=== PATIENT | female | born 1955 | race Caucasian/White ===

== ENCOUNTER → 2016-11-01 | Outpatient (CLI) | payer MEDICARE ==
--- NOTE | 2016-11-02 09:24 | MM ---
Reason for exam: screening (asymptomatic). Last mammogram was performed 1 year and 1 month ago. History: Patient is nulliparous. Core biopsy of the left breast. Physical Findings: A clinical breast exam by your physician is recommended on an annual basis and results should be correlated with mammographic findings. MG 3D Screening Mammo W/Cad Bilateral CC and MLO view(s) were taken. Prior study comparison: September 30, 2015, bilateral MG screening mammo w CAD. September 21, 2014, mammogram, performed at [facility]. There are scattered fibroglandular densities. There is no discrete abnormality. No significant changes when compared with prior studies. ASSESSMENT: Negative, BI-RAD 1 RECOMMENDATION: Routine screening mammogram of both breasts in 1 year.
== END | disposition home or self-care (01) ==
LOC: RADMAMWWP 13:53
PROVIDERS: ATTEND Family Medicine
DX: Z12.31 Encounter for screening mammogram for malignant neoplasm of breast (principal); Z80.3 Family history of malignant neoplasm of breast
CPT/HCPCS: 77063; G0202

== ENCOUNTER → 2016-11-19 | Outpatient (CLI) | payer MEDICARE ==
--- NOTE | 2016-11-19 15:27 | US ---
EXAMINATION TYPE: US transvaginal DATE OF EXAM: 11/19/2016 3:12 PM COMPARISON: NONE CLINICAL HISTORY: R10.31 RIGHT LOWER QUAD PAIN. TECHNIQUE: Transvaginal (TV) Date of LMP: postmenopausal x 10 yrs EXAM MEASUREMENTS: Uterus: 5.9 x 3.3 x 5.1cm Endometrial Stripe: 0.6 cm Right Ovary: 2.9 x 4.2 x 2.5 cm Left Ovary: 2.1 x 1.5 x 1.1 cm Findings: 1. Uterus: Retroverted seen with a 2.3 x 2.1 x 2.1cm shadowing fibroid at the uterine body 2. Endometrium: indented by fibroid, limitations 3. Right Ovary: seen with a few cystic components, largest about 2.0cm 4. Left Ovary: wnl 5. Bilateral Adnexa: wnl 6. Posterior cul-de-sac: no free fluid seen IMPRESSION: 1. Calcified leiomyoma. 2. Nonspecific Cystic changes right ovary.
== END | disposition home or self-care (01) ==
LOC: RADUSWWP 14:52
PROVIDERS: ATTEND Family Medicine
DX: D25.9 Leiomyoma of uterus, unspecified (principal); N83.209 Unspecified ovarian cyst, unspecified side
CPT/HCPCS: 76830

== ENCOUNTER 2017-05-16 07:35 | Day surgery (SDC) | payer MEDICARE ==
[2017-05-13 17:14] VITALS: BMI 47.1
[~2017-05-16 07:35] MED LIST: LIDOCAINE 1% 20 ML VIAL (10MG/ML) FOR IV START INTRADERMA PRN
[2017-05-16 07:53] VITALS: TEMP 97.4
[2017-05-16] MEDS: LACTATED RINGERS 1,000 ML IV SCH ×2 (08:13→08:23)
[2017-05-16 08:14] LABS: Glucose,Whole Blood 170 mg/dL (75-99)
[2017-05-16] MEDS ORDERED: PROPOFOL 10 MG/ML 20 ML VIAL IV ONE (08:34)
[2017-05-16] MEDS ORDERED: fentaNYL (PF) 50 MCG/ML 2 ML AMP ONE (08:34)
[2017-05-16] MEDS ORDERED: LIDOCAINE 1% INJ 10MG/ML (20 ML MDV) ONE (08:34)
[2017-05-16] MEDS ORDERED: MIDAZOLAM 2 MG/2 ML VIAL ONE (08:34)
--- NOTE | 2017-05-16 08:52 | P.GSHP ---
History of Present Illness H&P Date: 05/16/17 Chief Complaint: GI bleed This a 61-year-old female presents today for EGD and colonoscopy. She's had issues with GI bleed. She has a strong family history of colon cancer. - Constitutional Constitutional: Reports as per HPI Past Medical History Past Medical History: Heart Failure, Diabetes Mellitus, Hyperlipidemia, Hypertension, Skin Disorder, Thyroid Disorder Additional Past Medical History / Comment(s): BLOATING, DIARRHEA X5 WKS. VAGINAL HERPES SIMPLEX CURRENT. History of Any Multi-Drug Resistant Organisms: None Reported Past Surgical History: Appendectomy, Bariatric Surgery, Cholecystectomy Additional Past Surgical History / Comment(s): GASTRIC SLEEVE 09/2015. COLONOSCOPY Past Anesthesia/Blood Transfusion Reactions: Postoperative Nausea & Vomiting ( PONV) Smoking Status: Never smoker - Past Family History Sister(s) Family Medical History: Cancer, Pulmonary Embolus Additional Family Medical History / Comment(s): 2 SISTERS - COLON Medications and Allergies Home Medications Medication Instructions Recorded Confirmed Type Biotin 4,000 mcg PO DAILY 08/25/15 05/16/17 History Calcium Citrate 400 mg PO BID 08/25/15 05/16/17 History Carvedilol [Coreg] 3.125 mg PO BID 08/25/15 05/16/17 History Cholecalciferol [Vitamin D3] 5,000 unit PO DAILY 08/25/15 05/16/17 History Escitalopram [Lexapro] 20 mg PO QAM 08/25/15 05/16/17 History Furosemide [Lasix] 20 mg PO BID 08/25/15 05/16/17 History Insulin Aspart [NovoLOG] 0 unit SQ DAILY 08/25/15 05/16/17 History Levothyroxine Sodium [Synthroid] 112 mcg PO QAM 08/25/15 05/16/17 History Lisinopril [Zestril] 10 mg PO QAM 08/25/15 05/16/17 History Lurasidone [Latuda] 60 mg PO HS 08/25/15 05/16/17 History Multivitamins, Thera [Theragran] 1 each PO DAILY 08/25/15 05/16/17 History Thiamine [Vitamin B-1] 100 mg PO DAILY 08/25/15 05/16/17 History Vitamin B Complex 1,000 mcg PO DAILY 08/25/15 05/16/17 History Alirocumab [Praluent Pen] 150 mg SQ Q15D 05/13/17 05/16/17 History Aspirin [Adult Low Dose Aspirin EC] 81 mg PO DAILY 05/13/17 05/16/17 History Astaxanthine (Otc) 4,000 mcg PO DAILY 05/13/17 05/16/17 History Cholesticare (Otc) 1 tab PO DAILY 05/13/17 05/16/17 History Diosmin-Hesperidin 720 mg PO DAILY PRN 05/13/17 05/16/17 History L.acidoph,Paracasei, B.lactis 1 each PO DAILY 05/13/17 05/16/17 History [Probiotic] Liver Antioxidant (Otc) 1 tab PO DAILY 05/13/17 05/16/17 History Lutein 10 mg PO DAILY 05/13/17 05/16/17 History QUEtiapine [SEROquel] 50 mg PO HS 05/13/17 05/16/17 History Timolol Maleate/Pf [Timoptic 0.25% 1 dropper BOTH EYES DAILY 05/13/17 05/16/17 History Ocudose] Allergies Allergy/AdvReac Type Severity Reaction Status Date / Time influenza virus vaccine, Allergy MOUTH Verified 05/16/17 07:54 specific SORES,ITCHING [influenza virus vacc,specific] rosiglitazone [From Avandia] Allergy Rash/Hives Verified 05/16/17 07:54 Surgical - Exam Vital Signs Temp Pulse Resp BP Pulse Ox 97.4 F L 75 20 123/72 98 05/16/17 07:52 05/16/17 07:52 05/16/17 07:52 05/16/17 07:52 05/16/17 07:52 - General well developed, no distress - Eyes PERRL - ENT normal pinna - Neck no masses - Respiratory normal expansion - Cardiovascular Rhythm: regular - Abdomen Abdomen: soft, non tender Results - Labs Abnormal Lab Results - Last 24 Hours (Table) 05/16/17 Range/Units 08:10 POC Glucose (mg/dL) 170 H (75-99) mg/dL Assessment and Plan Plan: GI bleed, family history of colon cancer. We'll perform EGD and colonoscopy.
--- NOTE | 2017-05-16 09:15 | P.OP ---
Date of Procedure: 05/16/17 Preoperative Diagnosis: GI bleed Postoperative Diagnosis: Mild antral gastritis Mild esophagitis Diverticulosis Procedure(s) Performed: Implants: Anesthesia: MAC Surgeon: Casimiro Bach Pathology: other (Antrum, esophagus) Condition: stable Disposition: PACU Indications for Procedure: Operative Findings: Description of Procedure: The patient's placed on the endoscopy table in the lateral position. Received IV sedation. The gastroscope some placed oropharynx and passed into the esophagus and stomach. Scope was then placed through the pylorus. The first and second portion of the duodenum appeared normal. The scope was then brought back the antrum and this appeared mildly inflamed. A biopsies performed. The patient a previous gastric sleeve and this was without evidence of any inflammation or scarring. The GE junction was at 38 cm. The distal esophagus was mildly inflamed a biopsies performed. The proximal esophagus appeared normal. Next digital rectal exam was performed which revealed no abnormalities. The flexible colonoscope was then placed patient anus passed throughout the entire colon. The ileocecal valve was visualized. The cecum and ascending colon and transverse colon appeared normal. In the descending and sigmoid colon there was mild diverticulosis. There is no active diverticular bleeding. The scope was then brought back the rectum and this appeared normal. The scope was withdrawn for patient.
[2017-05-16 09:20] VITALS: RESP 18
[2017-05-16 09:25] LABS: Glucose,Whole Blood 158 mg/dL (75-99)
[2017-05-16 09:37] VITALS: PULSE 54
[2017-05-16 09:59] VITALS: BP 128/60
== END 2017-05-16 10:10 | disposition home or self-care (01) ==
LOC: ORWHC2ENDO 07:35
PROVIDERS: ATTEND Surgery
DX: K29.50 Unspecified chronic gastritis without bleeding (principal); K21.0 Gastro-esophageal reflux disease with esophagitis; K57.30 Diverticulosis of large intestine without perforation or abscess without bleeding; K92.2 Gastrointestinal hemorrhage, unspecified; G47.33 Obstructive sleep apnea (adult) (pediatric); R19.7 Diarrhea, unspecified; I10 Essential (primary) hypertension; E78.5 Hyperlipidemia, unspecified; E11.9 Type 2 diabetes mellitus without complications; Z79.4 Long term (current) use of insulin; Z88.7 Allergy status to serum and vaccine; Z96.41 Presence of insulin pump (external) (internal); Z98.84 Bariatric surgery status; Z79.899 Other long term (current) drug therapy
CPT/HCPCS: 88305; 88342; 45378; 43239; J2250; J2001; J3010; J2704

== ENCOUNTER 2017-06-08 18:33 | Emergency (ER) | payer MEDICARE ==
[2017-06-08] MEDS ORDERED: HYDROcodone/APAP 5-325MG 1 EACH TAB PO STA (18:49)
--- NOTE | 2017-06-08 19:39 | ED ---
General Adult HPI - General Chief complaint: Urogenital Stated complaint: Abd Pain Time Seen by Provider: 06/08/17 18:43 Source: patient, RN notes reviewed Mode of arrival: ambulatory Limitations: no limitations - History of Present Illness Initial comments: This a 61-year-old female presents emergency Department chief complaint of lower abdominal pain. She states his been ongoing for last 6 months or worsen over the last few days. Patient states that she does have some tea and dysuria. Patient states that she had a pelvic ultrasound which showed some ovarian cysts. Patient states she has an appointment with with an [employer] the next week. Patient states didn't see one locally but she did not like them so left her practice. Patient states that she was told that the pain may be related from her cervix. Patient states she has pain and right lower and suprapubic region. Patient states she has had a prior appendectomy. Patient has not had a hysterectomy and oophorectomy. Patient denies any diarrhea or constipation at this time. Patient has fever, chills. Patient states she did have a recent colonoscopy in May which showed some mild diverticulosis but no other concerns. - Related Data Home Medications Medication Instructions Recorded Confirmed Biotin 5 mg PO HS 08/25/15 06/08/17 Cholecalciferol [Vitamin D3] 5,000 unit PO HS 08/25/15 06/08/17 Escitalopram [Lexapro] 20 mg PO QAM 08/25/15 06/08/17 Levothyroxine Sodium [Synthroid] 112 mcg PO QAM 08/25/15 06/08/17 Lisinopril [Zestril] 10 mg PO QAM 08/25/15 06/08/17 Thiamine [Vitamin B-1] 100 mg PO HS 08/25/15 06/08/17 Vitamin B Complex 1 cap PO DAILY 08/25/15 06/08/17 Alirocumab [Praluent Pen] 150 mg SQ Q15D 05/13/17 06/08/17 Aspirin [Adult Low Dose Aspirin EC] 81 mg PO DAILY 05/13/17 06/08/17 Astaxanthine (Otc) 4,000 mcg PO HS 05/13/17 06/08/17 Cholesticare (Otc) 1 tab PO DAILY 05/13/17 06/08/17 Diosmin-Hesperidin 720 mg PO DAILY PRN 05/13/17 06/08/17 L.acidoph,Paracasei, B.lactis 1 cap PO HS 05/13/17 06/08/17 [Probiotic] Liver Antioxidant (Otc) 1 tab PO DAILY 05/13/17 06/08/17 Lutein 10 mg PO DAILY 05/13/17 06/08/17 QUEtiapine [SEROquel] 50 mg PO HS 05/13/17 06/08/17 Calcium Carbonate [Calcium] 600 mg PO BID 06/08/17 06/08/17 Carvedilol [Coreg] 3.125 mg PO BID 06/08/17 06/08/17 Furosemide [Lasix] 20 mg PO BID 06/08/17 06/08/17 Insulin Aspart (For Pump) [NovoLOG 0.01 unit SQ-PUMP CONTINUOUS 06/08/17 (For Pump)] Lurasidone HCl [Latuda] 60 mg PO HS 06/08/17 06/08/17 Multivitamins, Thera [Multivitamin 1 tab PO DAILY 06/08/17 06/08/17 (formulary)] Timolol 0.5% Ophth Soln [Timoptic 1 drop BOTH EYES QAM 06/08/17 06/08/17 0.5% Ophth Soln] Previous Rx's Medication Instructions Recorded Acetaminophen-Codeine 300-30mg 1 tab PO Q4H PRN #20 tablet 06/08/17 [Tylenol #3] Ciprofloxacin HCl [Cipro] 500 mg PO Q12HR #14 tablet 06/08/17 Allergies Allergy/AdvReac Type Severity Reaction Status Date / Time influenza virus vaccine, Allergy MOUTH Verified 06/08/17 18:38 specific SORES,ITCHING [influenza virus vacc,specific] rosiglitazone [From Avandia] Allergy Rash/Hives Verified 06/08/17 18:38 Review of Systems ROS Statement: Those systems with pertinent positive or pertinent negative responses have been documented in the HPI. ROS Other: All systems not noted in ROS Statement are negative. Past Medical History Past Medical History: Heart Failure, Diabetes Mellitus, Hyperlipidemia, Hypertension, Skin Disorder, Thyroid Disorder Additional Past Medical History / Comment(s): BLOATING, DIARRHEA X5 WKS. VAGINAL HERPES SIMPLEX CURRENT. History of Any Multi-Drug Resistant Organisms: None Reported Past Surgical History: Appendectomy, Bariatric Surgery, Cholecystectomy Additional Past Surgical History / Comment(s): GASTRIC SLEEVE 09/2015. COLONOSCOPY Past Anesthesia/Blood Transfusion Reactions: Postoperative Nausea & Vomiting ( PONV) Past Psychological History: Bipolar Smoking Status: Never smoker Past Alcohol Use History: None Reported Past Drug Use History: None Reported - Past Family History Sister(s) Family Medical History: Cancer, Pulmonary Embolus Additional Family Medical History / Comment(s): 2 SISTERS - COLON General Exam Limitations: no limitations General appearance: alert, in no apparent distress Respiratory exam: Present: normal lung sounds bilaterally. Absent: respiratory distress, wheezes, rales, rhonchi, stridor Cardiovascular Exam: Present: regular rate, normal rhythm, normal heart sounds. Absent: systolic murmur, diastolic murmur, rubs, gallop, clicks GI/Abdominal exam: Present: soft, tenderness (Mild suprapubic tenderness, right lower quadrant tenderness), normal bowel sounds. Absent: distended, guarding, rebound, rigid Back exam: Absent: CVA tenderness (R), CVA tenderness (L) Course Vital Signs 06/08/17 18:36 Temperature 98.2 F Pulse Rate 100 Respiratory 20 Rate Blood Pressure 144/67 O2 Sat by Pulse 98 Oximetry Medical Decision Making - Medical Decision Making 61-year-old female presented for lower abdominal pain. Patient's bilateral ( greatest on the right in the uterine fibroid. Patient also has UTI. She'll be started on antibiotics at this time given the first dose now. 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 - Lab Data Result diagrams: 06/08/17 19:30 06/08/17 19:30 Lab Results 06/08/17 06/08/17 06/08/17 Range/Units 19:15 19:30 19:30 WBC 9.3 (3.8-10.6) k/uL RBC 4.34 (3.80-5.40) m/uL Hgb 13.2 (11.4-16.0) gm/dL Hct 40.0 (34.0-46.0) % MCV 91.9 (80.0-100.0) fL MCH 30.4 (25.0-35.0) pg MCHC 33.0 (31.0-37.0) g/dL RDW 13.2 (11.5-15.5) % Plt Count 378 (150-450) k/uL Neutrophils % 79 % Lymphocytes % 13 % Monocytes % 4 % Eosinophils % 2 % Basophils % 1 % Neutrophils # 7.3 (1.3-7.7) k/uL Lymphocytes # 1.2 (1.0-4.8) k/uL Monocytes # 0.4 (0-1.0) k/uL Eosinophils # 0.2 (0-0.7) k/uL Basophils # 0.1 (0-0.2) k/uL Sodium 142 (137-145) mmol/L Potassium 5.1 (3.5-5.1) mmol/L Chloride 106 (98-107) mmol/L Carbon Dioxide 27 (22-30) mmol/L Anion Gap 9 mmol/L BUN 11 (7-17) mg/dL Creatinine 0.90 (0.52-1.04) mg/dL Est GFR (MDRD) Af Amer >60 (>60 ml/min/1.73 sqM) Est GFR (MDRD) Non-Af >60 (>60 ml/min/1.73 sqM) Glucose 105 H (74-99) mg/dL Calcium 8.9 (8.4-10.2) mg/dL Total Bilirubin 1.0 (0.2-1.3) mg/dL AST 15 (14-36) U/L ALT 22 (9-52) U/L Alkaline Phosphatase 74 (38-126) U/L Total Protein 6.0 L (6.3-8.2) g/dL Albumin 3.3 L (3.5-5.0) g/dL Amylase 40 (30-110) U/L Lipase 86 (23-300) U/L Urine Color Yellow Urine Appearance Cloudy H (Clear) Urine pH 5.5 (5.0-8.0) Ur Specific [place] 1.014 (1.001-1.035) Urine Protein Negative (Negative) Urine Glucose (UA) Negative (Negative) Urine Ketones Negative (Negative) Urine Blood Negative (Negative) Urine Nitrite Positive H (Negative) Urine Bilirubin Negative (Negative) Urine Urobilinogen <2.0 (<2.0) mg/dL Ur Leukocyte Esterase Large H (Negative) Urine RBC 3 (0-5) /hpf Urine WBC 76 H (0-5) /hpf Urine WBC Clumps Rare H (None) /hpf Ur Squamous Epith Cells 1 (0-4) /hpf Ur Transition Epith Cell <1 (0-1) /hpf Urine Bacteria Few H (None) /hpf Hyaline Casts 11 H (0-2) /lpf Urine Mucus Occasional H (None) /hpf Disposition Clinical Impression: Urinary tract infection, Ovarian cyst Disposition: HOME SELF-CARE Condition: Stable Instructions: Urinary Tract Infection in Women (ED), Ovarian Cyst (ED) Additional Instructions: Please return to the Emergency Department if symptoms worsen or any other concerns. Prescriptions: Acetaminophen-Codeine 300-30mg [Tylenol #3] 1 tab PO Q4H PRN #20 tablet PRN Reason: pain Ciprofloxacin HCl [Cipro] 500 mg PO Q12HR #14 tablet Referrals: Jd Bravo MD [Primary Care Provider] - 1-2 days Time of Disposition: 21:07
[2017-06-08 19:44] LABS: Basophils # (A) 0.1 k/uL (0-0.2); Basophils % (A) 1 %; CH 30.6; CHCM 33.5; Eosinophils # (A) 0.2 k/uL (0-0.7); Eosinophils % (A) 2 %; HDW 2.59; HGB 13.2 gm/dL (11.4-16.0); Luc # (Auto) 0.05; Luc % (Auto) 1; Lymphocytes # (A) 1.2 k/uL (1.0-4.8); Lymphocytes % (A) 13 %; MCH 30.4 pg (25.0-35.0); MCV 91.9 fL (80.0-100.0); Mean Platelet Volume 7.9; Monocytes # (A) 0.4 k/uL (0-1.0); Monocytes % (A) 4 %; Neutrophils # (A) 7.3 k/uL (1.3-7.7); Neutrophils % (A) 79 %; RBC 4.34 m/uL (3.80-5.40); RDW 13.2 % (11.5-15.5); WBC 9.3 k/uL (3.8-10.6); WBC (Perox) 9.19
[2017-06-08 19:59] LABS: ALT 22 U/L (9-52); AST 15 U/L (14-36); Alkaline Phosphatase 74 U/L (38-126); Amylase 40 U/L (30-110); Anion Gap 9 mmol/L; Blood Urea Nitrogen 11 mg/dL (7-17); Calcium 8.9 mg/dL (8.4-10.2); Carbon Dioxide 27 mmol/L (22-30); Chloride 106 mmol/L (98-107); Glucose 105 mg/dL (74-99); Non-African American GFR(MDRD) >60 (>60 ml/min/1.73 sqM); Potassium 5.1 mmol/L (3.5-5.1); Sodium 142 mmol/L (137-145)
[2017-06-08 20:08] LABS: Appearance,Urine Cloudy (Clear); Bacteria,Urine Few /hpf; Bilirubin,Urine Negative (Negative); Glucose,Urine (UA) Negative (Negative); Ketones,Urine Negative (Negative); Leukocyte Esterase,Urine Large (Negative); Mucus,Urine Occasional /hpf; Nitrite,Urine Positive (Negative); PH, Urine 5.5 (5.0-8.0); Particle Count 26588; Protein,Urine Negative (Negative); RBC,Urine 3 /hpf (0-5); Specific Gravity,Urine 1.014 (1.001-1.035); Squamous Epithelial Cell,Urine 1 /hpf (0-4); Transitional Epi Cells,Urine <1 /hpf (0-1); UA Billing (MACRO vs. MICRO) MICRO; Urobilinogen,Urine <2.0 mg/dL (<2.0); WBC,Urine 76 /hpf (0-5)
[2017-06-08] MEDS ORDERED: LEVOFLOXACIN 500 MG TAB PO STA (20:13)
--- NOTE | 2017-06-08 21:01 | US ---
EXAMINATION TYPE: US pelvis comp w/tv w/doppler DATE OF EXAM: 06/08/2017 COMPARISON: NONE CLINICAL HISTORY: Pain. RLQ pain greater than LLQ TECHNIQUE: Transvaginal (TV) and Transabdominal (TA) Date of LMP: about 10 years ago EXAM MEASUREMENTS: Uterus: 7.5 x 5.5 x 5.2 cm Endometrial Stripe: 0.5 cm Right Ovary: 8.9 x 6.5 x 9.0 cm Left Ovary: 3.1 x 2.3 x 2.6 cm Limited examination due to bowel, bladder fill, and patient tolerance of exam 1. Uterus: Retroverted; appears heterogeneous in echotexture; echogenic shadowing area right mid/fun kourtney uterus measuring approximately 2.0 x 0.7 x 1.2 cm 2. Endometrium: Limited due to heterogeneous uterus appears wnl 3. Right Ovary: Appears large in size with a large cystic space measuring approximately 3.3 x 2.7 x 2.6 cm 4. Left Ovary: Appears to have complex area measuring approximately 2.0 x 2.0 x 2.6 cm Spectral, color and waveform doppler imaging shows good arterial and venous flow within the ovaries ; there is no evidence for ovarian torsion. 5. Bilateral Adnexa: fluid noted in the right adnexa and posterior cul de sac 6. Posterior cul-de-sac: fluid noted in the right adnexa and posterior cul de sac IMPRESSION: 1. Free fluid within the cul-de-sac and adnexal regions. 2. Left ovarian cyst. 3. Right ovarian cyst. 4. Suspected calcified fibroid within the uterus.
[2017-06-08 21:32] VITALS: BP 138/61; PULSE 67; RESP 18; TEMP 99.2
== END 2017-06-08 21:25 | disposition home or self-care (01) ==
LOC: EC 18:33
DX: N83.201 Unspecified ovarian cyst, right side (principal); N83.202 Unspecified ovarian cyst, left side; N39.0 Urinary tract infection, site not specified; D25.9 Leiomyoma of uterus, unspecified; E78.5 Hyperlipidemia, unspecified; E11.9 Type 2 diabetes mellitus without complications; I11.0 Hypertensive heart disease with heart failure; I50.9 Heart failure, unspecified; E07.9 Disorder of thyroid, unspecified; F31.9 Bipolar disorder, unspecified; Z79.4 Long term (current) use of insulin; Z79.82 Long term (current) use of aspirin; Z79.899 Other long term (current) drug therapy; Z87.19 Personal history of other diseases of the digestive system; Z90.49 Acquired absence of other specified parts of digestive tract; Z98.84 Bariatric surgery status
CPT/HCPCS: 36415; 76830; 76856; 80053; 81001; 82150; 83690; 85025; 93976; 99284

== ENCOUNTER 2017-06-28 02:01 | Observation (INO) | payer MEDICARE ==
--- NOTE | 2017-06-28 02:12 | ED ---
SOB HPI - General Chief Complaint: Shortness of Breath Stated Complaint: Chest pain Time Seen by Provider: 06/28/17 02:07 Source: patient Mode of arrival: wheelchair Limitations: no limitations - History of Present Illness Initial Comments: This patient is a 61-year-old woman who presents to be evaluated for feeling like she cannot take a deep breath then. She states that for between a week and 2 she has had a feeling that she is having increasing abdominal girth and that is becoming harder to take a full breath then. Patient denies fever or chills, chest pain, cough, leg pain or swelling, change in urination or bowel movements. MD Complaint: shortness of breath -: days(s) Improves With: nothing Worsens With: nothing Known History Of: congestive heart failure Associated Symptoms: denies other symptoms Treatments Prior to Arrival: none - Related Data Home Medications Medication Instructions Recorded Confirmed Biotin 5 mg PO HS 08/25/15 06/08/17 Cholecalciferol [Vitamin D3] 5,000 unit PO 08/25/15 06/08/17 Escitalopram [Lexapro] 20 mg PO QAM 08/25/15 06/08/17 Levothyroxine Sodium [Synthroid] 112 mcg PO QAM 08/25/15 06/08/17 Lisinopril [Zestril] 10 mg PO QAM 08/25/15 06/08/17 Thiamine [Vitamin B-1] 100 mg PO HS 08/25/15 06/08/17 Vitamin B Complex 1 cap PO DAILY 08/25/15 06/08/17 Alirocumab [Praluent Pen] 150 mg SQ Q15D 05/13/17 06/08/17 Aspirin [Adult Low Dose Aspirin EC] 81 mg PO DAILY 05/13/17 06/08/17 Astaxanthine (Otc) 4,000 mcg PO HS 05/13/17 06/08/17 Cholesticare (Otc) 1 tab PO DAILY 05/13/17 06/08/17 Diosmin-Hesperidin 720 mg PO DAILY PRN 05/13/17 06/08/17 L.acidoph,Paracasei, B.lactis 1 cap PO HS 05/13/17 06/08/17 [Probiotic] Liver Antioxidant (Otc) 1 tab PO DAILY 05/13/17 06/08/17 Lutein 10 mg PO DAILY 05/13/17 06/08/17 QUEtiapine [SEROquel] 50 mg PO HS 05/13/17 06/08/17 Calcium Carbonate [Calcium] 600 mg PO BID 06/08/17 06/08/17 Carvedilol [Coreg] 3.125 mg PO BID 06/08/17 06/08/17 Furosemide [Lasix] 20 mg PO BID 06/08/17 06/08/17 Insulin Aspart (For Pump) [NovoLOG 0.01 unit SQ-PUMP CONTINUOUS 06/08/17 (For Pump)] Lurasidone HCl [Latuda] 60 mg PO HS 06/08/17 06/08/17 Multivitamins, Thera [Multivitamin 1 tab PO DAILY 06/08/17 06/08/17 (formulary)] Timolol 0.5% Ophth Soln [Timoptic 1 drop BOTH EYES QAM 06/08/17 06/08/17 0.5% Ophth Soln] Previous Rx's Medication Instructions Recorded Acetaminophen-Codeine 300-30mg 1 tab PO Q4H PRN #20 tablet 06/08/17 [Tylenol #3] Ciprofloxacin HCl [Cipro] 500 mg PO Q12HR #14 tablet 06/08/17 Allergies Allergy/AdvReac Type Severity Reaction Status Date / Time influenza virus vaccine, Allergy MOUTH Verified 06/28/17 02:12 specific SORES,ITCHING [influenza virus vacc,specific] rosiglitazone [From Avandia] Allergy Rash/Hives Verified 06/28/17 02:12 Review of Systems ROS Statement: Those systems with pertinent positive or pertinent negative responses have been documented in the HPI. ROS Other: All systems not noted in ROS Statement are negative. Constitutional: Denies: fever, chills Respiratory: Reports: dyspnea. Denies: cough, wheezes, hemoptysis Cardiovascular: Denies: chest pain, palpitations, dyspnea on exertion, orthopnea , edema, syncope Gastrointestinal: Reports: abdominal pain (See HPI). Denies: nausea, vomiting, diarrhea, constipation Genitourinary: Denies: dysuria, hematuria Musculoskeletal: Denies: back pain Skin: Denies: rash Neurological: Denies: headache Past Medical History Past Medical History: Heart Failure, Diabetes Mellitus, Hyperlipidemia, Hypertension, Skin Disorder, Thyroid Disorder Additional Past Medical History / Comment(s): BLOATING, DIARRHEA X5 WKS. VAGINAL HERPES SIMPLEx, History of Any Multi-Drug Resistant Organisms: None Reported Past Surgical History: Appendectomy, Bariatric Surgery, Cholecystectomy Additional Past Surgical History / Comment(s): GASTRIC SLEEVE 09/2015. COLONOSCOPY Past Anesthesia/Blood Transfusion Reactions: Postoperative Nausea & Vomiting ( PONV) Past Psychological History: Bipolar Smoking Status: Never smoker Past Alcohol Use History: None Reported Past Drug Use History: None Reported - Past Family History Sister(s) Family Medical History: Cancer, Pulmonary Embolus Additional Family Medical History / Comment(s): 2 SISTERS - COLON General Exam Limitations: no limitations General appearance: alert, in no apparent distress, obese Head exam: Present: atraumatic, normocephalic Eye exam: Present: normal appearance. Absent: scleral icterus, conjunctival injection Neck exam: Present: normal inspection, full ROM Respiratory exam: Present: normal lung sounds bilaterally. Absent: respiratory distress, wheezes, rales, rhonchi, stridor Cardiovascular Exam: Present: regular rate, normal rhythm, normal heart sounds. Absent: systolic murmur, diastolic murmur, rubs, gallop GI/Abdominal exam: Present: soft, distended, normal bowel sounds. Absent: tenderness, guarding, rebound, pulsatile mass, hernia Extremities exam: Present: normal inspection, normal capillary refill. Absent: pedal edema, calf tenderness Back exam: Present: normal inspection. Absent: CVA tenderness (R), CVA tenderness (L) Neurological exam: Present: alert Skin exam: Present: warm, dry, intact, normal color. Absent: rash Course Vital Signs 06/28/17 06/28/17 06/28/17 02:06 03:30 04:30 Temperature 97.7 F Pulse Rate 85 80 84 Respiratory 20 18 18 Rate Blood Pressure 131/64 129/63 131/64 O2 Sat by Pulse 99 96 96 Oximetry 06/28/17 05:12 Temperature Pulse Rate 85 Respiratory 18 Rate Blood Pressure 120/59 O2 Sat by Pulse 98 Oximetry Medical Decision Making - Lab Data Result diagrams: 06/28/17 02:17 06/28/17 02:17 Lab Results 06/28/17 06/28/17 06/28/17 Range/Units 02:17 02:17 02:17 WBC 7.7 (3.8-10.6) k/uL RBC 4.04 (3.80-5.40) m/uL Hgb 11.9 (11.4-16.0) gm/dL Hct 35.8 (34.0-46.0) % MCV 88.8 (80.0-100.0) fL MCH 29.5 (25.0-35.0) pg MCHC 33.2 (31.0-37.0) g/dL RDW 12.4 (11.5-15.5) % Plt Count 570 H (150-450) k/uL Neutrophils % 68 % Lymphocytes % 22 % Monocytes % 6 % Eosinophils % 2 % Basophils % 1 % Neutrophils # 5.2 (1.3-7.7) k/uL Lymphocytes # 1.7 (1.0-4.8) k/uL Monocytes # 0.5 (0-1.0) k/uL Eosinophils # 0.2 (0-0.7) k/uL Basophils # 0.1 (0-0.2) k/uL PT (9.0-12.0) sec INR (<1.2) APTT (22.0-30.0) sec D-Dimer (<0.60) mg/L FEU Sodium 137 (137-145) mmol/L Potassium 5.0 (3.5-5.1) mmol/L Chloride 105 (98-107) mmol/L Carbon Dioxide 22 (22-30) mmol/L Anion Gap 10 mmol/L BUN 32 H (7-17) mg/dL Creatinine 1.80 H (0.52-1.04) mg/dL Est GFR (MDRD) Af Amer 35 (>60 ml/min/1.73 sqM) Est GFR (MDRD) Non-Af 29 (>60 ml/min/1.73 sqM) Glucose 155 H (74-99) mg/dL Calcium 8.7 (8.4-10.2) mg/dL Total Bilirubin 0.5 (0.2-1.3) mg/dL AST 21 (14-36) U/L ALT 28 (9-52) U/L Alkaline Phosphatase 78 (38-126) U/L Total Creatine Kinase 27 L (30-135) U/L CK-MB (CK-2) 1.4 (0.0-2.4) ng/mL CK-MB (CK-2) Rel Index 5.2 Troponin I <0.012 (0.000-0.034) ng/mL NT-Pro-B Natriuret Pep pg/mL Total Protein 6.0 L (6.3-8.2) g/dL Albumin 3.1 L (3.5-5.0) g/dL Urine Color Urine Appearance (Clear) Urine pH (5.0-8.0) Ur Specific [place] (1.001-1.035) Urine Protein (Negative) Urine Glucose (UA) (Negative) Urine Ketones (Negative) Urine Blood (Negative) Urine Nitrite (Negative) Urine Bilirubin (Negative) Urine Urobilinogen (<2.0) mg/dL Ur Leukocyte Esterase (Negative) Urine RBC (0-5) /hpf Urine WBC (0-5) /hpf Urine WBC Clumps (None) /hpf Ur Squamous Epith Cells (0-4) /hpf Hyaline Casts (0-2) /lpf Urine Mucus (None) /hpf 06/28/17 06/28/17 06/28/17 Range/Units 02:17 02:17 03:02 WBC (3.8-10.6) k/uL RBC (3.80-5.40) m/uL Hgb (11.4-16.0) gm/dL Hct (34.0-46.0) % MCV (80.0-100.0) fL MCH (25.0-35.0) pg MCHC (31.0-37.0) g/dL RDW (11.5-15.5) % Plt Count (150-450) k/uL Neutrophils % % Lymphocytes % % Monocytes % % Eosinophils % % Basophils % % Neutrophils # (1.3-7.7) k/uL Lymphocytes # (1.0-4.8) k/uL Monocytes # (0-1.0) k/uL Eosinophils # (0-0.7) k/uL Basophils # (0-0.2) k/uL PT 11.0 (9.0-12.0) sec INR 1.1 (<1.2) APTT 26.9 (22.0-30.0) sec D-Dimer 14.40 H (<0.60) mg/L FEU Sodium (137-145) mmol/L Potassium (3.5-5.1) mmol/L Chloride (98-107) mmol/L Carbon Dioxide (22-30) mmol/L Anion Gap mmol/L BUN (7-17) mg/dL Creatinine (0.52-1.04) mg/dL Est GFR (MDRD) Af Amer (>60 ml/min/1.73 sqM) Est GFR (MDRD) Non-Af (>60 ml/min/1.73 sqM) Glucose (74-99) mg/dL Calcium (8.4-10.2) mg/dL Total Bilirubin (0.2-1.3) mg/dL AST (14-36) U/L ALT (9-52) U/L Alkaline Phosphatase (38-126) U/L Total Creatine Kinase (30-135) U/L CK-MB (CK-2) (0.0-2.4) ng/mL CK-MB (CK-2) Rel Index Troponin I (0.000-0.034) ng/mL NT-Pro-B Natriuret Pep 1080 pg/mL Total Protein (6.3-8.2) g/dL Albumin (3.5-5.0) g/dL Urine Color Yellow Urine Appearance Cloudy H (Clear) Urine pH 5.0 (5.0-8.0) Ur Specific [place] 1.015 (1.001-1.035) Urine Protein Trace H (Negative) Urine Glucose (UA) Negative (Negative) Urine Ketones Negative (Negative) Urine Blood Negative (Negative) Urine Nitrite Negative (Negative) Urine Bilirubin Negative (Negative) Urine Urobilinogen 2.0 (<2.0) mg/dL Ur Leukocyte Esterase Large H (Negative) Urine RBC 2 (0-5) /hpf Urine WBC 124 H (0-5) /hpf Urine WBC Clumps Occasional H (None) /hpf Ur Squamous Epith Cells 3 (0-4) /hpf Hyaline Casts 67 H (0-2) /lpf Urine Mucus Rare H (None) /hpf - EKG Data -: EKG Interpreted by Me EKG shows normal: sinus rhythm, axis (Normal), intervals (Normal), QRS complexes (Normal) Rate: normal (86 bpm) Interpretation: nonspecific ST-T wave changes Disposition Clinical Impression: Dyspnea, Elevated d-dimer Disposition: ADMITTED IP TO THIS HOSP Condition: Fair Referrals: Jd Bravo MD [Primary Care Provider] - 1-2 days
[2017-06-28 02:37] LABS: Basophils # (A) 0.1 k/uL (0-0.2); Basophils % (A) 1 %; CH 28.8; CHCM 32.5; Eosinophils # (A) 0.2 k/uL (0-0.7); Eosinophils % (A) 2 %; HCT 35.8 % (34.0-46.0); HGB 11.9 gm/dL (11.4-16.0); Luc # (Auto) 0.07; Luc % (Auto) 1; Lymphocytes # (A) 1.7 k/uL (1.0-4.8); Lymphocytes % (A) 22 %; MCH 29.5 pg (25.0-35.0); MCHC 33.2 g/dL (31.0-37.0); MCV 88.8 fL (80.0-100.0); Monocytes # (A) 0.5 k/uL (0-1.0); Monocytes % (A) 6 %; Neutrophils # (A) 5.2 k/uL (1.3-7.7); Neutrophils % (A) 68 %; RBC 4.04 m/uL (3.80-5.40); RDW 12.4 % (11.5-15.5); WBC 7.7 k/uL (3.8-10.6); WBC (Perox) 7.94
[2017-06-28 02:47] LABS: Calcium 8.7 mg/dL (8.4-10.2); Total Bilirubin 0.5 mg/dL (0.2-1.3)
[2017-06-28 02:56] LABS: Creatine Kinase 27 U/L (30-135); INR 1.1 (<1.2); Partial Thromboplastin Time 26.9 sec (22.0-30.0)
--- NOTE | 2017-06-28 02:58 | XR ---
EXAM: XR Chest, 1 View CLINICAL HISTORY: Dyspnea TECHNIQUE: Frontal view of the chest. COMPARISON: No relevant prior studies available. FINDINGS: Lungs: Atelectasis at left lung base. Otherwise, lungs are clear. Pleural space: Unremarkable. No pneumothorax. Heart: Unremarkable. No cardiomegaly. Mediastinum: Unremarkable. Bones/joints: Unremarkable. IMPRESSION: No acute findings.
[2017-06-28 03:09] LABS: Creatine Kinase MB 1.4 ng/mL (0.0-2.4); Troponin I <0.012 ng/mL (0.000-0.034)
[2017-06-28] MEDS ORDERED: HEPARIN SODIUM,PORCINE 5,000 UNIT/ML 1 ML VIAL IV ONE (03:10)
[2017-06-28] MEDS ORDERED: HEPARIN SODIUM,PORCINE/D5W PMX 25,000 UNIT in DEXTROSE/WATER 1 500ML.BAG IV SCH (03:10)
[2017-06-28] MEDS ORDERED: HEPARIN SODIUM,PORCINE 5,000 UNIT/ML 1 ML VIAL IV PRN (03:10)
[2017-06-28 03:14] LABS: Appearance,Urine Cloudy (Clear); Bilirubin,Urine Negative (Negative); Glucose,Urine (UA) Negative (Negative); Ketones,Urine Negative (Negative); Leukocyte Esterase,Urine Large (Negative); Mucus,Urine Rare /hpf; Nitrite,Urine Negative (Negative); Particle Count 7959; Protein,Urine Trace (Negative); RBC,Urine 2 /hpf (0-5); Specific Gravity,Urine 1.015 (1.001-1.035); Squamous Epithelial Cell,Urine 3 /hpf (0-4); UA Billing (MACRO vs. MICRO) MICRO; WBC,Urine 124 /hpf (0-5)
[2017-06-28] MEDS ORDERED: MORPHINE SULFATE 4 MG/ML SYRINGE IV STA (03:20)
[2017-06-28] MEDS ORDERED: ONDANSETRON 4 MG/2 ML VIAL IVP PRN (05:46)
[2017-06-28] MEDS ORDERED: NALOXONE 0.4 MG/ML 1 ML VIAL IV PRN (05:46)
[2017-06-28] MEDS ORDERED: ACETAMINOPHEN TAB 325 MG TAB PO PRN (05:46)
[2017-06-28] MEDS ORDERED: Acetaminophen-Codeine 300-30mg TAB PO PRN (05:48)
[2017-06-28] MEDS: Insulin Aspart (For Pump) 100 UNIT/ML VIAL SQ-PUMP SCH (08:42)
[2017-06-28] MEDS ORDERED: NON-FORMULARY DRUG (Lutein [Lutein] 10 MG) PO SCH (09:00)
[2017-06-28] MEDS ORDERED: FAMOTIDINE 20 MG TAB PO SCH (09:00)
[2017-06-28] MEDS ORDERED: LISINOPRIL 10 MG TAB PO SCH (09:00)
[2017-06-28] MEDS: CALCIUM CARBONATE 500 MG CHEWABLE PO SCH ×2 (09:03→21:08)
[2017-06-28] MEDS: CARVEDILOL 3.125 MG TAB PO SCH ×2 (09:06→21:08)
[2017-06-28] MEDS: SODIUM CHLORIDE 0.9% 1,000 ML IV SCH (09:06)
[2017-06-28] MEDS: ESCITALOPRAM 20 MG TAB PO SCH (09:06)
[2017-06-28] MEDS: MULTIVITAMINS, THERA 1 EACH TAB PO SCH (09:07)
[2017-06-28] MEDS: TIMOLOL 0.5% OPHTH DROPS 5 ML BTL BOTH EYES SCH (09:07)
[2017-06-28] MEDS: LEVOTHYROXINE 112 MCG TAB PO SCH (09:07)
[2017-06-28] MEDS: ASPIRIN 81 MG PO SCH (09:07)
--- NOTE | 2017-06-28 10:41 | P.HPIM ---
History of Present Illness H&P Date: 06/28/17 Chief Complaint: Shortness of breath This is a 61 year old female who presented to the ER on 06-28-17 with a chief complaint of shortness of breath for 1-2 weeks. The patient also states she feels as though her abdomen is getting more distended which is also contributing to her shortness of breath. She states she has not had a good appetite for the past week because she is unable to eat because of her abdominal fullness. The patient has a history of a recent urinary tract infection about a month ago. The patient states she completed the full course of antibiotics. She is a history of diabetes mellitus type 2. She has an insulin pump but has turned it off yesterday because of hypoglycemia due to not eating a lot. She states that she is been seeing her T[employer] CAR LO[employer]ER, Dr Hein in [place], on an outpatient basis and she is being worked up for the possibility of ovarian cancer. She is supposed to have a CT scan completed next week on an outpatient basis. In the emergency room a d-dimer was completed and the results were 14.4. She was found to have an acute kidney injury on admission as well. Her creatinine was 1.8. Her baseline creatinine is 0.9. The patient is scheduled for a VQ scan this morning. She was started on a heparin drip and IV fluids at 20 mL an hour. A chest x-ray was completed which was unremarkable. Review of Systems Those systems with pertinent positive or pertinent negative responses have been documented in the HPI Past Medical History Past Medical History: Heart Failure, Diabetes Mellitus, Eye Disorder, GERD/ Reflux, Hyperlipidemia, Hypertension, Skin Disorder, Thyroid Disorder Additional Past Medical History / Comment(s): Recent UTI-pt has completed ABX, pt states she is being worked up for possible ovarian cancer-Dr. Bravo ( ict business development manager/[facility]) was sending her for CT scan, increased abdominal girth/bloating and diarrhea on and off, IDDM type II-has insulin pump but turned off yesterday because lately d/t decreased appetite pt has been having hypoglycemic episodes, bilateral glaucoma, lower GI bleed, GASTRITIS, DIVERTICULAR DX, hypothyroid, ventral hernia, VAGINAL HERPES SIMPLEx, History of Any Multi-Drug Resistant Organisms: None Reported Past Surgical History: Appendectomy, Bariatric Surgery, Cholecystectomy Additional Past Surgical History / Comment(s): GASTRIC SLEEVE 09/2015, COLONOSCOPIES/EGDS WITH LAST ONES DONE 05/21/17, BILATERAL CATARACT REMOVAL WITH LENS IMPLANTS. Past Anesthesia/Blood Transfusion Reactions: Postoperative Nausea & Vomiting ( PONV) Smoking Status: Never smoker - Past Family History Mother Family Medical History: Diabetes Mellitus, Hypertension Father Family Medical History: No Reported History Additional Family Medical History / Comment(s): FATHER AT THE AGE OF 74YRS AND WAS HEALTHY UNTIL HIS . CAUSE OF UNKNOWN. Sister(s) Family Medical History: Cancer, Pulmonary Embolus Additional Family Medical History / Comment(s): 2 SISTERS - COLON CA AND ONE FEBRUARY 2017 FROM METS TO LIVER. ONE SISTER HAS HAD A PULMONARY EMBOLI. Medications and Allergies Home Medications Medication Instructions Recorded Confirmed Type Biotin 5 mg PO HS 08/25/15 06/28/17 History Cholecalciferol [Vitamin D3] 5,000 unit PO HS 08/25/15 06/28/17 History Escitalopram [Lexapro] 20 mg PO QAM 08/25/15 06/28/17 History Levothyroxine Sodium [Synthroid] 112 mcg PO QAM 08/25/15 06/28/17 History Lisinopril [Zestril] 10 mg PO QAM 08/25/15 06/28/17 History Thiamine [Vitamin B-1] 100 mg PO HS 08/25/15 06/28/17 History Vitamin B Complex 1 cap PO DAILY 08/25/15 06/28/17 History Alirocumab [Praluent Pen] 150 mg SQ Q15D 05/13/17 06/28/17 History Aspirin [Adult Low Dose Aspirin EC] 81 mg PO DAILY 05/13/17 06/28/17 History Astaxanthine (Otc) 4,000 mcg PO HS 05/13/17 06/28/17 History Cholesticare (Otc) 1 tab PO DAILY 05/13/17 06/28/17 History Diosmin-Hesperidin 720 mg PO DAILY PRN 05/13/17 06/28/17 History L.acidoph,Paracasei, B.lactis 1 cap PO HS 05/13/17 06/28/17 History [Probiotic] Liver Antioxidant (Otc) 1 tab PO DAILY 05/13/17 06/28/17 History Lutein 10 mg PO DAILY 05/13/17 06/28/17 History QUEtiapine [SEROquel] 50 mg PO HS 05/13/17 06/28/17 History Acetaminophen-Codeine 300-30mg 1 tab PO Q4H PRN #20 tablet 06/08/17 06/28/17 Rx [Tylenol #3] Calcium Carbonate [Calcium] 600 mg PO BID 06/08/17 06/28/17 History Carvedilol [Coreg] 3.125 mg PO BID 06/08/17 06/28/17 History Furosemide [Lasix] 20 mg PO BID 06/08/17 06/28/17 History Insulin Aspart (For Pump) [NovoLOG 0.01 unit SQ-PUMP CONTINUOUS 06/08/17 History (For Pump)] Lurasidone HCl [Latuda] 60 mg PO HS 06/08/17 06/28/17 History Multivitamins, Thera [Multivitamin 1 tab PO DAILY 06/08/17 06/28/17 History (formulary)] Timolol 0.5% Ophth Soln [Timoptic 1 drop BOTH EYES QAM 06/08/17 06/28/17 History 0.5% Ophth Soln] Allergies Allergy/AdvReac Type Severity Reaction Status Date / Time influenza virus vaccine, Allergy MOUTH Verified 06/28/17 07:53 specific SORES,ITCHING [influenza virus vacc,specific] rosiglitazone [From Avandia] Allergy Rash/Hives Verified 06/28/17 07:53 Physical Exam Vitals: Vital Signs Temp Pulse Pulse Resp BP BP Pulse Ox 06/28/17 07:30 98.0 F 74 18 118/52 99 06/28/17 06:37 85 18 129/65 98 06/28/17 05:12 85 18 120/59 98 06/28/17 04:30 84 18 131/64 96 06/28/17 03:30 80 18 129/63 96 06/28/17 02:06 97.7 F 85 20 131/64 99 Intake and Output 06/27/17 06/28/17 06/28/17 22:59 06:59 14:59 Other: Weight 120.202 kg 107 kg Patient Weight 06/29/17 06:59 Weight 107 kg GENERAL: Alert and oriented. Short of breath with communication. Pleasant and cooperative. RESPIRATORY: Lungs clear bilaterally. No use of accessory muscles. Patient maintaining oxygen saturation greater than 92% on 2L. CARDIOVASCULAR: S1 and S2 noted. No murmurs auscultated. No JVD noted. EXTREMITIES: Trace lower extremity noted. Palpable pedal pulses +2. ABDOMEN: Obese. Distended noted. Abdomen soft. Bowel sounds auscultated 4 quadrants. Pain or tenderness noted upon palpation in all four quadrants. Results CBC & Chem 7: 06/28/17 02:17 06/28/17 02:17 Labs: Abnormal Lab Results - Last 24 Hours (Table) 06/28/17 06/28/17 06/28/17 Range/Units 02: 02:17 02:17 Plt Count 570 H (150-450) k/uL APTT (22.0-30.0) sec D-Dimer (<0.60) mg/L FEU BUN 32 H (7-17) mg/dL Creatinine 1.80 H (0.52-1.04) mg/dL Glucose 155 H (74-99) mg/dL Total Creatine Kinase 27 L (30-135) U/L Total Protein 6.0 L (6.3-8.2) g/dL Albumin 3.1 L (3.5-5.0) g/dL Urine Appearance (Clear) Urine Protein (Negative) Ur Leukocyte Esterase (Negative) Urine WBC (0-5) /hpf Urine WBC Clumps (None) /hpf Hyaline Casts (0-2) /lpf Urine Mucus (None) /hpf 06/28/17 06/28/17 06/28/17 Range/Units 02:17 03:02 08:59 Plt Count (150-450) k/uL APTT 160.2 H* (22.0-30.0) sec D-Dimer 14.40 H (<0.60) mg/L FEU BUN (7-17) mg/dL Creatinine (0.52-1.04) mg/dL Glucose (74-99) mg/dL Total Creatine Kinase (30-135) U/L Total Protein (6.3-8.2) g/dL Albumin (3.5-5.0) g/dL Urine Appearance Cloudy H (Clear) Urine Protein Trace H (Negative) Ur Leukocyte Esterase Large H (Negative) Urine WBC 124 H (0-5) /hpf Urine WBC Clumps Occasional H (None) /hpf Hyaline Casts 67 H (0-2) /lpf Urine Mucus Rare H (None) /hpf Thrombosis Risk Factor Assmnt - Choose All That Apply Any of the Below Risk Factors Present?: Yes Other Risk Factors: Yes Each Risk Factor Represents 2 Points: Age 61-74 years Each Risk Factor Represents 3 Points: Family history of DVT/PE Other congenital or acquired thrombophilia - If yes, enter type in comment: No Thrombosis Risk Factor Assessment Total Risk Factor Score: 5 Thrombosis Risk Factor Assessment Level: High Risk Assessment and Plan Plan: ASSESSMENT: -Shortness of breath, present on admission, etiology unknown, VQ scan pending -Acute kidney injury, present on admission, creatinine 1.80. Baseline 0.9, may be due to decreased oral intake -History of congestive heart failure, type unknown, echo pending -Elevated d-dimer, present on admission, questionable pulmonary embolism, VQ scan pending -History of diabetes mellitus type 2, patient has insulin pump -History of recent urinary tract infection -Obesity: BMI 41.8 PLAN: -Gentle rehydration-IV fluids at 50 mL an hour -Obtain echo -Await results of VQ scan -Continue heparin drip at this time -Obtain CT scan of pelvis and abdomen without contrast (unable to have contrast due to elevated creatinine) -Consult nephrology due to acute kidney injury -Obtain Doppler of lower extremities -Resume home meds as appropriate -Consult [employer] as patient states she was being worked up outpatient for ovarian cancer -Patient refusing oncology consult at this time. Would like to follow up with her oncologist after DC. -GI prophylaxis: Pepcid 20 mg by mouth twice a day -DVT prophylaxis: Patient currently has heparin drip infusing -Continue to monitor capillary blood glucose. Patient currently has insulin pump turned off. The above impression and plan of care have been discussed and directed by signing physician. Jessenia Anaya, nurse practitioner, acting as scribe for signing physician.
--- NOTE | 2017-06-28 11:45 | ECHOF ---
Referral Reason:LV function MEASUREMENTS -------- HEIGHT: 160.0 cm WEIGHT: 106.6 kg BP: IVSd: 1.1 cm (0.6 - 1.1) LVIDd: 3.0 cm (3.9 - 5.3) LVPWd: 1.0 cm (0.6 - 1.1) IVSs: 1.4 cm LVIDs: 1.5 cm LVPWs: 1.6 cm Ao Diam: 3.3 cm (2.0 - 3.7) AV Cusp: 2.4 cm (1.5 - 2.6) LA Diam: 2.6 cm (2.7 - 3.8) MV EXCURSION: 17.701 mm (> 18.000) MV EF SLOPE: 113 mm/s (70 - 150) EPSS: 0.7 cm MV E Davy: 0.56 m/s MV DecT: 238 ms MV A Davy: 0.84 m/s MV E/A Ratio: 0.66 RAP: 5.00 mmHg RVSP: 15.50 mmHg FINDINGS -------- Sinus rhythm. This was a technically adequate study. The left ventricular size is normal. Left ventricular wall thickness is normal. Overall left ventricular systolic function is normal with, an EF between 55 - 60 %. The right ventricle is normal in size and function. The left atrium is normal in size. The right atrium is normal in size. The aortic valve is trileaflet, and appears structurally normal. No aortic stenosis or regurgitation. There is trace mitral regurgitation. Trace tricuspid regurgitation present. The right ventricular systolic pressure, as measured by Doppler, is 15.50mmHg. Pulmonic valve appears structurally normal. The aortic root size is normal. There is a trivial pericardial effusion present. CONCLUSIONS -------- 1. Sinus rhythm. 2. There is trace mitral regurgitation. 3. Trace tricuspid regurgitation present. 4. The right ventricular systolic pressure, as measured by Doppler, is 15.50mmHg. 5. Pulmonic valve appears structurally normal. 6. The aortic root size is normal. 7. There is a trivial pericardial effusion present. 8. This was a technically adequate study. 9. The left ventricular size is normal. 10. Left ventricular wall thickness is normal. 11. Overall left ventricular systolic function is normal with, an EF between 55 - 60 %. 12. The right ventricle is normal in size and function. 13. The left atrium is normal in size. 14. The right atrium is normal in size. 15. The aortic valve is trileaflet, and appears structurally normal. No aortic stenosis or regurgitation. [employer]: Belkys Carrera RDCS
--- NOTE | 2017-06-28 11:56 | NM ---
EXAMINATION TYPE: NM pul vent and perfuse DATE OF EXAM: 06/28/2017 COMPARISON: Chest x-ray 06/28/2017 HISTORY: Shortness of breath TECHNIQUE: Utilizing inhalation of 71.5 mCi Tc 99m DTPA aerosol and intravenous injection of 5.5 mCi of Tc 99m MAA, ventilation and perfusion images are acquired post injection in multiple projections. FINDINGS: Normal radiotracer distribution is noted in the lungs. There is no evidence of mismatched defects. IMPRESSION: Low probability for pulmonary embolism.
[2017-06-28 12:07] LABS: Glucose,Whole Blood 153 mg/dL (75-99)
--- NOTE | 2017-06-28 12:47 | P.NPCON ---
History of Present Illness - Reason for Consult acute renal failure - History of Present Illness Reason for consultation: Acute kidney injury History of present illness: Patient is a 61-year-old female seen in renal consultation for acute kidney injury. Her baseline creatinine is 1 and was elevated at 1.8 on admission. Patient presented to the hospital with abdominal fullness and increased girth. Patient states over the last few days her abdomen has been getting progressively more and more distended. She was also being worked up for possible ovarian cancer as an outpatient with her certified cytotechnologist. She was posterior CAT scan of the abdomen and pelvis done this week. She was also maintained on an JULIA inhibitor and Lasix at home. States she's having urinary urgency but voids only little amounts at a time. She did undergo a VQ scan as well as a CAT scan of the abdomen and pelvis this admission and the results are pending. Urinalysis is suggestive of a UTI. Her oral intake for the last few days has been poor. Denies use of NSAIDs. Her mother does have chronic kidney disease stage IV but patient is unsure of the cost. Denies diarrhea. No nausea or vomiting. Does feel a little sick to her stomach. Vital signs are stable. General: The patient appeared well nourished and normally developed. HEENT: Head exam is unremarkable. Neck is without jugular venous distension. LUNGS: Lungs are clear to auscultation and percussion. Breath sounds decreased. HEART: Rate and Rhythm are regular. First and second heart sounds normal. No murmurs, rubs or gallops. ABDOMEN: Abdominal exam reveals normal bowel sounds. Moderately distended. EXTREMITITES: No clubbing, cyanosis, or edema. Past Medical History Past Medical History: Heart Failure, Diabetes Mellitus, Eye Disorder, GERD/ Reflux, Hyperlipidemia, Hypertension, Skin Disorder, Thyroid Disorder Additional Past Medical History / Comment(s): Recent UTI-pt has completed ABX, pt states she is being worked up for possible ovarian cancer-Dr. Bravo ( certified cytotechnologist/[facility]) was sending her for CT scan, increased abdominal girth/bloating and diarrhea on and off, IDDM type II-has insulin pump but turned off yesterday because lately d/t decreased appetite pt has been having hypoglycemic episodes, bilateral glaucoma, lower GI bleed, GASTRITIS, DIVERTICULAR DX, hypothyroid, ventral hernia, VAGINAL HERPES SIMPLEx, History of Any Multi-Drug Resistant Organisms: None Reported Past Surgical History: Appendectomy, Bariatric Surgery, Cholecystectomy Additional Past Surgical History / Comment(s): GASTRIC SLEEVE 09/2015, COLONOSCOPIES/EGDS WITH LAST ONES DONE 05/21/17, BILATERAL CATARACT REMOVAL WITH LENS IMPLANTS. Past Anesthesia/Blood Transfusion Reactions: Postoperative Nausea & Vomiting ( PONV) Smoking Status: Never smoker - Past Family History Mother Family Medical History: Diabetes Mellitus, Hypertension Father Family Medical History: No Reported History Additional Family Medical History / Comment(s): FATHER AT THE AGE OF 74YRS AND WAS HEALTHY UNTIL HIS . CAUSE OF UNKNOWN. Sister(s) Family Medical History: Cancer, Pulmonary Embolus Additional Family Medical History / Comment(s): 2 SISTERS - COLON CA AND ONE FEBRUARY 2017 FROM METS TO LIVER. ONE SISTER HAS HAD A PULMONARY EMBOLI. Medications and Allergies Home Medications Medication Instructions Recorded Confirmed Type Biotin 5 mg PO HS 08/25/15 06/28/17 History Cholecalciferol [Vitamin D3] 5,000 unit PO HS 08/25/15 06/28/17 History Escitalopram [Lexapro] 20 mg PO QAM 08/25/15 06/28/17 History Levothyroxine Sodium [Synthroid] 112 mcg PO QAM 08/25/15 06/28/17 History Lisinopril [Zestril] 10 mg PO QAM 08/25/15 06/28/17 History Thiamine [Vitamin B-1] 100 mg PO HS 08/25/15 06/28/17 History Vitamin B Complex 1 cap PO DAILY 08/25/15 06/28/17 History Alirocumab [Praluent Pen] 150 mg SQ Q15D 05/13/17 06/28/17 History Aspirin [Adult Low Dose Aspirin EC] 81 mg PO DAILY 05/13/17 06/28/17 History Astaxanthine (Otc) 4,000 mcg PO HS 05/13/17 06/28/17 History Cholesticare (Otc) 1 tab PO DAILY 05/13/17 06/28/17 History Diosmin-Hesperidin 720 mg PO DAILY PRN 05/13/17 06/28/17 History L.acidoph,Paracasei, B.lactis 1 cap PO HS 05/13/17 06/28/17 History [Probiotic] Liver Antioxidant (Otc) 1 tab PO DAILY 05/13/17 06/28/17 History Lutein 10 mg PO DAILY 05/13/17 06/28/17 History QUEtiapine [SEROquel] 50 mg PO HS 05/13/17 06/28/17 History Acetaminophen-Codeine 300-30mg 1 tab PO Q4H PRN #20 tablet 06/08/17 06/28/17 Rx [Tylenol #3] Calcium Carbonate [Calcium] 600 mg PO BID 06/08/17 06/28/17 History Carvedilol [Coreg] 3.125 mg PO BID 06/08/17 06/28/17 History Furosemide [Lasix] 20 mg PO BID 06/08/17 06/28/17 History Insulin Aspart (For Pump) [NovoLOG 0.01 unit SQ-PUMP CONTINUOUS 06/08/17 History (For Pump)] Lurasidone HCl [Latuda] 60 mg PO HS 06/08/17 06/28/17 History Multivitamins, Thera [Multivitamin 1 tab PO DAILY 06/08/17 06/28/17 History (formulary)] Timolol 0.5% Ophth Soln [Timoptic 1 drop BOTH EYES QAM 06/08/17 06/28/17 History 0.5% Ophth Soln] Allergies Allergy/AdvReac Type Severity Reaction Status Date / Time influenza virus vaccine, Allergy MOUTH Verified 06/28/17 07:53 specific SORES,ITCHING [influenza virus vacc,specific] rosiglitazone [From Avandia] Allergy Rash/Hives Verified 06/28/17 07:53 Physical Exam Vitals: Vital Signs Temp Pulse Pulse Resp BP BP Pulse Ox 06/28/17 07:30 98.0 F 74 18 118/52 99 06/28/17 06:37 85 18 129/65 98 06/28/17 05:12 85 18 120/59 98 06/28/17 04:30 84 18 131/64 96 06/28/17 03:30 80 18 129/63 96 06/28/17 02:06 97.7 F 85 20 131/64 99 Intake and Output 06/27/17 06/28/17 06/28/17 22:59 06:59 14:59 Other: Weight 120.202 kg 107 kg Patient Weight 06/29/17 06:59 Weight 107 kg Results - Lab Results Most recent lab results Calcium 8.7 mg/dL (8.4-10.2) 06/28/17 02:17 06/28/17 02:17 06/28/17 02:17 Assessment and Plan Plan: Assessment: #1. Nonoliguric acute kidney injury mostly prerenal from poor oral intake and further worsened with the use of diuretics and JULIA inhibitor. Baseline creatinine is 1 and elevated at 1.8 this admission. Urinalysis is quite benign. Also concern for obstructive uropathy and urinary retention. #2. Abdominal distention possibly related to malignancy. No history of liver disease. #3. Pyuria. #4. History of hypertension. Controlled. Plan: Continue normal saline to be run at 50 mL an hour. Byrd catheter for strict I's and O's. Bladder scan will not be very accurate in the setting of abdominal distention. Follow-up CAT scan of the abdomen and pelvis results as well as echocardiogram results. Check urine culture. Avoid nephrotoxic agents and hypotensive episodes. Diuretics as well as JULIA inhibitor held for now. Repeat electrolytes in the morning. Thank you for the consultation. I will continue to follow the patient with you during her hospital stay.
--- NOTE | 2017-06-28 13:20 | P.OBCN ---
History of Present Illness Consult date: 06/28/17 Requesting physician: Og Disla Jr Reason for consult: other (Ovarian cancer) Chief complaint: Shortness of breath and abdominal distention History of present illness: This is a 61-year-old 2 para 0020 woman who presents to the emergency department with shortness of breath and worsening abdominal distention. She reports a history of possible ovarian cancer. She had lower abdominal and pelvic pain starting in October of this year. She was found on ultrasound on 2 occasions to have an enlarged right ovarian cyst. More recently she had an elevated CEA 125 level which led to consultation with a SEPARATOR TENDER oncologist with the [facility] system. They were planning further workup and possible surgery. She states she has had increasing significant abdominal girth and tightness over the last 2 weeks. This has lead to worsening shortness of breath and fatigue. She denies vaginal bleeding, nausea, vomiting, fevers, chills. She is having some intermittent diarrhea but denies blood in the stool. She has no previous history of abnormal Pap smears or gynecologic problems. She is a history of 2 pregnancies one of which was a termination and one was the miscarriage. No family history of breast, ovarian or uterine cancer. Review of previous records show a transvaginal ultrasound in November 2016 at this institution. Her uterus was small with some calcified fibroids. Endometrial stripe was 0.6 cm. She had "nonspecific cystic changes" of the right ovary. No free fluid in the pelvis was noted at that time. Review of Systems All systems: negative Constitutional: Reports as per HPI Past Medical History Past Medical History: Heart Failure, Diabetes Mellitus, Eye Disorder, GERD/ Reflux, Hyperlipidemia, Hypertension, Skin Disorder, Thyroid Disorder Additional Past Medical History / Comment(s): Recent UTI-pt has completed ABX, pt states she is being worked up for possible ovarian cancer-Dr. Bravo ( lithograph press feeder/[facility]) was sending her for CT scan, increased abdominal girth/bloating and diarrhea on and off, IDDM type II-has insulin pump but turned off yesterday because lately d/t decreased appetite pt has been having hypoglycemic episodes, bilateral glaucoma, lower GI bleed, GASTRITIS, DIVERTICULAR DX, hypothyroid, ventral hernia, VAGINAL HERPES SIMPLEx, History of Any Multi-Drug Resistant Organisms: None Reported Past Surgical History: Appendectomy, Bariatric Surgery, Cholecystectomy Additional Past Surgical History / Comment(s): GASTRIC SLEEVE 09/2015, COLONOSCOPIES/EGDS WITH LAST ONES DONE 05/21/17, BILATERAL CATARACT REMOVAL WITH LENS IMPLANTS. Past Anesthesia/Blood Transfusion Reactions: Postoperative Nausea & Vomiting ( PONV) Smoking Status: Never smoker - Past Family History Mother Family Medical History: Diabetes Mellitus, Hypertension Father Family Medical History: No Reported History Additional Family Medical History / Comment(s): FATHER AT THE AGE OF 74YRS AND WAS HEALTHY UNTIL HIS . CAUSE OF UNKNOWN. Sister(s) Family Medical History: Cancer, Pulmonary Embolus Additional Family Medical History / Comment(s): 2 SISTERS - COLON CA AND ONE FEBRUARY 2017 FROM METS TO LIVER. ONE SISTER HAS HAD A PULMONARY EMBOLI. Medications and Allergies Home Medications Medication Instructions Recorded Confirmed Type Biotin 5 mg PO HS 08/25/15 06/28/17 History Cholecalciferol [Vitamin D3] 5,000 unit PO HS 08/25/15 06/28/17 History Escitalopram [Lexapro] 20 mg PO QAM 08/25/15 06/28/17 History Levothyroxine Sodium [Synthroid] 112 mcg PO QAM 08/25/15 06/28/17 History Lisinopril [Zestril] 10 mg PO QAM 08/25/15 06/28/17 History Thiamine [Vitamin B-1] 100 mg PO HS 08/25/15 06/28/17 History Vitamin B Complex 1 cap PO DAILY 08/25/15 06/28/17 History Alirocumab [Praluent Pen] 150 mg SQ Q15D 05/13/17 06/28/17 History Aspirin [Adult Low Dose Aspirin EC] 81 mg PO DAILY 05/13/17 06/28/17 History Astaxanthine (Otc) 4,000 mcg PO HS 05/13/17 06/28/17 History Cholesticare (Otc) 1 tab PO DAILY 05/13/17 06/28/17 History Diosmin-Hesperidin 720 mg PO DAILY PRN 05/13/17 06/28/17 History L.acidoph,Paracasei, B.lactis 1 cap PO HS 05/13/17 06/28/17 History [Probiotic] Liver Antioxidant (Otc) 1 tab PO DAILY 05/13/17 06/28/17 History Lutein 10 mg PO DAILY 05/13/17 06/28/17 History QUEtiapine [SEROquel] 50 mg PO HS 05/13/17 06/28/17 History Acetaminophen-Codeine 300-30mg 1 tab PO Q4H PRN #20 tablet 06/08/17 06/28/17 Rx [Tylenol #3] Calcium Carbonate [Calcium] 600 mg PO BID 06/08/17 06/28/17 History Carvedilol [Coreg] 3.125 mg PO BID 06/08/17 06/28/17 History Furosemide [Lasix] 20 mg PO BID 06/08/17 06/28/17 History Insulin Aspart (For Pump) [NovoLOG 0.01 unit SQ-PUMP CONTINUOUS 06/08/17 History (For Pump)] Lurasidone HCl [Latuda] 60 mg PO HS 06/08/17 06/28/17 History Multivitamins, Thera [Multivitamin 1 tab PO DAILY 06/08/17 06/28/17 History (formulary)] Timolol 0.5% Ophth Soln [Timoptic 1 drop BOTH EYES QAM 06/08/17 06/28/17 History 0.5% Ophth Soln] Allergies Allergy/AdvReac Type Severity Reaction Status Date / Time influenza virus vaccine, Allergy MOUTH Verified 06/28/17 07:53 specific SORES,ITCHING [influenza virus vacc,specific] rosiglitazone [From Avandia] Allergy Rash/Hives Verified 06/28/17 07:53 Exam - Vital Signs Vital signs: Vital Signs Temp Pulse Pulse Resp BP BP Pulse Ox 06/28/17 07:30 98.0 F 74 18 118/52 99 06/28/17 06:37 85 18 129/65 98 06/28/17 05:12 85 18 120/59 98 06/28/17 04:30 84 18 131/64 96 06/28/17 03:30 80 18 129/63 96 06/28/17 02:06 97.7 F 85 20 131/64 99 Intake and Output 06/27/17 06/28/17 06/28/17 22:59 06:59 14:59 Output Total 100 Balance -100 Output: Urine 100 Uretheral (Byrd) 100 Other: Weight 120.202 kg 107 kg Patient Weight 06/29/17 06:59 Weight 107 kg This is a pleasant obese female who is currently eating lunch. Targeted physical exam was performed. Her abdomen is obese but also significantly distended and tense. This is consistent with significant ascites. She has positive bowel sounds that are normal in all 4 quadrants. The lower extremities are mildly edematous, symmetric without erythema. She has no active vaginal bleeding. Her mood and affect are normal and appropriate. No gross neurologic deficits. Pelvic examination is deferred at time. Results Result Diagrams: 06/28/17 02:06/28/17 02:17 Abnormal Lab Results - Last 24 Hours (Table) 06/28/17 06/28/17 06/28/17 Range/Units 02: 02: 02:17 Plt Count 570 H (150-450) k/uL APTT (22.0-30.0) sec D-Dimer (<0.60) mg/L FEU BUN 32 H (7-17) mg/dL Creatinine 1.80 H (0.52-1.04) mg/dL Glucose 155 H (74-99) mg/dL POC Glucose (mg/dL) (75-99) mg/dL Total Creatine Kinase 27 L (30-135) U/L Total Protein 6.0 L (6.3-8.2) g/dL Albumin 3.1 L (3.5-5.0) g/dL Urine Appearance (Clear) Urine Protein (Negative) Ur Leukocyte Esterase (Negative) Urine WBC (0-5) /hpf Urine WBC Clumps (None) /hpf Hyaline Casts (0-2) /lpf Urine Mucus (None) /hpf 06/28/17 06/28/17 06/28/17 Range/Units 02:17 03:02 08:59 Plt Count (150-450) k/uL APTT 160.2 H* (22.0-30.0) sec D-Dimer 14.40 H (<0.60) mg/L FEU BUN (7-17) mg/dL Creatinine (0.52-1.04) mg/dL Glucose (74-99) mg/dL POC Glucose (mg/dL) (75-99) mg/dL Total Creatine Kinase (30-135) U/L Total Protein (6.3-8.2) g/dL Albumin (3.5-5.0) g/dL Urine Appearance Cloudy H (Clear) Urine Protein Trace H (Negative) Ur Leukocyte Esterase Large H (Negative) Urine WBC 124 H (0-5) /hpf Urine WBC Clumps Occasional H (None) /hpf Hyaline Casts 67 H (0-2) /lpf Urine Mucus Rare H (None) /hpf 06/28/17 Range/Units 12:04 Plt Count (150-450) k/uL APTT (22.0-30.0) sec D-Dimer (<0.60) mg/L FEU BUN (7-17) mg/dL Creatinine (0.52-1.04) mg/dL Glucose (74-99) mg/dL POC Glucose (mg/dL) 153 H (75-99) mg/dL Total Creatine Kinase (30-135) U/L Total Protein (6.3-8.2) g/dL Albumin (3.5-5.0) g/dL Urine Appearance (Clear) Urine Protein (Negative) Ur Leukocyte Esterase (Negative) Urine WBC (0-5) /hpf Urine WBC Clumps (None) /hpf Hyaline Casts (0-2) /lpf Urine Mucus (None) /hpf CT scan - abdomen: image reviewed CT scan - pelvis: image reviewed Assessment and Plan (1) Abdominal distension Status: Acute (2) Dyspnea Status: Acute (3) Elevated d-dimer Status: Acute (4) Ovarian cyst Status: Acute Plan: 61-year-old 2 para 0 woman with shortness of breath and the abdominal distention consistent with massive ascites. She has a history of ovarian cysts , elevated CA-125 and is in the midst of evaluation for possible ovarian malignancy. Her current CT of the abdomen and pelvis are pending. She would likely benefit from image guided drainage of the ascites which also may be diagnostic. I recommend obtaining medical records from her previous lithograph press feeder and consideration of transfer of care to her SEPARATOR TENDER oncologist at [facility] for surgical management. Time with Patient: Greater than 30
--- NOTE | 2017-06-28 13:38 | CT ---
EXAMINATION TYPE: CT abdomen pelvis wo con DATE OF EXAM: 06/28/2017 COMPARISON: Pelvic ultrasound dated 06/08/2017 HISTORY: Abdominal pain and bloating CT DLP: 2169.9 mGycm Automated exposure control for dose reduction was used. TECHNIQUE: Helical acquisition of images was performed from the lung bases through the pelvis. FINDINGS: LUNG BASES: Small left pleural effusion and trace right pleural effusion are seen with associated bib asilar subsegmental atelectasis. LIVER/GB: No significant abnormality is appreciated. Cholecystectomy clips are noted within the right upper quadrant. Although there is hepatic atrophy the contour appears smooth. Too small to accuratel y characterize hypoattenuating lesion is seen within the left hepatic lobe and segment 3 on series 3 image 22. This measures 5 mm. Similar 8 mm lesion is seen on image 25. PANCREAS: Although the pancreas is incompletely characterized due to lack of intravenous contrast no ductal dilatation is present to suggest necrotic adenocarcinoma. SPLEEN: No significant abnormality is seen. Fluid attenuated rounded area medial to the spleen may re late to focal fluid accumulation. This does not appear to be contiguous with the pancreatic tail. ADRENALS: No significant abnormality is seen. KIDNEYS: No significant abnormality is seen. FREE AIR: No free air is visualized RETROPERITONEAL ADENOPATHY: None visualized REPRODUCTIVE ORGANS: Dystrophic calcifications are seen within the uterus, likely relating to degener ative fibroids. The previously noted cysts are now well appreciated due to the abdominal ascites. URINARY BLADDER: No significant abnormality is seen. OSSEOUS STRUCTURES: No significant abnormality is seen. No suspicious osseous lesions. BOWEL: Surgical sutures are present around the gastric fundus and body. Small hiatal hernia remains. OTHER: Moderate volume nearly simple free fluid is seen within the abdomen and pelvis layering predom inantly dependently. Haziness throughout the central mesentery also relates to mesenteric congestion. . Small ventral hernia is present containing mesenteric fluid with a neck measuring 1.8 cm. IMPRESSION: 1. MODERATE VOLUME SIMPLE APPEARING ABDOMINAL PELVIC ASCITES. IN THIS PRESUMABLY POSTMENOPAUSAL FEMAL E WITH HISTORY OF BILATERAL CYSTIC OVARIAN LESIONS AND ASCITES WITHOUT DEFINITIVE HEPATOCELLULAR DISE ASE OR RENAL DISEASE IN CONJUNCTION WITH AN ELEVATED CEA OF 125 CONCERN IS RAISED FOR OVARIAN CARCINO MA. EVALUATION FOR MESENTERIC IMPLANTS AND ADENOPATHY IS SIGNIFICANTLY LIMITED SECONDARY TO MESENTERI C CONGESTION AND ASCITES. DIAGNOSTIC PARACENTESIS WITH SAMPLES SENT FOR CYTOLOGY COULD BE PERFORMED. IF FURTHER EVALUATION OF THE CYSTIC ADNEXAL LESIONS IS WARRANTED MR COULD BE PERFORMED AFTER PARACENT ESIS. 2. SMALL LEFT AND TRACE RIGHT PLEURAL EFFUSIONS WITH BIBASILAR ATELECTASIS. 3. NO DEFINITIVE PANCREATIC LESION OR DUCTAL DILATATION GIVEN THE LIMITATION OF LACK OF INTRAVENOUS C ONTRAST. 4. OTHER INCIDENTAL FINDINGS DESCRIBED ABOVE.
--- NOTE | 2017-06-28 14:52 | US ---
EXAMINATION TYPE: US venous doppler duplex LE BI DATE OF EXAM: 06/28/2017 2:44 PM COMPARISON: NONE CLINICAL HISTORY: Pain and swelling SIDE PERFORMED: Bilateral TECHNIQUE: The lower extremity deep venous system is examined utilizing real time linear array sonog brian with graded compression, doppler sonography and color-flow sonography. VESSELS IMAGED: External Iliac Vein (EIV) Common Femoral Vein Deep Femoral Vein Greater Saphenous Vein * Femoral Vein Popliteal Vein Small Saphenous Vein * Proximal Calf Veins (* superficial vessels) Right Leg: Negative for DVT Left Leg: Negative for DVT IMPRESSION: 1. No diagnostic evidence of DVT as visualized.
[2017-06-28] MEDS: HEPARIN SODIUM,PORCINE 5,000 UNIT/ML 1 ML VIAL SQ SCH (15:17)
--- NOTE | 2017-06-28 15:27 | US ---
Therapeutic and diagnostic paracentesis. DATE OF EXAM: 06/28/2017 CLINICAL HISTORY: Ascites The procedure was discussed with the patient. The risks, complications, benefits, and alternatives we re discussed and any questions were answered. Informed consent was obtained. The patient was placed s upine on the ultrasound table and prepped and draped in the usual sterile fashion. All elements of maximal barrier technique were utilized. Under ultrasound guidance, access into the left lower quadrant was obtained, via the paracentesis catheter system and direct ultrasound guidance . Approximately 6.2 liters of straw-colored fluid was removed. The patient was stable throughout the pr ocedure and remained stable upon discharge from Department of Radiology. Sample sent to pathology for analysis. All elements of maximal barrier and sterile technique utilized. IMPRESSION: Successful therapeutic and diagnostic paracentesis under ultrasound guidance.
[2017-06-28 17:23] LABS: Glucose,Whole Blood 144 mg/dL (75-99)
[2017-06-28 20:06] LABS: Glucose,Whole Blood 163 mg/dL (75-99)
[2017-06-28] MEDS ORDERED: THIAMINE 100 MG TAB PO SCH (21:00)
[2017-06-28] MEDS ORDERED: LACTOBACILLUS ACIDOPH & BULGAR 1 EACH PACKET PO SCH (21:00)
[2017-06-28] MEDS ORDERED: NON-FORMULARY DRUG (Biotin [Biotin] 5 MG) PO SCH (21:00)
[2017-06-28] MEDS ORDERED: LURASIDONE 40 MG TAB PO SCH (21:00)
[2017-06-28] MEDS ORDERED: CHOLECALCIFEROL 1,000 UNIT TAB PO SCH (21:00)
[2017-06-28] MEDS ORDERED: QUEtiapine 50 MG TAB PO SCH (21:00)
[2017-06-29] MEDS: HEPARIN SODIUM,PORCINE 5,000 UNIT/ML 1 ML VIAL SQ SCH ×2 (00:15→08:10)
[2017-06-29 06:38] LABS: Basophils % (A) 1 %; CH 29.1; CHCM 32.7; Eosinophils # (A) 0.2 k/uL (0-0.7); Eosinophils % (A) 3 %; HCT 32.8 % (34.0-46.0); HDW 2.55; HGB 10.5 gm/dL (11.4-16.0); Luc # (Auto) 0.05; Luc % (Auto) 1; Lymphocytes % (A) 18 %; MCH 28.6 pg (25.0-35.0); MCHC 32.1 g/dL (31.0-37.0); MCV 89.1 fL (80.0-100.0); Mean Platelet Volume 8.2; Monocytes # (A) 0.3 k/uL (0-1.0); Monocytes % (A) 6 %; Neutrophils # (A) 3.9 k/uL (1.3-7.7); Neutrophils % (A) 71 %; RBC 3.68 m/uL (3.80-5.40); WBC 5.5 k/uL (3.8-10.6); WBC (Perox) 6.16
[2017-06-29 07:09] LABS: Calcium 8.2 mg/dL (8.4-10.2); Potassium 5.6 mmol/L (3.5-5.1)
[2017-06-29 07:16] LABS: Glucose,Whole Blood 144 mg/dL (75-99)
[2017-06-29] MEDS: SODIUM CHLORIDE 0.9% 1,000 ML IV SCH (07:19)
[2017-06-29] MEDS: Insulin Aspart (For Pump) 100 UNIT/ML VIAL SQ-PUMP SCH (07:43)
[2017-06-29 08:00] VITALS: BP 92/46; PULSE 71; RESP 18; TEMP 98
[2017-06-29] MEDS: TIMOLOL 0.5% OPHTH DROPS 5 ML BTL BOTH EYES SCH (08:11)
[2017-06-29] MEDS: CARVEDILOL 3.125 MG TAB PO SCH (08:11)
[2017-06-29] MEDS: MULTIVITAMINS, THERA 1 EACH TAB PO SCH (08:11)
[2017-06-29] MEDS: ASPIRIN 81 MG PO SCH (08:11)
[2017-06-29] MEDS: LEVOTHYROXINE 112 MCG TAB PO SCH (08:11)
[2017-06-29] MEDS: CALCIUM CARBONATE 500 MG CHEWABLE PO SCH (08:11)
[2017-06-29] MEDS: ESCITALOPRAM 20 MG TAB PO SCH (08:11)
[2017-06-29] MEDS ORDERED: FAMOTIDINE 20 MG TAB PO SCH (09:00)
[2017-06-29] MEDS ORDERED: B COMPLEX-VIT C-VIT E-ZINC 1 EACH TAB PO SCH (09:00)
--- NOTE | 2017-06-29 11:54 | P.DS ---
Providers Date of admission: 06/28/17 05:48 Expected date of discharge: 06/29/17 Attending physician: Jd Bravo Consults: 06/28/17 10:27 Consult Physician Routine Consulting Provider: Kayce Reian Consult Reason/Comments: Acute kidney injury Do you want consulting provider notified?: Yes 06/28/17 14:30 Consult Physician Routine Consulting Provider: Rosemary Bo Consult Reason/Comments: abdominal pain/ r/o ovarian CA Do you want consulting provider notified?: Already Contacted Primary care physician: Jd Bravo Hospital Course: Patient was admitted via the emergency room secondary to significantly increased abdominal girth, patient is currently being worked up for ovarian cancer, she does have an elevated CA-125 and a large amount of fluid CT in the abdomen which is creating a absence of known main type picture where she has no room for respiratory excursion and she's having difficulty breathing Durations at this time involved HAND METHOD LASTING MACHINE OPERATOR consult, and CT-guided paracentesis General: [Patient awake, alert and oriented times 3. Patient in no acute distress.] HEENT: [PERRL. EOMI. No pharyngeal erythema or exudate.] Neck: [No adenopathy.] Cardiac: [Heart regular in rate and rhythm. No S3. No S4. No clicks, rubs. No murmur.] Lungs: [Clear to auscultation bilaterally. Significantly improved Abdomen: [No mass. No organomegaly. Bowel sounds presnt and normoactive in all 4 quadrants.] Paracentesis reduced abdominal girth and respiratory efforts have improved significantly Extremes: [No edema no cyanosis no claudication normal pulses] : [] Musculoskeletal: [No joint erythema, edema or tenderness.] Skin: [No rash.] Neurologic: [No lateralizing deficits. CN II - XII grossly intact.] Lymphatic: [No adenopathy. Patient has appointment scheduled with HAND METHOD LASTING MACHINE OPERATOR oncology at [facility] next recommend that patient keep that appointment and may call us at any time if we need to set up a paracentesis again Patient Condition at Discharge: Fair Plan - Discharge Summary New Discharge Prescriptions: No Action Thiamine [Vitamin B-1] 100 mg PO HS Cholecalciferol [Vitamin D3] 5,000 unit PO HS Escitalopram [Lexapro] 20 mg PO QAM Lisinopril [Zestril] 10 mg PO QAM Levothyroxine Sodium [Synthroid] 112 mcg PO QAM Vitamin B Complex 1 cap PO DAILY Biotin 5 mg PO HS QUEtiapine [SEROquel] 50 mg PO HS Lutein 10 mg PO DAILY L.acidoph,Paracasei, B.lactis [Probiotic] 1 cap PO HS Aspirin [Adult Low Dose Aspirin EC] 81 mg PO DAILY Alirocumab [Praluent Pen] 150 mg SQ Q15D Liver Antioxidant (Otc) 1 tab PO DAILY Diosmin-Hesperidin 720 mg PO DAILY PRN PRN Reason: RLS Cholesticare (Otc) 1 tab PO DAILY Astaxanthine (Otc) 4,000 mcg PO HS Calcium Carbonate [Calcium] 600 mg PO BID Carvedilol [Coreg] 3.125 mg PO BID Furosemide [Lasix] 20 mg PO BID Insulin Aspart (For Pump) [NovoLOG (For Pump)] 0.01 unit SQ-PUMP CONTINUOUS Lurasidone HCl [Latuda] 60 mg PO HS Multivitamins, Thera [Multivitamin (formulary)] 1 tab PO DAILY Timolol 0.5% Ophth Soln [Timoptic 0.5% Ophth Soln] 1 drop BOTH EYES QAM Acetaminophen-Codeine 300-30mg [Tylenol #3] 1 tab PO Q4H PRN #20 tablet PRN Reason: pain Discharge Medication List Biotin 5 mg PO HS 08/25/15 [History] Cholecalciferol [Vitamin D3] 5,000 unit PO HS 08/25/15 [History] Escitalopram [Lexapro] 20 mg PO QAM 08/25/15 [History] Levothyroxine Sodium [Synthroid] 112 mcg PO QAM 08/25/15 [History] Lisinopril [Zestril] 10 mg PO QAM 08/25/15 [History] Thiamine [Vitamin B-1] 100 mg PO HS 08/25/15 [History] Vitamin B Complex 1 cap PO DAILY 08/25/15 [History] Alirocumab [Praluent Pen] 150 mg SQ Q15D 05/13/17 [History] Aspirin [Adult Low Dose Aspirin EC] 81 mg PO DAILY 05/13/17 [History] Astaxanthine (Otc) 4,000 mcg PO HS 05/13/17 [History] Cholesticare (Otc) 1 tab PO DAILY 05/13/17 [History] Diosmin-Hesperidin 720 mg PO DAILY PRN 05/13/17 [History] L.acidoph,Paracasei, B.lactis [Probiotic] 1 cap PO HS 05/13/17 [History] Liver Antioxidant (Otc) 1 tab PO DAILY 05/13/17 [History] Lutein 10 mg PO DAILY 05/13/17 [History] QUEtiapine [SEROquel] 50 mg PO HS 05/13/17 [History] Acetaminophen-Codeine 300-30mg [Tylenol #3] 1 tab PO Q4H PRN #20 tablet [Rx] Calcium Carbonate [Calcium] 600 mg PO BID 06/08/17 [History] Carvedilol [Coreg] 3.125 mg PO BID 06/08/17 [History] Furosemide [Lasix] 20 mg PO BID 06/08/17 [History] Insulin Aspart (For Pump) [NovoLOG (For Pump)] 0.01 unit SQ-PUMP CONTINUOUS [History] Lurasidone HCl [Latuda] 60 mg PO HS 06/08/17 [History] Multivitamins, Thera [Multivitamin (formulary)] 1 tab PO DAILY 06/08/17 [History ] Timolol 0.5% Ophth Soln [Timoptic 0.5% Ophth Soln] 1 drop BOTH EYES QAM [History] Follow up Appointment(s)/Referral(s): Jd Bravo MD [Primary Care Provider] - 1-2 days
[2017-06-29 12:29] LABS: Glucose,Whole Blood 146 mg/dL (75-99)
== END 2017-06-29 13:40 | disposition home or self-care (01) ==
LOC: EC 02:01 → 5ONC 05:48
PROVIDERS: ADMIT Family Medicine; ATTEND Family Medicine
DX: R14.0 Abdominal distension (gaseous) (principal); R06.02 Shortness of breath; R07.9 Chest pain, unspecified; I11.0 Hypertensive heart disease with heart failure; I50.9 Heart failure, unspecified; N39.0 Urinary tract infection, site not specified; E66.9 Obesity, unspecified; E03.9 Hypothyroidism, unspecified; H40.9 Unspecified glaucoma; N17.9 Acute kidney failure, unspecified; E11.9 Type 2 diabetes mellitus without complications; B00.9 Herpesviral infection, unspecified; L98.9 Disorder of the skin and subcutaneous tissue, unspecified; E78.5 Hyperlipidemia, unspecified; Z79.899 Other long term (current) drug therapy; Z79.82 Long term (current) use of aspirin; Z79.4 Long term (current) use of insulin; Z88.7 Allergy status to serum and vaccine; Z88.8 Allergy status to other drugs, medicaments and biological substances; Z87.440 Personal history of urinary (tract) infections; Z98.84 Bariatric surgery status; Z83.3 Family history of diabetes mellitus; Z82.49 Family history of ischemic heart disease and other diseases of the circulatory system; Z96.41 Presence of insulin pump (external) (internal); Z68.41 Body mass index [BMI] 40.0-44.9, adult
CPT/HCPCS: 96372; 96374; 96375; 99285; 36415; 93005; 93306; 85379; 88108; 88305; 83880; 80053; 80048; 82550; 82553; 84484; 85025 ×2; 85610; 85730; 81001; 88342; 88341; 87070; 87086; 87205; 71010; 49083; 93970; 74176; 78582; G0378 ×2; A9540; A9567; J2270; J1644 ×3

== ENCOUNTER 2017-07-10 16:01 | Inpatient (IN) | payer MEDICARE ==
[2017-07-10] MEDS ORDERED: SODIUM CHLORIDE 0.9% 1,000 ML IV STA (16:26)
[2017-07-10] MEDS ORDERED: PANTOPRAZOLE 40 MG/10 ML VIAL IVP STA (16:26)
[2017-07-10] MEDS ORDERED: ONDANSETRON 4 MG/2 ML VIAL IVP STA (16:26)
[2017-07-10] MEDS ORDERED: MORPHINE SULFATE 4 MG/ML SYRINGE IV STA (16:26)
[2017-07-10 16:48] LABS: Basophils % (A) 1 %; CH 28.2; CHCM 31.6; Eosinophils # (A) 0.1 k/uL (0-0.7); Eosinophils % (A) 2 %; HCT 36.7 % (34.0-46.0); HDW 2.74; HGB 11.9 gm/dL (11.4-16.0); Hypochromasia Slight; Luc # (Auto) 0.09; Luc % (Auto) 1; Lymphocytes # (A) 1.8 k/uL (1.0-4.8); Lymphocytes % (A) 28 %; MCHC 32.3 g/dL (31.0-37.0); MCV 89.6 fL (80.0-100.0); Mean Platelet Volume 7.2; Monocytes # (A) 0.3 k/uL (0-1.0); Monocytes % (A) 5 %; Neutrophils # (A) 4.2 k/uL (1.3-7.7); Neutrophils % (A) 64 %; RDW 13.1 % (11.5-15.5); WBC 6.6 k/uL (3.8-10.6); WBC (Perox) 6.66
[2017-07-10 16:58] LABS: INR 1.1 (<1.2); Partial Thromboplastin Time 24.8 sec (22.0-30.0); Prothrombin Time 10.6 sec (9.0-12.0)
[2017-07-10 16:59] LABS: Ammonia <9 umol/L (<30)
[2017-07-10 17:05] LABS: Calcium 8.6 mg/dL (8.4-10.2); Potassium 4.3 mmol/L (3.5-5.1); Total Bilirubin 0.4 mg/dL (0.2-1.3); Total Protein 5.5 g/dL (6.3-8.2)
[2017-07-10 17:18] LABS: Creatine Kinase MB 2.7 ng/mL (0.0-2.4)
[2017-07-10 17:33] LABS: Appearance,Urine Cloudy (Clear); Bilirubin,Urine Negative (Negative); Glucose,Urine (UA) Negative (Negative); Ketones,Urine Negative (Negative); Leukocyte Esterase,Urine Large (Negative); Mucus,Urine Rare /hpf; Nitrite,Urine Negative (Negative); Particle Count 2807; Protein,Urine Negative (Negative); RBC,Urine 1 /hpf (0-5); Specific Gravity,Urine 1.011 (1.001-1.035); Squamous Epithelial Cell,Urine <1 /hpf (0-4); UA Billing (MACRO vs. MICRO) MICRO; Urobilinogen,Urine <2.0 mg/dL (<2.0); WBC,Urine 157 /hpf (0-5)
--- NOTE | 2017-07-10 18:48 | ED ---
General Adult HPI - General Chief complaint: Abdominal Pain Stated complaint: SOB-sent by Time Seen by Provider: 07/10/17 16:17 Source: patient, RN notes reviewed, old records reviewed Mode of arrival: ambulatory Limitations: no limitations - History of Present Illness Initial comments: This is a 61-year-old female ER for evaluation. Patient was aphasic for evaluation of severe abdominal pain abdominal distention and shortness of breath. Patient states she has known uterine cancer. Has had history of paracentesis which showed positive CVA. Patient is complaining of mild shortness of breath. Denies any other complaints no fevers no nausea vomiting or diarrhea. - Related Data Home Medications Medication Instructions Recorded Confirmed Biotin 5 mg PO HS 08/25/15 07/10/17 Cholecalciferol [Vitamin D3] 5,000 unit PO HS 08/25/15 07/10/17 Escitalopram [Lexapro] 20 mg PO QAM 08/25/15 07/10/17 Levothyroxine Sodium [Synthroid] 112 mcg PO QAM 08/25/15 07/10/17 Thiamine [Vitamin B-1] 100 mg PO HS 08/25/15 07/10/17 Vitamin B Complex 1 cap PO DAILY 08/25/15 07/10/17 Alirocumab [Praluent Pen] 150 mg SQ Q15D 05/13/17 07/10/17 Aspirin [Adult Low Dose Aspirin EC] 81 mg PO DAILY 05/13/17 07/10/17 Astaxanthine (Otc) 4,000 mcg PO HS 05/13/17 07/10/17 Cholesticare (Otc) 1 tab PO DAILY 05/13/17 07/10/17 Diosmin-Hesperidin 720 mg PO DAILY PRN 05/13/17 07/10/17 L.acidoph,Paracasei, B.lactis 1 cap PO HS 05/13/17 07/10/17 [Probiotic] Liver Antioxidant (Otc) 1 tab PO DAILY 05/13/17 07/10/17 Lutein 10 mg PO DAILY 05/13/17 07/10/17 QUEtiapine [SEROquel] 50 mg PO DAILY 05/13/17 07/10/17 Calcium Carbonate [Calcium] 600 mg PO BID 06/08/17 07/10/17 Carvedilol [Coreg] 3.125 mg PO BID 06/08/17 07/10/17 Furosemide [Lasix] 20 mg PO DAILY 06/08/17 07/10/17 Insulin Aspart (For Pump) [NovoLOG 0.01 unit SQ-PUMP CONTINUOUS 06/08/17 (For Pump)] Lurasidone HCl [Latuda] 60 mg PO HS 06/08/17 07/10/17 Multivitamins, Thera [Multivitamin 1 tab PO DAILY 06/08/17 07/10/17 (formulary)] Timolol 0.5% Ophth Soln [Timoptic 1 drop BOTH EYES QAM 06/08/17 07/10/17 0.5% Ophth Soln] Previous Rx's Medication Instructions Recorded Acetaminophen-Codeine 300-30mg 1 tab PO Q4H PRN #20 tablet 06/08/17 [Tylenol #3] Allergies Allergy/AdvReac Type Severity Reaction Status Date / Time Influenza Virus Vaccines Allergy MOUTH Verified 07/10/17 17:52 SORES,ITCHING rosiglitazone [From Avandia] Allergy MUSCLE PAIN Verified 07/10/17 17:52 Review of Systems ROS Statement: Those systems with pertinent positive or pertinent negative responses have been documented in the HPI. ROS Other: All systems not noted in ROS Statement are negative. Past Medical History Past Medical History: Cancer, Heart Failure, Diabetes Mellitus, Eye Disorder, GERD/Reflux, Hyperlipidemia, Hypertension, Skin Disorder, Thyroid Disorder Additional Past Medical History / Comment(s): Recent UTI-pt has completed ABX, pt states she is being worked up for possible ovarian cancer-Dr. Bravo ( intelligence analyst/[facility]) was sending her for CT scan, increased abdominal girth/bloating and diarrhea on and off, IDDM type II-has insulin pump but turned off yesterday because lately d/t decreased appetite pt has been having hypoglycemic episodes, bilateral glaucoma, lower GI bleed, GASTRITIS, DIVERTICULAR DX, hypothyroid, ventral hernia, VAGINAL HERPES SIMPLEx, History of Any Multi-Drug Resistant Organisms: None Reported Past Surgical History: Appendectomy, Bariatric Surgery, Cholecystectomy Additional Past Surgical History / Comment(s): GASTRIC SLEEVE 09/2015, COLONOSCOPIES/EGDS WITH LAST ONES DONE 05/21/17, BILATERAL CATARACT REMOVAL WITH LENS IMPLANTS. Past Anesthesia/Blood Transfusion Reactions: Postoperative Nausea & Vomiting ( PONV) Past Psychological History: Bipolar Smoking Status: Never smoker Past Alcohol Use History: None Reported Past Drug Use History: None Reported - Past Family History Mother Family Medical History: Diabetes Mellitus, Hypertension Father Family Medical History: No Reported History Additional Family Medical History / Comment(s): FATHER AT THE AGE OF 74YRS AND WAS HEALTHY UNTIL HIS . CAUSE OF UNKNOWN. Sister(s) Family Medical History: Cancer, Pulmonary Embolus Additional Family Medical History / Comment(s): 2 SISTERS - COLON CA AND ONE FEBRUARY 2017 FROM METS TO LIVER. ONE SISTER HAS HAD A PULMONARY EMBOLI. General Exam Limitations: no limitations General appearance: alert, in no apparent distress, obese Head exam: Present: atraumatic, normocephalic, normal inspection Eye exam: Present: normal appearance, PERRL, EOMI. Absent: scleral icterus, conjunctival injection, periorbital swelling ENT exam: Present: normal exam, mucous membranes moist Neck exam: Present: normal inspection. Absent: tenderness, meningismus, lymphadenopathy Respiratory exam: Present: normal lung sounds bilaterally. Absent: respiratory distress, wheezes, rales, rhonchi, stridor Cardiovascular Exam: Present: regular rate, normal rhythm, normal heart sounds. Absent: systolic murmur, diastolic murmur, rubs, gallop, clicks GI/Abdominal exam: Present: soft, distended, normal bowel sounds. Absent: tenderness, guarding, rebound, rigid Extremities exam: Present: normal inspection, full ROM, normal capillary refill. Absent: tenderness, pedal edema, joint swelling, calf tenderness Back exam: Present: normal inspection Neurological exam: Present: alert, oriented X3, CN II-XII intact Psychiatric exam: Present: normal affect, normal mood Skin exam: Present: warm, dry, intact, normal color. Absent: rash Course Vital Signs 07/10/17 16:04 Temperature 98.5 F Pulse Rate 79 Respiratory 18 Rate Blood Pressure 124/61 O2 Sat by Pulse 97 Oximetry - Reevaluation(s) Reevaluation #1: 07/10/17 18:50 Patient is in no acute respiratory distress, will have paracentesis in the morning Medical Decision Making - Medical Decision Making 61 female the ER for evaluation of. Pain shortness of breath bowel distention. Patient does have liver CA, severe bowel ascites, will admit for therapeutic paracentesis. Patient also has UTI which we will treat, pain control. - Lab Data Result diagrams: 07/10/17 16:30 07/10/17 16:30 Lab Results 07/10/17 07/10/17 07/10/17 Range/Units 16:30 16:30 16:30 WBC 6.6 (3.8-10.6) k/uL RBC 4.10 (3.80-5.40) m/uL Hgb 11.9 (11.4-16.0) gm/dL Hct 36.7 (34.0-46.0) % MCV 89.6 (80.0-100.0) fL MCH 29.0 (25.0-35.0) pg MCHC 32.3 (31.0-37.0) g/dL RDW 13.1 (11.5-15.5) % Plt Count 418 (150-450) k/uL Neutrophils % 64 % Lymphocytes % 28 % Monocytes % 5 % Eosinophils % 2 % Basophils % 1 % Neutrophils # 4.2 (1.3-7.7) k/uL Lymphocytes # 1.8 (1.0-4.8) k/uL Monocytes # 0.3 (0-1.0) k/uL Eosinophils # 0.1 (0-0.7) k/uL Basophils # 0.0 (0-0.2) k/uL Hypochromasia Slight PT (9.0-12.0) sec INR (<1.2) APTT (22.0-30.0) sec Sodium 140 (137-145) mmol/L Potassium 4.3 (3.5-5.1) mmol/L Chloride 108 H (98-107) mmol/L Carbon Dioxide 24 (22-30) mmol/L Anion Gap 8 mmol/L BUN 22 H (7-17) mg/dL Creatinine 1.43 H (0.52-1.04) mg/dL Est GFR (MDRD) Af Amer 45 (>60 ml/min/1.73 sqM) Est GFR (MDRD) Non-Af 37 (>60 ml/min/1.73 sqM) Glucose 68 L (74-99) mg/dL Plasma Lactic Acid Sai 1.0 (0.7-2.0) mmol/L Calcium 8.6 (8.4-10.2) mg/dL Total Bilirubin 0.4 (0.2-1.3) mg/dL AST 16 (14-36) U/L ALT 21 (9-52) U/L Alkaline Phosphatase 67 (38-126) U/L Ammonia <9 (<30) umol/L Total Creatine Kinase (30-135) U/L CK-MB (CK-2) (0.0-2.4) ng/mL CK-MB (CK-2) Rel Index Total Protein 5.5 L (6.3-8.2) g/dL Albumin 2.7 L (3.5-5.0) g/dL Amylase 37 (30-110) U/L Lipase 105 (23-300) U/L Urine Color Urine Appearance (Clear) Urine pH (5.0-8.0) Ur Specific [place] (1.001-1.035) Urine Protein (Negative) Urine Glucose (UA) (Negative) Urine Ketones (Negative) Urine Blood (Negative) Urine Nitrite (Negative) Urine Bilirubin (Negative) Urine Urobilinogen (<2.0) mg/dL Ur Leukocyte Esterase (Negative) Urine RBC (0-5) /hpf Urine WBC (0-5) /hpf Ur Squamous Epith Cells (0-4) /hpf Hyaline Casts (0-2) /lpf Urine Mucus (None) /hpf Blood Type Blood Type Recheck Antibody Screen Spec Expiration Date 07/10/17 07/10/17 07/10/17 Range/Units 16:30 16:30 16:30 WBC (3.8-10.6) k/uL RBC (3.80-5.40) m/uL Hgb (11.4-16.0) gm/dL Hct (34.0-46.0) % MCV (80.0-100.0) fL MCH (25.0-35.0) pg MCHC (31.0-37.0) g/dL RDW (11.5-15.5) % Plt Count (150-450) k/uL Neutrophils % % Lymphocytes % % Monocytes % % Eosinophils % % Basophils % % Neutrophils # (1.3-7.7) k/uL Lymphocytes # (1.0-4.8) k/uL Monocytes # (0-1.0) k/uL Eosinophils # (0-0.7) k/uL Basophils # (0-0.2) k/uL Hypochromasia PT 10.6 (9.0-12.0) sec INR 1.1 (<1.2) APTT 24.8 (22.0-30.0) sec Sodium (137-145) mmol/L Potassium (3.5-5.1) mmol/L Chloride (98-107) mmol/L Carbon Dioxide (22-30) mmol/L Anion Gap mmol/L BUN (7-17) mg/dL Creatinine (0.52-1.04) mg/dL Est GFR (MDRD) Af Amer (>60 ml/min/1.73 sqM) Est GFR (MDRD) Non-Af (>60 ml/min/1.73 sqM) Glucose (74-99) mg/dL Plasma Lactic Acid Asi (0.7-2.0) mmol/L Calcium (8.4-10.2) mg/dL Total Bilirubin (0.2-1.3) mg/dL AST (14-36) U/L ALT (9-52) U/L Alkaline Phosphatase (38-126) U/L Ammonia (<30) umol/L Total Creatine Kinase 33 (30-135) U/L CK-MB (CK-2) 2.7 H* (0.0-2.4) ng/mL CK-MB (CK-2) Rel Index 8.2 Total Protein (6.3-8.2) g/dL Albumin (3.5-5.0) g/dL Amylase (30-110) U/L Lipase (23-300) U/L Urine Color Urine Appearance (Clear) Urine pH (5.0-8.0) Ur Specific [place] (1.001-1.035) Urine Protein (Negative) Urine Glucose (UA) (Negative) Urine Ketones (Negative) Urine Blood (Negative) Urine Nitrite (Negative) Urine Bilirubin (Negative) Urine Urobilinogen (<2.0) mg/dL Ur Leukocyte Esterase (Negative) Urine RBC (0-5) /hpf Urine WBC (0-5) /hpf Ur Squamous Epith Cells (0-4) /hpf Hyaline Casts (0-2) /lpf Urine Mucus (None) /hpf Blood Type O Positive Blood Type Recheck No Antibody Screen NEGATIVE Spec Expiration Date 07/13/2017 - 232907/10/17 Range/Units 17:09 WBC (3.8-10.6) k/uL RBC (3.80-5.40) m/uL Hgb (11.4-16.0) gm/dL Hct (34.0-46.0) % MCV (80.0-100.0) fL MCH (25.0-35.0) pg MCHC (31.0-37.0) g/dL RDW (11.5-15.5) % Plt Count (150-450) k/uL Neutrophils % % Lymphocytes % % Monocytes % % Eosinophils % % Basophils % % Neutrophils # (1.3-7.7) k/uL Lymphocytes # (1.0-4.8) k/uL Monocytes # (0-1.0) k/uL Eosinophils # (0-0.7) k/uL Basophils # (0-0.2) k/uL Hypochromasia PT (9.0-12.0) sec INR (<1.2) APTT (22.0-30.0) sec Sodium (137-145) mmol/L Potassium (3.5-5.1) mmol/L Chloride (98-107) mmol/L Carbon Dioxide (22-30) mmol/L Anion Gap mmol/L BUN (7-17) mg/dL Creatinine (0.52-1.04) mg/dL Est GFR (MDRD) Af Amer (>60 ml/min/1.73 sqM) Est GFR (MDRD) Non-Af (>60 ml/min/1.73 sqM) Glucose (74-99) mg/dL Plasma Lactic Acid Sai (0.7-2.0) mmol/L Calcium (8.4-10.2) mg/dL Total Bilirubin (0.2-1.3) mg/dL AST (14-36) U/L ALT (9-52) U/L Alkaline Phosphatase (38-126) U/L Ammonia (<30) umol/L Total Creatine Kinase (30-135) U/L CK-MB (CK-2) (0.0-2.4) ng/mL CK-MB (CK-2) Rel Index Total Protein (6.3-8.2) g/dL Albumin (3.5-5.0) g/dL Amylase (30-110) U/L Lipase (23-300) U/L Urine Color Yellow Urine Appearance Cloudy H (Clear) Urine pH 5.0 (5.0-8.0) Ur Specific [place] 1.011 (1.001-1.035) Urine Protein Negative (Negative) Urine Glucose (UA) Negative (Negative) Urine Ketones Negative (Negative) Urine Blood Negative (Negative) Urine Nitrite Negative (Negative) Urine Bilirubin Negative (Negative) Urine Urobilinogen <2.0 (<2.0) mg/dL Ur Leukocyte Esterase Large H (Negative) Urine RBC 1 (0-5) /hpf Urine WBC 157 H (0-5) /hpf Ur Squamous Epith Cells <1 (0-4) /hpf Hyaline Casts 25 H (0-2) /lpf Urine Mucus Rare H (None) /hpf Blood Type Blood Type Recheck Antibody Screen Spec Expiration Date Disposition Clinical Impression: Uterine cancer, Ascites, UTI (urinary tract infection), Abdominal distension Disposition: [facility] Condition: Fair Referrals: Jd Bravo MD [Primary Care Provider] - 1-2 days
[2017-07-10] MEDS ORDERED: Acetaminophen-Codeine 300-30mg TAB PO PRN (22:33)
[2017-07-10] MEDS ORDERED: CHOLECALCIFEROL 1,000 UNIT TAB PO SCH (22:45)
[2017-07-10] MEDS ORDERED: LURASIDONE 40 MG TAB PO SCH (22:45)
[2017-07-10] MEDS: MORPHINE SULFATE 4 MG/ML SYRINGE IVP PRN (23:02)
[2017-07-10] MEDS: CARVEDILOL 3.125 MG TAB PO SCH (23:06)
[2017-07-11] MEDS: MORPHINE SULFATE 4 MG/ML SYRINGE IVP PRN (04:32)
[2017-07-11 07:31] LABS: Glucose,Whole Blood 164 mg/dL (75-99)
[2017-07-11] MEDS ORDERED: LEVOTHYROXINE 112 MCG TAB PO SCH (09:00)
[2017-07-11] MEDS ORDERED: CALCIUM CARBONATE 500 MG CHEWABLE PO SCH (09:00)
[2017-07-11] MEDS ORDERED: TIMOLOL 0.5% OPHTH DROPS 5 ML BTL BOTH EYES SCH (09:00)
[2017-07-11] MEDS ORDERED: MULTIVITAMINS, THERA 1 EACH TAB PO SCH (09:00)
[2017-07-11] MEDS ORDERED: FUROSEMIDE 20 MG TAB PO SCH (09:00)
[2017-07-11] MEDS ORDERED: ASPIRIN 81 MG PO SCH (09:00)
[2017-07-11] MEDS ORDERED: B COMPLEX-VIT C-VIT E-ZINC 1 EACH TAB PO SCH (09:00)
[2017-07-11] MEDS ORDERED: ESCITALOPRAM 20 MG TAB PO SCH (09:00)
[2017-07-11] MEDS ORDERED: NON-FORMULARY DRUG (Lutein [Lutein] 10 MG) PO SCH (09:00)
[2017-07-11] MEDS ORDERED: QUEtiapine 50 MG TAB PO SCH (09:00)
[2017-07-11] MEDS ORDERED: ENOXAPARIN 40 MG/0.4 ML SYRINGE SQ SCH (09:00)
--- NOTE | 2017-07-11 10:02 | P.HPIM ---
History of Present Illness H&P Date: 07/11/17 Chief Complaint: Shortness of breath 61-year-old female who presented to the emergency room 07/10/2017 with a chief complaint of shortness of breath and abdominal distention. The patient had a recent admission to the hospital from 06/28/2017 to 2016 for shortness of breath. The patient had significant ascites and underwent a paracentesis with 6.2 L of fluid removed. The fluid was sent for cytology and results showed fluid was positive for ovarian cancer versus primary peritoneal carcinoma. The patient states she follows up with oncologist out of Dr. Hein in [place]. She states she is supposed to undergo a CT next week and is scheduled for a total abdominal hysterectomy on 07/23/2017. The patient is a history of urinary tract infection, diabetes mellitus type 2 with an insulin pump, hypothyroidism, heart failure, hypertension, hyperlipidemia, and GERD. The patient was admitted to the hospital under the care of Dr. Bravo. A consult was placed for interventional radiologist for therapeutic paracentesis. The patient was started on ceftriaxone for urinary tract infection in the ER. Urine cultures are pending. Upon assessment and evaluation this morning, the patient states she is feeling okay. She states she is short of breath due to her ascites. She is maintaining an oxygen saturation greater than 92% on room air. She denies abdominal pain. Patient states she does not have much of an appetite due to her abdominal distention. She states she had an episode of chest pain last night in the epigastric region. She states she had an EKG last night. Unable to find results in the computer but patient states she was told it was normal. Troponin was also drawn at 3:00 morning and was within normal limits. Review of Systems Those systems with pertinent negative or pertinent positive responses have been documented in the HPI Past Medical History Past Medical History: Cancer, Heart Failure, Diabetes Mellitus, Eye Disorder, GERD/Reflux, Hyperlipidemia, Hypertension, Skin Disorder, Thyroid Disorder Additional Past Medical History / Comment(s): Recent UTI-pt has completed ABX.RECENTLY DX W/ ovarian cancer- "PT STATED IS SCHEDULED FOR SX 07-23-17 AT [facility]. IDDM type II-has insulin PUMP, bilateral glaucoma, lower GI bleed , GASTRITIS, DIVERTICULAR DX, hypothyroid, ventral hernia, VAGINAL HERPES SIMPLEx, History of Any Multi-Drug Resistant Organisms: None Reported Past Surgical History: Appendectomy, Bariatric Surgery, Cholecystectomy Additional Past Surgical History / Comment(s): GASTRIC SLEEVE 09/2015, COLONOSCOPIES/EGDS WITH LAST ONES DONE 05/21/17, BILATERAL CATARACT REMOVAL WITH LENS IMPLANTS.PARACENTESIS 06/28/17 Past Anesthesia/Blood Transfusion Reactions: Postoperative Nausea & Vomiting ( PONV) Smoking Status: Never smoker - Past Family History Mother Family Medical History: Diabetes Mellitus, Hypertension Father Family Medical History: Cancer, Prostate Disorder Additional Family Medical History / Comment(s): FATHER AT THE AGE OF 74YRS AND WAS HEALTHY UNTIL HIS . CAUSE OF UNKNOWN. Sister(s) Family Medical History: Cancer, Pulmonary Embolus Additional Family Medical History / Comment(s): 2 SISTERS - COLON CA AND ONE FEBRUARY 2017 FROM METS TO LIVER. ONE SISTER HAS HAD A PULMONARY EMBOLI. Medications and Allergies Home Medications Medication Instructions Recorded Confirmed Type Biotin 5 mg PO HS 08/25/15 07/10/17 History Cholecalciferol [Vitamin D3] 5,000 unit PO HS 08/25/15 07/10/17 History Escitalopram [Lexapro] 20 mg PO QAM 08/25/15 07/10/17 History Levothyroxine Sodium [Synthroid] 112 mcg PO QAM 08/25/15 07/10/17 History Thiamine [Vitamin B-1] 100 mg PO HS 08/25/15 07/10/17 History Vitamin B Complex 1 cap PO DAILY 08/25/15 07/10/17 History Alirocumab [Praluent Pen] 150 mg SQ Q15D 05/13/17 07/10/17 History Aspirin [Adult Low Dose Aspirin EC] 81 mg PO DAILY 05/13/17 07/10/17 History Astaxanthine (Otc) 4,000 mcg PO HS 05/13/17 07/10/17 History Cholesticare (Otc) 1 tab PO DAILY 05/13/17 07/10/17 History Diosmin-Hesperidin 720 mg PO DAILY PRN 05/13/17 07/10/17 History L.acidoph,Paracasei, B.lactis 1 cap PO HS 05/13/17 07/10/17 History [Probiotic] Liver Antioxidant (Otc) 1 tab PO DAILY 05/13/17 07/10/17 History Lutein 10 mg PO DAILY 05/13/17 07/10/17 History QUEtiapine [SEROquel] 50 mg PO DAILY 05/13/17 07/10/17 History Acetaminophen-Codeine 300-30mg 1 tab PO Q4H PRN #20 tablet 06/08/17 07/10/17 Rx [Tylenol #3] Calcium Carbonate [Calcium] 600 mg PO BID 06/08/17 07/10/17 History Carvedilol [Coreg] 3.125 mg PO BID 06/08/17 07/10/17 History Furosemide [Lasix] 20 mg PO DAILY 06/08/17 07/10/17 History Insulin Aspart (For Pump) [NovoLOG 0.01 unit SQ-PUMP CONTINUOUS 06/08/17 History (For Pump)] Lurasidone HCl [Latuda] 60 mg PO HS 06/08/17 07/10/17 History Multivitamins, Thera [Multivitamin 1 tab PO DAILY 06/08/17 07/10/17 History (formulary)] Timolol 0.5% Ophth Soln [Timoptic 1 drop BOTH EYES QAM 06/08/17 07/10/17 History 0.5% Ophth Soln] Allergies Allergy/AdvReac Type Severity Reaction Status Date / Time Influenza Virus Vaccines Allergy MOUTH Verified 07/10/17 17:52 SORES,ITCHING rosiglitazone [From [employer]] Allergy MUSCLE PAIN Verified 07/10/17 17:52 Physical Exam Vitals: Vital Signs Temp Pulse Pulse Resp BP BP BP 07/11/17 09:25 72 14 103/56 07/11/17 07:40 96.7 F L 75 18 115/51 07/11/17 03:00 18 07/11/17 01:13 16 07/10/17 22:31 96.5 F L 69 16 98/63 07/10/17 20:41 98.0 F 76 20 104/53 07/10/17 19:19 97.6 F 72 18 100/52 07/10/17 16:04 98.5 F 79 18 124/61 Pulse Ox 07/11/17 09:25 99 07/11/17 07:40 96 07/11/17 03:00 07/11/17 01:13 07/10/17 22:31 95 07/10/17 20:41 98 07/10/17 19:19 97 07/10/17 16:04 97 Intake and Output 07/10/17 07/11/17 07/11/17 22:59 06:59 14:59 Other: Voiding Method Toilet # Voids 1 Weight 120.656 kg GENERAL: Alert and oriented. Short of breath with communication. Pleasant and cooperative. RESPIRATORY: Lungs clear bilaterally. No use of accessory muscles. Patient maintaining oxygen saturation greater than 92%. CARDIOVASCULAR: S1 and S2 noted. No murmurs auscultated. No JVD noted. EXTREMITIES: No edema noted. Palpable pedal pulses +2. ABDOMEN: Obese. Distended noted. Ascites present. Abdomen soft. Bowel sounds auscultated 4 quadrants. No pain or tenderness noted upon palpation in all four quadrants. Results CBC & Chem 7: 07/10/17 16:30 07/10/17 16:30 Labs: Abnormal Lab Results - Last 24 Hours (Table) 07/10/17 07/10/17 07/10/17 Range/Units 16:30 16:30 17:09 Chloride 108 H (98-107) mmol/L BUN 22 H (7-17) mg/dL Creatinine 1.43 H (0.52-1.04) mg/dL Glucose 68 L (74-99) mg/dL POC Glucose (mg/dL) (75-99) mg/dL CK-MB (CK-2) 2.7 H* (0.0-2.4) ng/mL Total Protein 5.5 L (6.3-8.2) g/dL Albumin 2.7 L (3.5-5.0) g/dL Urine Appearance Cloudy H (Clear) Ur Leukocyte Esterase Large H (Negative) Urine WBC 157 H (0-5) /hpf Hyaline Casts 25 H (0-2) /lpf Urine Mucus Rare H (None) /hpf 07/11/17 Range/Units 07:17 Chloride (98-107) mmol/L BUN (7-17) mg/dL Creatinine (0.52-1.04) mg/dL Glucose (74-99) mg/dL POC Glucose (mg/dL) 164 H (75-99) mg/dL CK-MB (CK-2) (0.0-2.4) ng/mL Total Protein (6.3-8.2) g/dL Albumin (3.5-5.0) g/dL Urine Appearance (Clear) Ur Leukocyte Esterase (Negative) Urine WBC (0-5) /hpf Hyaline Casts (0-2) /lpf Urine Mucus (None) /hpf Microbiology - Last 24 Hours (Table) 07/10/17 17:09 Urine Culture - Preliminary Urine,Voided Thrombosis Risk Factor Assmnt - Choose All That Apply Any of the Below Risk Factors Present?: Yes Each Factor Represents 1 point: Obesity (BMI >25) Other Risk Factors: Yes Each Risk Factor Represents 2 Points: Age 61-74 years, Malignancy Other congenital or acquired thrombophilia - If yes, enter type in comment: No Thrombosis Risk Factor Assessment Total Risk Factor Score: 5 Thrombosis Risk Factor Assessment Level: High Risk Assessment and Plan Plan: ASSESSMENT: -Shortness of breath, present on admission, due to significant ascites -Recent diagnosis of ovarian cancer, patient scheduled for total abdominal hysterectomy on 07/23/2017 -Ascites, present on admission, likely due to recent diagnosis of ovarian cancer with possible metastasis -Urinary tract infection, present on admission, urine culture pending -Acute kidney injury, creatinine on admission 1.43, baseline 0.8-0.9. -History of diabetes mellitus type 2, patient uses insulin pump -Chronic diastolic heart failure, EF between 55 and 60% noted on echo from -Morbid obesity: BMI 47.1 PLAN: -Patient to have therapeutic paracentesis today -Resume home medications -Regular diet -Monitor kidney function -GI prophylaxis: Protonic 40 mg daily -DVT prophylaxis: Lovenox 40 mg daily to begin after paracentesis -Continue to monitor vital signs and address as appropriate -Continue ceftriaxone for urinary tract infection -Await urine culture results -Monitor capillary blood glucose The above impression and plan of care have been discussed and directed by signing physician. Jessenia Anaya, nurse practitioner, acting as scribe for signing physician.
[2017-07-11] MEDS: CARVEDILOL 3.125 MG TAB PO SCH (11:00)
[2017-07-11 11:08] VITALS: BMI 47.1
[2017-07-11 11:42] LABS: Glucose,Whole Blood 130 mg/dL (75-99)
[2017-07-11 11:45] VITALS: BP 98/57; PULSE 69; RESP 16; TEMP 98.1
[2017-07-11] MEDS: INSULIN LISPRO (humaLOG) 300 UNIT/3 ML VIAL SQ SCH ×2 (12:03→12:12)
[2017-07-11 12:56] LABS: Hemoglobin A1C 6.2 % (4.2-6.1)
--- NOTE | 2017-07-11 13:45 | US ---
Therapeutic paracentesis. DATE OF EXAM: 07/11/2017 CLINICAL HISTORY: Ascites The procedure was discussed with the patient. The risks, complications, benefits, and alternatives we re discussed and any questions were answered. Informed consent was obtained. The patient was placed s upine on the ultrasound table and prepped and draped in the usual sterile fashion. All elements of maximal barrier technique were utilized. Under ultrasound guidance, access into the left lower quadrant was obtained, via the paracentesis catheter system and direct ultrasound guidance . Approximately 4.4 liters of straw-colored fluid was removed. The patient was stable throughout the pr ocedure and remained stable upon discharge from Department of Radiology. IMPRESSION: Successful therapeutic paracentesis under ultrasound guidance.
--- NOTE | 2017-07-11 13:51 | P.DS ---
Providers Date of admission: 07/10/17 18:49 Expected date of discharge: 07/11/17 Attending physician: Jd Bravo Consults: 07/10/17 18:47 Consult Physician Routine Consulting Provider: Heather Parker Consult Reason/Comments: ca Do you want consulting provider notified?: Yes Primary care physician: Jd Lawrence [facility] Course: 61-year-old female who presented to the emergency room 07/10/2017 with a chief complaint of shortness of breath and abdominal distention. The patient had a recent admission to the hospital from 06/28/2017 to 2016 for shortness of breath. The patient had significant ascites and underwent a paracentesis with 6.2 L of fluid removed. The fluid was sent for cytology and results showed fluid was positive for ovarian cancer versus primary peritoneal carcinoma. The patient states she follows up with oncologist out of Dr. Hein in [place]. She states she is supposed to undergo a CT next week and is scheduled for a total abdominal hysterectomy on 07/23/2017. The patient is a history of urinary tract infection, diabetes mellitus type 2 with an insulin pump, hypothyroidism, heart failure, hypertension, hyperlipidemia, and GERD. The patient was admitted to the hospital under the care of Dr. Bravo. A consult was placed for interventional radiologist for therapeutic paracentesis. Patient underwent paracentesis today and 4.4 L was removed. Her breathing significantly improved after procedure. She did complain of slight headache and lightheadedness after procedure which has subsided. The patient was started on ceftriaxone for urinary tract infection in the ER. Urine cultures are pending. She is asymptomatic. Per Dr. Bravo, the patient does not need to be discharged home on antibiotics. The patient is to follow-up with Dr. Bravo outpatient and will have future therapeutic paracentesis scheduled in the [facility]. DISCHARGE DIAGNOSIS: -Shortness of breath, present on admission, due to significant ascites -Status post therapeutic paracentesis with removal of 4.4 L per interventional radiology -Recent diagnosis of ovarian cancer, patient scheduled for total abdominal hysterectomy on 07/23/2017 -Ascites, present on admission, likely due to recent diagnosis of ovarian cancer with questionable metastasis -Urinary tract infection, present on admission, urine culture pending, patient asymptomatic -Acute kidney injury, creatinine on admission 1.43, baseline 0.8-0.9. -History of diabetes mellitus type 2, patient uses insulin pump -Chronic diastolic heart failure, EF between 55 and 60% noted on echo from -Morbid obesity: BMI 47.1 The above impression and plan of care have been discussed and directed by signing physician. Jessenia Anaya, nurse practitioner, acting as scribe for signing physician. Patient Condition at Discharge: Stable Plan - Discharge Summary New Discharge Prescriptions: Continue Thiamine [Vitamin B-1] 100 mg PO HS Cholecalciferol [Vitamin D3] 5,000 unit PO HS Escitalopram [Lexapro] 20 mg PO QAM Levothyroxine Sodium [Synthroid] 112 mcg PO QAM Vitamin B Complex 1 cap PO DAILY Biotin 5 mg PO HS QUEtiapine [SEROquel] 50 mg PO DAILY Lutein 10 mg PO DAILY L.acidoph,Paracasei, B.lactis [Probiotic] 1 cap PO HS Aspirin [Adult Low Dose Aspirin EC] 81 mg PO DAILY Alirocumab [Praluent Pen] 150 mg SQ Q15D Liver Antioxidant (Otc) 1 tab PO DAILY Diosmin-Hesperidin 720 mg PO DAILY PRN PRN Reason: RLS Cholesticare (Otc) 1 tab PO DAILY Astaxanthine (Otc) 4,000 mcg PO HS Calcium Carbonate [Calcium] 600 mg PO BID Carvedilol [Coreg] 3.125 mg PO BID Furosemide [Lasix] 20 mg PO DAILY Insulin Aspart (For Pump) [NovoLOG (For Pump)] 0.01 unit SQ-PUMP CONTINUOUS Lurasidone HCl [Latuda] 60 mg PO HS Multivitamins, Thera [Multivitamin (formulary)] 1 tab PO DAILY Timolol 0.5% Ophth Soln [Timoptic 0.5% Ophth Soln] 1 drop BOTH EYES QAM Acetaminophen-Codeine 300-30mg [Tylenol w/codeine #3] 1 tab PO Q4H PRN #20 tablet PRN Reason: pain Discharge Medication List Biotin 5 mg PO HS 08/25/15 [History] Cholecalciferol [Vitamin D3] 5,000 unit PO HS 08/25/15 [History] Escitalopram [Lexapro] 20 mg PO QAM 08/25/15 [History] Levothyroxine Sodium [Synthroid] 112 mcg PO QAM 08/25/15 [History] Thiamine [Vitamin B-1] 100 mg PO HS 08/25/15 [History] Vitamin B Complex 1 cap PO DAILY 08/25/15 [History] Alirocumab [Praluent Pen] 150 mg SQ Q15D 05/13/17 [History] Aspirin [Adult Low Dose Aspirin EC] 81 mg PO DAILY 05/13/17 [History] Astaxanthine (Otc) 4,000 mcg PO HS 05/13/17 [History] Cholesticare (Otc) 1 tab PO DAILY 05/13/17 [History] Diosmin-Hesperidin 720 mg PO DAILY PRN 05/13/17 [History] L.acidoph,Paracasei, B.lactis [Probiotic] 1 cap PO HS 05/13/17 [History] Liver Antioxidant (Otc) 1 tab PO DAILY 05/13/17 [History] Lutein 10 mg PO DAILY 05/13/17 [History] QUEtiapine [SEROquel] 50 mg PO DAILY 05/13/17 [History] Acetaminophen-Codeine 300-30mg [Tylenol w/codeine #3] 1 tab PO Q4H PRN #20 tablet 06/08/17 [Rx] Calcium Carbonate [Calcium] 600 mg PO BID 06/08/17 [History] Carvedilol [Coreg] 3.125 mg PO BID 06/08/17 [History] Furosemide [Lasix] 20 mg PO DAILY 06/08/17 [History] Insulin Aspart (For Pump) [NovoLOG (For Pump)] 0.01 unit SQ-PUMP CONTINUOUS [History] Lurasidone HCl [Latuda] 60 mg PO HS 06/08/17 [History] Multivitamins, Thera [Multivitamin (formulary)] 1 tab PO DAILY 06/08/17 [History ] Timolol 0.5% Ophth Soln [Timoptic 0.5% Ophth Soln] 1 drop BOTH EYES QAM [History] Follow up Appointment(s)/Referral(s): Jd Bravo MD [Primary Care Provider] - 1-2 days Activity/Diet/Wound Care/Special Instructions: Patient to follow up with Dr. Bravo. His office will arrange for patient to have future therapeutic paracentesis's completed at the [facility] Wear knee high compression stockings, as tolerated, to decrease swelling in lower extremities Discharge Disposition: HOME SELF-CARE
--- NOTE | 2017-07-11 17:08 | P.HPIM ---
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 Patient is being seen and treated by [facility] surgical oncologist Dr. Morrow. Patient states that she has a CT scan planned for Saturday, based on the results of that patient will either be treated with neoadjuvant chemotherapy or she will proceed to surgery with likely adjuvant chemotherapy to follow. Patient has progressive ascites, previous ascitic fluid was positive for malignancy, states that when the ascites builds up it becomes more difficult to breathe, she experiences early satiety and sometimes constipation. patient denies fevers, appetite is fair, no cough, dysuria or hematuria, abdominal cramping, black or bloody stools. Patient denies any other physical complaints. Review of Systems review of systems is as stated in HPI, otherwise negative Past Medical History Past Medical History: Cancer, Heart Failure, Diabetes Mellitus, Eye Disorder, GERD/Reflux, Hyperlipidemia, Hypertension, Skin Disorder, Thyroid Disorder Additional Past Medical History / Comment(s): Recent UTI-pt has completed ABX.RECENTLY DX W/ ovarian cancer- "PT STATED IS SCHEDULED FOR SX 07-23-17 AT [facility]. IDDM type II-has insulin PUMP, bilateral glaucoma, lower GI bleed , GASTRITIS, DIVERTICULAR DX, hypothyroid, ventral hernia, VAGINAL HERPES SIMPLEx, History of Any Multi-Drug Resistant Organisms: None Reported Past Surgical History: Appendectomy, Bariatric Surgery, Cholecystectomy Additional Past Surgical History / Comment(s): GASTRIC SLEEVE 09/2015, COLONOSCOPIES/EGDS WITH LAST ONES DONE 05/21/17, BILATERAL CATARACT REMOVAL WITH LENS IMPLANTS.PARACENTESIS 06/28/17 Past Anesthesia/Blood Transfusion Reactions: Postoperative Nausea & Vomiting ( PONV) Smoking Status: Never smoker - Past Family History Mother Family Medical History: Diabetes Mellitus, Hypertension Father Family Medical History: Cancer, Prostate Disorder Additional Family Medical History / Comment(s): FATHER AT THE AGE OF 74YRS AND WAS HEALTHY UNTIL HIS . CAUSE OF UNKNOWN. Sister(s) Family Medical History: Cancer, Pulmonary Embolus Additional Family Medical History / Comment(s): 2 SISTERS - COLON CA AND ONE FEBRUARY 2017 FROM METS TO LIVER. ONE SISTER HAS HAD A PULMONARY EMBOLI. Medications and Allergies Home Medications Medication Instructions Recorded Confirmed Type Biotin 5 mg PO HS 08/25/15 07/10/17 History Cholecalciferol [Vitamin D3] 5,000 unit PO HS 08/25/15 07/10/17 History Escitalopram [Lexapro] 20 mg PO QAM 08/25/15 07/10/17 History Levothyroxine Sodium [Synthroid] 112 mcg PO QAM 08/25/15 07/10/17 History Thiamine [Vitamin B-1] 100 mg PO HS 08/25/15 07/10/17 History Vitamin B Complex 1 cap PO DAILY 08/25/15 07/10/17 History Alirocumab [Praluent Pen] 150 mg SQ Q15D 05/13/17 07/10/17 History Aspirin [Adult Low Dose Aspirin EC] 81 mg PO DAILY 05/13/17 07/10/17 History Astaxanthine (Otc) 4,000 mcg PO HS 05/13/17 07/10/17 History Cholesticare (Otc) 1 tab PO DAILY 05/13/17 07/10/17 History Diosmin-Hesperidin 720 mg PO DAILY PRN 05/13/17 07/10/17 History L.acidoph,Paracasei, B.lactis 1 cap PO HS 05/13/17 07/10/17 History [Probiotic] Liver Antioxidant (Otc) 1 tab PO DAILY 05/13/17 07/10/17 History Lutein 10 mg PO DAILY 05/13/17 07/10/17 History QUEtiapine [SEROquel] 50 mg PO DAILY 05/13/17 07/10/17 History Acetaminophen-Codeine 300-30mg 1 tab PO Q4H PRN #20 tablet 06/08/17 07/10/17 Rx [Tylenol w/codeine #3] Calcium Carbonate [Calcium] 600 mg PO BID 06/08/17 07/10/17 History Carvedilol [Coreg] 3.125 mg PO BID 06/08/17 07/10/17 History Furosemide [Lasix] 20 mg PO DAILY 06/08/17 07/10/17 History Insulin Aspart (For Pump) [NovoLOG 0.01 unit SQ-PUMP CONTINUOUS 06/08/17 History (For Pump)] Lurasidone HCl [Latuda] 60 mg PO HS 06/08/17 07/10/17 History Multivitamins, Thera [Multivitamin 1 tab PO DAILY 06/08/17 07/10/17 History (formulary)] Timolol 0.5% Ophth Soln [Timoptic 1 drop BOTH EYES QAM 06/08/17 07/10/17 History 0.5% Ophth Soln] Allergies Allergy/AdvReac Type Severity Reaction Status Date / Time Influenza Virus Vaccines Allergy MOUTH Verified 07/10/17 17:52 SORES,ITCHING rosiglitazone [From Avandia] Allergy MUSCLE PAIN Verified 07/10/17 17:52 Physical Exam Vitals: Vital Signs Temp Pulse Pulse Resp BP BP BP 07/11/17 11:44 98.1 F 69 16 07/11/17 10:58 98.7 F 62 18 98/51 07/11/17 10:30 71 14 109/53 07/11/17 10:17 66 14 95/48 07/11/17 10:05 70 14 97/54 07/11/17 09:50 73 14 99/52 07/11/17 09:25 72 14 103/56 07/11/17 08:00 62 18 07/11/17 07:45 75 17 07/11/17 07:40 96.7 F L 75 18 115/51 07/11/17 03:00 18 07/11/17 01:13 16 07/10/17 22:31 96.5 F L 69 16 98/63 07/10/17 20:41 98.0 F 76 20 104/53 07/10/17 19:19 97.6 F 72 18 100/52 BP Pulse Ox 07/11/17 11:44 98/57 97 07/11/17 10:58 97 07/11/17 10:30 96 07/11/17 10:17 99 07/11/17 10:05 97 07/11/17 09:50 99 07/11/17 09:25 99 07/11/17 08:00 07/11/17 07:45 07/11/17 07:40 96 07/11/17 03:00 07/11/17 01:13 07/10/17 22:31 95 07/10/17 20:41 98 07/10/17 19:19 97 Intake and Output 07/11/17 07/11/17 07/11/17 06:59 14:59 22:59 Other: Voiding Method Toilet Toilet # Voids 1 1 Weight 120.656 kg Patient Weight 07/12/17 06:59 Weight 120.656 kg - Constitutional General appearance: cooperative, no acute distress, obese - EENT Eyes: anicteric sclerae, EOMI, normal appearance ENT: hearing grossly normal, normal oropharynx - Neck Neck: no lymphadenopathy - Respiratory Respiratory: bilateral: CTA - Cardiovascular Rhythm: regular Heart sounds: normal: S1, S2 Abnormal Heart Sounds: no systolic murmur, no diastolic murmur, no rub, no S3 Gallop, no S4 Gallop, no click, no other leg Peripheral Edema: bilateral: Trace - Gastrointestinal General gastrointestinal: no absent bowel sounds, no decreased bowel sounds, distended, no hepatomegaly, no hyperactive bowel sounds, normal bowel sounds, no organomegaly, no rigid, no scaphoid, soft, no splenomegaly, no tenderness, no umbilical hernia, no ventral hernia - Integumentary Integumentary: normal - Neurologic Neurologic: CNII-XII intact - Musculoskeletal Musculoskeletal: strength equal bilaterally - Psychiatric Psychiatric: A&O x's 3, appropriate affect, intact judgment & insight Results CBC & Chem 7: 07/10/17 16:30 07/10/17 16:30 Labs: Abnormal Lab Results - Last 24 Hours (Table) 07/10/17 07/10/17 07/10/17 Range/Units 16:30 16:30 17:09 Chloride 108 H (98-107) mmol/L BUN 22 H (7-17) mg/dL Creatinine 1.43 H (0.52-1.04) mg/dL Glucose 68 L (74-99) mg/dL POC Glucose (mg/dL) (75-99) mg/dL Hemoglobin A1c (4.2-6.1) % CK-MB (CK-2) 2.7 H* (0.0-2.4) ng/mL Total Protein 5.5 L (6.3-8.2) g/dL Albumin 2.7 L (3.5-5.0) g/dL Urine Appearance Cloudy H (Clear) Ur Leukocyte Esterase Large H (Negative) Urine WBC 157 H (0-5) /hpf Hyaline Casts 25 H (0-2) /lpf Urine Mucus Rare H (None) /hpf 07/11/17 07/11/17 07/11/17 Range/Units 03:43 07:17 11:36 Chloride (98-107) mmol/L BUN (7-17) mg/dL Creatinine (0.52-1.04) mg/dL Glucose (74-99) mg/dL POC Glucose (mg/dL) 164 H 130 H (75-99) mg/dL Hemoglobin A1c 6.2 H (4.2-6.1) % CK-MB (CK-2) (0.0-2.4) ng/mL Total Protein (6.3-8.2) g/dL Albumin (3.5-5.0) g/dL Urine Appearance (Clear) Ur Leukocyte Esterase (Negative) Urine WBC (0-5) /hpf Hyaline Casts (0-2) /lpf Urine Mucus (None) /hpf Microbiology - Last 24 Hours (Table) 07/10/17 17:09 Urine Culture - Preliminary Urine,Voided Thrombosis Risk Factor Assmnt - DVT/VTE Prophylaxis DVT/VTE Prophylaxis: Contraindicated - See note (patient having paracentesis) - Choose All That Apply Any of the Below Risk Factors Present?: Yes Each Factor Represents 1 point: Obesity (BMI >25) Other Risk Factors: Yes Each Risk Factor Represents 2 Points: Age 61-74 years, Malignancy Other congenital or acquired thrombophilia - If yes, enter type in comment: No Thrombosis Risk Factor Assessment Total Risk Factor Score: 5 Thrombosis Risk Factor Assessment Level: High Risk Assessment and Plan (1) Ovarian carcinoma Narrative/Plan: patient has imaging and surgery planned through her [facility] oncologist, she will proceed with treatment as directed. Status: Acute (2) Malignant ascites Narrative/Plan: patient has history of malignant ascites. Recommended to patient to request a standing order for paracentesis from her Doctor until such time that her malignancy has been treated and the ascites recurrence decreases or ceases. She verbalized understanding. Status: Acute Plan: Pt is ok for discharge from Hem/Onc standpoint after paracentesis and once cleared by IM and other consulting Doctors.
[2017-07-11] MEDS ORDERED: THIAMINE 100 MG TAB PO SCH (21:00)
[2017-07-12] MEDS ORDERED: PANTOPRAZOLE 40 MG TABLET PO SCH (07:30)
== END 2017-07-11 15:35 | disposition home or self-care (01) | DRG 755 ==
LOC: EC 16:01 → 5ONC 18:49
PROVIDERS: ADMIT Family Medicine; ATTEND Family Medicine
PROC: 0W9G3ZZ Drainage of Peritoneal Cavity, Percutaneous Approach (ICD-10-PCS; principal; 2017-07-10)
DX: C56.9 Malignant neoplasm of unspecified ovary (principal); R18.0 Malignant ascites; N17.9 Acute kidney failure, unspecified; I11.0 Hypertensive heart disease with heart failure; I50.32 Chronic diastolic (congestive) heart failure; N39.0 Urinary tract infection, site not specified; Z68.42 Body mass index [BMI] 45.0-49.9, adult; E11.39 Type 2 diabetes mellitus with other diabetic ophthalmic complication; K59.00 Constipation, unspecified; K21.9 Gastro-esophageal reflux disease without esophagitis; Z96.41 Presence of insulin pump (external) (internal); Z96.1 Presence of intraocular lens; E03.9 Hypothyroidism, unspecified; E78.5 Hyperlipidemia, unspecified; H40.9 Unspecified glaucoma; E66.01 Morbid (severe) obesity due to excess calories; F31.9 Bipolar disorder, unspecified; Z79.4 Long term (current) use of insulin; Z98.41 Cataract extraction status, right eye; Z90.49 Acquired absence of other specified parts of digestive tract; Z98.42 Cataract extraction status, left eye; Z83.3 Family history of diabetes mellitus; Z82.49 Family history of ischemic heart disease and other diseases of the circulatory system; Z80.0 Family history of malignant neoplasm of digestive organs; Z79.82 Long term (current) use of aspirin; Z79.899 Other long term (current) drug therapy; Z88.7 Allergy status to serum and vaccine; Z88.8 Allergy status to other drugs, medicaments and biological substances; Z98.84 Bariatric surgery status
CPT/HCPCS: 36415; 49083; 80053; 81001; 82140; 82150; 82550; 82553; 83036; 83605; 83690; 84484; 85025; 85610; 85730; 86850; 86900; 86901; 87086; 93005; 96365; 96375; 99285

== ENCOUNTER → 2017-07-12 | Outpatient (CLI) | payer MEDICARE ==
--- NOTE | 2017-07-12 16:42 | US ---
EXAMINATION TYPE: US kidneys/renal and bladder DATE OF EXAM: 07/12/2017 COMPARISON: NONE CLINICAL HISTORY: N17.9 Acute kidney failure, unspecified. elevated BUN/CREAT, known ovarian CA EXAM MEASUREMENTS: Right Kidney: 9.6 x 4.5 x 4.6 cm Left Kidney: 10.9 x 4.6 x 6.0 cm Right Kidney: wnl Left Kidney: wnl Bladder: wnl Bilateral Jets seen: yes scant amount of ascites noted today, paracentesis done yesterday tech impression to Deanna @[id number] There is no evidence for hydronephrosis at this point in time. No nephrolithiasis is seen. No darlene s are identified. The urinary bladder is anechoic. Bilateral ureteral jets are seen. IMPRESSION: No evidence of renal mass or obstruction.
== END | disposition home or self-care (01) ==
LOC: RADUSWWP 16:10
PROVIDERS: ATTEND Internal Medicine Nephrology
DX: N17.9 Acute kidney failure, unspecified (principal)
CPT/HCPCS: 76770

== ENCOUNTER → 2017-07-13 | Outpatient (CLI) | payer MEDICARE ==
[2017-07-13 09:32] LABS: Calcium 8.5 mg/dL (8.4-10.2); Potassium 4.6 mmol/L (3.5-5.1)
== END | disposition home or self-care (01) ==
LOC: LABWHC1 08:31
PROVIDERS: ATTEND Internal Medicine Nephrology
DX: N17.9 Acute kidney failure, unspecified (principal)
CPT/HCPCS: 36415; 80048

== ENCOUNTER → 2017-07-17 | Outpatient (CLI) | payer MEDICARE ==
[2017-07-17 08:14] LABS: Anion Gap 9 mmol/L; Blood Urea Nitrogen 9 mg/dL (7-17); Calcium 8.7 mg/dL (8.4-10.2); Carbon Dioxide 23 mmol/L (22-30); Chloride 107 mmol/L (98-107); Glucose 131 mg/dL (74-99); Non-African American GFR(MDRD) 51 (>60 ml/min/1.73 sqM); Potassium 5.1 mmol/L (3.5-5.1); Sodium 139 mmol/L (137-145)
== END | disposition home or self-care (01) ==
LOC: LABWHC1 07:11
PROVIDERS: ATTEND Nurse Practitioner Family
DX: N17.9 Acute kidney failure, unspecified (principal)
CPT/HCPCS: 36415; 80048

== ENCOUNTER 2017-07-19 12:11 | Day surgery (SDC) | payer MEDICARE ==
[2017-07-19 12:58] LABS: Mean Platelet Volume 6.9
[2017-07-19 13:10] LABS: INR 1.1 (<1.2); Prothrombin Time 10.7 sec (9.0-12.0)
[2017-07-19 13:42] LABS: Glucose,Whole Blood 99 mg/dL (75-99)
[2017-07-19 14:09] VITALS: RESP 16
[2017-07-19 14:50] LABS: Glucose,Whole Blood 73 mg/dL (75-99)
[2017-07-19 15:30] VITALS: BP 134/72; PULSE 76
--- NOTE | 2017-07-19 17:28 | US ---
Therapeutic paracentesis. DATE OF EXAM: 07/19/2017 CLINICAL HISTORY: Ascites The procedure was discussed with the patient. The risks, complications, benefits, and alternatives we re discussed and any questions were answered. Informed consent was obtained. The patient was placed s upine on the ultrasound table and prepped and draped in the usual sterile fashion. All elements of maximal barrier technique were utilized. Under ultrasound guidance, access into the left lower quadrant was obtained, via the paracentesis catheter system and direct ultrasound guidance . Approximately 3.5 liters of straw-colored fluid was removed. The patient was stable throughout the pr ocedure and remained stable upon discharge from Department of Radiology. IMPRESSION: Successful therapeutic paracentesis under ultrasound guidance.
== END 2017-07-19 15:00 | disposition home or self-care (01) ==
LOC: RADPROMAIN 12:11
PROVIDERS: ATTEND Family Medicine
DX: R18.0 Malignant ascites (principal)
CPT/HCPCS: 36415; 49083; 82947; 85049; 85610

== ENCOUNTER 2017-08-01 11:05 | Inpatient (IN) | payer MEDICARE ==
[2017-08-01 09:34] LABS: Mean Platelet Volume 6.9
[2017-08-01 09:44] LABS: INR 1.1 (<1.2); Prothrombin Time 10.9 sec (9.0-12.0)
[2017-08-01 09:47] LABS: Glucose,Whole Blood 89 mg/dL (75-99)
--- NOTE | 2017-08-01 11:05 | US ---
Therapeutic paracentesis. DATE OF EXAM: 08/01/2017 CLINICAL HISTORY: Ascites The procedure was discussed with the patient. The risks, complications, benefits, and alternatives we re discussed and any questions were answered. Informed consent was obtained. The patient was placed s upine on the ultrasound table and prepped and draped in the usual sterile fashion. All elements of maximal barrier technique were utilized. Under ultrasound guidance, access into the left lower quadrant was obtained, via the paracentesis catheter system and direct ultrasound guidance . Approximately 3.1 liters of straw-colored fluid was removed. The patient was stable throughout the pr ocedure and remained stable upon discharge from Department of Radiology. IMPRESSION: Successful therapeutic paracentesis under ultrasound guidance.
[2017-08-01] MEDS ORDERED: ALBUTEROL NEBULIZED 2.5 MG/3 ML INHALATION STA (11:39)
[2017-08-01] MEDS ORDERED: SODIUM CHLORIDE 0.9% 1,000 ML IV STA (11:52)
--- NOTE | 2017-08-01 12:33 | ED ---
General Adult HPI - General Chief complaint: Shortness of Breath Time Seen by Provider: 08/01/17 11:29 Source: patient, RN notes reviewed, old records reviewed Mode of arrival: wheelchair Limitations: physical limitation - History of Present Illness Initial comments: This is a 62-year-old female to the ER for evaluation. This patient presents today for evaluation regarding shortness of breath and wheezing. Patient is scheduled to have port placed for better drainage of ascitic fluid. Patient has history of CVA ovarium CA. Patient has recurrent both abdominal fluid, ascites as well as recurrent pleural effusions. Patient has had prior pleural effusion drained. She does admit to mild shortness of breath, worse with exertion. Denies any pain. Patient denies history of smoking, states that she has noticed wheezing recently and has been noticed that has been getting worse ever since she had her lung drained - Related Data Home Medications Medication Instructions Recorded Confirmed Escitalopram [Lexapro] 20 mg PO QAM 08/25/15 08/01/17 Levothyroxine Sodium [Synthroid] 112 mcg PO QAM 08/25/15 08/01/17 QUEtiapine [SEROquel] 50 mg PO HS 05/13/17 08/01/17 Insulin Aspart (For Pump) [NovoLOG 0.01 unit SQ-PUMP DIRECTED 06/08/17 (For Pump)] Lurasidone HCl [Latuda] 60 mg PO HS 06/08/17 08/01/17 Timolol 0.5% Ophth Soln [Timoptic 1 drop BOTH EYES QAM 06/08/17 08/01/17 0.5% Ophth Soln] Carvedilol [Coreg] 3.125 mg PO BID 07/24/17 08/01/17 Allergies Allergy/AdvReac Type Severity Reaction Status Date / Time Influenza Virus Vaccines Allergy MOUTH Verified 08/01/17 11:32 SORES,ITCHING rosiglitazone [From Avandia] Allergy MUSCLE PAIN Verified 08/01/17 11:32 Review of Systems ROS Statement: Those systems with pertinent positive or pertinent negative responses have been documented in the HPI. ROS Other: All systems not noted in ROS Statement are negative. Past Medical History Past Medical History: Cancer, Heart Failure, Diabetes Mellitus, Eye Disorder, GERD/Reflux, Hyperlipidemia, Hypertension, Skin Disorder, Thyroid Disorder Additional Past Medical History / Comment(s): Recent UTI-pt has completed ABX.RECENTLY DX W/ ovarian cancer- IDDM type II-has insulin PUMP, bilateral glaucoma, lower GI bleed, GASTRITIS, DIVERTICULAR DX, hypothyroid, ventral hernia, VAGINAL HERPES SIMPLEx, History of Any Multi-Drug Resistant Organisms: None Reported Past Surgical History: Appendectomy, Bariatric Surgery, Cholecystectomy Additional Past Surgical History / Comment(s): GASTRIC SLEEVE 09/2015, COLONOSCOPIES/EGDS WITH LAST ONES DONE 05/21/17, BILATERAL CATARACT REMOVAL WITH LENS IMPLANTS.PARACENTESIS 06/28/17 Past Anesthesia/Blood Transfusion Reactions: Postoperative Nausea & Vomiting ( PONV) Past Psychological History: Bipolar Smoking Status: Never smoker Past Alcohol Use History: None Reported Past Drug Use History: None Reported - Past Family History Mother Family Medical History: Diabetes Mellitus, Hypertension Father Family Medical History: Cancer, Prostate Disorder Additional Family Medical History / Comment(s): FATHER AT THE AGE OF 74YRS AND WAS HEALTHY UNTIL HIS . CAUSE OF UNKNOWN. Sister(s) Family Medical History: Cancer, Pulmonary Embolus Additional Family Medical History / Comment(s): 2 SISTERS - COLON CA AND ONE FEBRUARY 2017 FROM METS TO LIVER. ONE SISTER HAS HAD A PULMONARY EMBOLI. General Exam Limitations: physical limitation General appearance: alert, in no apparent distress Head exam: Present: atraumatic, normocephalic, normal inspection Eye exam: Present: normal appearance, PERRL, EOMI. Absent: scleral icterus, conjunctival injection, periorbital swelling ENT exam: Present: normal exam, mucous membranes moist Neck exam: Present: normal inspection. Absent: tenderness, meningismus, lymphadenopathy Respiratory exam: Present: normal lung sounds bilaterally, wheezes, accessory muscle use, decreased breath sounds, prolonged expiratory. Absent: respiratory distress, rales, rhonchi, stridor Cardiovascular Exam: Present: regular rate, normal rhythm, normal heart sounds. Absent: systolic murmur, diastolic murmur, rubs, gallop, clicks GI/Abdominal exam: Present: soft, normal bowel sounds. Absent: distended, tenderness, guarding, rebound, rigid Extremities exam: Present: normal inspection, full ROM, normal capillary refill. Absent: tenderness, pedal edema, joint swelling, calf tenderness Back exam: Present: normal inspection Neurological exam: Present: alert, oriented X3, CN II-XII intact Psychiatric exam: Present: normal affect, normal mood Skin exam: Present: warm, dry, intact, normal color. Absent: rash Course Vital Signs 08/01/17 08/01/17 08/01/17 09:32 10:26 11:00 Temperature 98.1 F Pulse Rate Pulse Rate [ 76 69 76 Pulse Oximetery ] Respiratory 20 18 18 Rate Blood Pressure Blood Pressure 123/80 134/76 136/71 [Left Arm] O2 Sat by Pulse 95 99 99 Oximetry 08/01/17 08/01/17 08/01/17 11:07 11:44 12:00 Temperature 98.8 F Pulse Rate 77 71 Pulse Rate [ Pulse Oximetery ] Respiratory 18 22 Rate Blood Pressure 161/67 Blood Pressure [Left Arm] O2 Sat by Pulse 98 Oximetry 08/01/17 08/01/17 08/01/17 12:01 14:00 15:10 Temperature Pulse Rate 73 78 78 Pulse Rate [ Pulse Oximetery ] Respiratory 18 18 Rate Blood Pressure 119/53 135/65 Blood Pressure [Left Arm] O2 Sat by Pulse 97 98 Oximetry - Reevaluation(s) Reevaluation #1: 08/01/17 12:38 Patient did have paracentesis today with successful drainage, therapeutic 08/01/17 15:24 Patient having significant improvement in her breathing after breathing treatment Reevaluation #2: 08/01/17 15:24 Discussed with patient at length of desire to stay in hospital, patient states he really get her if she cleared up. The hospital as opposed to be discharged home, or shortness of breath is severely affecting her life at this time EKG Findings - EKG Comments: EKG Findings:: EKG shows normal sinus rhythm of 73, WA 138, QRS 72, QTc 427 Medical Decision Making - Medical Decision Making 62 female at ER for evaluation regarding short of breath and wheezing. Patient having likely reactive bronchospasm versus pneumonia, will admit for breathing treatments. As well as pulmonology evaluation - Lab Data Result diagrams: 08/01/17 13:38 08/01/17 13:38 Lab Results 08/01/17 08/01/17 08/01/17 Range/Units 09:20 09:20 09:20 WBC (3.8-10.6) k/uL RBC (3.80-5.40) m/uL Hgb (11.4-16.0) gm/dL Hct (34.0-46.0) % MCV (80.0-100.0) fL MCH (25.0-35.0) pg MCHC (31.0-37.0) g/dL RDW (11.5-15.5) % Plt Count 491 H (150-450) k/uL Neutrophils % % Lymphocytes % % Monocytes % % Eosinophils % % Basophils % % Neutrophils # (1.3-7.7) k/uL Lymphocytes # (1.0-4.8) k/uL Monocytes # (0-1.0) k/uL Eosinophils # (0-0.7) k/uL Basophils # (0-0.2) k/uL Hypochromasia PT 10.9 (9.0-12.0) sec INR 1.1 (<1.2) APTT 27.0 (22.0-30.0) sec D-Dimer 10.94 H (<0.60) mg/L FEU Sodium (137-145) mmol/L Potassium (3.5-5.1) mmol/L Chloride (98-107) mmol/L Carbon Dioxide (22-30) mmol/L Anion Gap mmol/L BUN (7-17) mg/dL Creatinine (0.52-1.04) mg/dL Est GFR (MDRD) Af Amer (>60 ml/min/1.73 sqM) Est GFR (MDRD) Non-Af (>60 ml/min/1.73 sqM) Glucose (74-99) mg/dL POC Glucose (mg/dL) (75-99) mg/dL POC Glu Chemical Processing Equipment Repairer ID Calcium (8.4-10.2) mg/dL Phosphorus (2.5-4.5) mg/dL Magnesium (1.6-2.3) mg/dL Total Bilirubin (0.2-1.3) mg/dL AST (14-36) U/L ALT (9-52) U/L Alkaline Phosphatase (38-126) U/L Total Creatine Kinase (30-135) U/L CK-MB (CK-2) (0.0-2.4) ng/mL CK-MB (CK-2) Rel Index Troponin I (0.000-0.034) ng/mL NT-Pro-B Natriuret Pep pg/mL Total Protein (6.3-8.2) g/dL Albumin (3.5-5.0) g/dL 08/01/17 08/01/17 08/01/17 Range/Units 09:20 09:44 13:38 WBC 5.8 (3.8-10.6) k/uL RBC 3.64 L (3.80-5.40) m/uL Hgb 10.0 L D (11.4-16.0) gm/dL Hct 33.2 L (34.0-46.0) % MCV 91.2 (80.0-100.0) fL MCH 27.6 (25.0-35.0) pg MCHC 30.3 L (31.0-37.0) g/dL RDW 13.8 (11.5-15.5) % Plt Count 480 H (150-450) k/uL Neutrophils % 65 % Lymphocytes % 23 % Monocytes % 8 % Eosinophils % 3 % Basophils % 0 % Neutrophils # 3.8 (1.3-7.7) k/uL Lymphocytes # 1.3 (1.0-4.8) k/uL Monocytes # 0.5 (0-1.0) k/uL Eosinophils # 0.2 (0-0.7) k/uL Basophils # 0.0 (0-0.2) k/uL Hypochromasia Marked PT (9.0-12.0) sec INR (<1.2) APTT (22.0-30.0) sec D-Dimer (<0.60) mg/L FEU Sodium (137-145) mmol/L Potassium (3.5-5.1) mmol/L Chloride (98-107) mmol/L Carbon Dioxide (22-30) mmol/L Anion Gap mmol/L BUN (7-17) mg/dL Creatinine (0.52-1.04) mg/dL Est GFR (MDRD) Af Amer (>60 ml/min/1.73 sqM) Est GFR (MDRD) Non-Af (>60 ml/min/1.73 sqM) Glucose (74-99) mg/dL POC Glucose (mg/dL) 89 (75-99) mg/dL POC Glu Chemical Processing Equipment Repairer ID Viglasky, Abbey Calcium (8.4-10.2) mg/dL Phosphorus (2.5-4.5) mg/dL Magnesium (1.6-2.3) mg/dL Total Bilirubin (0.2-1.3) mg/dL AST (14-36) U/L ALT (9-52) U/L Alkaline Phosphatase (38-126) U/L Total Creatine Kinase (30-135) U/L CK-MB (CK-2) (0.0-2.4) ng/mL CK-MB (CK-2) Rel Index Troponin I (0.000-0.034) ng/mL NT-Pro-B Natriuret Pep 1650 pg/mL Total Protein (6.3-8.2) g/dL Albumin (3.5-5.0) g/dL 08/01/17 08/01/17 Range/Units 13:38 13:38 WBC (3.8-10.6) k/uL RBC (3.80-5.40) m/uL Hgb (11.4-16.0) gm/dL Hct (34.0-46.0) % MCV (80.0-100.0) fL MCH (25.0-35.0) pg MCHC (31.0-37.0) g/dL RDW (11.5-15.5) % Plt Count (150-450) k/uL Neutrophils % % Lymphocytes % % Monocytes % % Eosinophils % % Basophils % % Neutrophils # (1.3-7.7) k/uL Lymphocytes # (1.0-4.8) k/uL Monocytes # (0-1.0) k/uL Eosinophils # (0-0.7) k/uL Basophils # (0-0.2) k/uL Hypochromasia PT (9.0-12.0) sec INR (<1.2) APTT (22.0-30.0) sec D-Dimer (<0.60) mg/L FEU Sodium 141 (137-145) mmol/L Potassium 4.6 (3.5-5.1) mmol/L Chloride 110 H (98-107) mmol/L Carbon Dioxide 23 (22-30) mmol/L Anion Gap 8 mmol/L BUN 11 (7-17) mg/dL Creatinine 1.00 (0.52-1.04) mg/dL Est GFR (MDRD) Af Amer >60 (>60 ml/min/1.73 sqM) Est GFR (MDRD) Non-Af 56 (>60 ml/min/1.73 sqM) Glucose 97 (74-99) mg/dL POC Glucose (mg/dL) (75-99) mg/dL POC Glu Chemical Processing Equipment Repairer ID Calcium 8.4 (8.4-10.2) mg/dL Phosphorus 4.7 H (2.5-4.5) mg/dL Magnesium 1.8 (1.6-2.3) mg/dL Total Bilirubin 0.9 (0.2-1.3) mg/dL AST 12 L (14-36) U/L ALT 26 (9-52) U/L Alkaline Phosphatase 77 (38-126) U/L Total Creatine Kinase <20 L (30-135) U/L CK-MB (CK-2) 1.0 (0.0-2.4) ng/mL CK-MB (CK-2) Rel Index Troponin I <0.012 (0.000-0.034) ng/mL NT-Pro-B Natriuret Pep pg/mL Total Protein 5.1 L (6.3-8.2) g/dL Albumin 2.3 L (3.5-5.0) g/dL - Radiology Data Radiology results: report reviewed (Chest x-ray is negative for acute disease), image reviewed Disposition Clinical Impression: Ovarian carcinoma, Malignant ascites, Dyspnea, Acute exacerbation of chronic obstructive airways disease Disposition: ADMITTED IP TO THIS [facility] Condition: Fair Referrals: Og Disla Jr, [Primary Care Provider] - 1-2 days
--- NOTE | 2017-08-01 12:49 | XR ---
EXAMINATION TYPE: XR chest 2V DATE OF EXAM: 08/01/2017 COMPARISON: 06/28/2017 TECHNIQUE: PA and lateral views submitted. HISTORY: Shortness of breath FINDINGS: Lower lobe infiltrate and small pleural effusion. No overt failure or pneumothorax. Heart size stable . IMPRESSION: 1. Left lower lobe infiltrate and small effusion 2. Tiny right pleural effusion. Correlate clinically.
[2017-08-01 14:06] LABS: ALT 26 U/L (9-52); AST 12 U/L (14-36); Alkaline Phosphatase 77 U/L (38-126); Anion Gap 8 mmol/L; Blood Urea Nitrogen 11 mg/dL (7-17); Calcium 8.4 mg/dL (8.4-10.2); Carbon Dioxide 23 mmol/L (22-30); Chloride 110 mmol/L (98-107); Glucose 97 mg/dL (74-99); Magnesium 1.8 mg/dL (1.6-2.3); Non-African American GFR(MDRD) 56 (>60 ml/min/1.73 sqM); Phosphorus 4.7 mg/dL (2.5-4.5); Potassium 4.6 mmol/L (3.5-5.1); Sodium 141 mmol/L (137-145); Total Bilirubin 0.9 mg/dL (0.2-1.3); Total Protein 5.1 g/dL (6.3-8.2)
[2017-08-01 14:08] LABS: Basophils % (A) 0 %; CH 27.2; CHCM 29.9; Eosinophils # (A) 0.2 k/uL (0-0.7); Eosinophils % (A) 3 %; HCT 33.2 % (34.0-46.0); HDW 2.74; Hypochromasia Marked; Luc # (Auto) 0.05; Luc % (Auto) 1; Lymphocytes # (A) 1.3 k/uL (1.0-4.8); Lymphocytes % (A) 23 %; MCH 27.6 pg (25.0-35.0); MCHC 30.3 g/dL (31.0-37.0); MCV 91.2 fL (80.0-100.0); Mean Platelet Volume 6.9; Monocytes # (A) 0.5 k/uL (0-1.0); Monocytes % (A) 8 %; Neutrophils # (A) 3.8 k/uL (1.3-7.7); Neutrophils % (A) 65 %; RBC 3.64 m/uL (3.80-5.40); RDW 13.8 % (11.5-15.5); WBC 5.8 k/uL (3.8-10.6); WBC (Perox) 5.69
[2017-08-01 14:17] LABS: Creatine Kinase <20 U/L (30-135)
[2017-08-01 14:30] LABS: Troponin I <0.012 ng/mL (0.000-0.034)
[2017-08-01] MEDS ORDERED: RX INFO: IV CONTRAST WAS GIVEN 1 EACH MISC MISCELLANE PRN (14:38)
[2017-08-01] MEDS: ALBUTEROL NEBULIZED 2.5 MG/3 ML INHALATION SCH ×3 (15:48→19:21)
[2017-08-01] MEDS ORDERED: LEVOFLOXACIN 750MG-D5W PMX 750 MG in DEXTROSE/WATER 1 150ML.BAG IVPB STA (16:02)
[2017-08-01] MEDS: SODIUM CHLORIDE 0.9% 1,000 ML IV SCH (16:15)
[2017-08-01 17:15] LABS: Glucose,Whole Blood 98 mg/dL (75-99)
[2017-08-01] MEDS: INSULIN LISPRO (humaLOG) 300 UNIT/3 ML VIAL SQ SCH ×2 (17:18→20:44)
[2017-08-01] MEDS: CARVEDILOL 3.125 MG TAB PO SCH (18:42)
[2017-08-01] MEDS ORDERED: ALBUTEROL NEBULIZED 2.5 MG/3 ML INHALATION PRN (19:06)
[2017-08-01] MEDS: LURASIDONE 40 MG TAB PO SCH (20:22)
[2017-08-01] MEDS: QUEtiapine 50 MG TAB PO SCH (20:22)
[2017-08-01 20:45] LABS: Glucose,Whole Blood 107 mg/dL (75-99)
[2017-08-02] MEDS: LEVOTHYROXINE 112 MCG TAB PO SCH (06:22)
[2017-08-02] MEDS: ESCITALOPRAM 20 MG TAB PO SCH (07:28)
[2017-08-02] MEDS: ENOXAPARIN 40 MG/0.4 ML SYRINGE SQ SCH (07:28)
[2017-08-02] MEDS: CARVEDILOL 3.125 MG TAB PO SCH ×2 (07:28→17:20)
[2017-08-02] MEDS: TIMOLOL 0.5% OPHTH DROPS 5 ML BTL BOTH EYES SCH (07:28)
[2017-08-02 07:50] LABS: Glucose,Whole Blood 140 mg/dL (75-99)
[2017-08-02] MEDS: ALBUTEROL NEBULIZED 2.5 MG/3 ML INHALATION SCH ×4 (07:51→19:37)
[2017-08-02] MEDS: INSULIN LISPRO (humaLOG) 300 UNIT/3 ML VIAL SQ SCH ×4 (07:52→21:11)
[2017-08-02 09:34] VITALS: BMI 46.9
[2017-08-02] MEDS ORDERED: RX INFO: IV CONTRAST WAS GIVEN 1 EACH MISC MISCELLANE PRN (11:37)
--- NOTE | 2017-08-02 11:38 | P.HPIM ---
History of Present Illness H&P Date: 08/02/17 Chief Complaint: shortness of breath this is a 62-year-old female who presented to the emergency department after having a paracentesis. The patient states that she is been feeling short of breath for about a week. She states a week ago she had a thoracentesis and biopsy done. Since that time she's been unable to breathe. She's been diagnosed with ovarian cancer about 5-6 weeks ago. She was supposed to have a port placed today and started chemotherapy. She does not wear home oxygen however she is currently on 2 L nasal cannula. She does not use any inhalers or nebulizers at home. She denies a history of asthma or COPD. She states she does wheeze on and off and has an intermittent cough. She denies fevers and chills at home. Review of Systems All systems: negative Past Medical History Past Medical History: Cancer, Heart Failure, Diabetes Mellitus, Eye Disorder, GERD/Reflux, Hyperlipidemia, Hypertension, Skin Disorder, Thyroid Disorder Additional Past Medical History / Comment(s): Recent UTI-pt has completed ABX.RECENTLY DX W/ ovarian cancer- IDDM type II-has insulin PUMP, bilateral glaucoma, lower GI bleed, GASTRITIS, DIVERTICULAR DX, hypothyroid, ventral hernia, VAGINAL HERPES SIMPLEx, History of Any Multi-Drug Resistant Organisms: None Reported Past Surgical History: Appendectomy, Bariatric Surgery, Cholecystectomy Additional Past Surgical History / Comment(s): GASTRIC SLEEVE 09/2015, COLONOSCOPIES/EGDS WITH LAST ONES DONE 05/21/17, BILATERAL CATARACT REMOVAL WITH LENS IMPLANTS.PARACENTESIS 06/28/17 Past Anesthesia/Blood Transfusion Reactions: Postoperative Nausea & Vomiting ( PONV) Smoking Status: Never smoker - Past Family History Mother Family Medical History: Diabetes Mellitus, Hypertension Father Family Medical History: Cancer, Prostate Disorder Additional Family Medical History / Comment(s): FATHER AT THE AGE OF 74YRS AND WAS HEALTHY UNTIL HIS . CAUSE OF UNKNOWN. Sister(s) Family Medical History: Cancer, Pulmonary Embolus Additional Family Medical History / Comment(s): 2 SISTERS - COLON CA AND ONE FEBRUARY 2017 FROM METS TO LIVER. ONE SISTER HAS HAD A PULMONARY EMBOLI. Medications and Allergies Home Medications Medication Instructions Recorded Confirmed Type Escitalopram [Lexapro] 20 mg PO QAM 08/25/15 08/01/17 History Levothyroxine Sodium [Synthroid] 112 mcg PO QAM 08/25/15 08/01/17 History QUEtiapine [SEROquel] 50 mg PO HS 05/13/17 08/01/17 History Insulin Aspart (For Pump) [NovoLOG 0.01 unit SQ-PUMP DIRECTED 06/08/17 History (For Pump)] Lurasidone HCl [Latuda] 60 mg PO HS 06/08/17 08/01/17 History Timolol 0.5% Ophth Soln [Timoptic 1 drop BOTH EYES QAM 06/08/17 08/01/17 History 0.5% Ophth Soln] Carvedilol [Coreg] 3.125 mg PO BID 07/24/17 08/01/17 History Allergies Allergy/AdvReac Type Severity Reaction Status Date / Time Influenza Virus Vaccines Allergy MOUTH Verified 08/01/17 11:32 SORES,ITCHING rosiglitazone [From [employer]andia] Allergy MUSCLE PAIN Verified 08/01/17 11:32 Physical Exam Osteopathic Statement: *. No significant issues noted on an osteopathic structural exam other than those noted in the History and Physical/Consult. Vitals: Vital Signs Temp Pulse Pulse Resp BP BP Pulse Ox 08/02/17 08:03 80 08/02/17 07:51 80 08/02/17 07:00 96.7 F L 78 15 124/73 99 08/01/17 23:00 98.4 F 85 16 123/65 98 08/01/17 19:29 88 08/01/17 19:21 84 08/01/17 17:23 98.1 F 80 16 127/67 96 08/01/17 17:17 98.1 F 80 16 127/67 96 08/01/17 16:00 74 18 136/67 98 08/01/17 15:58 75 14 08/01/17 15:48 80 14 08/01/17 15:10 78 18 135/65 98 08/01/17 14:00 78 18 119/53 97 08/01/17 12:01 73 08/01/17 12:00 22 08/01/17 11:44 71 Intake and Output 08/01/17 08/02/17 08/02/17 22:59 06:59 14:59 Intake Total 240 Balance 240 Intake: Oral 240 Other: Voiding Method Toilet # Voids 2 1 Weight 120.202 kg Patient Weight 08/03/17 06:59 Weight 120.202 kg Gen.: Patient is alert and oriented 3, no acute distress, obese Cardiovascular: Regular rate and rhythm, S1/S2 Lungs: Coarse breath sounds bilaterally with expiratory wheezing Abdomen: Soft nontender nondistended positive bowel sounds Extremities: Trace edema Results CBC & Chem 7: 08/01/17 13:38 08/01/17 13:38 Labs: Abnormal Lab Results - Last 24 Hours (Table) 08/01/17 08/01/17 08/01/17 Range/Units 09:20 13:38 13:38 RBC 3.64 L (3.80-5.40) m/uL Hgb 10.0 L D (11.4-16.0) gm/dL Hct 33.2 L (34.0-46.0) % MCHC 30.3 L (31.0-37.0) g/dL Plt Count 480 H (150-450) k/uL D-Dimer 10.94 H (<0.60) mg/L FEU Chloride 110 H (98-107) mmol/L POC Glucose (mg/dL) (75-99) mg/dL Phosphorus 4.7 H (2.5-4.5) mg/dL AST 12 L (14-36) U/L Total Creatine Kinase (30-135) U/L Total Protein 5.1 L (6.3-8.2) g/dL Albumin 2.3 L (3.5-5.0) g/dL 08/01/17 08/01/17 08/02/17 Range/Units 13:38 20:43 07:17 RBC (3.80-5.40) m/uL Hgb (11.4-16.0) gm/dL Hct (34.0-46.0) % MCHC (31.0-37.0) g/dL Plt Count (150-450) k/uL D-Dimer (<0.60) mg/L FEU Chloride (98-107) mmol/L POC Glucose (mg/dL) 107 H 140 H (75-99) mg/dL Phosphorus (2.5-4.5) mg/dL AST (14-36) U/L Total Creatine Kinase <20 L (30-135) U/L Total Protein (6.3-8.2) g/dL Albumin (3.5-5.0) g/dL Chest x-ray: report reviewed, image reviewed Thrombosis Risk Factor Assmnt - DVT/VTE Prophylaxis DVT/VTE Prophylaxis: Pharmacologic Prophylaxis ordered, Mechanical Prophylaxis ordered - Choose All That Apply Any of the Below Risk Factors Present?: Yes Each Factor Represents 1 point: Obesity (BMI >25), Serious lung disease incl. pneumonia (< 1month) Other Risk Factors: Yes Each Risk Factor Represents 2 Points: Age 61-74 years, Malignancy Other congenital or acquired thrombophilia - If yes, enter type in comment: No Thrombosis Risk Factor Assessment Total Risk Factor Score: 6 Thrombosis Risk Factor Assessment Level: High Risk Assessment and Plan Assessment: Acute hypoxic respiratory failure Small bilateral pleural effusions Left basilar atelectasis Ovarian cancer s/p thora and paracentesis Ascites Obesity Anemia, microcytic Mild thrombophilia Elevated D-Dimer Question underlying ERIC O2 to maintain saturation greater than or equal to 90% CTA of the chest today Antibiotics: Levaquin Steroids Bronchodilators Pulmicort Check iron, B12, folate Incentive spirometry and pulmonary hygiene Consult oncology Monitor for recurrent effusions GI and DVT prophylaxis
[2017-08-02 12:35] LABS: Hemoglobin A1C 5.6 % (4.2-6.1)
[2017-08-02 12:42] LABS: Glucose,Whole Blood 128 mg/dL (75-99)
[2017-08-02] MEDS: FAMOTIDINE 20 MG TAB PO SCH (14:03)
[2017-08-02] MEDS: methylPREDNISolone SOD SUCCI 40 MG/ML 1 ML VIAL IV SCH ×2 (14:03→21:10)
--- NOTE | 2017-08-02 14:18 | CT ---
CT CHEST FOR PULMONARY EMBOLISM. EXAMINATION TYPE: CT chest angio for PE DATE OF EXAM: 08/02/2017 INDICATION: Recent ovarian cancer diagnosis; R/O PE CT DLP: 578 mGycm, Automated exposure control for dose reduction was used. CONTRAST: Patient injected with 100 ml mL of Visipaque 320. COMPARISON: NONE TECHNIQUE: CT of the chest is performed on a spiral scan at 2 mm thick sections. Study is performed with intravenous contrast timed for evaluation for pulmonary embolism. This will limit additional po rtions of the evaluation. 3-D MIP images reconstructed by the technologist are reviewed on the compu ter in the coronal and sagittal planes. FINDINGS: No persistent filling defects are evident to suggest an acute pulmonary embolism. No mediastinal or hilar adenopathy enlarged by CT criteria is evident. The ascending aorta diameter at the level of the main pulmonary artery is 2.9 cm. The main pulmonary artery diameter at the bifur cation is 3.2 cm. Some pulmonary hypertension may be present. There are moderate bilateral pleural effusions. There is likely compressive atelectasis at the lung b ases bilaterally. Some streak opacities in the cardiophrenic angle may be some atelectasis. Series [address] sections are obtained through the upper abdomen. Small amount of ascites is present. Posts urgical changes are within the stomach. Small pericardial effusion is present. IMPRESSIONS: 1. No acute pulmonary embolism. 2. Moderate bilateral pleural effusions. 3. Mild compressive atelectasis bilateral lung bases. 4. Clinical consideration for mild pulmonary hypertension is recommended. 5. Small amount of abdominal ascites
--- NOTE | 2017-08-02 14:48 | P.HPIM ---
History of Present Illness H&P Date: 08/02/17 62 year old female who presented to the ER with a chief complaint of shortness of breath. The patient was scheduled for a port placement at [place] but presented to [facility] for evaluation of dyspnea. The patient has a recent diagnosis of ovarian cancer and states she is supposed to start chemotherapy next week. The patient has had a couple hospitalizations recently. She was hospitalized from 06-28-17 until 06-29-17 for shortness of breath. At that time, she underwent a paracentesis and had 6.2 liters drained. Her d-dimer was elevated during that admission at 14.4. A VQ scan was completed which showed low probability for pulmonary embolus. At that time, the patient did not want oncology consulted and wanted to follow up with her oncologist, Dr. Hein. She was also hospitalized from 07/10/2017 until 07/11/2017 for difficulty breathing. At that time the patient underwent another paracentesis and 4.4 L were removed. In the emergency room a chest x-ray was completed which showed left lower lobe infiltrate and small effusion. It also showed a tiny right pleural effusion. A d-dimer was completed which was 10.94. The patient was admitted to the hospital under the care of Dr. Bravo with consults placed to pulmonary. She underwent a paracentesis on 08-01-2017 and 3.1 liters were removed. The patient was seen and examined at the bedside with Dr. Bravo. The patient states her breathing has improved after the breathing treatments and paracentesis. She usually prefers for her oncologist not to be consulted during her hospital admissions because she follow up with oncologist out of [place] but a consult was placed already. She is receiving levaquin. She is on IV steroids 40mg Q12 hours. A CTA of the chest was ordered which shows no pulmonary embolism, moderate pleural effusions, mild compressive atelectasis bilateral lung bases, abdominal ascites, and possible pulmonary hypertension. Review of Systems Those systems with pertinent positive or pertinent negative responses have been documented in the HPI Past Medical History Past Medical History: Cancer, Heart Failure, Diabetes Mellitus, Eye Disorder, GERD/Reflux, Hyperlipidemia, Hypertension, Skin Disorder, Thyroid Disorder Additional Past Medical History / Comment(s): Recent UTI-pt has completed ABX.RECENTLY DX W/ ovarian cancer- IDDM type II-has insulin PUMP, bilateral glaucoma, lower GI bleed, GASTRITIS, DIVERTICULAR DX, hypothyroid, ventral hernia, VAGINAL HERPES SIMPLEx, History of Any Multi-Drug Resistant Organisms: None Reported Past Surgical History: Appendectomy, Bariatric Surgery, Cholecystectomy Additional Past Surgical History / Comment(s): GASTRIC SLEEVE 09/2015, COLONOSCOPIES/EGDS WITH LAST ONES DONE 05/21/17, BILATERAL CATARACT REMOVAL WITH LENS IMPLANTS.PARACENTESIS 06/28/17 Past Anesthesia/Blood Transfusion Reactions: Postoperative Nausea & Vomiting ( PONV) Smoking Status: Never smoker - Past Family History Mother Family Medical History: Diabetes Mellitus, Hypertension Father Family Medical History: Cancer, Prostate Disorder Additional Family Medical History / Comment(s): FATHER AT THE AGE OF 74YRS AND WAS HEALTHY UNTIL HIS . CAUSE OF UNKNOWN. Sister(s) Family Medical History: Cancer, Pulmonary Embolus Additional Family Medical History / Comment(s): 2 SISTERS - COLON CA AND ONE FEBRUARY 2017 FROM METS TO LIVER. ONE SISTER HAS HAD A PULMONARY EMBOLI. Medications and Allergies Home Medications Medication Instructions Recorded Confirmed Type Escitalopram [Lexapro] 20 mg PO QAM 08/25/15 08/01/17 History Levothyroxine Sodium [Synthroid] 112 mcg PO QAM 08/25/15 08/01/17 History QUEtiapine [SEROquel] 50 mg PO HS 05/13/17 08/01/17 History Insulin Aspart (For Pump) [NovoLOG 0.01 unit SQ-PUMP DIRECTED 06/08/17 History (For Pump)] Lurasidone HCl [Latuda] 60 mg PO HS 06/08/17 08/01/17 History Timolol 0.5% Ophth Soln [Timoptic 1 drop BOTH EYES QAM 06/08/17 08/01/17 History 0.5% Ophth Soln] Carvedilol [Coreg] 3.125 mg PO BID 07/24/17 08/01/17 History Allergies Allergy/AdvReac Type Severity Reaction Status Date / Time Influenza Virus Vaccines Allergy MOUTH Verified 08/01/17 11:32 SORES,ITCHING rosiglitazone [From [employer]] Allergy MUSCLE PAIN Verified 08/01/17 11:32 Physical Exam Vitals: Vital Signs Temp Pulse Pulse Resp BP BP Pulse Ox 08/02/17 12:01 84 08/02/17 11:44 88 08/02/17 08:03 80 08/02/17 07:51 80 08/02/17 07:00 96.7 F L 78 15 124/73 99 08/01/17 23:00 98.4 F 85 16 123/65 98 08/01/17 19:29 88 08/01/17 19:21 84 08/01/17 17:23 98.1 F 80 16 127/67 96 08/01/17 17:17 98.1 F 80 16 127/67 96 08/01/17 16:00 74 18 136/67 98 08/01/17 15:58 75 14 08/01/17 15:48 80 14 08/01/17 15:10 78 18 135/65 98 Intake and Output 08/01/17 08/02/17 08/02/17 22:59 06:59 14:59 Intake Total 240 Balance 240 Intake: Oral 240 Other: Voiding Method Toilet # Voids 2 1 1 Weight 120.202 kg Patient Weight 08/03/17 06:59 Weight 120.202 kg GENERAL: Alert and oriented. Appears in no acute distress. Pleasant. obese RESPIRATORY: Lungs clear bilaterally. No use of accessory muscles. Patient maintaining oxygen saturation greater than 92%. CARDIOVASCULAR: S1 and S2 noted. No murmurs auscultated. No JVD noted. EXTREMITIES: No edema noted. Palpable pedal pulses +2. ABDOMEN: Ascites present. Abdomen soft and round. Normal active bowel sounds auscultated 4 quadrants. No pain or tenderness noted upon palpation. Results CBC & Chem 7: 08/01/17 13:38 08/01/17 13:38 Labs: Abnormal Lab Results - Last 24 Hours (Table) 08/01/17 08/01/17 08/02/17 Range/Units 13:38 20:43 07:17 POC Glucose (mg/dL) 107 H 140 H (75-99) mg/dL Total Creatine Kinase <20 L (30-135) U/L 08/02/17 Range/Units 12:19 POC Glucose (mg/dL) 128 H (75-99) mg/dL Total Creatine Kinase (30-135) U/L Thrombosis Risk Factor Assmnt - Choose All That Apply Any of the Below Risk Factors Present?: Yes Each Factor Represents 1 point: Obesity (BMI >25), Serious lung disease incl. pneumonia (< 1month) Other Risk Factors: Yes Each Risk Factor Represents 2 Points: Age 61-74 years, Malignancy Other congenital or acquired thrombophilia - If yes, enter type in comment: No Thrombosis Risk Factor Assessment Total Risk Factor Score: 6 Thrombosis Risk Factor Assessment Level: High Risk Assessment and Plan Plan: ASSESSMENT: -Acute hypoxic respiratory failure, requiring supplemental oxygen -Elevated D-Dimer, 10.94, imaging negative for pulmonary emboli -Small bilateral pleural effusions, present on admission -Left lower lobe infiltrates, suggestive of pneumonia -Status post therapeutic paracentesis with removal of 4.1 L per interventional radiology 07/29/2017 -Recent therapeutic paracentesis x2 with removal of 6.2 and 4.4 L -Ascites, present on admission, secondary to CA -Recently elevated D-Dimer of 14.4, imaging negative for PE -Recent diagnosis of ovarian cancer -Diabetes mellitus type 2 -Chronic diastolic heart failure, EF between 55 and 60% noted on echo from -Morbid obesity: BMI 46.9 PLAN: -Pulmonary on consult. Appreciate recommendations and input -Oncology on consult. Appreciate recommendations and input -Continue breathing treatments -Continue IV steroids -Continue empiric abx with levaquin -Resume home meds as appropriate -Monitor labs -GI prophylaxis: Pepcid 40mg daily PO -DVT prophylaxis: lovenox 40mg daily -Monitor vital signs and address as appropriate -Monitor capillary blood gluocose -Humalog sliding scale AC/HS The above impression and plan of care have been discussed and directed by signing physician. Jessenia Anaya, nurse practitioner, acting as scribe for signing physician.
[2017-08-02 15:52] LABS: Iron Saturation 6.74 (12.00-45.00)
[2017-08-02] MEDS ORDERED: LEVOFLOXACIN 750MG-D5W PMX 750 MG in DEXTROSE/WATER 1 150ML.BAG IVPB SCH (16:00)
[2017-08-02] MEDS: SODIUM CHLORIDE 0.9% 1,000 ML IV SCH (17:20)
[2017-08-02 17:23] LABS: Glucose,Whole Blood 151 mg/dL (75-99)
[2017-08-02] MEDS: BUDESONIDE 0.5 MG/2 ML NEBU INHALATION SCH (19:37)
[2017-08-02] MEDS: LURASIDONE 40 MG TAB PO SCH (21:10)
[2017-08-02] MEDS: QUEtiapine 50 MG TAB PO SCH (21:10)
[2017-08-02 21:39] LABS: Glucose,Whole Blood 202 mg/dL (75-99)
[2017-08-03 01:57] LABS: Glucose,Whole Blood 220 mg/dL (75-99)
[2017-08-03] MEDS: LEVOTHYROXINE 112 MCG TAB PO SCH (06:56)
[2017-08-03 07:20] LABS: Glucose,Whole Blood 200 mg/dL (75-99)
[2017-08-03] MEDS: INSULIN LISPRO (humaLOG) 300 UNIT/3 ML VIAL SQ SCH ×4 (07:45→21:26)
[2017-08-03] MEDS: ESCITALOPRAM 20 MG TAB PO SCH (07:46)
[2017-08-03] MEDS: CARVEDILOL 3.125 MG TAB PO SCH ×2 (07:46→17:11)
[2017-08-03] MEDS: methylPREDNISolone SOD SUCCI 40 MG/ML 1 ML VIAL IV SCH ×2 (07:46→21:22)
[2017-08-03] MEDS: FAMOTIDINE 20 MG TAB PO SCH (07:46)
[2017-08-03] MEDS: ENOXAPARIN 40 MG/0.4 ML SYRINGE SQ SCH (07:46)
[2017-08-03] MEDS: TIMOLOL 0.5% OPHTH DROPS 5 ML BTL BOTH EYES SCH (07:46)
[2017-08-03] MEDS: ALBUTEROL NEBULIZED 2.5 MG/3 ML INHALATION SCH ×4 (08:41→19:08)
[2017-08-03] MEDS: BUDESONIDE 0.5 MG/2 ML NEBU INHALATION SCH ×2 (08:41→19:08)
--- NOTE | 2017-08-03 12:18 | P.PN ---
Subjective 62 year old female who presented to the ER with a chief complaint of shortness of breath. The patient was scheduled for a port placement at [place] but presented to [facility] for evaluation of dyspnea. The patient has a recent diagnosis of ovarian cancer and states she is supposed to start chemotherapy next week. The patient has had a couple hospitalizations recently. She was hospitalized from 06-28-17 until 06-29-17 for shortness of breath. At that time, she underwent a paracentesis and had 6.2 liters drained. Her d-dimer was elevated during that admission at 14.4. A VQ scan was completed which showed low probability for pulmonary embolus. At that time, the patient did not want oncology consulted and wanted to follow up with her oncologist, Dr. Hein. She was also hospitalized from 07/10/2017 until 07/11/2017 for difficulty breathing. At that time the patient underwent another paracentesis and 4.4 L were removed. In the emergency room a chest x-ray was completed which showed left lower lobe infiltrate and small effusion. It also showed a tiny right pleural effusion. A d-dimer was completed which was 10.94. The patient was admitted to the hospital under the care of Dr. Bravo with consults placed to pulmonary. She underwent a paracentesis on 08-01-2017 and 3.1 liters were removed. The patient was seen and examined at the bedside with Dr. Bravo. The patient states her breathing has improved after the breathing treatments and paracentesis. She usually prefers for her oncologist not to be consulted during her hospital admissions because she follow up with oncologist out of [place] but a consult was placed already. She is receiving levaquin. She is on IV steroids 40mg Q12 hours. A CTA of the chest was ordered which shows no pulmonary embolism, moderate pleural effusions, mild compressive atelectasis bilateral lung bases, abdominal ascites, and possible pulmonary hypertension. 08/03/2017: CT did reveal atelectasis in the pleural effusions, but not appear to be a pneumonia at this time. Patient is not on any diuretics either. He is feeling better with breathing treatments and has less wheezing. Objective - Vital Signs Vital signs: Vital Signs Temp 97.6 F 08/03/17 07:00 Pulse 76 08/03/17 12:12 Resp 20 08/03/17 07:00 BP 136/82 08/03/17 07:00 Pulse Ox 97 08/03/17 07:00 Intake & Output 08/02/17 08/03/17 08/03/17 18:59 06:59 18:59 Intake Total 240 300 Balance 240 300 Weight 120.202 kg Intake: Oral 240 300 Other: Voiding Method Toilet # Voids 1 1 1 - Exam GENERAL: Alert and oriented. Appears in no acute distress. Pleasant. obese RESPIRATORY: Lungs clear bilaterally. No use of accessory muscles. Patient maintaining oxygen saturation greater than 92%. CARDIOVASCULAR: S1 and S2 noted. No murmurs auscultated. No JVD noted. EXTREMITIES: No edema noted. Palpable pedal pulses +2. ABDOMEN: Ascites present. Abdomen soft and round. Normal active bowel sounds auscultated 4 quadrants. No pain or tenderness noted upon palpation. - Labs CBC & Chem 7: 08/01/17 13:38 08/01/17 13:38 Labs: Abnormal Lab Results - Last 24 Hours (Table) 08/01/17 08/02/17 08/02/17 Range/Units 13:38 12:19 17:07 POC Glucose (mg/dL) 128 H 151 H (75-99) mg/dL Iron 12 L (50-170) ug/dL TIBC 178 L (228-460) ug/dL Iron Saturation 6.74 L (12.00-45.00) Ferritin 365.7 H (10.0-291.0) ng/mL 08/02/17 08/03/17 08/03/17 Range/Units 20:58 01:52 07:02 POC Glucose (mg/dL) 202 H 220 H 200 H (75-99) mg/dL Iron (50-170) ug/dL TIBC (228-460) ug/dL Iron Saturation (12.00-45.00) Ferritin (10.0-291.0) ng/mL Assessment and Plan Plan: -Acute hypoxic respiratory failure, requiring supplemental oxygen: Patient remains on IV Levaquin, albuterol updrafts, Solu-Medrol, Pulmicort -Elevated D-Dimer, 10.94, imaging negative for pulmonary emboli, most likely from ovarian carcinoma -Moderate bilateral pleural effusions, present on admission: Add Lasix 40 twice a day -Left lower lobe atelectasis: We'll monitor for pneumonia, pulmonology is on the case -Status post therapeutic paracentesis with removal of 4.1 L per interventional radiology 07/29/2017 -Recent therapeutic paracentesis x2 with removal of 6.2 and 4.4 L -Ascites, present on admission, secondary to CA, see above -ovarian cancer: Patient have a paracentesis port put in at [place] yesterday, we'll plan on rescheduling -Diabetes mellitus type 2 -Chronic diastolic heart failure, EF between 55 and 60% noted on echo from -Morbid obesity: BMI 46.9 GI prophylaxis: Continue Pepcid DVT prophylaxis: Continue on Lovenox glaucoma: Continue Timoptic Reevaluated chest x-ray tomorrow for pleural effusions, continue Manjula Yeung recommendations from pulmonology, she'll be reevaluated next 24 hours
[2017-08-03] MEDS: DOCUSATE 100 MG CAP PO SCH (12:34)
[2017-08-03] MEDS: FUROSEMIDE 10 MG/ML 4 ML VIAL IV SCH (12:34)
[2017-08-03] MEDS: SODIUM CHLORIDE 0.9% 1,000 ML IV SCH (12:34)
[2017-08-03 12:35] LABS: Glucose,Whole Blood 197 mg/dL (75-99)
--- NOTE | 2017-08-03 14:31 | PN ---
PROGRESS NOTE She was seen again on 08/03/2017. She has been hemodynamically somewhat tachycardic. She continues to have shortness of breath, but is feeling slightly better overall. PHYSICAL EXAMINATION: She is sitting up in bed. Respiratory rate is 22, pulse rate of 110, blood pressure is 136/82. HEENT reveals pupils are equal. Chest reveals decreased breath sounds bilaterally in the bases with dullness to percussion. Heart sounds are distant, S1 and S2. No S3. No S4. No murmurs. ABDOMEN: Soft. There is distention of the abdomen. There is 1+ to 2+ pedal edema. CT scan of the chest was personally reviewed which shows moderately large pleural effusions bilaterally, some pericardial thickening. No evidence of PE. IMPRESSION: At this time: 1. Shortness of breath secondary to ovarian cancer with bilateral pleural effusions, possible pericardial involvement. 2. Doubt significant pneumonia at this time. 3. Mild bronchospasm with possible inflammation of the airways. At this point in time, would have the patient evaluated by Cardiology and Cardiothoracic Surgery. Would have the echocardiogram checked on this patient to make sure there is no pericardial involvement. Would consider possible chest tube and pleurodesis in this patient. Will discontinue Levaquin. Depending on how she does, we should make further changes to her care. Her prognosis at this time is extremely guarded, primarily from her ovarian cancer. This is limited utility for diuretics because the effusion may be malignant, but will keep the patient on diuretics and watch her fluid status closely to decrease possibly the amount of ascites. Would follow closely during her hospital stay. I appreciate the opportunity to participate in her care. JIM / CARMELINA: [id number] /
--- NOTE | 2017-08-03 15:13 | ECHOF ---
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 This was a technically good study. Left ventricular wall thickness is normal. Overall left ventricular systolic function is normal with, an EF between 55 - 60 %. The right ventricle is normal in size and function. The left atrium is normal in size. The right atrium is normal in size. The aortic valve is trileaflet and appears structurally normal. There is trace mitral regurgitation. Trace tricuspid regurgitation present. The right ventricular systolic pressure, as measured by Doppler, is 26.03mmHg. Pulmonic valve appears structurally normal. The aortic root size is normal. There is a small, generalized pericardial effusion present. There is no evidence of cardiac tamponade. Large Pleural Effusion. CONCLUSIONS -------- 1. Sinus rhythm. 2. Trace tricuspid regurgitation present. 3. The right ventricular systolic pressure, as measured by Doppler, is 26.03mmHg. 4. Pulmonic valve appears structurally normal. 5. The aortic root size is normal. 6. There is a small, generalized pericardial effusion present. 7. There is no evidence of cardiac tamponade. 8. Large Pleural Effusion. 9. This was a technically good study. 10. Left ventricular wall thickness is normal. 11. Overall left ventricular systolic function is normal with, an EF between 55 - 60 %. 12. The right ventricle is normal in size and function. 13. The left atrium is normal in size. 14. The right atrium is normal in size. 15. The aortic valve is trileaflet and appears structurally normal. 16. There is trace mitral regurgitation. SUBSTANCE ABUSE SPECIALIST: Belkys Carrera RDCS
[2017-08-03 17:10] LABS: Glucose,Whole Blood 214 mg/dL (75-99)
[2017-08-03 21:05] LABS: Glucose,Whole Blood 191 mg/dL (75-99)
[2017-08-03] MEDS: LURASIDONE 40 MG TAB PO SCH (21:21)
[2017-08-03] MEDS: QUEtiapine 50 MG TAB PO SCH (21:22)
[2017-08-04] MEDS: LEVOTHYROXINE 112 MCG TAB PO SCH (06:29)
[2017-08-04 07:20] LABS: Glucose,Whole Blood 190 mg/dL (75-99)
[2017-08-04] MEDS: ALBUTEROL NEBULIZED 2.5 MG/3 ML INHALATION SCH ×2 (07:31→11:33)
[2017-08-04] MEDS: FUROSEMIDE 10 MG/ML 4 ML VIAL IV SCH ×2 (07:31→12:37)
[2017-08-04] MEDS: BUDESONIDE 0.5 MG/2 ML NEBU INHALATION SCH (07:31)
[2017-08-04] MEDS: methylPREDNISolone SOD SUCCI 40 MG/ML 1 ML VIAL IV SCH (07:31)
[2017-08-04] MEDS: ENOXAPARIN 40 MG/0.4 ML SYRINGE SQ SCH (07:32)
[2017-08-04] MEDS: FAMOTIDINE 20 MG TAB PO SCH (07:32)
[2017-08-04] MEDS: INSULIN LISPRO (humaLOG) 300 UNIT/3 ML VIAL SQ SCH ×2 (07:32→12:28)
[2017-08-04] MEDS: DOCUSATE 100 MG CAP PO SCH (07:32)
[2017-08-04] MEDS: CARVEDILOL 3.125 MG TAB PO SCH (07:32)
[2017-08-04] MEDS: ESCITALOPRAM 20 MG TAB PO SCH (07:32)
[2017-08-04] MEDS: TIMOLOL 0.5% OPHTH DROPS 5 ML BTL BOTH EYES SCH (07:32)
[2017-08-04 07:38] VITALS: BP 131/64; RESP 16; TEMP 97.3
[2017-08-04 07:49] LABS: Basophils % (A) 0 %; CH 27.2; Eosinophils # (A) 0.1 k/uL (0-0.7); Eosinophils % (A) 1 %; HCT 36.1 % (34.0-46.0); HDW 2.73; HGB 10.6 gm/dL (11.4-16.0); Hypochromasia Marked; Luc # (Auto) 0.03; Luc % (Auto) 0; Lymphocytes # (A) 0.9 k/uL (1.0-4.8); Lymphocytes % (A) 7 %; MCH 26.7 pg (25.0-35.0); MCHC 29.3 g/dL (31.0-37.0); Mean Platelet Volume 6.8; Monocytes # (A) 0.3 k/uL (0-1.0); Monocytes % (A) 2 %; Neutrophils # (A) 11.8 k/uL (1.3-7.7); Neutrophils % (A) 90 %; RBC 3.97 m/uL (3.80-5.40); RDW 13.9 % (11.5-15.5); WBC 13.1 k/uL (3.8-10.6)
[2017-08-04 07:55] LABS: Calcium 8.9 mg/dL (8.4-10.2); Potassium 4.6 mmol/L (3.5-5.1)
[2017-08-04] MEDS ORDERED: POTASSIUM CHLORIDE ER 20 MEQ TAB.ER PO SCH (09:00)
--- NOTE | 2017-08-04 11:30 | P.GSCN ---
History of Present Illness Consult date: 08/04/17 Reason for Consult: Malignant pleural effusions, possible pleurodesis, small pericardial effusion. Requesting physician: David Velasco History of present illness: This is 62-year-old female patient who is followed by Dr. Jd Bravo on an outpatient basis. The patient has a history of multiple medical problems including recently diagnosed ovarian cancer, hypertension, hyperlipidemia, hypothyroidism, bipolar, diabetes mellitus type 2-has an insulin pump and a history of chronic diastolic congestive heart failure. The patient was diagnosed with ovarian cancer in May [address] Balbuena [employer] and Dr. Collado oncology at [facility]. The patient presented to [facility] on , 08/01/2017 for elective paracentesis. She did undergo an ultrasound-guided paracentesis with 3.1 L of straw-colored fluid removed. She reports this is the fourth paracentesis she has underwent in 5 weeks. During the paracentesis the patient did have complaints of shortness of breath and the patient was subsequently brought to the emergency department for further workup and evaluation. The patient also reports she underwent a left thoracentesis on 07/26/2017 with 1.2 L of fluid removed at [facility]. In the emergency department the patient underwent a 12-lead EKG which showed normal sinus rhythm heart rate 73, a chest x-ray was completed which showed a left lower lobe infiltrate and small effusion and her labs showed a WBC count of 5.8, hemoglobin 10.0, platelets 480, d-dimer was 10.94, BUN was 11, creatinine 1.00, troponin <0.012 and a BNP of 1650. Due to the patient's complaints of shortness of breath and above-mentioned history she was admitted to the hospital for further workup and evaluation. Subsequently for further evaluation the patient underwent a CTA of her chest which demonstrated no acute pulmonary embolism, moderate bilateral pleural effusions, mild compressive atelectasis bilateral lung bases, and small amount of abdominal ascites. She also underwent a 2-D echocardiogram which demonstrated a small generalized pericardial effusion with no evidence of cardiac, an overall left ventricular systolic function to be normal with an ejection fraction between 55 and 60%, and trace mitral valve regurgitation. Due to the patient's presenting symptoms and above-mentioned CAT scan and 2-D echocardiogram results Dr. Zarate from cardiothoracic surgery was asked to evaluate the patient. Review of Systems A 14 point review systems was completed and was negative except as mentioned in HPI. Past Medical History Past Medical History: Cancer (Recent diagnosis of ovarian cancer.), Heart Failure, Diabetes Mellitus, Eye Disorder, GERD/Reflux, Hyperlipidemia, Hypertension, Skin Disorder, Thyroid Disorder Additional Past Medical History / Comment(s): Recent UTI-pt has completed ABX.RECENTLY DX W/ ovarian cancer- IDDM type II-has insulin PUMP, bilateral glaucoma, lower GI bleed, GASTRITIS, DIVERTICULAR DX, hypothyroid, ventral hernia, VAGINAL HERPES SIMPLEx, History of Any Multi-Drug Resistant Organisms: None Reported Past Surgical History: Appendectomy, Bariatric Surgery, Cholecystectomy Additional Past Surgical History / Comment(s): GASTRIC SLEEVE 09/2015, COLONOSCOPIES/EGDS WITH LAST ONES DONE 05/21/17, BILATERAL CATARACT REMOVAL WITH LENS IMPLANTS. Four PARACENTESIS since 06/28/2017. Left Thoracentesis on 07/26. Past Anesthesia/Blood Transfusion Reactions: Postoperative Nausea & Vomiting ( PONV) Past Psychological History: Bipolar Smoking Status: Never smoker Past Alcohol Use History: None Reported Past Drug Use History: None Reported - Past Family History Mother Family Medical History: Diabetes Mellitus, Hypertension Father Family Medical History: Cancer, Hyperlipidemia, Prostate Disorder Additional Family Medical History / Comment(s): FATHER AT THE AGE OF 74YRS AND WAS HEALTHY UNTIL HIS . CAUSE OF UNKNOWN. Sister(s) Family Medical History: Cancer, Pulmonary Embolus Additional Family Medical History / Comment(s): 2 SISTERS - COLON CA AND ONE FEBRUARY 2017 FROM METS TO LIVER. ONE SISTER HAS HAD A PULMONARY EMBOLI and has recovered from colon cancer. Medications and Allergies Home Medications Medication Instructions Recorded Confirmed Type Escitalopram [Lexapro] 20 mg PO QAM 08/25/15 08/01/17 History Levothyroxine Sodium [Synthroid] 112 mcg PO QAM 08/25/15 08/01/17 History QUEtiapine [SEROquel] 50 mg PO HS 05/13/17 08/01/17 History Insulin Aspart (For Pump) [NovoLOG 0.01 unit SQ-PUMP DIRECTED 06/08/17 History (For Pump)] Lurasidone HCl [Latuda] 60 mg PO HS 06/08/17 08/01/17 History Timolol 0.5% Ophth Soln [Timoptic 1 drop BOTH EYES QAM 06/08/17 08/01/17 History 0.5% Ophth Soln] Carvedilol [Coreg] 3.125 mg PO BID 07/24/17 08/01/17 History Allergies Allergy/AdvReac Type Severity Reaction Status Date / Time Influenza Virus Vaccines Allergy MOUTH Verified 08/01/17 11:32 SORES,ITCHING rosiglitazone [From Avandia] Allergy MUSCLE PAIN Verified 08/01/17 11:32 Surgical - Exam Vital Signs Temp Pulse Resp BP Pulse Ox 98.1 F 76 20 123/80 95 08/01/17 09:32 08/01/17 09:32 08/01/17 09:32 08/01/17 09:32 08/01/17 09:32 - General well developed, well nourished, no distress, no pain, obese - Eyes PERRL, normal ocular movement - ENT normal pinna, normal nares, normal mucosa, no hearing loss, no congestion - Neck No lymphadenopathy. no masses, no bruits, trachea midline, no venous distension - Respiratory Lung sounds are essentially clear bilaterally, diminished bilateral bases. Respirations are symmetrical and nonlabored. Oxygen saturation are 99% on room air. - Cardiovascular Regular rhythm and rate. S1 and S2 present, negative for S3, gallop or murmur. No edema present. - Abdomen Abdomen is soft, nontender and distended. Active bowel sounds all 4 abdominal quadrants. Bowel movement this a.m. No guarding or rigidity. - Genitourinary Deferred - Rectum Deferred. - Integumentary no rash, no growths, no abnormal pigmentation - Neurologic normal coordination - Musculoskeletal normal gait, normal posture - Psychiatric oriented to time, oriented to person, oriented to place, speech is normal, memory intact Results - Labs 08/04/17 07:11 08/04/17 07:11 Abnormal Lab Results - Last 24 Hours (Table) 08/03/17 08/03/17 08/03/17 Range/Units 12:32 17:05 20:57 WBC (3.8-10.6) k/uL Hgb (11.4-16.0) gm/dL MCHC (31.0-37.0) g/dL Plt Count (150-450) k/uL Neutrophils # (1.3-7.7) k/uL Lymphocytes # (1.0-4.8) k/uL BUN (7-17) mg/dL Creatinine (0.52-1.04) mg/dL Glucose (74-99) mg/dL POC Glucose (mg/dL) 197 H 214 H 191 H (75-99) mg/dL 08/04/17 08/04/17 08/04/17 Range/Units 07:00 07:11 07:11 WBC 13.1 H (3.8-10.6) k/uL Hgb 10.6 L (11.4-16.0) gm/dL MCHC 29.3 L (31.0-37.0) g/dL Plt Count 656 H (150-450) k/uL Neutrophils # 11.8 H (1.3-7.7) k/uL Lymphocytes # 0.9 L (1.0-4.8) k/uL BUN 19 H (7-17) mg/dL Creatinine 1.34 H (0.52-1.04) mg/dL Glucose 199 H (74-99) mg/dL POC Glucose (mg/dL) 190 H (75-99) mg/dL Diabetes panel 08/04/17 Range/Units 07:11 Sodium 139 (137-145) mmol/L Potassium 4.6 (3.5-5.1) mmol/L Chloride 106 (98-107) mmol/L Carbon Dioxide 22 (22-30) mmol/L BUN 19 H (7-17) mg/dL Creatinine 1.34 H (0.52-1.04) mg/dL Glucose 199 H (74-99) mg/dL Calcium 8.9 (8.4-10.2) mg/dL Calcium panel 08/04/17 Range/Units 07:11 Calcium 8.9 (8.4-10.2) mg/dL Pituitary panel 08/04/17 Range/Units 07:11 Sodium 139 (137-145) mmol/L Potassium 4.6 (3.5-5.1) mmol/L Chloride 106 (98-107) mmol/L Carbon Dioxide 22 (22-30) mmol/L BUN 19 H (7-17) mg/dL Creatinine 1.34 H (0.52-1.04) mg/dL Glucose 199 H (74-99) mg/dL Calcium 8.9 (8.4-10.2) mg/dL Adrenal panel 08/04/17 Range/Units 07:11 Sodium 139 (137-145) mmol/L Potassium 4.6 (3.5-5.1) mmol/L Chloride 106 (98-107) mmol/L Carbon Dioxide 22 (22-30) mmol/L BUN 19 H (7-17) mg/dL Creatinine 1.34 H (0.52-1.04) mg/dL Glucose 199 H (74-99) mg/dL Calcium 8.9 (8.4-10.2) mg/dL - Imaging Chest x-ray: report reviewed, image reviewed CT scan - chest: report reviewed, image reviewed US - abdomen: report reviewed EKG: image reviewed Assessment and Plan (1) Pleural effusion, bilateral Current Visit: Yes Status: Acute Code(s): J90 - PLEURAL EFFUSION, NOT ELSEWHERE CLASSIFIED SNOMED Code(s): 798027328 (2) Diabetes mellitus type 2 in obese Current Visit: Yes Status: Acute Code(s): E11.69 - TYPE 2 DIABETES MELLITUS WITH OTHER SPECIFIED COMPLICATION; E66.9 - OBESITY, UNSPECIFIED SNOMED Code(s) : 61504105 (3) Chronic diastolic CHF (congestive heart failure) Current Visit: Yes Status: Acute Code(s): I50.32 - CHRONIC DIASTOLIC ( CONGESTIVE) HEART FAILURE SNOMED Code(s): 173649473 (4) Dyspnea Current Visit: Yes Status: Acute Code(s): R06.00 - DYSPNEA, UNSPECIFIED SNOMED Code(s): 528666906 (5) Ovarian carcinoma Current Visit: Yes Status: Acute Priority: High Code(s): C56.9 - MALIGNANT NEOPLASM OF UNSPECIFIED OVARY SNOMED Code(s): 626484192 (6) Abdominal distension Current Visit: No Status: Acute Code(s): R14.0 - ABDOMINAL DISTENSION ( GASEOUS) SNOMED Code(s): 38306789 (7) Ascites Current Visit: No Status: Acute Code(s): R18.8 - OTHER ASCITES SNOMED Code (s): 141595400 (8) Elevated d-dimer Current Visit: No Status: Acute Code(s): R79.89 - OTHER SPECIFIED ABNORMAL FINDINGS OF BLOOD CHEMISTRY SNOMED Code(s): 658097960 (9) Pericardial effusion without cardiac tamponade Current Visit: Yes Status: Acute Code(s): I31.3 - PERICARDIAL EFFUSION ( NONINFLAMMATORY) SNOMED Code(s): 985617865 Plan: The patient was seen and examined. Her chart and diagnostics were reviewed. Her case will be discussed with Dr. Damaris Zarate from cardiothoracic surgery and further recommendations will follow. Thank you Dr. ZACHARY Velasco for this consult and we look forward to working with you in the care of your patient. Time with Patient: Greater than 30
[2017-08-04 11:44] VITALS: PULSE 78
[2017-08-04 11:56] LABS: Glucose,Whole Blood 123 mg/dL (75-99)
--- NOTE | 2017-08-04 12:15 | P.PN ---
Subjective 62 year old female who presented to the ER with a chief complaint of shortness of breath. The patient was scheduled for a port placement at [place] but presented to [facility] for evaluation of dyspnea. The patient has a recent diagnosis of ovarian cancer and states she is supposed to start chemotherapy next week. The patient has had a couple hospitalizations recently. She was hospitalized from 06-28-17 until 06-29-17 for shortness of breath. At that time, she underwent a paracentesis and had 6.2 liters drained. Her d-dimer was elevated during that admission at 14.4. A VQ scan was completed which showed low probability for pulmonary embolus. At that time, the patient did not want oncology consulted and wanted to follow up with her oncologist, Dr. Hein. She was also hospitalized from 07/10/2017 until 07/11/2017 for difficulty breathing. At that time the patient underwent another paracentesis and 4.4 L were removed. In the emergency room a chest x-ray was completed which showed left lower lobe infiltrate and small effusion. It also showed a tiny right pleural effusion. A d-dimer was completed which was 10.94. The patient was admitted to the hospital under the care of Dr. Bravo with consults placed to pulmonary. She underwent a paracentesis on 08-01-2017 and 3.1 liters were removed. The patient was seen and examined at the bedside with Dr. Bravo. The patient states her breathing has improved after the breathing treatments and paracentesis. She usually prefers for her oncologist not to be consulted during her hospital admissions because she follow up with oncologist out of [place] but a consult was placed already. She is receiving levaquin. She is on IV steroids 40mg Q12 hours. A CTA of the chest was ordered which shows no pulmonary embolism, moderate pleural effusions, mild compressive atelectasis bilateral lung bases, abdominal ascites, and possible pulmonary hypertension. 08/03/2017: CT did reveal atelectasis in the pleural effusions, but not appear to be a pneumonia at this time. Patient is not on any diuretics either. He is feeling better with breathing treatments and has less wheezing. 08/04/2017: Patient was found to have a small pericardial effusion on 2-D echo. Cardiac thoracic surgery is consult and that report is pending. Tiera feels better this morning. She has no significant complaints. She indicates the Lasix is making her feel better. Objective - Vital Signs Vital signs: Vital Signs Temp 97.3 F L 08/04/17 07:00 Pulse 78 08/04/17 11:43 Resp 16 08/04/17 07:00 BP 131/64 08/04/17 07:00 Pulse Ox 99 08/04/17 07:32 Intake & Output 08/03/17 08/04/17 08/04/17 18:59 06:59 18:59 Intake Total 240 300 Balance 240 300 Intake: Oral 240 300 Other: Voiding Method Toilet Toilet # Voids 1 1 5 - Exam GENERAL: Alert and oriented. Appears in no acute distress. Pleasant. obese RESPIRATORY: Lungs clear bilaterally. No use of accessory muscles. Patient maintaining oxygen saturation greater than 92%. CARDIOVASCULAR: S1 and S2 noted. No murmurs auscultated. No JVD noted. EXTREMITIES: No edema noted. Palpable pedal pulses +2. ABDOMEN: Ascites present. Abdomen soft and round. Normal active bowel sounds auscultated 4 quadrants. No pain or tenderness noted upon palpation. - Labs CBC & Chem 7: 08/04/17 07:11 08/04/17 07:11 Labs: Abnormal Lab Results - Last 24 Hours (Table) 08/03/17 08/03/17 08/03/17 Range/Units 12:32 17:05 20:57 WBC (3.8-10.6) k/uL Hgb (11.4-16.0) gm/dL MCHC (31.0-37.0) g/dL Plt Count (150-450) k/uL Neutrophils # (1.3-7.7) k/uL Lymphocytes # (1.0-4.8) k/uL BUN (7-17) mg/dL Creatinine (0.52-1.04) mg/dL Glucose (74-99) mg/dL POC Glucose (mg/dL) 197 H 214 H 191 H (75-99) mg/dL 08/04/17 08/04/17 08/04/17 Range/Units 07:00 07:11 07:11 WBC 13.1 H (3.8-10.6) k/uL Hgb 10.6 L (11.4-16.0) gm/dL MCHC 29.3 L (31.0-37.0) g/dL Plt Count 656 H (150-450) k/uL Neutrophils # 11.8 H (1.3-7.7) k/uL Lymphocytes # 0.9 L (1.0-4.8) k/uL BUN 19 H (7-17) mg/dL Creatinine 1.34 H (0.52-1.04) mg/dL Glucose 199 H (74-99) mg/dL POC Glucose (mg/dL) 190 H (75-99) mg/dL 08/04/17 Range/Units 11:53 WBC (3.8-10.6) k/uL Hgb (11.4-16.0) gm/dL MCHC (31.0-37.0) g/dL Plt Count (150-450) k/uL Neutrophils # (1.3-7.7) k/uL Lymphocytes # (1.0-4.8) k/uL BUN (7-17) mg/dL Creatinine (0.52-1.04) mg/dL Glucose (74-99) mg/dL POC Glucose (mg/dL) 123 H (75-99) mg/dL Assessment and Plan Plan: -Acute hypoxic respiratory failure, requiring supplemental oxygen: Patient remains on albuterol updrafts, Solu-Medrol, Pulmicort the Levaquin has been discontinued this time. -Pericardial effusion, small: We'll await cardio thoracic surgeries recommendations -Elevated D-Dimer, 10.94, imaging negative for pulmonary emboli, most likely from ovarian carcinoma -Moderate bilateral pleural effusions, present on admission: Lasix 40 twice a day -Left lower lobe atelectasis: We'll monitor for pneumonia, pulmonology is on the case -Status post therapeutic paracentesis with removal of 4.1 L per interventional radiology 07/29/2017 -Recent therapeutic paracentesis x2 with removal of 6.2 and 4.4 L -Ascites, present on admission, secondary to CA, see above -ovarian cancer: Patient have a paracentesis port put in at [facility] yesterday, we'll plan on rescheduling -Diabetes mellitus type 2 -Chronic diastolic heart failure, EF between 55 and 60% noted on echo from -Morbid obesity: BMI 46.9 GI prophylaxis: Continue Pepcid DVT prophylaxis: Continue on Lovenox glaucoma: Continue Timoptic Reevaluate chest x-ray tomorrow, continue Lasix, recommendations from pulmonology, cardiothoracic surgery are pending for today she'll be reevaluated next 24 hours
[2017-08-04] MEDS: SODIUM CHLORIDE 0.9% 1,000 ML IV SCH (12:28)
--- NOTE | 2017-08-04 12:44 | P.DS ---
Providers Date of admission: 08/02/17 15:57 Expected date of discharge: 08/04/17 Attending physician: Jd Bravo Consults: 08/01/17 15:26 Consult Physician Routine Consulting Provider: David Velasco Consult Reason/Comments: sob Do you want consulting provider notified?: Yes 08/02/17 11:35 Consult Physician Routine Consulting Provider: Harvinder Webber Consult Reason/Comments: ovarian ca Do you want consulting provider notified?: Yes 08/03/17 13:17 Consult Physician Routine Consulting Provider: Gurvinder Mart Consult Reason/Comments: pericardial malignant effusion Do you want consulting provider notified?: Yes 08/03/17 13:18 Consult Physician Routine Consulting Provider: Maxx Jordan Consult Reason/Comments: malignant pleuraeffusions possible peurodesis, possible pericardial effusion Do you want consulting provider notified?: Yes Primary care physician: [facility] Course: 62 year old female who presented to the ER with a chief complaint of shortness of breath. The patient was scheduled for a port placement at [place] but presented to [facility] for evaluation of dyspnea. The patient has a recent diagnosis of ovarian cancer and states she is supposed to start chemotherapy next week. The patient has had a couple hospitalizations recently. She was hospitalized from 06-28-17 until 06-29-17 for shortness of breath. At that time, she underwent a paracentesis and had 6.2 liters drained. Her d-dimer was elevated during that admission at 14.4. A VQ scan was completed which showed low probability for pulmonary embolus. At that time, the patient did not want oncology consulted and wanted to follow up with her oncologist, Dr. Hein. She was also hospitalized from 07/10/2017 until 07/11/2017 for difficulty breathing. At that time the patient underwent another paracentesis and 4.4 L were removed. In the emergency room a chest x-ray was completed which showed left lower lobe infiltrate and small effusion. It also showed a tiny right pleural effusion. A d-dimer was completed which was 10.94. The patient was admitted to the hospital under the care of Dr. Bravo with consults placed to pulmonary. She underwent a paracentesis on 08-01-2017 and 3.1 liters were removed. The patient was seen and examined at the bedside with Dr. Bravo. The patient states her breathing has improved after the breathing treatments and paracentesis. She usually prefers for her oncologist not to be consulted during her hospital admissions because she follow up with oncologist out of [place] but a consult was placed already. She is receiving levaquin. She is on IV steroids 40mg Q12 hours. A CTA of the chest was ordered which shows no pulmonary embolism, moderate pleural effusions, mild compressive atelectasis bilateral lung bases, abdominal ascites, and possible pulmonary hypertension. 08/03/2017: CT did reveal atelectasis in the pleural effusions, but not appear to be a pneumonia at this time. Patient is not on any diuretics either. He is feeling better with breathing treatments and has less wheezing. 08/04/2017: Patient was found to have a small pericardial effusion on 2-D echo. Cardiac thoracic surgery is consult and that report is pending. Tiera feels better this morning. She has no significant complaints. She indicates the Lasix is making her feel better. Later on in the afternoon on the , cardiothoracic surgery determined that there was no need for any procedures at this time. Dr. Sales/Jaylan Velasco cleared her for discharge so that she can Continue treatment of her ovarian carcinoma at [facility]. Final diagnosis -Acute hypoxic respiratory failure, -Pericardial effusion, small -Elevated D-Dimer, 10.94, imaging negative for pulmonary emboli, most likely from ovarian carcinoma -Moderate bilateral pleural effusions, present on admission -Left lower lobe atelectasis -Status post therapeutic paracentesis with removal of 4.1 L per interventional radiology 07/29/2017 -Recent therapeutic paracentesis x2 with removal of 6.2 and 4.4 L -Ascites, present on admission, secondary to CA -ovarian cancer -Diabetes mellitus type 2 -Chronic diastolic heart failure, EF between 55 and 60% noted on echo from -Morbid obesity glaucoma Patient Condition at Discharge: Fair Plan - Discharge Summary Discharge Rx Participant: No New Discharge Prescriptions: New Albuterol Inhaler [Ventolin Hfa Inhaler] 1 - 2 puff INHALATION Q6HR PRN #1 inhaler PRN Reason: Shortness Of Breath Furosemide [Lasix] 40 mg PO DAILY #60 tablet Potassium Chloride ER [K-Dur 20] 20 meq PO DAILY #30 tab.[email or web address] Continue Escitalopram [Lexapro] 20 mg PO QAM Levothyroxine Sodium [Synthroid] 112 mcg PO QAM QUEtiapine [SEROquel] 50 mg PO HS Insulin Aspart (For Pump) [NovoLOG (For Pump)] 0.01 unit SQ-PUMP DIRECTED Lurasidone HCl [Latuda] 60 mg PO HS Timolol 0.5% Ophth Soln [Timoptic 0.5% Ophth Soln] 1 drop BOTH EYES QAM Carvedilol [Coreg] 3.125 mg PO BID Discharge Medication List Escitalopram [Lexapro] 20 mg PO QAM 08/25/15 [History] Levothyroxine Sodium [Synthroid] 112 mcg PO QAM 08/25/15 [History] QUEtiapine [SEROquel] 50 mg PO HS 05/13/17 [History] Insulin Aspart (For Pump) [NovoLOG (For Pump)] 0.01 unit SQ-PUMP DIRECTED [History] Lurasidone HCl [Latuda] 60 mg PO HS 06/08/17 [History] Timolol 0.5% Ophth Soln [Timoptic 0.5% Ophth Soln] 1 drop BOTH EYES QAM [History] Carvedilol [Coreg] 3.125 mg PO BID 07/24/17 [History] Albuterol Inhaler [Ventolin Hfa Inhaler] 1 - 2 puff INHALATION Q6HR PRN #1 inhaler 08/04/17 [Rx] Furosemide [Lasix] 40 mg PO DAILY #60 tablet 08/04/17 [Rx] Potassium Chloride ER [K-Dur 20] 20 meq PO DAILY #30 tab.er.prt 08/04/17 [Rx] Follow up Appointment(s)/Referral(s): Jd Bravo MD [STAFF PHYSICIAN] - 1 Week Og Disla Jr, DO [Primary Care Provider] - As Needed Activity/Diet/Wound Care/Special Instructions: Followup with up with [facility] for further treatment of the ovarian carcinoma Discharge Disposition: HOME SELF-CARE
--- NOTE | 2017-08-04 17:50 | P.CONS ---
History of Present Illness - Reason for Consult Consult date: 08/03/17 - History of Present Illness Patient is a 62-year-old female, initially seen in consult in 06/30. she had just been ecently diagnosed with non-mucinous ovarian cancer, after presenting with malignant ascites. Patient is being seen and treated by [employer] surgical oncologist Dr. Morrow. Apparently neoadjuvant chemotherapy was recommended. The patient was to have a port placement and start chemotherapy next week.. Patient has Recurrent ascites, and also required a thoracentesis about 1-2 weeks prior to this admission. She did undergo a paracentesis, but after that acutely developed difficulty in breathing. Lower extremity swelling had developed. she therefore came in to the emergency room. She had a CT of the chest on which was negative for pulmonary emboli, or lung masses. It did show bilateral pleural effusions. Patient was admitted for further management. consult was placed for further evaluation and recommendations Review of Systems Constitutional: Reports fatigue, Reports weakness, Reports weight loss Eyes: denies blurred vision, denies pain Ears: deny: decreased hearing, ear discharge, earache, tinnitus Ears, nose, mouth and throat: Denies headache, Denies sore throat Cardiovascular: Reports dyspnea on exertion, Reports orthopnea Respiratory: Reports dyspnea Gastrointestinal: Reports as per HPI, Reports bloating, Reports constipation Genitourinary: Denies dysuria, Denies hematuria Menstruation: Reports postmenopausal Musculoskeletal: Reports as per HPI ( Bilateral lower extremity swelling), Denies myalgias Neurological: Reports weakness Psychiatric: Reports change in sleep habits Endocrine: Reports fatigue, Reports weight change Hematologic/Lymphatic: Reports as per HPI Past Medical History Past Medical History: Cancer, Heart Failure, Diabetes Mellitus, Eye Disorder, GERD/Reflux, Hyperlipidemia, Hypertension, Skin Disorder, Thyroid Disorder Additional Past Medical History / Comment(s): Recent UTI-pt has completed ABX.RECENTLY DX W/ ovarian cancer- IDDM type II-has insulin PUMP, bilateral glaucoma, lower GI bleed, GASTRITIS, DIVERTICULAR DX, hypothyroid, ventral hernia, VAGINAL HERPES SIMPLEx, History of Any Multi-Drug Resistant Organisms: None Reported Past Surgical History: Appendectomy, Bariatric Surgery, Cholecystectomy Additional Past Surgical History / Comment(s): GASTRIC SLEEVE 09/2015, COLONOSCOPIES/EGDS WITH LAST ONES DONE 05/21/17, BILATERAL CATARACT REMOVAL WITH LENS IMPLANTS.PARACENTESIS 06/28/17 Past Anesthesia/Blood Transfusion Reactions: Postoperative Nausea & Vomiting ( PONV) Smoking Status: Never smoker - Past Family History Mother Family Medical History: Diabetes Mellitus, Hypertension Father Family Medical History: Cancer, Prostate Disorder Additional Family Medical History / Comment(s): FATHER AT THE AGE OF 74YRS AND WAS HEALTHY UNTIL HIS . CAUSE OF UNKNOWN. Sister(s) Family Medical History: Cancer, Pulmonary Embolus Additional Family Medical History / Comment(s): 2 SISTERS - COLON CA AND ONE FEBRUARY 2017 FROM METS TO LIVER. ONE SISTER HAS HAD A PULMONARY EMBOLI. Medications and Allergies Home Medications Medication Instructions Recorded Confirmed Type Escitalopram [Lexapro] 20 mg PO QAM 08/25/15 08/01/17 History Levothyroxine Sodium [Synthroid] 112 mcg PO QAM 08/25/15 08/01/17 History QUEtiapine [SEROquel] 50 mg PO HS 05/13/17 08/01/17 History Insulin Aspart (For Pump) [NovoLOG 0.01 unit SQ-PUMP DIRECTED 06/08/17 History (For Pump)] Lurasidone HCl [Latuda] 60 mg PO HS 06/08/17 08/01/17 History Timolol 0.5% Ophth Soln [Timoptic 1 drop BOTH EYES QAM 06/08/17 08/01/17 History 0.5% Ophth Soln] Carvedilol [Coreg] 3.125 mg PO BID 07/24/17 08/01/17 History Albuterol Inhaler [Ventolin Hfa 1 - 2 puff INHALATION Q6HR PRN #1 08/04/17 Rx Inhaler] inhaler Furosemide [Lasix] 40 mg PO DAILY #60 tablet 08/04/17 Rx Potassium Chloride ER [K-Dur 20] 20 meq PO DAILY #30 tab.er.prt 08/04/17 Rx Allergies Allergy/AdvReac Type Severity Reaction Status Date / Time Influenza Virus Vaccines Allergy MOUTH Verified 08/01/17 11:32 SORES,ITCHING rosiglitazone [From Avandia] Allergy MUSCLE PAIN Verified 08/01/17 11:32 Physical Exam Vitals: Vital Signs Temp Pulse Pulse Resp BP Pulse Ox 08/03/17 19:22 86 08/03/17 19:08 80 08/03/17 15:41 90 08/03/17 15:29 88 08/03/17 15:00 97.6 F 87 16 129/68 95 08/03/17 12:12 76 08/03/17 12:01 72 08/03/17 09:00 80 08/03/17 08:44 80 08/03/17 07:00 97.6 F 86 20 136/82 97 08/03/17 02:10 84 08/03/17 01:58 70 08/02/17 23:45 96.7 F L 70 20 119/67 95 Intake and Output 08/03/17 08/03/17 08/03/17 06:59 14:59 22:59 Intake Total 100 240 Balance 100 240 Intake: Oral 100 240 Other: Voiding Method Toilet Toilet # Voids 1 1 - Constitutional General appearance: no acute distress - EENT Eyes: EOMI, PERRLA ENT: hearing grossly normal, normal oropharynx - Neck Neck: no lymphadenopathy Thyroid: bilateral: normal size - Respiratory Respiratory: bilateral: diminished - Cardiovascular Rhythm: regular Heart sounds: normal: S1, S2 - Gastrointestinal General gastrointestinal: distended, normal bowel sounds, soft - Integumentary Integumentary: normal - Neurologic Neurologic: CNII-XII intact - Musculoskeletal Musculoskeletal: generalized weakness, strength equal bilaterally - Psychiatric Psychiatric: A&O x's 3, appropriate affect Results CBC & Chem 7: 08/04/17 07:11 08/04/17 07:11 Labs: Abnormal Lab Results - Last 24 Hours (Table) 08/02/17 08/03/17 08/03/17 Range/Units 20:58 01:52 07:02 POC Glucose (mg/dL) 202 H 220 H 200 H (75-99) mg/dL 08/03/17 08/03/17 08/03/17 Range/Units 12:32 17:05 20:57 POC Glucose (mg/dL) 197 H 214 H 191 H (75-99) mg/dL Chest x-ray: report reviewed CT scan - chest: report reviewed Assessment and Plan (1) Dyspnea Narrative/Plan: the patient developed acute shortness of breath, after paracentesis. CT of the chest did not show any PE, and is not very impressive. The patient shortness of breath is improved. It was felt that she may have developed some pulmonary edema, either due to CHF or reexpansion. Echocardiogram has been ordered. There does not seem to be any evidence for pneumonia, or lung metastases. She is also being treated for possible COPD exacerbation. as noted, she is improved, with exam revealing no evidence of any wheezing. Status: Acute Code(s): R06.00 - DYSPNEA, UNSPECIFIED SNOMED Code(s): 205313172 (2) Ascites Narrative/Plan: No significant ascites noted at this time, after recent paracentesis Status: Acute Code(s): R18.8 - OTHER ASCITES SNOMED Code(s): 889115871 (3) Ovarian carcinoma Narrative/Plan: the patient is following up with gynecologic oncology at [facility]. Treatment plan is for cytoreductive chemotherapy, to be followed by surgery. She is supposed to get a port next week and start chemotherapy thereafter. No new acute intervention is required from our standpoint Status: Acute Priority: High Code(s): C56.9 - MALIGNANT NEOPLASM OF UNSPECIFIED OVARY SNOMED Code(s): 194170392
== END 2017-08-04 13:17 | disposition home or self-care (01) | DRG 189 ==
LOC: EC 11:05 → 4MS4W 15:26 → INTOOBSV 15:26 → OBSVTOIN 08-02 15:57
PROVIDERS: ADMIT Family Medicine; ATTEND Family Medicine
PROC: 0W9G3ZZ Drainage of Peritoneal Cavity, Percutaneous Approach (ICD-10-PCS; principal; 2017-08-01)
DX: J96.01 Acute respiratory failure with hypoxia (principal); R18.0 Malignant ascites; I31.3 Pericardial effusion (noninflammatory); Z68.42 Body mass index [BMI] 45.0-49.9, adult; I11.0 Hypertensive heart disease with heart failure; I50.32 Chronic diastolic (congestive) heart failure; E66.01 Morbid (severe) obesity due to excess calories; C56.9 Malignant neoplasm of unspecified ovary; J98.11 Atelectasis; E78.5 Hyperlipidemia, unspecified; H40.9 Unspecified glaucoma; E03.9 Hypothyroidism, unspecified; D50.9 Iron deficiency anemia, unspecified; R00.0 Tachycardia, unspecified; R79.1 Abnormal coagulation profile; K21.9 Gastro-esophageal reflux disease without esophagitis; E11.9 Type 2 diabetes mellitus without complications; F31.9 Bipolar disorder, unspecified; Z96.41 Presence of insulin pump (external) (internal); Z96.1 Presence of intraocular lens; Z88.7 Allergy status to serum and vaccine; Z88.8 Allergy status to other drugs, medicaments and biological substances; Z79.899 Other long term (current) drug therapy; Z79.4 Long term (current) use of insulin; Z82.49 Family history of ischemic heart disease and other diseases of the circulatory system; Z83.3 Family history of diabetes mellitus; Z80.0 Family history of malignant neoplasm of digestive organs; Z90.49 Acquired absence of other specified parts of digestive tract; Z98.41 Cataract extraction status, right eye; Z98.42 Cataract extraction status, left eye; Z98.84 Bariatric surgery status; Z87.19 Personal history of other diseases of the digestive system; Z87.440 Personal history of urinary (tract) infections
CPT/HCPCS: 36415; 49082; 49083; 71020; 71275; 80048; 80053; 82550; 82553; 82607; 82728; 82746; 83036; 83540; 83550; 83735; 83880; 84100; 84484; 85025; 85049; 85379; 85610; 85730; 93005; 93306; 94640; 94760; 96360; 96361; 99285

== ENCOUNTER → 2017-09-13 | Outpatient (CLI) | payer MEDICARE ==
--- NOTE | 2017-09-13 11:59 | XR ---
EXAMINATION TYPE: XR chest 2V DATE OF EXAM: 09/13/2017 COMPARISON: Prior chest x-ray 08/01/2017 HISTORY: Pleural effusion TECHNIQUE: Frontal and lateral views of the chest are obtained. FINDINGS: There is been interval placement of a Port-A-Cath with the port in the right pectoral doni on, distal tip of the catheter within the right atrium. No evident pneumothorax. There is improved vi sualization of the left hemidiaphragm, improvement in aeration in the left lower lobe. Minimal patchy residual density, blunting the costophrenic angle is noted. Cardiac mediastinal silhouette, pulmonar y vascularity and naga are within normal limits, patient is rotated. Postop changes noted in the uppe r abdomen. IMPRESSION: Improvement in aeration, pleural effusion in the left chest
== END | disposition home or self-care (01) ==
LOC: RADXRMAIN 11:21
PROVIDERS: ATTEND Internal Medicine Pulmonary Disease
DX: J90 Pleural effusion, not elsewhere classified (principal)
CPT/HCPCS: 71020

== ENCOUNTER → 2017-10-09 | Outpatient (CLI) | payer MEDICARE ==
--- NOTE | 2017-10-09 12:43 | CT ---
EXAMINATION TYPE: CT ChestAbdPelvis w con DATE OF EXAM: 10/09/2017 COMPARISON: CT chest August 02, 2017. CT abdomen and pelvis June 28, 2017 HISTORY: Ovarian cancer follow up after chemo (X3 tx). History of repeated paracentesis last one Nove mber [address] DLP: 2345 mGycm. Automated Exposure Control for Dose Reduction was Utilized. CONTRAST: CT scan of the thorax, abdomen and pelvis is performed with oral and with IV Contrast, patient inject ed with 80 mL of Visipaque 320. FINDINGS: LUNGS: There is trace right-sided pleural effusion and small to moderate-sized left pleural effusion. Pleural effusions are significantly improved from most recent chest CT August 02. No suspicious nod ule or mass is present. Tracheobronchial tree is patent. MEDIASTINUM: There are no greater than 1 cm hilar or mediastinal lymph nodes. No cardiomegaly or pe ricardial effusion is seen. Main pulmonary artery remains dilated at 3.5 cm on axial image 21, CT fin dings suggesting underlying pulmonary artery hypertension. OTHER: There is new right internal jugular Mediport catheter with tip terminating at cavoatrial junct ion. LIVER/GB: Two nonspecific subcentimeter lesions in liver on axial image 54 are redemonstrated without significant interval change. Cholecystectomy clips are again seen. Tiny amount of perihepatic ascite s remains present along the anterior inferior and right lateral aspect. PANCREAS: No significant abnormality is seen. SPLEEN: Tiny amount of perisplenic ascites is again seen. ADRENALS: No significant abnormality is seen. KIDNEYS: No significant abnormality is seen. BOWEL: There is stable small to moderate size hiatal hernia. Surgical sutures from gastric sleeve pro cedure are redemonstrated. GENITAL ORGANS: Calcified fibroid in uterus is redemonstrated. There is better visualization of left ovary which is felt normal in size near axial image 97 on current study. There is heterogeneous enlar ged right ovary or adnexal lesion felt to reflect primary ovarian mass or neoplasm measuring approxim ately 7.3 x 4.9 cm on axial image 101 along the anterior aspect of the uterus. Tiny amount of fluid e xtends superior to this lesion into the lower right posterior abdomen. LYMPH NODES: No greater than 1cm abdominal or pelvic lymph nodes are appreciated. OSSEOUS STRUCTURES: No significant abnormality is seen. OTHER: There is persistent ventral wall hernia in the midline above the umbilicus containing small am ount of mesenteric vessels and fluid on axial image 67. There is some irregular nonlayering fluid and/or soft tissue in the upper to midabdomen superior and anterior to the stomach for reference axial image 51 and more prominent near axial image 60 just post erior to the transverse colon worrisome for peritoneal spread of disease redemonstrated seen better o n current study due to diminished ascites. This is likely stable from prior. Additional areas of subt le suspicious nodularity for example right lower quadrant coronal image 39 are noted. IMPRESSION: Marked improvement in abdominal and pelvic ascites and bilateral pleural effusions. Persi stent right adnexal/ovarian neoplasm. Probable peritoneal carcinomatosis or implants redemonstrated m ost prominent upper to mid abdomen.
== END | disposition home or self-care (01) ==
LOC: RADPROMAIN 09:50
PROVIDERS: ATTEND Obstetrics & Gynecology Gynecologic Oncology
DX: C56.9 Malignant neoplasm of unspecified ovary (principal); J90 Pleural effusion, not elsewhere classified; R18.8 Other ascites; R80.9 Proteinuria, unspecified
CPT/HCPCS: 82565; 84520; 71260; 74177; Q9967; J1642

== ENCOUNTER → 2017-12-03 | Outpatient (CLI) | payer MEDICARE, BC ==
--- NOTE | 2017-12-04 10:50 | MM ---
Reason for exam: screening (asymptomatic). Last mammogram was performed 1 year and 1 month ago. History: Patient is postmenopausal, has history of ovarian cancer at age 62, and is nulliparous. Core biopsy of the left breast. Physical Findings: A clinical breast exam by your physician is recommended on an annual basis and results should be correlated with mammographic findings. MG 3D Screening Mammo W/Cad Bilateral CC and MLO view(s) were taken. Prior study comparison: November 01, 2016, bilateral MG 3d screening mammo w/cad. September 30, 2015, bilateral MG screening mammo w CAD. There are scattered fibroglandular densities. Finding: There are typically benign dystrophic, round, linear calcifications in both breasts. There is a chronic nodularity in the right breast. There is no discrete abnormality. ASSESSMENT: Benign, BI-RAD 2 RECOMMENDATION: Routine screening mammogram of both breasts in 1 year.
== END | disposition home or self-care (01) ==
LOC: RADMAMWWP 09:10
PROVIDERS: ATTEND Family Medicine
DX: Z12.31 Encounter for screening mammogram for malignant neoplasm of breast (principal)
CPT/HCPCS: 77063; 77067

== ENCOUNTER 2018-04-09 13:16 | Emergency (ER) | payer MEDICARE, BC ==
[2018-04-09 13:20] VITALS: RESP 18
[2018-04-09] MEDS ORDERED: SODIUM CHLORIDE 0.9% 500 ML IV STA (13:27)
[2018-04-09] MEDS ORDERED: SODIUM CHLORIDE 0.9% 1,000 ML IV STA (13:27)
[2018-04-09 14:19] LABS: Basophils % (A) 0 %; Eosinophils # (A) 0.1 k/uL (0-0.7); Eosinophils % (A) 1 %; HCT 23.9 % (34.0-46.0); Lymphocytes # (A) 0.9 k/uL (1.0-4.8); Lymphocytes % (A) 24 %; MCHC 33.6 g/dL (31.0-37.0); MCV 98.2 fL (80.0-100.0); Mean Platelet Volume 8.1; Monocytes # (A) 0.2 k/uL (0-1.0); Monocytes % (A) 5 %; Neutrophils # (A) 2.6 k/uL (1.3-7.7); Neutrophils % (A) 67 %; Platelet Count 114 k/uL (150-450); RBC 2.43 m/uL (3.80-5.40); RDW 15.6 % (11.5-15.5); WBC 3.8 k/uL (3.8-10.6)
[2018-04-09 14:28] LABS: Albumin 3.4 g/dL (3.5-5.0); Calcium 8.8 mg/dL (8.4-10.2); Magnesium 1.7 mg/dL (1.6-2.3); Potassium 4.8 mmol/L (3.5-5.1); Total Bilirubin 0.6 mg/dL (0.2-1.3); Total Protein 5.8 g/dL (6.3-8.2)
[2018-04-09 14:35] LABS: Prothrombin Time 9.8 sec (9.0-12.0)
[2018-04-09 14:37] LABS: Partial Thromboplastin Time 21.6 sec (22.0-30.0)
[2018-04-09] MEDS ORDERED: FAMOTIDINE 20 MG/2 ML VIAL IV STA (14:37)
--- NOTE | 2018-04-09 14:40 | ED ---
General Adult HPI - General Chief complaint: Recheck/Abnormal Lab/Rx Stated complaint: Abnormal Labs Time Seen by Provider: 04/09/18 13:27 Source: patient, RN notes reviewed, old records reviewed Mode of arrival: ambulatory Limitations: no limitations - History of Present Illness Initial comments: This is a 62-year-old female the ER for evaluation. Patient was told to the ER for evaluation of lab test. A she is on chemotherapy. Patient is hemoglobin, lower blood cell, IA patient denies any specific complaints denies fevers no bowel pain no nausea vomiting, no diarrhea. No chest pain or shortness of breath - Related Data Home Medications Medication Instructions Recorded Confirmed Escitalopram [Lexapro] 20 mg PO QAM 08/25/15 04/09/18 Levothyroxine Sodium [Synthroid] 112 mcg PO QAM 08/25/15 04/09/18 Insulin Aspart (For Pump) [NovoLOG 0.01 unit SQ-PUMP DIRECTED 06/08/17 (For Pump)] Lurasidone HCl [Latuda] 60 mg PO HS 06/08/17 04/09/18 Timolol 0.5% Ophth Soln [Timoptic 1 drop BOTH EYES QAM 06/08/17 04/09/18 0.5% Ophth Soln] Carvedilol [Coreg] 3.125 mg PO BID 07/24/17 04/09/18 ALPRAZolam [Xanax] 0.25 mg PO DAILY PRN 04/09/18 04/09/18 Alirocumab [Praluent Pen] 150 mg SQ [id number] 04/09/18 04/09/18 Cholecalciferol [Vitamin D3] 1,000 unit PO DAILY 04/09/18 04/09/18 Furosemide [Lasix] 20 mg PO BID 04/09/18 04/09/18 Lisinopril [Zestril] 10 mg PO DAILY 04/09/18 04/09/18 QUEtiapine XR [SEROquel XR] 100 mg PO HS 04/09/18 04/09/18 Vitamin E 1,000 unit PO DAILY 04/09/18 04/09/18 Previous Rx's Medication Instructions Recorded Potassium Chloride ER [K-Dur 20] 20 meq PO DAILY #30 tab.er.prt 08/04/17 Allergies Allergy/AdvReac Type Severity Reaction Status Date / Time Influenza Virus Vaccines Allergy MOUTH Verified 04/09/18 14:14 SORES,ITCHING rosiglitazone [From Avandia] Allergy MUSCLE PAIN Verified 04/09/18 14:14 Review of Systems ROS Statement: Those systems with pertinent positive or pertinent negative responses have been documented in the HPI. ROS Other: All systems not noted in ROS Statement are negative. Past Medical History Past Medical History: Cancer, Heart Failure, Diabetes Mellitus, Eye Disorder, GERD/Reflux, Hyperlipidemia, Hypertension, Skin Disorder, Thyroid Disorder Additional Past Medical History / Comment(s): Recent UTI-pt has completed ABX.RECENTLY DX W/ ovarian cancer- "PT STATED IS SCHEDULED FOR bx 07-26-17 AT [facility]. IDDM type II-has insulin PUMP, bilateral glaucoma, lower GI bleed , GASTRITIS, DIVERTICULAR DX, hypothyroid, ventral hernia, VAGINAL HERPES SIMPLEx, History of Any Multi-Drug Resistant Organisms: None Reported Past Surgical History: Appendectomy, Bariatric Surgery, Cholecystectomy Additional Past Surgical History / Comment(s): GASTRIC SLEEVE 09/2015, COLONOSCOPIES/EGDS WITH LAST ONES DONE 05/21/17, BILATERAL CATARACT REMOVAL WITH LENS IMPLANTS.PARACENTESIS 06/28/17, [id number]/13/2017 Past Anesthesia/Blood Transfusion Reactions: Postoperative Nausea & Vomiting ( PONV) Past Psychological History: Bipolar Smoking Status: Never smoker Past Alcohol Use History: None Reported Past Drug Use History: None Reported - Past Family History Mother Family Medical History: Diabetes Mellitus, Hypertension Father Family Medical History: Cancer, Prostate Disorder Additional Family Medical History / Comment(s): FATHER AT THE AGE OF 74YRS AND WAS HEALTHY UNTIL HIS . CAUSE OF UNKNOWN. Sister(s) Family Medical History: Cancer, Pulmonary Embolus Additional Family Medical History / Comment(s): 2 SISTERS - COLON CA AND ONE FEBRUARY 2017 FROM METS TO LIVER. ONE SISTER HAS HAD A PULMONARY EMBOLI. General Exam Limitations: no limitations General appearance: alert, in no apparent distress Head exam: Present: atraumatic, normocephalic, normal inspection Eye exam: Present: normal appearance, PERRL, EOMI. Absent: scleral icterus, conjunctival injection, periorbital swelling ENT exam: Present: normal exam, mucous membranes moist Neck exam: Present: normal inspection. Absent: tenderness, meningismus, lymphadenopathy Respiratory exam: Present: normal lung sounds bilaterally. Absent: respiratory distress, wheezes, rales, rhonchi, stridor Cardiovascular Exam: Present: regular rate, normal rhythm, normal heart sounds. Absent: systolic murmur, diastolic murmur, rubs, gallop, clicks GI/Abdominal exam: Present: soft, normal bowel sounds. Absent: distended, tenderness, guarding, rebound, rigid Extremities exam: Present: normal inspection, full ROM, normal capillary refill. Absent: tenderness, pedal edema, joint swelling, calf tenderness Back exam: Present: normal inspection Neurological exam: Present: alert, oriented X3, CN II-XII intact Psychiatric exam: Present: normal affect, normal mood Skin exam: Present: warm, dry, intact, normal color. Absent: rash Course Vital Signs 04/09/18 04/09/18 04/09/18 13:18 14:47 16:11 Temperature 98.5 F 97.9 F Pulse Rate 94 72 66 Respiratory 18 18 18 Rate Blood Pressure 111/76 117/56 124/61 O2 Sat by Pulse 97 98 98 Oximetry - Reevaluation(s) Reevaluation #1: Patient denies any active bleeding Medical Decision Making - Medical Decision Making 62 female the ER for evaluation of anemia, hemoglobin is down and him repeatedly is improved, patient has no complaints of feelings of headache chest pain source of breath. Patient can be discharged home - Lab Data Result diagrams: 04/09/18 13:49 04/09/18 13:49 Lab Results 04/09/18 04/09/18 04/09/18 Range/Units 13:49 13:49 13:49 WBC 3.8 (3.8-10.6) k/uL RBC 2.43 L (3.80-5.40) m/uL Hgb 8.0 L (11.4-16.0) gm/dL Hct 23.9 L (34.0-46.0) % MCV 98.2 (80.0-100.0) fL MCH 33.0 (25.0-35.0) pg MCHC 33.6 (31.0-37.0) g/dL RDW 15.6 H (11.5-15.5) % Plt Count 114 L (150-450) k/uL Neutrophils % 67 % Lymphocytes % 24 % Monocytes % 5 % Eosinophils % 1 % Basophils % 0 % Neutrophils # 2.6 (1.3-7.7) k/uL Lymphocytes # 0.9 L (1.0-4.8) k/uL Monocytes # 0.2 (0-1.0) k/uL Eosinophils # 0.1 (0-0.7) k/uL Basophils # 0.0 (0-0.2) k/uL Manual Slide Review Performed Poikilocytosis (manual Present PT (9.0-12.0) sec INR (<1.2) APTT (22.0-30.0) sec Sodium 139 (137-145) mmol/L Potassium 4.8 (3.5-5.1) mmol/L Chloride 101 (98-107) mmol/L Carbon Dioxide 30 (22-30) mmol/L Anion Gap 8 mmol/L BUN 18 H (7-17) mg/dL Creatinine 0.95 (0.52-1.04) mg/dL Est GFR (CKD-EPI)AfAm 75 (>60 ml/min/1.73 sqM) Est GFR (CKD-EPI)NonAf 65 (>60 ml/min/1.73 sqM) Glucose 147 H (74-99) mg/dL Calcium 8.8 (8.4-10.2) mg/dL Magnesium 1.7 (1.6-2.3) mg/dL Total Bilirubin 0.6 (0.2-1.3) mg/dL AST 15 (14-36) U/L ALT 24 (9-52) U/L Alkaline Phosphatase 84 (38-126) U/L Total Creatine Kinase <20 L (30-135) U/L CK-MB (CK-2) <0.2 (0.0-2.4) ng/mL CK-MB (CK-2) Rel Index Troponin I <0.012 (0.000-0.034) ng/mL Total Protein 5.8 L (6.3-8.2) g/dL Albumin 3.4 L (3.5-5.0) g/dL Blood Type Blood Type Recheck Antibody Screen Spec Expiration Date 04/09/18 04/09/18 Range/Units 13:49 13:49 WBC (3.8-10.6) k/uL RBC (3.80-5.40) m/uL Hgb (11.4-16.0) gm/dL Hct (34.0-46.0) % MCV (80.0-100.0) fL MCH (25.0-35.0) pg MCHC (31.0-37.0) g/dL RDW (11.5-15.5) % Plt Count (150-450) k/uL Neutrophils % % Lymphocytes % % Monocytes % % Eosinophils % % Basophils % % Neutrophils # (1.3-7.7) k/uL Lymphocytes # (1.0-4.8) k/uL Monocytes # (0-1.0) k/uL Eosinophils # (0-0.7) k/uL Basophils # (0-0.2) k/uL Manual Slide Review Poikilocytosis (manual PT 9.8 (9.0-12.0) sec INR 1.0 (<1.2) APTT 21.6 L (22.0-30.0) sec Sodium (137-145) mmol/L Potassium (3.5-5.1) mmol/L Chloride (98-107) mmol/L Carbon Dioxide (22-30) mmol/L Anion Gap mmol/L BUN (7-17) mg/dL Creatinine (0.52-1.04) mg/dL Est GFR (CKD-EPI)AfAm (>60 ml/min/1.73 sqM) Est GFR (CKD-EPI)NonAf (>60 ml/min/1.73 sqM) Glucose (74-99) mg/dL Calcium (8.4-10.2) mg/dL Magnesium (1.6-2.3) mg/dL Total Bilirubin (0.2-1.3) mg/dL AST (14-36) U/L ALT (9-52) U/L Alkaline Phosphatase (38-126) U/L Total Creatine Kinase (30-135) U/L CK-MB (CK-2) (0.0-2.4) ng/mL CK-MB (CK-2) Rel Index Troponin I (0.000-0.034) ng/mL Total Protein (6.3-8.2) g/dL Albumin (3.5-5.0) g/dL Blood Type O Positive Blood Type Recheck No Antibody Screen NEGATIVE Spec Expiration Date 04/12/2018 - 2349 Disposition Clinical Impression: Anemia Disposition: HOME SELF-CARE Condition: Good Instructions: Anemia (ED) Is patient prescribed a controlled substance at d/c from ED?: No Referrals: Jd Bravo MD [Primary Care Provider] - 1-2 days
[2018-04-09 14:44] LABS: Creatine Kinase <20 U/L (30-135)
[2018-04-09 14:54] LABS: Poikilocytosis (M) Present
[2018-04-09 14:56] LABS: Creatine Kinase MB <0.2 ng/mL (0.0-2.4); Troponin I <0.012 ng/mL (0.000-0.034)
[2018-04-09 16:13] VITALS: BP 124/61; PULSE 66; TEMP 97.9
== END 2018-04-09 16:13 | disposition home or self-care (01) ==
LOC: EC 13:16
DX: D64.9 Anemia, unspecified (principal); I11.0 Hypertensive heart disease with heart failure; I50.9 Heart failure, unspecified; E11.9 Type 2 diabetes mellitus without complications; E03.9 Hypothyroidism, unspecified; F31.9 Bipolar disorder, unspecified; Z85.43 Personal history of malignant neoplasm of ovary; Z90.49 Acquired absence of other specified parts of digestive tract; Z98.84 Bariatric surgery status; Z98.890 Other specified postprocedural states; Z79.4 Long term (current) use of insulin; Z79.899 Other long term (current) drug therapy; Z88.7 Allergy status to serum and vaccine; Z88.8 Allergy status to other drugs, medicaments and biological substances
CPT/HCPCS: 36415; 80053; 82550; 82553; 83735; 84484; 85025; 85610; 85730; 86850; 86900; 86901; 96361; 96374; 99284

== ENCOUNTER → 2018-04-30 | Outpatient (CLI) | payer MEDICARE, BC ==
--- NOTE | 2018-04-30 14:18 | CT ---
EXAMINATION TYPE: CT ChestAbdPelvis w con DATE OF EXAM: 04/30/2018 COMPARISON: CT chest abdomen and pelvis October 09, 2017 and older exams back through June 28, 2017 HISTORY: Follow up Ovarian cancer diagnosed one year earlier with history of chemotherapy per patient . CT DLP: 1974.8 mGycm. Automated Exposure Control for Dose Reduction was Utilized. CONTRAST: CT scan of the thorax, abdomen and pelvis is performed with IV Contrast, patient injected with 80 mL of Isovue 300. FINDINGS: LUNGS: There is small left pleural effusion which is diminished in size from most recent CT. There is associated compressive atelectasis. On current study pleural fluid collection does not completely la jose g dependently in the lung bases is new from prior study. There is some persistent left lower lobe l inear scarring and/or atelectasis. Right lung remains clear. No suspicious nodule or mass is present. MEDIASTINUM: There are no greater than 1 cm hilar or mediastinal lymph nodes. No pericardial effusi on is seen. Heart size is stable and upper limits of normal. OTHER: There is redemonstration of right internal jugular Mediport catheter terminating at cavoatrial junction. LIVER/GB: Cholecystectomy clips are redemonstrated. PANCREAS: No significant abnormality is seen. SPLEEN: No significant abnormality is seen. ADRENALS: No significant abnormality is seen. KIDNEYS: No significant abnormality is seen. BOWEL: Oral contrast reaches level of proximal sigmoid colon. There is no suspicious small or large b owel dilatation. Surgical sutures from gastric sleeve procedure are redemonstrated. There is persiste nt small to moderate size hiatal hernia above this. There is somewhat redundant sigmoid colon redemon strated. GENITAL ORGANS: Uterus is surgically absent. LYMPH NODES: No greater than 1cm abdominal or pelvic lymph nodes are appreciated. OSSEOUS STRUCTURES: There is multilevel facet arthropathy in the mid to lower lumbar spine. There is mild multilevel spurring in the thoracolumbar spine. OTHER: No significant ascites on current study. Nodularity in the mesentery axial images 55 through 6 6 posterior to transverse colon is less prominent than prior exam. There is persistent small ventral wall hernia just left of midline axial image 70 containing fat and tiny mesenteric vessels IMPRESSION: Positive treatment response with resolution of abdominal and pelvic ascites and persisten t but diminished size small left pleural effusion or fluid collection. Interval improvement in suspe cted peritoneal carcinomatosis in the upper to mid abdomen anteriorly. No new suspicious masses or ad enopathy identified.
== END | disposition home or self-care (01) ==
LOC: RADPROMAIN 10:23
PROVIDERS: ATTEND Obstetrics & Gynecology Gynecologic Oncology
DX: C56.9 Malignant neoplasm of unspecified ovary (principal); R18.8 Other ascites
CPT/HCPCS: 71260; 74177; J1642; Q9967

== ENCOUNTER → 2018-08-21 | Outpatient (CLI) | payer MEDICARE, BC ==
[2018-08-21 09:03] LABS: Basophils % (A) 0 %; Eosinophils # (A) 0.1 k/uL (0-0.7); Eosinophils % (A) 4 %; HCT 34.9 % (34.0-46.0); HGB 11.2 gm/dL (11.4-16.0); Lymphocytes # (A) 1.4 k/uL (1.0-4.8); Lymphocytes % (A) 35 %; MCHC 32.1 g/dL (31.0-37.0); MCV 90.5 fL (80.0-100.0); Mean Platelet Volume 7.3; Monocytes # (A) 0.2 k/uL (0-1.0); Monocytes % (A) 4 %; Neutrophils # (A) 2.3 k/uL (1.3-7.7); Neutrophils % (A) 57 %; Platelet Count 220 k/uL (150-450); RBC 3.86 m/uL (3.80-5.40); RDW 14.4 % (11.5-15.5); WBC 4.1 k/uL (3.8-10.6)
[2018-08-21 17:49] LABS: Albumin 4.1 g/dL (3.80-4.90); Albumin/Globulin Ratio 1.95 (1.20-2.10); Anion Gap 8.2 mmol/L (4.00-12.00); Calcium 8.8 mg/dL (8.7-10.3); Carbon Dioxide 29.8 mmol/L (21.6-31.8); Globulin 2.1 g/dL (2.1-3.7); Potassium 4.2 mmol/L (3.5-5.5); Total Bilirubin 0.9 mg/dL (0.3-1.2); Total Protein 6.2 g/dL (6.2-8.2)
== END | disposition home or self-care (01) ==
LOC: LABWHC1 07:51
PROVIDERS: ATTEND Obstetrics & Gynecology Gynecologic Oncology
DX: C56.9 Malignant neoplasm of unspecified ovary (principal)
CPT/HCPCS: 36415; 80053; 82378; 85025; 86304

== ENCOUNTER → 2018-08-29 | Outpatient (CLI) | payer MEDICARE, BC ==
--- NOTE | 2018-08-29 10:37 | CT ---
EXAMINATION TYPE: CT ChestAbdPelvis w con DATE OF EXAM: 08/29/2018 COMPARISON: 04/30/2018 HISTORY: Ovarian CA CT DLP: 2217 mGycm CONTRAST: CT scan of the chest, abdomen and pelvis is performed with Oral Contrast and with IV Contrast, patien t injected with 80 mL of Isovue 300. CT Chest: LUNGS: No evidence for pulmonary nodule or mass. Persistent loculated left basilar pleural effusion w ith associated pleural-based atelectasis. Overall no change in appearance. No new pleural effusion id entified. MEDIASTINUM: Thoracic aorta is of normal caliber. The heart is not enlarged. No evidence for media stinal mass or adenopathy. HILAR STRUCTURES: No evidence for mass. No hilar adenopathy is appreciated. OTHER: No significant abnormality. CONTRAST CT ABDOMEN AND PELVIS FINDINGS: LIVER/GB: The gallbladder surgically absent. Stable small cystic lesion anterior segment right hepati c lobe measuring less than 1 cm. Additional small cystic lesion lateral segment left hepatic lobe is also stable. No solid space occupying hepatic lesion. Biliary tree is of normal caliber. PANCREAS: No inflammation. No distinct mass. SPLEEN: No splenic enlargement. No lesion seen. ADRENALS: No nodule. No thickening. KIDNEYS/BLADDER: No hydronephrosis. No nephrolithiasis. No distinct renal mass. BOWEL: Gastric sleeve formation. Small persistent hiatal hernia. Normal bowel caliber. No inflammati on. GENITAL ORGANS: Hysterectomy changes present. No evidence for recurrent or residual pelvic mass. LYMPH NODES: No greater than 1cm abdominal or pelvic lymph nodes are appreciated. AORTA: No significant abnormality. OSSEOUS STRUCTURES: No significant abnormality is seen. OTHER: Stable nodularity within the mesentery adjacent to the transverse colon is unchanged and measu res 3.4 x 2.0 cm versus 3.4 cm previously. IMPRESSION: 1. Stable nodularity within the mesentery adjacent to the transverse colon is unchanged and measures 3.4 x 2.0 cm versus 3.4 cm previously. 2. No evidence for recurrent disease. 3. Stable hepatic cystic lesions.
== END ==
LOC: RADPROMAIN 07:21
PROVIDERS: ATTEND Obstetrics & Gynecology Gynecologic Oncology
DX: Z08 Encounter for follow-up examination after completed treatment for malignant neoplasm (principal); C56.9 Malignant neoplasm of unspecified ovary; K63.89 Other specified diseases of intestine; K76.89 Other specified diseases of liver; Z92.21 Personal history of antineoplastic chemotherapy
CPT/HCPCS: 71260; 74177; J1642; Q9967

== ENCOUNTER → 2019-01-09 | Outpatient (CLI) | payer MEDICARE ==
--- NOTE | 2019-01-12 07:53 | MM ---
Reason for exam: screening (asymptomatic). Last mammogram was performed 1 year and 1 month ago. History: Patient is postmenopausal, has history of ovarian cancer at age 62, and is nulliparous. Core biopsy of the left breast. Physical Findings: A clinical breast exam by your physician is recommended on an annual basis and results should be correlated with mammographic findings. MG 3D Screening Mammo W/Cad Bilateral CC and MLO view(s) were taken. Prior study comparison: December 03, 2017, bilateral MG 3d screening mammo w/cad. November 01, 2016, bilateral MG 3d screening mammo w/cad. The breast tissue is heterogeneously dense. This may lower the sensitivity of mammography. There are benign appearing round, linear, vascular calcifications bilaterally. Previous mammotome biopsy in the left breast. There is chronic nodularity in the right breast. There is no discrete abnormality. ASSESSMENT: Benign, BI-RAD 2 RECOMMENDATION: Routine screening mammogram of both breasts in 1 year.
== END | disposition home or self-care (01) ==
LOC: RADMAMWWP 07:01
PROVIDERS: ATTEND Family Medicine
DX: Z12.31 Encounter for screening mammogram for malignant neoplasm of breast (principal)
CPT/HCPCS: 77063; 77067

== ENCOUNTER 2019-02-19 09:29 | Emergency (ER) | payer MEDICARE ==
--- NOTE | 2019-02-19 10:18 | ED ---
Recheck HPI - General Chief Complaint: Recheck/Abnormal Lab/Rx Stated Complaint: Blood transfusion Time Seen by Provider: 02/19/19 09:45 Source: patient, family, RN notes reviewed Mode of arrival: ambulatory - History of Present Illness Initial Comments: This is a 63-year-old female history of ovarian cancer that has metastasized to the small bowel was currently in the middle of chemotherapy treatments who had blood drawn yesterday and was found to be anemic. She was to get chemo today and was sent here instead for evaluation and possible transfusion. Patient denies any fevers chills nausea vomiting sweats she did complain some weakness some shortness of breath also some fluttering in her chest. 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 She currently is asymptomatic her her mother was with her she her color looks normal. No other modifying factors at this time MD Complaint: abnormal lab - Related Data Home Medications Medication Instructions Recorded Confirmed Escitalopram [Lexapro] 20 mg PO QAM 08/25/15 02/19/19 Levothyroxine Sodium [Synthroid] 112 mcg PO QAM 08/25/15 02/19/19 Insulin Aspart (For Pump) [NovoLOG 0.01 unit SQ-PUMP DIRECTED 06/08/17 02/19/19 (For Pump)] Lurasidone HCl [Latuda] 60 mg PO HS 06/08/17 02/19/19 Timolol 0.5% Ophth Soln [Timoptic 1 drop BOTH EYES QAM 06/08/17 02/19/19 0.5% Ophth Soln] ALPRAZolam [Xanax] 0.25 mg PO DAILY PRN 04/09/18 02/19/19 Alirocumab [Praluent Pen] 150 mg SQ [id number] 04/09/18 02/19/19 Furosemide [Lasix] 20 mg PO BID 04/09/18 02/19/19 Lisinopril [Zestril] 10 mg PO DAILY 04/09/18 02/19/19 QUEtiapine XR [SEROquel XR] 100 mg PO HS 04/09/18 02/19/19 Carvedilol [Coreg] 6.25 mg PO BID 02/19/19 02/19/19 Filgrastim Sndz [Neupogen] 480 mcg SQ DIRECTED 02/19/19 02/19/19 Previous Rx's Medication Instructions Recorded Potassium Chloride ER [K-Dur 20] 20 meq PO DAILY #30 tab.er.prt 08/04/17 Allergies Allergy/AdvReac Type Severity Reaction Status Date / Time Influenza Virus Vaccines AdvReac MOUTH Verified 02/19/19 09:53 SORES,ITCHING prochlorperazine AdvReac Unknown Verified 02/19/19 09:53 [From Compazine] rosiglitazone [From Avandia] AdvReac MUSCLE PAIN Verified 02/19/19 09:53 Review of Systems ROS Statement: Those systems with pertinent positive or pertinent negative responses have been documented in the HPI. ROS Other: All systems not noted in ROS Statement are negative. Past Medical History Past Medical History: Cancer, Heart Failure, Diabetes Mellitus, Eye Disorder, GERD/Reflux, Hyperlipidemia, Hypertension, Skin Disorder, Thyroid Disorder Additional Past Medical History / Comment(s): Recent UTI-pt has completed ABX.RECENTLY DX W/ ovarian cancer- "PT STATED IS SCHEDULED FOR bx 07-26-[address] [facility]. IDDM type II-has insulin PUMP, bilateral glaucoma, lower GI bleed, GASTRITIS, DIVERTICULAR DX, hypothyroid, ventral hernia, VAGINAL HERPES SIMPLEx, History of Any Multi-Drug Resistant Organisms: None Reported Past Surgical History: Appendectomy, Bariatric Surgery, Cholecystectomy Additional Past Surgical History / Comment(s): GASTRIC SLEEVE 09/2015, COLONOSCOPIES/EGDS WITH LAST ONES DONE 05/21/17, BILATERAL CATARACT REMOVAL WITH LENS IMPLANTS.PARACENTESIS 06/28/17, [id number]/13/2017 Past Anesthesia/Blood Transfusion Reactions: Postoperative Nausea & Vomiting (PONV) Past Psychological History: Bipolar Smoking Status: Never smoker Past Alcohol Use History: None Reported Past Drug Use History: None Reported - Past Family History Mother Family Medical History: Diabetes Mellitus, Hypertension Father Family Medical History: Cancer, Prostate Disorder Additional Family Medical History / Comment(s): FATHER AT THE AGE OF 74YRS AND WAS HEALTHY UNTIL HIS . CAUSE OF UNKNOWN. Sister(s) Family Medical History: Cancer, Pulmonary Embolus Additional Family Medical History / Comment(s): 2 SISTERS - COLON CA AND ONE FEBRUARY 2017 FROM METS TO LIVER. ONE SISTER HAS HAD A PULMONARY EMBOLI. General Exam - General Exam Comments Initial Comments: This a well-developed well-nourished awake alert oriented 3 female General appearance: alert, in no apparent distress Head exam: Present: atraumatic, normocephalic, normal inspection Eye exam: Present: normal appearance, PERRL, EOMI. Absent: scleral icterus, conjunctival injection, periorbital swelling ENT exam: Present: normal exam, mucous membranes moist Neck exam: Present: normal inspection. Absent: tenderness, meningismus, lymphadenopathy Respiratory exam: Present: normal lung sounds bilaterally. Absent: respiratory distress, wheezes, rales, rhonchi, stridor Cardiovascular Exam: Present: regular rate, normal rhythm, normal heart sounds. Absent: systolic murmur, diastolic murmur, rubs, gallop, clicks GI/Abdominal exam: Present: soft, normal bowel sounds. Absent: distended, tenderness, guarding, rebound, rigid Extremities exam: Present: normal inspection, full ROM, normal capillary refill. Absent: tenderness, pedal edema, joint swelling, calf tenderness Back exam: Present: normal inspection Neurological exam: Present: alert, oriented X3, CN II-XII intact Psychiatric exam: Present: normal affect, normal mood Skin exam: Present: warm, dry, intact, normal color. Absent: rash Course Vital Signs 02/19/19 02/19/19 02/19/19 09:36 10:14 11:39 Temperature 99 F Pulse Rate 75 70 67 Respiratory 18 16 16 Rate Blood Pressure 132/73 136/76 133/84 O2 Sat by Pulse 98 96 98 Oximetry 02/19/19 12:36 Temperature Pulse Rate 84 Respiratory 18 Rate Blood Pressure 142/70 O2 Sat by Pulse 99 Oximetry Medical Decision Making - Medical Decision Making Patient is feeling improved she did get some IV fluids she'll be getting one unit of blood for transfusion. Her to the she will be discharged. Continue with her chemotherapy and follow-up with her doctor. - Lab Data Result diagrams: 02/19/19 10:00 02/19/19 10:00 Lab Results 02/19/19 02/19/19 02/19/19 Range/Units 10:00 10:00 10:00 WBC 12.0 H (3.8-10.6) k/uL RBC 2.31 L (3.80-5.40) m/uL Hgb 7.4 L (11.4-16.0) gm/dL Hct 22.6 L (34.0-46.0) % MCV 98.1 (80.0-100.0) fL MCH 32.0 (25.0-35.0) pg MCHC 32.6 (31.0-37.0) g/dL RDW 21.5 H (11.5-15.5) % Plt Count 149 L (150-450) k/uL Neutrophils % 87 % Lymphocytes % 8 % Monocytes % 4 % Eosinophils % 1 % Basophils % 0 % Neutrophils # 10.3 H (1.3-7.7) k/uL Lymphocytes # 1.0 (1.0-4.8) k/uL Monocytes # 0.4 (0-1.0) k/uL Eosinophils # 0.1 (0-0.7) k/uL Basophils # 0.0 (0-0.2) k/uL Anisocytosis Moderate Macrocytosis Moderate Sodium (137-145) mmol/L Potassium (3.5-5.1) mmol/L Chloride (98-107) mmol/L Carbon Dioxide (22-30) mmol/L Anion Gap mmol/L BUN (7-17) mg/dL Creatinine (0.52-1.04) mg/dL Est GFR (CKD-EPI)AfAm (>60 ml/min/1.73 sqM) Est GFR (CKD-EPI)NonAf (>60 ml/min/1.73 sqM) Glucose (74-99) mg/dL Calcium (8.4-10.2) mg/dL Magnesium (1.6-2.3) mg/dL Total Bilirubin (0.2-1.3) mg/dL AST (14-36) U/L ALT (9-52) U/L Alkaline Phosphatase (38-126) U/L Total Creatine Kinase 34 (30-135) U/L CK-MB (CK-2) <0.2 (0.0-2.4) ng/mL CK-MB (CK-2) Rel Index Troponin I <0.012 (0.000-0.034) ng/mL Total Protein (6.3-8.2) g/dL Albumin (3.5-5.0) g/dL Blood Type O Positive Blood Type Recheck No Antibody Screen NEGATIVE Crossmatch See Detail Spec Expiration Date 02/22/2019 - 229902/19/19 Range/Units 10:00 WBC (3.8-10.6) k/uL RBC (3.80-5.40) m/uL Hgb (11.4-16.0) gm/dL Hct (34.0-46.0) % MCV (80.0-100.0) fL MCH (25.0-35.0) pg MCHC (31.0-37.0) g/dL RDW (11.5-15.5) % Plt Count (150-450) k/uL Neutrophils % % Lymphocytes % % Monocytes % % Eosinophils % % Basophils % % Neutrophils # (1.3-7.7) k/uL Lymphocytes # (1.0-4.8) k/uL Monocytes # (0-1.0) k/uL Eosinophils # (0-0.7) k/uL Basophils # (0-0.2) k/uL Anisocytosis Macrocytosis Sodium 140 (137-145) mmol/L Potassium 4.3 (3.5-5.1) mmol/L Chloride 105 (98-107) mmol/L Carbon Dioxide 26 (22-30) mmol/L Anion Gap 9 mmol/L BUN 11 (7-17) mg/dL Creatinine 1.07 H (0.52-1.04) mg/dL Est GFR (CKD-EPI)AfAm 64 (>60 ml/min/1.73 sqM) Est GFR (CKD-EPI)NonAf 56 (>60 ml/min/1.73 sqM) Glucose 129 H (74-99) mg/dL Calcium 8.5 (8.4-10.2) mg/dL Magnesium 1.6 (1.6-2.3) mg/dL Total Bilirubin 0.6 (0.2-1.3) mg/dL AST 49 H (14-36) U/L ALT 55 H (9-52) U/L Alkaline Phosphatase 171 H (38-126) U/L Total Creatine Kinase (30-135) U/L CK-MB (CK-2) (0.0-2.4) ng/mL CK-MB (CK-2) Rel Index Troponin I (0.000-0.034) ng/mL Total Protein 6.4 (6.3-8.2) g/dL Albumin 3.6 (3.5-5.0) g/dL Blood Type Blood Type Recheck Antibody Screen Crossmatch Spec Expiration Date - EKG Data -: EKG Interpreted by Me EKG shows normal: sinus rhythm (Normal sinus rhythm a 66. We'll 144 QRS duration 80 QT since QTC of 42/421 this is a normal-appearing EKG.) - Radiology Data Radiology results: report reviewed (X-ray was reviewed no acute findings are seen.), image reviewed Disposition Clinical Impression: Anemia, Ovary cancer, Palpitations Disposition: HOME SELF-CARE Condition: Good Instructions (If sedation given, give patient instructions): Anemia (ED) Is patient prescribed a controlled substance at d/c from ED?: No Referrals: Jd Bravo MD [Primary Care Provider] - 1-2 days
[2019-02-19 10:41] LABS: Albumin 3.6 g/dL (3.5-5.0); Calcium 8.5 mg/dL (8.4-10.2); Magnesium 1.6 mg/dL (1.6-2.3); Potassium 4.3 mmol/L (3.5-5.1); Total Bilirubin 0.6 mg/dL (0.2-1.3); Total Protein 6.4 g/dL (6.3-8.2)
[2019-02-19 10:44] LABS: Anisocytosis Moderate; Basophils % (A) 0 %; Eosinophils # (A) 0.1 k/uL (0-0.7); Eosinophils % (A) 1 %; HCT 22.6 % (34.0-46.0); HGB 7.4 gm/dL (11.4-16.0); Lymphocytes % (A) 8 %; MCHC 32.6 g/dL (31.0-37.0); MCV 98.1 fL (80.0-100.0); Macrocytosis Moderate; Mean Platelet Volume 8.8; Monocytes # (A) 0.4 k/uL (0-1.0); Monocytes % (A) 4 %; Neutrophils # (A) 10.3 k/uL (1.3-7.7); Neutrophils % (A) 87 %; Platelet Count 149 k/uL (150-450); RBC 2.31 m/uL (3.80-5.40); RDW 21.5 % (11.5-15.5)
--- NOTE | 2019-02-19 10:53 | XR ---
EXAMINATION TYPE: XR chest 2V DATE OF EXAM: 02/19/2019 COMPARISON: 09/13/2017 HISTORY: 63-year-old female with cough TECHNIQUE: AP and lateral views FINDINGS: Right anterior chest wall injection port with catheter tip at the cavoatrial junction. Leftward patie nt rotation ultrasound cart and mediastinal contours. Mild interstitial prominence. Heart upper limit s of normal in size. Hazy bibasilar densities are demonstrated with small bilateral pleural effusions seen on the lateral view. IMPRESSION: Rotated exam. Borderline heart size with small bilateral pleural effusions with adjacent atelectasis and/or consolidation.
[2019-02-19 11:25] LABS: Creatine Kinase 34 U/L (30-135)
[2019-02-19 11:37] LABS: Creatine Kinase MB <0.2 ng/mL (0.0-2.4); Troponin I <0.012 ng/mL (0.000-0.034)
[2019-02-19 15:31] VITALS: BP 137/71; PULSE 76; RESP 16; TEMP 99.1
== END 2019-02-19 15:31 | disposition home or self-care (01) ==
LOC: EC 09:29
DX: D64.9 Anemia, unspecified (principal); C56.9 Malignant neoplasm of unspecified ovary; R00.2 Palpitations; C78.4 Secondary malignant neoplasm of small intestine; I11.0 Hypertensive heart disease with heart failure; I50.9 Heart failure, unspecified; E11.9 Type 2 diabetes mellitus without complications; E03.9 Hypothyroidism, unspecified; H40.9 Unspecified glaucoma; F31.9 Bipolar disorder, unspecified; Z79.890 Hormone replacement therapy; Z79.4 Long term (current) use of insulin; Z79.899 Other long term (current) drug therapy; Z88.7 Allergy status to serum and vaccine; Z88.8 Allergy status to other drugs, medicaments and biological substances
CPT/HCPCS: 36415; 93005; 86900; 86901; 80053; 82550; 82553; 83735; 84484; 85025; 86850; 86920; 71046; 99285; P9016

== ENCOUNTER 2019-05-14 09:05 | Emergency (ER) | payer MEDICARE ==
--- NOTE | 2019-05-14 09:34 | ED ---
General Adult HPI - General Chief complaint: Recheck/Abnormal Lab/Rx Stated complaint: Needs blood transfusion Time Seen by Provider: 05/14/19 09:12 Source: patient, RN notes reviewed Mode of arrival: ambulatory Limitations: no limitations - History of Present Illness Initial comments: 63-year-old female with a complicated past medical history including ovarian cancer last receiving chemo last presents to the emergency department for chief complaint of abnormal labs. Patient states that she was told by her PCP she has low hemoglobin. States she is unsure what level this is at. She states she has chronic anemia due to this chemo and cancer. She does admit to mild shortness of breath and weakness which she states she always has when she becomes anemic. Patient denies any hematochezia or melena. Patient has no other complaints at this time including shortness of breath, chest pain, abdominal pain, nausea or vomiting, headache, or visual changes. - Related Data Home Medications Medication Instructions Recorded Confirmed Escitalopram [Lexapro] 20 mg PO QAM 08/25/15 05/14/19 Levothyroxine Sodium [Synthroid] 112 mcg PO QAM 08/25/15 05/14/19 Lurasidone HCl [Latuda] 60 mg PO HS 06/08/17 05/14/19 Timolol 0.5% Ophth Soln [Timoptic 1 drop BOTH EYES QAM 06/08/17 05/14/19 0.5% Ophth Soln] Alirocumab [Praluent Pen] 150 mg SQ [id number] 04/09/18 05/14/19 QUEtiapine XR [SEROquel XR] 100 mg PO HS 04/09/18 05/14/19 Carvedilol [Coreg] 6.25 mg PO BID 02/19/19 05/14/19 Filgrastim Sndz [Neupogen] 480 mcg SQ DIRECTED 02/19/19 05/14/19 Gabapentin [Neurontin] 300 mg PO TID 05/14/19 05/14/19 valACYclovir HCL [Valtrex] 1,000 mg PO BID 05/14/19 05/14/19 Previous Rx's Medication Instructions Recorded Potassium Chloride ER [K-Dur 20] 20 meq PO DAILY #30 tab.er.prt 08/04/17 Allergies Allergy/AdvReac Type Severity Reaction Status Date / Time Influenza Virus Vaccines AdvReac MOUTH Verified 05/14/19 09:11 SORES,ITCHING prochlorperazine AdvReac Unknown Verified 05/14/19 09:11 [From Compazine] rosiglitazone [From Avandia] AdvReac MUSCLE PAIN Verified 05/14/19 09:11 Review of Systems ROS Statement: Those systems with pertinent positive or pertinent negative responses have been documented in the HPI. ROS Other: All systems not noted in ROS Statement are negative. Past Medical History Past Medical History: Cancer, Heart Failure, Diabetes Mellitus, Eye Disorder, GERD/Reflux, Hyperlipidemia, Hypertension, Skin Disorder, Thyroid Disorder Additional Past Medical History / Comment(s): Recent UTI-pt has completed ABX.RECENTLY DX W/ ovarian cancer- "PT STATED IS SCHEDULED FOR bx 07-26-17 AT [facility]. IDDM type II-has insulin PUMP, bilateral glaucoma, lower GI bleed, GASTRITIS, DIVERTICULAR DX, hypothyroid, ventral hernia, VAGINAL HERPES SIMPLEx, History of Any Multi-Drug Resistant Organisms: None Reported Past Surgical History: Appendectomy, Bariatric Surgery, Cholecystectomy Additional Past Surgical History / Comment(s): GASTRIC SLEEVE 09/2015, COLONOSCOPIES/EGDS WITH LAST ONES DONE 05/21/17, BILATERAL CATARACT REMOVAL WITH LENS IMPLANTS.PARACENTESIS 06/28/17, [id number]/13/2017 Past Anesthesia/Blood Transfusion Reactions: Postoperative Nausea & Vomiting (PONV) Past Psychological History: Bipolar Smoking Status: Never smoker Past Alcohol Use History: None Reported Past Drug Use History: None Reported - Past Family History Mother Family Medical History: Diabetes Mellitus, Hypertension Father Family Medical History: Cancer, Prostate Disorder Additional Family Medical History / Comment(s): FATHER AT THE AGE OF 74YRS AND WAS HEALTHY UNTIL HIS . CAUSE OF UNKNOWN. Sister(s) Family Medical History: Cancer, Pulmonary Embolus Additional Family Medical History / Comment(s): 2 SISTERS - COLON CA AND ONE FEBRUARY 2017 FROM METS TO LIVER. ONE SISTER HAS HAD A PULMONARY EMBOLI. General Exam Limitations: no limitations General appearance: alert, in no apparent distress Head exam: Present: atraumatic, normocephalic, normal inspection Eye exam: Present: normal appearance, PERRL, EOMI. Absent: scleral icterus, conjunctival injection, periorbital swelling ENT exam: Present: normal exam, mucous membranes moist Neck exam: Present: normal inspection, full ROM. Absent: tenderness, meningismus, lymphadenopathy Respiratory exam: Present: normal lung sounds bilaterally. Absent: respiratory distress, wheezes, rales, rhonchi, stridor Cardiovascular Exam: Present: regular rate, normal rhythm, normal heart sounds. Absent: systolic murmur, diastolic murmur, rubs, gallop, clicks GI/Abdominal exam: Present: soft, normal bowel sounds. Absent: distended, tenderness, guarding, rebound, rigid Neurological exam: Present: alert, oriented X3 Psychiatric exam: Present: normal affect, normal mood Course Vital Signs 05/14/19 05/14/19 05/14/19 09:07 11:00 11:01 Temperature 97.5 F L 98.8 F Pulse Rate 75 63 59 L Respiratory 16 16 18 Rate Blood Pressure 143/76 143/74 146/79 O2 Sat by Pulse 98 99 100 Oximetry 05/14/19 05/14/19 05/14/19 11:19 11:29 11:59 Temperature 98.7 F 98.7 F 98.8 F Pulse Rate 63 58 L 66 Respiratory 18 18 19 Rate Blood Pressure 136/70 136/71 140/69 O2 Sat by Pulse 100 Oximetry 05/14/19 05/14/19 05/14/19 12:00 12:30 13:00 Temperature Pulse Rate 56 L 62 57 L Respiratory 18 17 16 Rate Blood Pressure 137/69 147/72 142/71 O2 Sat by Pulse 100 100 100 Oximetry 05/14/19 05/14/19 05/14/19 13:30 13:45 13:56 Temperature 98.3 F 98.6 F Pulse Rate 65 63 61 Respiratory 18 19 18 Rate Blood Pressure 144/78 150/79 146/70 O2 Sat by Pulse 100 100 Oximetry 05/14/19 05/14/19 05/14/19 14:06 14:30 14:36 Temperature 98.2 F 98.3 F Pulse Rate 64 58 L 63 Respiratory 18 17 18 Rate Blood Pressure 153/77 157/83 142/73 O2 Sat by Pulse 100 100 100 Oximetry 05/14/19 05/14/19 15:00 15:30 Temperature Pulse Rate 69 64 Respiratory 17 18 Rate Blood Pressure 142/73 153/84 O2 Sat by Pulse 100 99 Oximetry - Reevaluation(s) Reevaluation #1: 05/14/19 10:53 Spoke with Es[facility] chemo nurse of Dr Riggins , patient's oncologist, she recommends giving 2 units of packed red blood cells. States these do not have to be platelets in the platelets will likely recover themselves, recommends no irradiated blood. EKG Findings - EKG Comments: EKG Findings:: Normal sinus rhythm, ventricular rate 65, NV interval 146, QTC 434 Medical Decision Making - Medical Decision Making Tiera is a 63-year-old female presenting to the emergency department for abnormal labs. Patient is a chemotherapy patient with ovarian cancer who presents for chronic anemia. Patient last had a treatment about a week ago. States she generally gets anemic after treatments. States she was sent in by her oncologist. CBC does show a hemoglobin of 7.5 with a platelet count of 14. CMP is unremarkable. I did attempt to speak with patient's oncologist. He was unavailable so I did discuss this case with Esperanza hurt's oncology. She recommends giving two units of packed red blood cells. Does not recommend giving any platelets as these should resolve on their own. Recommends discharge home afterwards. This patient does feel slightly short of breath and is symptomatic, Patient will be transfused. Will be discharged home after transfusion we will have close follow-up with her oncologist and primary care doctor for repeat blood draws. She was reevaluated after transfusion, stating she does feel actually considerably better. She will return here if she has any worsening symptoms. - Lab Data Result diagrams: 05/14/19 09:29 05/14/19 09:29 Lab Results 05/14/19 05/14/19 05/14/19 Range/Units 09:29 09:29 09:29 WBC 4.6 (3.8-10.6) k/uL RBC 2.36 L (3.80-5.40) m/uL Hgb 7.5 L (11.4-16.0) gm/dL Hct 22.6 L (34.0-46.0) % MCV 95.4 (80.0-100.0) fL MCH 31.5 (25.0-35.0) pg MCHC 33.0 (31.0-37.0) g/dL RDW 19.8 H (11.5-15.5) % Plt Count 14 L* (150-450) k/uL Neutrophils % (Manual) 51 % Band Neutrophils % 2 % Lymphocytes % (Manual) 28 % Monocytes % (Manual) 15 % Eosinophils % (Manual) 1 % Metamyelocytes % 3 % Myelocytes % 1 % Neutrophils # (Manual) 2.40 (1.3-7.7) k/uL Lymphocytes # (Manual) 1.29 (1.0-4.8) k/uL Monocytes # (Manual) 0.69 (0-1.0) k/uL Eosinophils # (Manual) 0.05 (0-0.7) k/uL Metamyelocytes # (Man) 0.14 H (0) k/uL Myelocytes # (Manual) 0.05 H (0) k/uL Nucleated RBCs 0 (0-0) /100 WBC Manual Slide Review Performed Anisocytosis Slight Macrocytosis Slight PT (9.0-12.0) sec INR (<1.2) APTT (22.0-30.0) sec Sodium 140 (137-145) mmol/L Potassium 3.9 (3.5-5.1) mmol/L Chloride 105 (98-107) mmol/L Carbon Dioxide 26 (22-30) mmol/L Anion Gap 9 mmol/L BUN 14 (7-17) mg/dL Creatinine 1.11 H (0.52-1.04) mg/dL Est GFR (CKD-EPI)AfAm 61 (>60 ml/min/1.73 sqM) Est GFR (CKD-EPI)NonAf 53 (>60 ml/min/1.73 sqM) Glucose 133 H (74-99) mg/dL Calcium 8.6 (8.4-10.2) mg/dL Magnesium 1.6 (1.6-2.3) mg/dL Total Bilirubin 0.5 (0.2-1.3) mg/dL AST 33 (14-36) U/L ALT 38 (9-52) U/L Alkaline Phosphatase 111 (38-126) U/L Troponin I (0.000-0.034) ng/mL Total Protein 6.2 L (6.3-8.2) g/dL Albumin 3.5 (3.5-5.0) g/dL Blood Type O Positive Blood Type Recheck No Antibody Screen NEGATIVE Crossmatch See Detail Spec Expiration Date 05/17/2019201805/14/19 05/14/19 Range/Units 09:29 09:29 WBC (3.8-10.6) k/uL RBC (3.80-5.40) m/uL Hgb (11.4-16.0) gm/dL Hct (34.0-46.0) % MCV (80.0-100.0) fL MCH (25.0-35.0) pg MCHC (31.0-37.0) g/dL RDW (11.5-15.5) % Plt Count (150-450) k/uL Neutrophils % (Manual) % Band Neutrophils % % Lymphocytes % (Manual) % Monocytes % (Manual) % Eosinophils % (Manual) % Metamyelocytes % % Myelocytes % % Neutrophils # (Manual) (1.3-7.7) k/uL Lymphocytes # (Manual) (1.0-4.8) k/uL Monocytes # (Manual) (0-1.0) k/uL Eosinophils # (Manual) (0-0.7) k/uL Metamyelocytes # (Man) (0) k/uL Myelocytes # (Manual) (0) k/uL Nucleated RBCs (0-0) /100 WBC Manual Slide Review Anisocytosis Macrocytosis PT 10.0 (9.0-12.0) sec INR 0.9 (<1.2) APTT 22.5 (22.0-30.0) sec Sodium (137-145) mmol/L Potassium (3.5-5.1) mmol/L Chloride (98-107) mmol/L Carbon Dioxide (22-30) mmol/L Anion Gap mmol/L BUN (7-17) mg/dL Creatinine (0.52-1.04) mg/dL Est GFR (CKD-EPI)AfAm (>60 ml/min/1.73 sqM) Est GFR (CKD-EPI)NonAf (>60 ml/min/1.73 sqM) Glucose (74-99) mg/dL Calcium (8.4-10.2) mg/dL Magnesium (1.6-2.3) mg/dL Total Bilirubin (0.2-1.3) mg/dL AST (14-36) U/L ALT (9-52) U/L Alkaline Phosphatase (38-126) U/L Troponin I <0.012 (0.000-0.034) ng/mL Total Protein (6.3-8.2) g/dL Albumin (3.5-5.0) g/dL Blood Type Blood Type Recheck Antibody Screen Crossmatch Spec Expiration Date Disposition Clinical Impression: Anemia, Thrombocytopenia Disposition: HOME SELF-CARE Condition: Good Instructions (If sedation given, give patient instructions): Anemia (ED) Additional Instructions: Please follow-up with your primary care provider and oncologist as soon as possible for a blood redraw. Please return here to the emergency department if you have any worsening symptoms. Is patient prescribed a controlled substance at d/c from ED?: No Referrals: Jd Bravo MD [Primary Care Provider] - 1-2 days Time of Disposition: 12:25
[2019-05-14 09:44] LABS: Anisocytosis Slight; HCT 22.6 % (34.0-46.0); HGB 7.5 gm/dL (11.4-16.0); MCH 31.5 pg (25.0-35.0); MCV 95.4 fL (80.0-100.0); Macrocytosis Slight; Mean Platelet Volume 7.9; RBC 2.36 m/uL (3.80-5.40); RDW 19.8 % (11.5-15.5); WBC 4.6 k/uL (3.8-10.6)
[2019-05-14 09:49] LABS: INR 0.9 (<1.2); Partial Thromboplastin Time 22.5 sec (22.0-30.0)
[2019-05-14 09:58] LABS: Albumin 3.5 g/dL (3.5-5.0); Calcium 8.6 mg/dL (8.4-10.2); Magnesium 1.6 mg/dL (1.6-2.3); Potassium 3.9 mmol/L (3.5-5.1); Total Bilirubin 0.5 mg/dL (0.2-1.3); Total Protein 6.2 g/dL (6.3-8.2)
[2019-05-14 10:14] LABS: Platelet Count 14 k/uL (150-450)
[2019-05-14 10:36] LABS: Band Neutrophils % 2 %; Eosinophils # (M) 0.05 k/uL (0-0.7); Lymphocytes # (M) 1.29 k/uL (1.0-4.8); Metamyelocytes # (M) 0.14 k/uL (0); Metamyelocytes % 3 %; Monocytes # (M) 0.69 k/uL (0-1.0); Myelocytes # (M) 0.05 k/uL (0); Myelocytes % 1 %; Neutrophils % (M) 51 %; Nucleated Red Blood Cells 0 /100 WBC (0-0); Total Cells Counted 200
[2019-05-14] MEDS ORDERED: ACETAMINOPHEN TAB 325 MG TAB PO STA (11:03)
[2019-05-14 13:58] VITALS: RESP 18
[2019-05-14 15:38] VITALS: TEMP 98.3
[2019-05-14 15:56] VITALS: BP 153/84; PULSE 64
== END 2019-05-14 16:13 | disposition home or self-care (01) ==
LOC: EC 09:05
DX: D64.9 Anemia, unspecified (principal); D69.6 Thrombocytopenia, unspecified; R53.1 Weakness; I11.0 Hypertensive heart disease with heart failure; I50.9 Heart failure, unspecified; E03.9 Hypothyroidism, unspecified; H40.9 Unspecified glaucoma; F31.9 Bipolar disorder, unspecified; Z85.43 Personal history of malignant neoplasm of ovary; Z92.21 Personal history of antineoplastic chemotherapy; Z79.890 Hormone replacement therapy; Z79.899 Other long term (current) drug therapy; Z88.7 Allergy status to serum and vaccine; Z88.8 Allergy status to other drugs, medicaments and biological substances
CPT/HCPCS: 36415; 93005; 86900; 86901; 80053; 83735; 84484; 85025; 85610; 85730; 86850; 86920; 99285; P9016

== ENCOUNTER → 2019-11-05 | Outpatient (CLI) | payer MEDICARE ==
--- NOTE | 2019-11-05 11:19 | XR ---
EXAMINATION TYPE: XR knee complete bilateral DATE OF EXAM: 11/05/2019 CLINICAL HISTORY: pain TECHNIQUE: Three views of the bilateral are obtained. COMPARISON: None. FINDINGS: There is no acute fracture/dislocation. The tri-compartment joint spaces demonstrate mode rate medial tibiofemoral joint space narrowing and patellofemoral joint space narrowing. Associated s pur formation. The overlying soft tissue appears unremarkable. IMPRESSION: There is no acute fracture or dislocation.ICD 10 NO FRACTURE, INITIAL EVALUATION
== END | disposition home or self-care (01) ==
LOC: RADXRMAIN 10:44
PROVIDERS: ATTEND Family Medicine
DX: M25.561 Pain in right knee (principal); M25.562 Pain in left knee

== ENCOUNTER → 2020-09-06 | Outpatient (CLI) | payer MEDICARE ==
--- NOTE | 2020-09-07 14:19 | MM ---
Reason for exam: screening (asymptomatic). Last mammogram was performed 1 year and 8 months ago. History: Patient is postmenopausal, has history of ovarian cancer at age 62, and is nulliparous. Core biopsy of the left breast. Physical Findings: A clinical breast exam by your physician is recommended on an annual basis and results should be correlated with mammographic findings. MG 3D Screening Mammo W/Cad Bilateral CC and MLO view(s) were taken. Prior study comparison: January 09, 2019, bilateral MG 3d screening mammo w/cad. December 03, 2017, bilateral MG 3d screening mammo w/cad. There are scattered fibroglandular densities. Finding: There are typically benign vascular, round, linear calcifications. Grouped indistinct calcifictions left middle depth upper outer quadrant MLO 18/56 and CC 17/44. New finding and increase in number of calcifications since January 09, 2019 and December 03, 2017. ASSESSMENT: Incomplete: need additional imaging evaluation, BI-RAD 0 RECOMMENDATION: Special view mammogram of the left breast. [facility] will attempt to contact patient to return for supplemental views.
== END | disposition home or self-care (01) ==
LOC: RADMAMWWP 14:21
PROVIDERS: ATTEND Family Medicine
DX: Z12.31 Encounter for screening mammogram for malignant neoplasm of breast (principal)
CPT/HCPCS: 77063; 77067

== ENCOUNTER → 2020-09-14 | Outpatient (CLI) | payer MEDICARE ==
--- NOTE | 2020-09-14 10:50 | MM ---
Reason for exam: additional evaluation requested from abnormal screening. Last mammogram was performed less than 1 month ago. History: Patient is postmenopausal, has history of ovarian cancer at age 62, and is nulliparous. Core biopsy of the left breast. Physical Findings: Nurse did not find any significant physical abnormalities on exam. MG 3D Work Up W/Cad LT CC with magnification and MLO with magnification view(s) were taken of the left breast. Prior study comparison: September 06, 2020, bilateral MG 3d screening mammo w/cad. January 09, 2019, bilateral MG 3d screening mammo w/cad. There are scattered fibroglandular densities. Finding: There are calcifications in the upper outer quadrant of the left breast. New finding since September 06, 2020 and January 09, 2019. These results were verbally communicated with the patient and result sheet given to the patient on 09/14/20. ASSESSMENT: Incomplete: need additional imaging evaluation, BI-RAD 0 RECOMMENDATION: Stereotactic core biopsy of the left breast. Called Dr. Bravo's office with mammographic findings and has scheduled an appointment for the patient for 10/12/20 at 4:[address] Richmond. Biopsy scheduled for 09/28/20 at 8:00. PRELIMINARY REPORT CALLED AND FAXED TO DR. RICHMOND ON 09/14/20.
== END | disposition home or self-care (01) ==
LOC: RADMAMWWP 08:54
PROVIDERS: ATTEND Family Medicine
DX: R92.8 Other abnormal and inconclusive findings on diagnostic imaging of breast (principal)
CPT/HCPCS: 77065; G0279; 77061

== ENCOUNTER → 2020-09-28 | Day surgery (SDC) | payer MEDICARE ==
[2020-09-28 07:23] VITALS: RESP 16
[2020-09-28 08:48] VITALS: BP 142/74; PULSE 63; TEMP 97.9
--- NOTE | 2020-09-28 14:34 | MM ---
Stereotactic Mammotome core biopsy left breast. HISTORY: Left breast microcalcifications The microcalcifications in question within the left breast were targeted by the undersigned. Procedure was performed by the undersigned. Informed consent was obtained and all of the patients questions were answered. The standard sterile technique was utilized and appropriate local anesthesia was obtained with 1% lidocaine. Mammotome probe was advanced and multiple core samples were obtained and sent to pathology for interpretation. Microclip marker was deployed at the site of biopsy. Post procedural mammogram demonstrates appropriate deployment of radiopaque clip marker. The patient tolerated the procedure well and left the department in stable condition. Pathology results are pending. IMPRESSION: Successful stereotactic core biopsy left breast with pathology results pending. Pathology Results: Benign LEFT BREAST, STEREOTACTIC CORE BIOPSY: Fibroadenomatoid hyperplasia with calcifications in a background of fibrocystic changes. Recommendation Follow up mammogram of the left breast in 6 months. MAUDE
== END ==
LOC: RADUSWWP 06:59
PROVIDERS: ATTEND Surgery
DX: N60.82 Other benign mammary dysplasias of left breast (principal); N60.12 Diffuse cystic mastopathy of left breast
CPT/HCPCS: 88305; 19081; A4648; J2001

== ENCOUNTER 2021-02-24 10:00 | Emergency (ER) | payer MEDICARE ==
[2021-02-24] MEDS ORDERED: KETOROLAC 15 MG/ML 1 ML VIAL IM STA (10:26)
--- NOTE | 2021-02-24 10:56 | XR ---
EXAMINATION TYPE: XR humerus LT DATE OF EXAM: 02/24/2021 COMPARISON: No recent prior imaging is available for comparison. HISTORY: Pain. TECHNIQUE: 2 views of the left humerus were obtained. FINDINGS: There is an acute fracture involving the midshaft of the left humerus. There is a lytic lytic lesion involving the mid left humeral shaft measuring 6.5 x 2.2 cm likely representing malignancy. This like ly represents a pathologic fracture. IMPRESSION: Pathologic left midshaft fracture. Please correlate with history of malignancy.
--- NOTE | 2021-02-24 11:09 | XR ---
Left elbow HISTORY: Pain 3 views of the left elbow, comparison to plain film 02/24/2021 left humerus Bone mineralization remarkable for a lytic lesion involving the left humerus with fracture as previou sly noted, joint spaces, alignment are maintained. No evident elbow joint effusion. IMPRESSION: Findings suggest pathologic fracture of the mid diaphysis of the left humerus
[2021-02-24] MEDS ORDERED: HYDROcodone/APAP 5-325MG 1 EACH TAB PO STA (12:07)
--- NOTE | 2021-02-24 12:29 | ED ---
Upper Extremity HPI - General Chief Complaint: Extremity Injury, Upper Stated Complaint: Arm pain, CA PT Time Seen by Provider: 02/24/21 10:08 Source: patient Mode of arrival: ambulatory Limitations: no limitations - History of Present Illness Initial Comments: Patient is a 65-year-old female with history of abdominal cancer, presenting to emergency Department with complaints of left elbow pain. Patient states 3 days ago she is attempting to open a jar when she felt a sharp pain in her elbow. She states the pain has been increasing over the past 3 days. She did go see her doctor today who gave her a shot of pain medicine and gave her an order for x-rays over patient's pain has been increasing so she just came in to the ER for evaluation. She states her cancer is mostly in her abdominal region, no metastases to the bones that she is aware of. No further complaints. - Related Data Home Medications Medication Instructions Recorded Confirmed Escitalopram [Lexapro] 20 mg PO HS 08/25/15 02/24/21 Levothyroxine Sodium [Synthroid] 112 mcg PO HS 08/25/15 02/24/21 Lurasidone HCl [Latuda] 60 mg PO HS 06/08/17 02/24/21 carvediloL [Coreg] 6.25 mg PO BID 02/19/19 02/24/21 Gabapentin [Neurontin] 300 mg PO HS 05/14/19 02/24/21 Insulin Glargine,Hum.rec.anlog 18 units SQ DAILY 02/24/21 02/24/21 [Jess Louis] [place]-3 Fatty Acids/Fish Oil [Fish 1 cap PO HS 02/24/21 02/24/21 Oil 1,000 mg Softgel] QUEtiapine FUMARATE 50 mg PO HS 02/24/21 02/24/21 valACYclovir [Valtrex] 500 mg PO HS 02/24/21 02/24/21 Previous Rx's Medication Instructions Recorded HYDROcodone/APAP 5-325MG [[place] 1 tab PO Q6HR PRN 3 Days #12 tab 02/24/21 5-325] Allergies Allergy/AdvReac Type Severity Reaction Status Date / Time Influenza Virus Vaccines AdvReac MOUTH Verified 02/24/21 11:09 SORES,ITCHING prochlorperazine AdvReac Unknown Verified 02/24/21 11:09 [From Compazine] rosiglitazone [From Avandia] AdvReac MUSCLE PAIN Verified 02/24/21 11:09 Review of Systems ROS Statement: Those systems with pertinent positive or pertinent negative responses have been documented in the HPI. ROS Other: All systems not noted in ROS Statement are negative. Past Medical History Past Medical History: Cancer, Heart Failure, Diabetes Mellitus, Eye Disorder, GERD/Reflux, Hyperlipidemia, Hypertension, Skin Disorder, Thyroid Disorder Additional Past Medical History / Comment(s): Recent UTI-pt has completed ABX.RECENTLY DX W/ ovarian cancer- "PT STATED IS SCHEDULED FOR bx 07-26-17 AT [facility]. IDDM type II-has insulin PUMP, bilateral glaucoma, lower GI bleed, GASTRITIS, DIVERTICULAR DX, hypothyroid, ventral hernia, VAGINAL HERPES SIMPLEx, History of Any Multi-Drug Resistant Organisms: None Reported Past Surgical History: Appendectomy, Bariatric Surgery, Cholecystectomy Additional Past Surgical History / Comment(s): GASTRIC SLEEVE 09/2015, COLONOSCOPIES/EGDS WITH LAST ONES DONE 05/21/17, BILATERAL CATARACT REMOVAL WITH LENS IMPLANTS.PARACENTESIS 06/28/17, [id number]/[id number] Past Anesthesia/Blood Transfusion Reactions: Postoperative Nausea & Vomiting (PONV) Past Psychological History: Bipolar Smoking Status: Never smoker Past Alcohol Use History: None Reported Past Drug Use History: None Reported - Past Family History Mother Family Medical History: Diabetes Mellitus, Hypertension Father Family Medical History: Cancer, Prostate Disorder Additional Family Medical History / Comment(s): FATHER AT THE AGE OF 74YRS AND WAS HEALTHY UNTIL HIS . CAUSE OF UNKNOWN. Sister(s) Family Medical History: Cancer, Pulmonary Embolus Additional Family Medical History / Comment(s): 2 SISTERS - COLON CA AND ONE FEBRUARY 2017 FROM METS TO LIVER. ONE SISTER HAS HAD A PULMONARY EMBOLI. General Exam - General Exam Comments Initial Comments: GENERAL: Patient is well-developed and well-nourished. Patient is nontoxic and in moderate distress. HEAD: Atraumatic, normocephalic. EYES: Pupils equal round and reactive to light, extraocular movements intact, sclera anicteric, conjunctiva are normal. Eyelids were unremarkable. ENT: Nares patent, oropharynx clear without exudates. Moist mucous membranes. NECK: Normal range of motion, supple without lymphadenopathy or JVD. LUNGS: Unlabored respirations. Breath sounds clear to auscultation bilaterally and equal. No wheezes rales or rhonchi. HEART: Regular rate and rhythm without murmurs, rubs or gallops. ABDOMEN: Soft, nontender, normoactive bowel sounds. No guarding, no rebound. No masses appreciated. : Deferred MUSCULOSKELETAL: Patient is guarding her left elbow and left arm, unwilling to do any active range of motion at all. She is neurovascular intact. No pain of the left wrist or left shoulder. Have some pain of the left humerus. NEUROLOGICAL: Patient is alert and oriented x 3. Motor and sensory are also intact. Cranial nerves II through XII grossly intact. Symmetrical smile. Normal speech, normal gait. PSYCH: Normal mood, normal affect. SKIN: Warm, Dry, normal turgor, no rashes or lesions noted. Limitations: no limitations Course Vital Signs 02/24/21 02/24/21 02/24/21 10:04 11:06 12:44 Temperature 98.2 F 98.1 F Pulse Rate 53 L 57 L Respiratory 18 16 18 Rate Blood Pressure 152/74 148/80 O2 Sat by Pulse 97 98 Oximetry Procedures - Orthopedic Splinting/Casting Injury #1 Side: left Upper Extremity Injury Location: shoulder Upper Extremity Immobilizer: sling/shoulder immobilizer, sugar tong splint, synthetic pre-padded splint Medical Decision Making - Medical Decision Making Patient is a 65-year-old female with history of cancer, presenting with left elbow pain after opening a drawer 3 days ago. X-rays today reveal a pathological left humerus midshaft fracture. This does correlate with her history of cancer, possible metastases. Patient was given pain control today, she was placed in a co-apt splint and sling. She does report improvement in her symptoms. She will follow up with orthopedics as well as her oncologist. She is stable for discharge and she is in agreement with this plan of care. Case discussed with Dr. Garcia. Disposition Clinical Impression: Fracture of shaft of left humerus Disposition: HOME SELF-CARE Condition: Stable Instructions (If sedation given, give patient instructions): Arm Fracture in Adults (ED) Additional Instructions: Please return to the Emergency Department if symptoms worsen or any other concerns. Leave splint in place until follow-up with orthopedics. Use sling for comfort. Take medication as prescribed for pain relief. Follow-up with orthopedics and your oncologist. Prescriptions: HYDROcodone/APAP 5-325MG [[place] 5-325] 1 tab PO Q6HR PRN 3 Days #12 tab PRN Reason: Pain Is patient prescribed a controlled substance at d/c from ED?: Yes When asked, does pt state using other controlled substances?: No If prescribed controlled substance>3 days was MAPS reviewed?: Prescribed <3 Days If opioid is for acute pain is fill amount 7 days or less?: Yes If Rx opioid, was Start Talking consent form obtained?: Yes Referrals: Jd Bravo MD [Primary Care Provider] - 1-2 days Shaquille Mcfadden DO [Doctor of Osteopathic Medicine] - 1-2 days Time of Disposition: 12:28
[2021-02-24 12:46] VITALS: BP 148/80; PULSE 57; RESP 18; TEMP 98.1
== END 2021-02-24 12:44 | disposition home or self-care (01) ==
LOC: EC 10:00
DX: M84.422A Pathological fracture, left humerus, initial encounter for fracture (principal); I11.0 Hypertensive heart disease with heart failure; I50.9 Heart failure, unspecified; E11.9 Type 2 diabetes mellitus without complications; K21.9 Gastro-esophageal reflux disease without esophagitis; E78.5 Hyperlipidemia, unspecified; E03.9 Hypothyroidism, unspecified; F31.9 Bipolar disorder, unspecified; Z79.4 Long term (current) use of insulin; Z79.890 Hormone replacement therapy
CPT/HCPCS: 73060; 73080; 99283; 96372; 29105; J1885

== ENCOUNTER → 2021-03-03 | Outpatient (CLI) | payer MEDICARE, BC ==
--- NOTE | 2021-03-03 15:38 | NM ---
EXAMINATION TYPE: NM bone scan whole body DATE OF EXAM: 03/03/2021 COMPARISON: Plain film 02/24/2021 HISTORY: Pathologic fracture Delayed whole-body scanning was performed following the injection of 24.8 mCi Tc 99m MDP. Images acq uired 3 hours post injection. FINDINGS: There is abnormal uptake corresponding to the patient's midshaft left humeral pathologic fracture. Ad ditionally there is abnormal uptake involving the right humeral head, right mandible, the distal meta physeal right femur. Soft tissue uptake is within normal limits. Focus of abnormal uptake also presen t at the superior ilium near the sacroiliac joint on the right. IMPRESSION: Metastatic disease.
== END | disposition home or self-care (01) ==
LOC: RADNMMAIN 11:20
PROVIDERS: ATTEND Orthopaedic Surgery
DX: M84.422A Pathological fracture, left humerus, initial encounter for fracture (principal)
CPT/HCPCS: 78306; A9503

== ENCOUNTER → 2021-03-23 | Outpatient (CLI) | payer MEDICARE, BC ==
[2021-03-23 08:50] LABS: HCT 31.7 % (34.0-46.0); HGB 10.3 gm/dL (11.4-16.0); MCH 30.1 pg (25.0-35.0); MCHC 32.6 g/dL (31.0-37.0); MCV 92.4 fL (80.0-100.0); Mean Platelet Volume 7.3; Platelet Count 228 k/uL (150-450); RBC 3.43 m/uL (3.80-5.40); RDW 15.5 % (11.5-15.5); WBC 5.9 k/uL (3.8-10.6)
[2021-03-23 08:55] LABS: Albumin 3.5 g/dL (3.5-5.0); Calcium 8.7 mg/dL (8.4-10.2); Potassium 3.9 mmol/L (3.5-5.1); Total Bilirubin 0.5 mg/dL (0.2-1.3); Total Protein 6.6 g/dL (6.3-8.2)
--- NOTE | 2021-03-23 10:43 | CT ---
EXAMINATION TYPE: CT ChestAbdPelvis w con DATE OF EXAM: 03/23/2021 COMPARISON: Most recent CT August 29, 2018 and older studies. HISTORY: follow up ovarian cancer with peritoneal spread; recent pathologic osseous fracture. CT DLP: 2264.9 mGycm. Automated Exposure Control for Dose Reduction was Utilized. CONTRAST: CT scan of the thorax, abdomen and pelvis is performed with oral and with IV Contrast, patient inject ed with 100 mL of Isovue 300. FINDINGS: LUNGS: There is stable tiny inferior left pleural effusion with associated compressive atelectasis. T here is new small to tiny right pleural effusion with associated compressive and around atelectasis a nd/or limited consolidation on current study. There is some persistent mild bibasilar linear scarring and/or atelectasis. No suspicious new nodule or mass is present. MEDIASTINUM: There are no new greater than 1 cm hilar or mediastinal lymph nodes. No pericardial ef fusion is seen. Heart size is stable and upper limits of normal. OTHER: Right internal jugular Mediport catheter is redemonstrated. LIVER/GB: Cholecystectomy clips are redemonstrated. There are few new heterogeneous hypodense masses in the liver, largest is irregular in the left hepatic lobe measuring 8.3 cm long axis axial series 4 image 60. Smaller adjacent irregular hypodense lesions. Findings consistent with interval developmen t of metastatic disease. PANCREAS: No significant abnormality is seen. SPLEEN: No significant abnormality is seen. ADRENALS: No significant abnormality is seen. KIDNEYS: No significant abnormality is seen. BOWEL: Oral contrast reaches level of proximal left colon. There is no suspicious small or large maryam l dilatation. Surgical sutures from gastric sleeve procedure are redemonstrated. There is persistent small to moderate size hiatal hernia above this. Contrast noted in the esophagus with air-fluid level could reflect contrast retention and/or gastroesophageal reflux. There is somewhat redundant sigmoid colon redemonstrated. GENITAL ORGANS: Uterus is surgically absent. New moderate diffuse abdominal and pelvic ascites slight ly more dense than simple fluid. LYMPH NODES: Suspect peritoneal 5.2 x 4.5 cm heterogeneous hyperdense deposit in the mid to lower abd omen just right of midline, axial image 89. Small mild mesenteric edema with slight nodularity suspic ious for peritoneal carcinomatosis recurrence. OSSEOUS STRUCTURES: Pathologic fracture left mid humerus partially imaged in their axial image 23. Sc lerotic osseous lesion right humeral head noted corresponds to bone scan abnormality. OTHER: Nodularity in the mesentery upper abdomen measuring 2.7 x 2.3 cm image 63 remains present with adjacent less prominent nodularity. New 3.3 x 2.6 cm peritoneal deposit anterior midabdomen just rig ht of midline axial image 72. There is small eventration or ventral wall hernia just left of midline axial image 80 containing asci malathi on current study. IMPRESSION: Interval neoplastic progression. New moderate amount of abdominal and pelvic ascites. New Hepatic metastatic disease. Worsening peritoneal disease. Known osseous metastatic disease redemonst rated.
[2021-03-23 18:11] LABS: Cancer Antigen 125 15.5 U/mL (0.0-30.1)
== END | disposition home or self-care (01) ==
LOC: RADCTMAIN 07:39
PROVIDERS: ATTEND Obstetrics & Gynecology Gynecologic Oncology
DX: C56.9 Malignant neoplasm of unspecified ovary (principal); C78.7 Secondary malignant neoplasm of liver and intrahepatic bile duct; C79.51 Secondary malignant neoplasm of bone; C78.6 Secondary malignant neoplasm of retroperitoneum and peritoneum; R18.8 Other ascites
CPT/HCPCS: 80053; 86304; 82378; 85027; 71260; 74177; J1642; Q9967

== ENCOUNTER 2021-04-04 17:45 | Inpatient (IN) | payer MEDICARE, BC ==
--- NOTE | 2021-04-04 18:59 | ED ---
General Adult HPI - General Chief complaint: Shortness of Breath Stated complaint: water retention Time Seen by Provider: 04/04/21 17:45 Source: patient, RN notes reviewed, old records reviewed Mode of arrival: wheelchair Limitations: no limitations - History of Present Illness Initial comments: This is a 65-year-old female who presented to the emergency department with a past medical history with metastatic ovarian cancer to her bones and multiple si malathi in her abdomen. Patient states she has ascites and she has had it drained multiple times before but she does not want to go to the facility where she is being treated she wants to come to [place] to have it drained. Patient states he ascites is getting worse and it is making her difficult to take a deep breath. Patient denies any fever chills per patient denies vomiting diarrhea. Patient has any chest pain. Patient states abdominal pain is more of a generalized discomfort. - Related Data Home Medications Medication Instructions Recorded Confirmed Escitalopram [Lexapro] 20 mg PO HS 08/25/15 02/24/21 Levothyroxine Sodium [Synthroid] 112 mcg PO HS 08/25/15 02/24/21 Lurasidone HCl [Latuda] 60 mg PO HS 06/08/17 02/24/21 carvediloL [Coreg] 6.25 mg PO BID 02/19/19 02/24/21 Gabapentin [Neurontin] 300 mg PO HS 05/14/19 02/24/21 Insulin Glargine,Hum.rec.anlog 18 units SQ DAILY 02/24/21 02/24/21 [Jess Louis] [place]-3 Fatty Acids/Fish Oil [Fish 1 cap PO HS 02/24/21 02/24/21 Oil 1,000 mg Softgel] QUEtiapine FUMARATE 50 mg PO HS 02/24/21 02/24/21 valACYclovir [Valtrex] 500 mg PO HS 02/24/21 02/24/21 Previous Rx's Medication Instructions Recorded HYDROcodone/APAP 5-325MG [[place] 1 tab PO Q6HR PRN 3 Days #12 tab 02/24/21 5-325] Allergies Allergy/AdvReac Type Severity Reaction Status Date / Time Influenza Virus Vaccines AdvReac MOUTH Verified 04/04/21 17:47 SORES,ITCHING prochlorperazine AdvReac Unknown Verified 04/04/21 17:47 [From Compazine] rosiglitazone [From Avandia] AdvReac MUSCLE PAIN Verified 04/04/21 17:47 Review of Systems ROS Statement: Those systems with pertinent positive or pertinent negative responses have been documented in the HPI. ROS Other: All systems not noted in ROS Statement are negative. Past Medical History Past Medical History: Cancer, Heart Failure, Diabetes Mellitus, Eye Disorder, GERD/Reflux, Hyperlipidemia, Hypertension, Skin Disorder, Thyroid Disorder Additional Past Medical History / Comment(s): Recent UTI-pt has completed ABX.RECENTLY DX W/ ovarian cancer- "PT STATED IS SCHEDULED FOR bx 07-26-17 AT [facility]. IDDM type II-has insulin PUMP, bilateral glaucoma, lower GI bleed, GASTRITIS, DIVERTICULAR DX, hypothyroid, ventral hernia, VAGINAL HERPES SIMPLEx, History of Any Multi-Drug Resistant Organisms: None Reported Past Surgical History: Appendectomy, Bariatric Surgery, Cholecystectomy Additional Past Surgical History / Comment(s): GASTRIC SLEEVE 09/2015, COLON OSCOPIES/EGDS WITH LAST ONES DONE 05/21/17, BILATERAL CATARACT REMOVAL WITH LENS IMPLANTS.PARACENTESIS 06/28/17, [id number]/13/2017 Past Anesthesia/Blood Transfusion Reactions: Postoperative Nausea & Vomiting (PONV) Past Psychological History: Bipolar Smoking Status: Never smoker Past Alcohol Use History: None Reported Past Drug Use History: None Reported - Past Family History Mother Family Medical History: Diabetes Mellitus, Hypertension Father Family Medical History: Cancer, Prostate Disorder Additional Family Medical History / Comment(s): FATHER AT THE AGE OF 74YRS AND WAS HEALTHY UNTIL HIS . CAUSE OF UNKNOWN. Sister(s) Family Medical History: Cancer, Pulmonary Embolus Additional Family Medical History / Comment(s): 2 SISTERS - COLON CA AND ONE FEBRUARY 2017 FROM METS TO LIVER. ONE SISTER HAS HAD A PULMONARY EMBOLI. General Exam - General Exam Comments Initial Comments: GENERAL: Patient is well-developed and well-nourished. Patient is nontoxic and well- hydrated and is in mild distress. ENT: Neck is soft and supple. No significant lymphadenopathy is noted. Oropharynx is clear. Moist mucous membranes. Neck has full range of motion without eliciting any pain. were felt. EYES: The sclera were anicteric and conjunctiva were pink and moist. Extraocular movements were intact and pupils were equal round and reactive to light. Eyelids were unremarkable. PULMONARY: Unlabored respirations. Good breath sounds bilaterally. No audible rales rhonchi or wheezing was noted. CARDIOVASCULAR: There is a regular rate and rhythm without any murmurs gallops or rubs. ABDOMEN: Abdomen is distended and mildly tender diffusely SKIN: Skin is clear with no lesions or rashes and otherwise unremarkable. NEUROLOGIC: Patient is alert and oriented x3. Cranial nerves II through XII are grossly intact. Motor and sensory are also intact. Normal speech, volume and content. Symmetrical smile. MUSCULOSKELETAL: Normal extremities with adequate strength and full range of motion. No lower e xtremity swelling or edema. No calf tenderness. LYMPHATICS: No significant lymphadenopathy is noted PSYCHIATRIC: Normal psychiatric evaluation. Limitations: no limitations Course Vital Signs 04/04/21 04/04/21 04/04/21 17:47 18:51 19:00 Temperature 98.5 F Pulse Rate 93 68 Respiratory 16 20 20 Rate Blood Pressure 133/68 148/78 O2 Sat by Pulse 97 96 Oximetry 04/04/21 20:00 Temperature Pulse Rate 71 Respiratory 22 Rate Blood Pressure 151/80 O2 Sat by Pulse 98 Oximetry Medical Decision Making - Medical Decision Making EKG shows a normal sinus rhythm at 79 bpm NH interval is 152 QRS is 74 QT interval 390 QTC is 447. Patient's EKG shows no ST segment elevation or depression. I reviewed the CAT scan that she had recently showed a moderate amount of ascites at that time. Patient states the distention is worse and her inability take a full breath is also worse. I spoke with Dr. Bravo he agreed to admit the patient admitted the patient wrote admitting orders. - Lab Data Result diagrams: 04/04/21 19:17 04/04/21 19:17 Lab Results 04/04/21 04/04/21 Range/Units 19:17 19:17 WBC 5.8 (3.8-10.6) k/uL RBC 3.34 L (3.80-5.40) m/uL Hgb 10.4 L (11.4-16.0) gm/dL Hct 30.9 L (34.0-46.0) % MCV 92.6 (80.0-100.0) fL MCH 31.2 (25.0-35.0) pg MCHC 33.7 (31.0-37.0) g/dL RDW 15.2 (11.5-15.5) % Plt Count 257 (150-450) k/uL MPV 7.4 Neutrophils % 73 % Lymphocytes % 18 % Monocytes % 5 % Eosinophils % 2 % Basophils % 1 % Neutrophils # 4.2 (1.3-7.7) k/uL Lymphocytes # 1.1 (1.0-4.8) k/uL Monocytes # 0.3 (0-1.0) k/uL Eosinophils # 0.1 (0-0.7) k/uL Basophils # 0.0 (0-0.2) k/uL Sodium 138 (137-145) mmol/L Potassium 3.8 (3.5-5.1) mmol/L Chloride 105 (98-107) mmol/L Carbon Dioxide 24 (22-30) mmol/L Anion Gap 9 mmol/L BUN 10 (7-17) mg/dL Creatinine 0.95 (0.52-1.04) mg/dL Est GFR (CKD-EPI)AfAm 73 (>60 ml/min/1.73 sqM) Est GFR (CKD-EPI)NonAf 63 (>60 ml/min/1.73 sqM) Glucose 209 H (74-99) mg/dL Calcium 8.6 (8.4-10.2) mg/dL Magnesium 1.7 (1.6-2.3) mg/dL Total Bilirubin 0.5 (0.2-1.3) mg/dL AST 16 (14-36) U/L ALT 8 (4-34) U/L Alkaline Phosphatase 116 (38-126) U/L Total Protein 5.9 L (6.3-8.2) g/dL Albumin 3.1 L (3.5-5.0) g/dL Disposition Clinical Impression: Ascites Disposition: ADMITTED IP TO THIS HOSP Referrals: Jd Bravo MD [Primary Care Provider] - 1-2 days Time of Disposition: 20:15
[2021-04-04 19:24] LABS: Basophils % (A) 1 %; Eosinophils # (A) 0.1 k/uL (0-0.7); Eosinophils % (A) 2 %; HCT 30.9 % (34.0-46.0); HGB 10.4 gm/dL (11.4-16.0); Lymphocytes # (A) 1.1 k/uL (1.0-4.8); Lymphocytes % (A) 18 %; MCH 31.2 pg (25.0-35.0); MCHC 33.7 g/dL (31.0-37.0); MCV 92.6 fL (80.0-100.0); Mean Platelet Volume 7.4; Monocytes # (A) 0.3 k/uL (0-1.0); Monocytes % (A) 5 %; Neutrophils # (A) 4.2 k/uL (1.3-7.7); Neutrophils % (A) 73 %; Platelet Count 257 k/uL (150-450); RBC 3.34 m/uL (3.80-5.40); RDW 15.2 % (11.5-15.5); WBC 5.8 k/uL (3.8-10.6)
[2021-04-04 19:35] LABS: Albumin 3.1 g/dL (3.5-5.0); Calcium 8.6 mg/dL (8.4-10.2); Magnesium 1.7 mg/dL (1.6-2.3); Potassium 3.8 mmol/L (3.5-5.1); Total Bilirubin 0.5 mg/dL (0.2-1.3); Total Protein 5.9 g/dL (6.3-8.2)
--- NOTE | 2021-04-04 19:38 | XR ---
EXAMINATION TYPE: XR chest 1V portable DATE OF EXAM: 04/04/2021 COMPARISON: 02/19/2019 HISTORY: Difficulty breathing TECHNIQUE: FINDINGS: There is some blunting of the right costophrenic angle. There is right central venous trever ter with tip in the right atrium. There is also slight blunting left costophrenic angle. There is no gross heart failure. IMPRESSION: Pleural effusions. Pleural fluid increased on the right side compared to old exam. No hea rt failure seen.
[2021-04-04 21:30] LABS: Partial Thromboplastin Time 24.3 sec (22.0-30.0); Prothrombin Time 10.4 sec (9.0-12.0)
[2021-04-05] MEDS ORDERED: ACETAMINOPHEN TAB 500 MG TAB PO PRN (10:23)
[2021-04-05] MEDS ORDERED: HYDROcodone/APAP 5-325MG 1 EACH TAB PO PRN (10:23)
[2021-04-05 12:11] LABS: Glucose,Whole Blood 187 mg/dL (75-99)
[2021-04-05] MEDS: INSULIN DETEMIR (LEVEMIR) 100 UNIT/ML SYR SQ SCH (12:35)
[2021-04-05] MEDS: INSULIN ASPART (NovoLOG) 100 UNIT/ML VIAL SQ SCH ×3 (12:35→20:45)
[2021-04-05] MEDS: PANTOPRAZOLE 40 MG/10 ML VIAL IVP SCH (12:36)
[2021-04-05] MEDS: carvediloL 6.25 MG TAB PO SCH ×2 (12:36→17:44)
--- NOTE | 2021-04-05 16:32 | P.HPIM ---
History of Present Illness H&P Date: 04/05/21 Chief Complaint: Ascites This is a 65-year-old female with medical history of metastatic ovarian CVA, recurrent ascites, CHF, diabetes mellitus with insulin pump, bipolar, jesus roesophageal reflux disease, hypertension, hyperlipidemia, hypothyroidism presented to the ER with abdominal discomfort secondary to worsening ascites accompanied by shortness of breath. Denies any chest pain, palpitations. Denies any fever or chills. Denies nausea vomiting or diarrhea. Chest x-ray reported pleural effusions. Consult for paracentesis in place as per ER. Oncology consulted. Afebrile, normal WBC, hemoglobin 10.4, platelets 257, INR 1. Chemistry panel unremarkable with the exception of glucose 209, the knees and 1.7 total protein 5.9 albumin 3.1. Review of Systems ROS Statement: Those systems with pertinent positive or pertinent negative responses have been documented in the HPI. ROS Other: All systems not noted in ROS Statement are negative. Past Medical History Past Medical History: Cancer, Heart Failure, Diabetes Mellitus, Eye Disorder, GERD/Reflux, Hyperlipidemia, Hypertension, Skin Disorder, Thyroid Disorder Additional Past Medical History / Comment(s): Recent UTI-pt has completed ABX.RECENTLY DX W/ ovarian cancer- "PT STATED IS SCHEDULED FOR bx 07-26-17 AT [facility]. IDDM type II-has insulin PUMP, bilateral glaucoma, lower GI bleed, GASTRITIS, DIVERTICULAR DX, hypothyroid, ventral hernia, VAGINAL HERPES SIMPLEx, History of Any Multi-Drug Resistant Organisms: None Reported Past Surgical History: Appendectomy, Bariatric Surgery, Cholecystectomy Additional Past Surgical History / Comment(s): GASTRIC SLEEVE 09/2015, COLONOSCOPIES/EGDS WITH LAST ONES DONE 05/21/17, BILATERAL CATARACT REMOVAL WITH LENS IMPLANTS.PARACENTESIS 06/28/17, [id number] Past Anesthesia/Blood Transfusion Reactions: Postoperative Nausea & Vomiting (PONV) Additional Past Anesthesia/Blood Transfusion Reaction / Comment(s): has had blood transfusion and platelets without issue Past Psychological History: Bipolar Additional Psychological History / Comment(s): Pt lives alone in a condo that has 2 porch steps. has 1 pet cat. pt's mom lives in the same condo. pt is independent. She states her medications for her bipolar disorder work well for her. Smoking Status: Never smoker Past Alcohol Use History: None Reported Past Drug Use History: None Reported - Past Family History Mother Family Medical History: Diabetes Mellitus, Hypertension Father Family Medical History: Cancer, Prostate Disorder Additional Family Medical History / Comment(s): FATHER AT THE AGE OF 74YRS AND WAS HEALTHY UNTIL HIS . CAUSE OF UNKNOWN. Sister(s) Family Medical History: Cancer, Pulmonary Embolus Additional Family Medical History / Comment(s): 2 SISTERS - COLON CA AND ONE FEBRUARY 2017 FROM METS TO LIVER. ONE SISTER HAS HAD A PULMONARY EMBOLI. Medications and Allergies Home Medications Medication Instructions Recorded Confirmed Type Escitalopram [Lexapro] 20 mg PO HS 08/25/15 04/04/21 History Levothyroxine Sodium [Synthroid] 112 mcg PO HS 08/25/15 04/04/21 History Lurasidone HCl [Latuda] 60 mg PO HS 06/08/17 04/04/21 History carvediloL [Coreg] 6.25 mg PO BID 02/19/19 04/04/21 History Gabapentin [Neurontin] 300 mg PO HS 05/14/19 04/04/21 History HYDROcodone/APAP 5-325MG [[place] 1 tab PO Q6HR PRN 3 Days #12 tab 02/24/21 04/04/21 Rx 5-325] Insulin Glargine,Hum.rec.anlog 18 units SQ DAILY 02/24/21 04/04/21 History [Jess Solrandee] QUEtiapine FUMARATE 50 mg PO HS 02/24/21 04/04/21 History Acetaminophen [Tylenol Extra 1,500 mg PO Q8H PRN 04/04/21 04/04/21 History Strength] Allergies Allergy/AdvReac Type Severity Reaction Status Date / Time Influenza Virus Vaccines AdvReac MOUTH Verified 04/04/21 21:45 SORES,ITCHING prochlorperazine AdvReac Unknown Verified 04/04/21 21:45 [From Compazine] rosiglitazone [From Avandia] AdvReac MUSCLE PAIN Verified 04/04/21 21:45 Physical Exam Vitals: Vital Signs Temp Pulse Pulse Resp BP BP Pulse Ox 04/05/21 05:57 98.0 F 97 16 172/93 95 04/05/21 05:00 81 18 133/63 96 04/05/21 03:59 80 20 144/76 95 04/05/21 03:00 85 22 138/101 98 04/04/21 22:00 81 22 143/91 98 04/04/21 21:00 76 18 143/79 97 04/04/21 20:00 71 22 151/80 98 04/04/21 19:00 68 20 148/78 96 04/04/21 18:51 20 04/04/21 17:47 98.5 F 93 16 133/68 97 Intake and Output 04/04/21 04/05/21 04/05/21 22:59 06:59 14:59 Other: Weight 106.594 kg 112.207 kg Gen.: Patient is alert and oriented 3, no acute distress, obese Cardiovascular: Regular rate and rhythm, S1/S2 Lungs: Coarse breath sounds bilaterally with expiratory wheezing Abdomen: Soft, distended, positive ascites, mild diffuse tenderness, positive bowel sounds Extremities: Trace edema\\ NEURO: No focal deficits Results CBC & Chem 7: 04/04/21 19:17 04/04/21 19:17 Labs: Abnormal Lab Results - Last 24 Hours (Table) 04/04/21 04/04/21 Range/Units 19:17 19:17 RBC 3.34 L (3.80-5.40) m/uL Hgb 10.4 L (11.4-16.0) gm/dL Hct 30.9 L (34.0-46.0) % Glucose 209 H (74-99) mg/dL Total Protein 5.9 L (6.3-8.2) g/dL Albumin 3.1 L (3.5-5.0) g/dL Thrombosis Risk Factor Assmnt - Choose All That Apply Any of the Below Risk Factors Present?: Yes Each Factor Represents 1 point: Obesity (BMI >25), Swollen legs (current) Other Risk Factors: Yes Each Risk Factor Represents 2 Points: Age 61-74 years Other congenital or acquired thrombophilia - If yes, enter type in comment: No Thrombosis Risk Factor Assessment Total Risk Factor Score: 4 Thrombosis Risk Factor Assessment Level: Moderate Risk Assessment and Plan Assessment: -Recurrent ascites secondary to metastatic ovarian CVA -Bilateral pleural effusions, greatest on the right ,present on admission -Diabetes mellitus type 2 -Chronic diastolic heart failure, EF between 55 and 60% noted on echo from 06/28/17 -Morbid obesity: BMI 43.8 Plan: Continue on current medication regime ,monitoring and symptomatic treatment. Paracentesis ultrasound ordered. Interventional radiology consult for paracentesis in place. Oncology consult in place. Protonix for GI prophylaxis ordered. Discharge planning in progress. The impression and plan of care has been dictated as directed. : I performed a history and examination of this patient, discussed the same with the dictator. I agree with the dictator's note ,documented as a scribe. Any additional findings or plans will be noted.
--- NOTE | 2021-04-05 17:14 | US ---
EXAMINATION TYPE: US paracentesis abd w/image DATE OF EXAM: 04/05/2021 COMPARISON: NONE HISTORY: Ascites. PROCEDURE: Maximal barrier technique was utilized. The skin overlying a suitable pocket of fluid was localized with ultrasound and the overlying skin was prepped and draped. Ultrasound was utilized with sterile technique. Lidocaine was used for local anesthesia and a skin aysha made with a scalpel. Catheter was advanced under direct ultrasound guidance into a suitable pocket of fluid and approximately 6.7 liter s of serous fluid were removed. Catheter was withdrawn and hemostasis achieved. There is no immedia te complication; the patient is discharged in stable condition. IMPRESSION: STATUS POST ULTRASOUND GUIDED PARACENTESIS FOR PALLIATION OF ASCITES. THIS PROCEDURE WA S PERFORMED BY THE UNDERSIGNED.
[2021-04-05 17:20] LABS: Glucose,Whole Blood 162 mg/dL (75-99)
--- NOTE | 2021-04-05 18:05 | P.CONS ---
History of Present Illness - Reason for Consult Consult date: 04/05/21 ovARIAN cANCER - History of Present Illness Tiera has a known history of Ovarian cancer, last evaluated by us in 2017. She receives care at outside facility. She apparently has been under the care of Dr. Childs but would like to transfer care to Dr. Webber. Recently she was found to have a pathologic humerus fracture and progressive disease through abdomen, liver and positive fluid: this per her sister. We will request records to confirm. She is undergoing paracentesis today. Review of Systems All systems: negative Constitutional: Reports as per HPI Past Medical History Past Medical History: Cancer, Heart Failure, Diabetes Mellitus, Eye Disorder, GERD/Reflux, Hyperlipidemia, Hypertension, Skin Disorder, Thyroid Disorder Additional Past Medical History / Comment(s): Recent UTI-pt has completed ABX.RECENTLY DX W/ ovarian cancer- "PT STATED IS SCHEDULED FOR bx 07-26-17 AT [facility]. IDDM type II-has insulin PUMP, bilateral glaucoma, lower GI bleed, GASTRITIS, DIVERTICULAR DX, hypothyroid, ventral hernia, VAGINAL HERPES SIMPLEx, History of Any Multi-Drug Resistant Organisms: None Reported Past Surgical History: Appendectomy, Bariatric Surgery, Cholecystectomy Additional Past Surgical History / Comment(s): GASTRIC SLEEVE 09/2015, COLONOSCOPIES/EGDS WITH LAST ONES DONE 05/21/17, BILATERAL CATARACT REMOVAL WITH LENS IMPLANTS.PARACENTESIS 06/28/17, [id number] Past Anesthesia/Blood Transfusion Reactions: Postoperative Nausea & Vomiting (PONV) Additional Past Anesthesia/Blood Transfusion Reaction / Comm: has had blood transfusion and platelets without issue Past Psychological History: Bipolar Additional Psychological History / Comment(s): Pt lives alone in a condo that has 2 porch steps. has 1 pet cat. pt's mom lives in the same condo. pt is independent. She states her medications for her bipolar disorder work well for her. Smoking Status: Never smoker Past Alcohol Use History: None Reported Past Drug Use History: None Reported - Past Family History Mother Family Medical History: Diabetes Mellitus, Hypertension Father Family Medical History: Cancer, Prostate Disorder Additional Family Medical History / Comment(s): FATHER AT THE AGE OF 74YRS AND WAS HEALTHY UNTIL HIS . CAUSE OF UNKNOWN. Sister(s) Family Medical History: Cancer, Pulmonary Embolus Additional Family Medical History / Comment(s): 2 SISTERS - COLON CA AND ONE FEBRUARY 2017 FROM METS TO LIVER. ONE SISTER HAS HAD A PULMONARY EMBOLI. Medications and Allergies Home Medications Medication Instructions Recorded Confirmed Type Escitalopram [Lexapro] 20 mg PO HS 08/25/15 04/04/21 History Levothyroxine Sodium [Synthroid] 112 mcg PO HS 08/25/15 04/04/21 History Lurasidone HCl [Latuda] 60 mg PO HS 06/08/17 04/04/21 History carvediloL [Coreg] 6.25 mg PO BID 02/19/19 04/04/21 History Gabapentin [Neurontin] 300 mg PO HS 05/14/19 04/04/21 History HYDROcodone/APAP 5-325MG [[place] 1 tab PO Q6HR PRN 3 Days #12 tab 02/24/21 04/04/21 Rx 5-325] Insulin Glargine,Hum.rec.anlog 18 units SQ DAILY 02/24/21 04/04/21 History [Jess Louis] QUEtiapine FUMARATE 50 mg PO HS 02/24/21 04/04/21 History Acetaminophen [Tylenol Extra 1,500 mg PO Q8H PRN 04/04/21 04/04/21 History Strength] Allergies Allergy/AdvReac Type Severity Reaction Status Date / Time Influenza Virus Vaccines AdvReac MOUTH Verified 04/04/21 21:45 SORES,ITCHING prochlorperazine AdvReac Unknown Verified 04/04/21 21:45 [From Compazine] rosiglitazone [From Avandia] AdvReac MUSCLE PAIN Verified 04/04/21 21:45 Physical Exam Vitals: Vital Signs Temp Pulse Pulse Resp BP BP Pulse Ox 04/05/21 14:26 74 18 132/79 98 04/05/21 14:10 73 18 172/87 98 04/05/21 11:55 98.3 F 87 16 141/83 96 04/05/21 05:57 98.0 F 97 16 172/93 95 04/05/21 05:00 81 18 133/63 96 04/05/21 03:59 80 20 144/76 95 04/05/21 03:00 85 22 138/101 98 04/04/21 22:00 81 22 143/91 98 04/04/21 21:00 76 18 143/79 97 04/04/21 20:00 71 22 151/80 98 04/04/21 19:00 68 20 148/78 96 04/04/21 18:51 20 04/04/21 17:47 98.5 F 93 16 133/68 97 Intake and Output 04/04/21 04/05/21 04/05/21 22:59 06:59 14:59 Other: Weight 106.594 kg 112.207 kg - Constitutional General appearance: cooperative, mild distress - EENT Eyes: EOMI ENT: hard of hearing, NA/AT - Neck Neck: normal ROM - Respiratory Respiratory: bilateral: diminished leg Peripheral Edema: bilateral: 2+ - Gastrointestinal General gastrointestinal: distended, tenderness - Integumentary Integumentary: pale - Neurologic Neurologic: CNII-XII intact - Musculoskeletal Musculoskeletal: generalized weakness - Psychiatric Psychiatric: A&O x's 3 Results CBC & Chem 7: 04/04/21 19:17 04/04/21 19:17 Labs: Abnormal Lab Results - Last 24 Hours (Table) 04/04/21 04/04/21 04/05/21 Range/Units 19:17 19:17 12:10 RBC 3.34 L (3.80-5.40) m/uL Hgb 10.4 L (11.4-16.0) gm/dL Hct 30.9 L (34.0-46.0) % Glucose 209 H (74-99) mg/dL POC Glucose (mg/dL) 187 H (75-99) mg/dL Total Protein 5.9 L (6.3-8.2) g/dL Albumin 3.1 L (3.5-5.0) g/dL Assessment and Plan (1) Primary cancer of ovary with widespread metastatic disease Current Visit: Yes Status: Acute Code(s): C56.9 - MALIGNANT NEOPLASM OF UNSPECIFIED OVARY; C80.0 - DISSEMINATED MALIGNANT NEOPLASM, UNSPECIFIED SNOMED Code(s): 506684636 Plan: Assessment and Recommendations: Metastatic progressive ovarian: - Current care under Dr. Childs, per patient and family not currently receiv ing treatment and would like to transfer care to Dr. Webber - Will request all records - Set up for standing order paracentesis for therapeutic comfort - Obtain cytology from paracentesis today - Check Ca125 Follow-up with Dr. WEBBER NEXT week
[2021-04-05 19:01] LABS: Anisocytosis Slight; Basophils % (A) 0 %; Eosinophils # (A) 0.1 k/uL (0-0.7); Eosinophils % (A) 1 %; HCT 30.6 % (34.0-46.0); HGB 9.7 gm/dL (11.4-16.0); Lymphocytes # (A) 1.1 k/uL (1.0-4.8); Lymphocytes % (A) 20 %; MCH 29.6 pg (25.0-35.0); MCHC 31.6 g/dL (31.0-37.0); MCV 93.5 fL (80.0-100.0); Mean Platelet Volume 8.4; Monocytes # (A) 0.2 k/uL (0-1.0); Monocytes % (A) 4 %; Neutrophils % (A) 74 %; Platelet Count 237 k/uL (150-450); RBC 3.27 m/uL (3.80-5.40); RDW 16.1 % (11.5-15.5); WBC 5.4 k/uL (3.8-10.6)
[2021-04-05 20:06] LABS: Glucose,Whole Blood 153 mg/dL (75-99)
[2021-04-05 20:26] VITALS: RESP 16
[2021-04-05] MEDS ORDERED: LEVOTHYROXINE 112 MCG TAB PO SCH (21:00)
[2021-04-05] MEDS ORDERED: LURASIDONE 20 MG TAB PO SCH (21:00)
[2021-04-05] MEDS ORDERED: ESCITALOPRAM 20 MG TAB PO SCH (21:00)
[2021-04-05] MEDS ORDERED: QUEtiapine 50 MG TAB PO SCH (21:00)
[2021-04-05] MEDS ORDERED: GABAPENTIN 300 MG CAP PO SCH (21:00)
[2021-04-06 04:58] VITALS: BP 122/77; PULSE 57; TEMP 97.8
[2021-04-06 07:30] LABS: Glucose,Whole Blood 89 mg/dL (75-99)
[2021-04-06] MEDS: INSULIN ASPART (NovoLOG) 100 UNIT/ML VIAL SQ SCH (07:42)
[2021-04-06] MEDS: INSULIN DETEMIR (LEVEMIR) 100 UNIT/ML SYR SQ SCH (08:12)
[2021-04-06] MEDS: carvediloL 6.25 MG TAB PO SCH (08:13)
[2021-04-06] MEDS: PANTOPRAZOLE 40 MG/10 ML VIAL IVP SCH (08:13)
--- NOTE | 2021-04-06 16:50 | P.DS ---
Providers Date of admission: 04/04/21 20:32 Expected date of discharge: 04/06/21 Attending physician: Jd Bravo Consults: 04/04/21 20:28 Consult Physician Urgent Consulting Provider: Harvinder Webber Consult Reason/Comments: Metastatic ovarian cancer Do you want consulting provider notified?: Yes Primary care physician: Jd Bravo Hospital Course: Final Diagnoses: -Recurrent ascites secondary to metastatic ovarian CVA, status post large volume paracentesis, 6.7 L -Bilateral pleural effusions, greatest on the right ,present on admission -Diabetes mellitus type 2 -Chronic diastolic heart failure, EF between 55 and 60% noted on echo from 06/28/17 -Morbid obesity: BMI 43.8 Hospital course:This is a 65-year-old female with medical history of metastatic ovarian CVA, recurrent ascites, CHF, diabetes mellitus with insulin pump, bipolar, gastroesophageal reflux disease, hypertension, hyperlipidemia, hypothyroidism presented to the ER with abdominal discomfort secondary to worsening ascites accompanied by shortness of breath. Denies any chest pain, palpitations. Denies any fever or chills. Denies nausea vomiting or diarrhea. Chest x-ray reported pleural effusions. Consult for paracentesis in place as per ER. Oncology consulted. Afebrile, normal WBC, hemoglobin 10.4, platelets 257, INR 1. Chemistry panel unremarkable with the exception of glucose 209, the knees and 1.7 total protein 5.9 albumin 3.1. Underwent ultrasound-guided paracentesis with 6.7 L of serous fluid drained. Tolerated procedure well. Denies chest pain, palpitations or shortness of breath. Evaluated by oncology, recommendations noted and appreciated. Significant clinical improvement. Patient will be discharged home today in a stable condition with guarded prognosis. The impression and plan of care has been dictated as directed. : I performed a history and examination of this patient, discussed the same with the dictator. I agree with the dictator's note ,documented as a scribe. Any additional findings or plans will be noted. Patient Condition at Discharge: Stable Plan - Discharge Summary New Discharge Prescriptions: New Pantoprazole Sodium [Protonix] 40 mg PO DAILY #30 tablet. Acetaminophen Tab [Tylenol] 1,000 mg PO Q8H PRN tab PRN Reason: Pain Continue Escitalopram [Lexapro] 20 mg PO HS Levothyroxine Sodium [Synthroid] 112 mcg PO HS Lurasidone HCl [Latuda] 60 mg PO HS carvediloL [Coreg] 6.25 mg PO BID Gabapentin [Neurontin] 300 mg PO HS HYDROcodone/APAP 5-325MG [[place] 5-325] 1 tab PO Q6HR PRN 3 Days #12 tab PRN Reason: Pain QUEtiapine FUMARATE 50 mg PO HS Insulin Glargine,Hum.rec.anlog [Toujeo Solostar] 18 units SQ DAILY Discontinued Acetaminophen [Tylenol Extra Strength] 1,500 mg PO Q8H PRN PRN Reason: Pain Discharge Medication List Escitalopram [Lexapro] 20 mg PO HS 08/25/15 [History] Levothyroxine Sodium [Synthroid] 112 mcg PO HS 08/25/15 [History] Lurasidone HCl [Latuda] 60 mg PO HS 06/08/17 [History] carvediloL [Coreg] 6.25 mg PO BID 02/19/19 [History] Gabapentin [Neurontin] 300 mg PO HS 05/14/19 [History] HYDROcodone/APAP 5-325MG [[place] 5-325] 1 tab PO Q6HR PRN 3 Days #12 tab 02/24/21 [Rx] Insulin Glargine,Hum.rec.anlog [Toujeo Solostar] 18 units SQ DAILY 02/24/21 [History] QUEtiapine FUMARATE 50 mg PO HS 02/24/21 [History] Acetaminophen Tab [Tylenol] 1,000 mg PO Q8H PRN tab 04/06/21 [Rx] Pantoprazole Sodium [Protonix] 40 mg PO DAILY #30 tablet. 04/06/21 [Rx] Follow up Appointment(s)/Referral(s): Harvinder Webber MD [STAFF PHYSICIAN] - 1 Week (The office will call you with an appointment time and date.) Jd Bravo MD [Primary Care Provider] - 04/13/21 3:15 pm Patient Instructions/Handouts: Pantoprazole (By mouth), Ascites (DC) Discharge Disposition: HOME SELF-CARE
[2021-04-06 20:28] LABS: ALT <8 U/L (8-44); AST 10 U/L (13-35); Albumin/Globulin Ratio 1.38 (1.60-3.17); Alkaline Phosphatase 105 U/L (41-126); BUN/Creat Ratio 10.91 Ratio (12.00-20.00); Calcium 7.9 mg/dL (8.7-10.3); Carbon Dioxide 24.2 mmol/L (21.6-31.8); Chloride 107 mmol/L (96-109); Globulin 2.1 g/dL (1.6-3.3); Glucose 184 mg/dL (70-110); Non-African American GFR(CKD) 52.6 (60.0-200.0); Potassium 3.5 mmol/L (3.5-5.5); Sodium 139 mmol/L (135-145); Total Bilirubin 0.9 mg/dL (0.2-1.2)
[2021-04-06 20:33] LABS: Cancer Antigen 125 12.9 U/mL (0.0-30.1)
== END 2021-04-06 13:45 | disposition home or self-care (01) | DRG 755 ==
LOC: EC 17:45 → 5NMEDONC 20:32
PROVIDERS: ADMIT Family Medicine; ATTEND Family Medicine
PROC: 0W9G3ZZ Drainage of Peritoneal Cavity, Percutaneous Approach (ICD-10-PCS; principal; 2021-04-05)
DX: C56.9 Malignant neoplasm of unspecified ovary (principal); C80.0 Disseminated malignant neoplasm, unspecified; R18.8 Other ascites; Z68.41 Body mass index [BMI] 40.0-44.9, adult; I50.32 Chronic diastolic (congestive) heart failure; E03.9 Hypothyroidism, unspecified; E11.9 Type 2 diabetes mellitus without complications; E66.01 Morbid (severe) obesity due to excess calories; E78.5 Hyperlipidemia, unspecified; F31.9 Bipolar disorder, unspecified; I11.0 Hypertensive heart disease with heart failure; M84.529 Pathological fracture in neoplastic disease, unspecified humerus; Z20.822 Contact with and (suspected) exposure to COVID-19; Z79.4 Long term (current) use of insulin; Z79.890 Hormone replacement therapy; Z79.899 Other long term (current) drug therapy; Z80.0 Family history of malignant neoplasm of digestive organs; Z82.49 Family history of ischemic heart disease and other diseases of the circulatory system; Z83.3 Family history of diabetes mellitus; Z98.42 Cataract extraction status, left eye; Z98.41 Cataract extraction status, right eye; Z96.1 Presence of intraocular lens; Z98.84 Bariatric surgery status; Z96.41 Presence of insulin pump (external) (internal); Z60.2 Problems related to living alone; Z88.7 Allergy status to serum and vaccine; Z88.8 Allergy status to other drugs, medicaments and biological substances; Z87.440 Personal history of urinary (tract) infections; Z87.19 Personal history of other diseases of the digestive system
CPT/HCPCS: 36415; 49083; 71045; 80053; 83735; 85025; 85610; 85730; 86304; 87635; 93005; 99285

== ENCOUNTER 2021-04-16 10:08 | Inpatient (IN) | payer MEDICARE, BC ==
[2021-04-16] MEDS ORDERED: SODIUM CHLORIDE 0.9% 1,000 ML IV STA (10:10)
[2021-04-16] MEDS ORDERED: HYDROmorphone 0.5 MG/0.5 ML SYRINGE IVP STA (10:10)
[2021-04-16] MEDS ORDERED: SODIUM CHLORIDE 0.9% 500 ML 500 ML IV STA (10:10)
[2021-04-16] MEDS ORDERED: ONDANSETRON 4 MG/2 ML VIAL IVP STA (10:10)
[2021-04-16] MEDS ORDERED: LORazepam 2 MG/ML INJ IV STA (10:12)
--- NOTE | 2021-04-16 10:18 | ED ---
General Adult HPI - General Chief complaint: Abdominal Pain Stated complaint: abd distention Time Seen by Provider: 04/16/21 10:10 Source: patient, RN notes reviewed, old records reviewed Mode of arrival: EMS Limitations: no limitations - History of Present Illness Initial comments: This is a 65-year-old female with metastatic ovarian cancer. Patient was diagnosed partially 4 years ago. Patient states the last 2 days she has been vomiting. Her abdomen has been more distended. Patient denies any fever or chills. Patient denies any diarrhea but has had some bowel movements. Patient denies any chest pain difficulty breathing shortness of breath. Patient states she's also had quite a bit of fluid on her abdomen and needed a paracentesis in the past. Patient states that the previous presentation she was not vomiting prior to the procedure. Patient denies any other symptoms at this time. Patient denies any headache patient denies numbness weakness. - Related Data Home Medications Medication Instructions Recorded Confirmed Escitalopram [Lexapro] 20 mg PO HS 08/25/15 04/11/21 Levothyroxine Sodium [Synthroid] 112 mcg PO HS 08/25/15 04/11/21 Lurasidone HCl [Latuda] 60 mg PO HS 06/08/17 04/11/21 carvediloL [Coreg] 6.25 mg PO BID 02/19/19 04/11/21 Gabapentin [Neurontin] 300 mg PO HS 05/14/19 04/11/21 Insulin Glargine,Hum.rec.anlog 18 units SQ DAILY 02/24/21 04/11/21 [Tou[place]y Solostar] QUEtiapine FUMARATE 50 mg PO HS 02/24/21 04/11/21 valACYclovir [Valtrex] 500 mg PO DAILY 04/11/21 04/11/21 Previous Rx's Medication Instructions Recorded Acetaminophen Tab [Tylenol] 1,000 mg PO Q8H PRN tab 04/06/21 Pantoprazole Sodium [Protonix] 40 mg PO DAILY #30 tablet. 04/06/21 Allergies Allergy/AdvReac Type Severity Reaction Status Date / Time Influenza Virus Vaccines AdvReac MOUTH Verified 04/16/21 10:14 SORES,ITCHING prochlorperazine AdvReac Unknown Verified 04/16/21 10:14 [From Compazine] rosiglitazone [From Avandia] AdvReac MUSCLE PAIN Verified 04/16/21 10:14 Review of Systems ROS Statement: Those systems with pertinent positive or pertinent negative responses have been documented in the HPI. ROS Other: All systems not noted in ROS Statement are negative. Past Medical History Past Medical History: Cancer, Heart Failure, Diabetes Mellitus, Eye Disorder, GERD/Reflux, Hyperlipidemia, Hypertension, Skin Disorder, Thyroid Disorder Additional Past Medical History / Comment(s): Recent UTI-pt has completed ABX.RECENTLY DX W/ ovarian cancer- . IDDM type II-has insulin PUMP, bilateral glaucoma, lower GI bleed, GASTRITIS, DIVERTICULAR DX, hypothyroid, ventral hernia, VAGINAL HERPES SIMPLEx, History of Any Multi-Drug Resistant Organisms: None Reported Past Surgical History: Appendectomy, Bariatric Surgery, Cholecystectomy Additional Past Surgical History / Comment(s): GASTRIC SLEEVE 09/2015, COLONOSCOPIES/EGDS WITH LAST ONES DONE 05/21/17, BILATERAL CATARACT REMOVAL WITH L ENS IMPLANTS.PARACENTESIS 04/05/21 first one since 2016, [id number]/13/2017 Past Anesthesia/Blood Transfusion Reactions: Postoperative Nausea & Vomiting (PONV) Additional Past Anesthesia/Blood Transfusion Reaction / Comment(s): has had blood transfusion and platelets without issue Past Psychological History: Bipolar Smoking Status: Never smoker Past Alcohol Use History: None Reported Past Drug Use History: None Reported - Past Family History Mother Family Medical History: Diabetes Mellitus, Hypertension Father Family Medical History: Cancer, Prostate Disorder Additional Family Medical History / Comment(s): FATHER AT THE AGE OF 74YRS AND WAS HEALTHY UNTIL HIS . CAUSE OF UNKNOWN. Sister(s) Family Medical History: Cancer, Pulmonary Embolus Additional Family Medical History / Comment(s): 2 SISTERS - COLON CA AND ONE FEBRUARY 2017 FROM METS TO LIVER. ONE SISTER HAS HAD A PULMONARY EMBOLI. General Exam - General Exam Comments Initial Comments: GENERAL: Patient is well-developed and well-nourished. Patient is nontoxic and well- hydrated and is in mild distress. ENT: Neck is soft and supple. No significant lymphadenopathy is noted. Oropharynx is clear. Moist mucous membranes. Neck has full range of motion without eliciting any pain. EYES: The sclera were anicteric and conjunctiva were pink and moist. Extraocular movements were intact and pupils were equal round and reactive to light. Eyelids were unremarkable. PULMONARY: Unlabored respirations. Good breath sounds bilaterally. No audible rales rhonchi or wheezing was noted. CARDIOVASCULAR: There is a regular rate and rhythm without any murmurs gallops or rubs. ABDOMEN: Abdomen is very distended and taut and generally tender and also has no bowel sounds at this time SKIN: Skin is clear with no lesions or rashes and otherwise unremarkable. NEUROLOGIC: Patient is alert and oriented x3. Cranial nerves II through XII are grossly intact. Motor and sensory are also intact. Normal speech, volume and content. Symmetrical smile. MUSCULOSKELETAL: Normal extremities with adequate strength and full range of motion. No lower extremity swelling or edema. No calf tenderness. LYMPHATICS: No significant lymphadenopathy is noted PSYCHIATRIC: Normal psychiatric evaluation. Limitations: no limitations Course Vital Signs 04/16/21 04/16/21 10:11 11:18 Temperature 98.4 F 98.9 F Pulse Rate 118 H 105 H Respiratory 20 18 Rate Blood Pressure 122/87 123/76 O2 Sat by Pulse 96 95 Oximetry Medical Decision Making - Medical Decision Making Patient received a little Dilaudid and Ativan while in the emergency department she was considerably more comfortable at that point time. Patient's CAT scan showed massive amount of ascites with probable metastatic disease. I spoke with Dr. Disla he wanted the patient admitted admitted the patient wrote admitting orders. - Lab Data Result diagrams: 04/16/21 10:17 04/16/21 10:17 Lab Results 04/16/21 04/16/21 04/16/21 Range/Units 10:17 10:17 10:17 WBC 9.2 (3.8-10.6) k/uL RBC 3.00 L (3.80-5.40) m/uL Hgb 9.3 L (11.4-16.0) gm/dL Hct 27.7 L (34.0-46.0) % MCV 92.6 (80.0-100.0) fL MCH 31.0 (25.0-35.0) pg MCHC 33.4 (31.0-37.0) g/dL RDW 15.6 H (11.5-15.5) % Plt Count 287 (150-450) k/uL MPV 7.6 Neutrophils % 88 % Lymphocytes % 6 % Monocytes % 4 % Eosinophils % 1 % Basophils % 0 % Neutrophils # 8.1 H (1.3-7.7) k/uL Lymphocytes # 0.5 L (1.0-4.8) k/uL Monocytes # 0.4 (0-1.0) k/uL Eosinophils # 0.1 (0-0.7) k/uL Basophils # 0.0 (0-0.2) k/uL Sodium 133 L (137-145) mmol/L Potassium 4.0 (3.5-5.1) mmol/L Chloride 100 (98-107) mmol/L Carbon Dioxide 23 (22-30) mmol/L Anion Gap 10 mmol/L BUN 27 H (7-17) mg/dL Creatinine 1.19 H (0.52-1.04) mg/dL Est GFR (CKD-EPI)AfAm 55 (>60 ml/min/1.73 sqM) Est GFR (CKD-EPI)NonAf 48 (>60 ml/min/1.73 sqM) Glucose 230 H (74-99) mg/dL Plasma Lactic Acid Sai 1.4 (0.7-2.0) mmol/L Calcium 8.3 L (8.4-10.2) mg/dL Total Bilirubin 1.0 (0.2-1.3) mg/dL AST 18 (14-36) U/L ALT 8 (4-34) U/L Alkaline Phosphatase 110 (38-126) U/L Total Protein 5.2 L (6.3-8.2) g/dL Albumin 2.5 L (3.5-5.0) g/dL Amylase 32 (30-110) U/L Lipase 46 (23-300) U/L Disposition Clinical Impression: Ascites, History of ovarian cancer, Acute vomiting Disposition: ADMITTED IP TO THIS [facility] Referrals: Jd Bravo MD [Primary Care Provider] - 1-2 days Time of Disposition: 12:19
[2021-04-16 10:48] LABS: Basophils % (A) 0 %; Eosinophils # (A) 0.1 k/uL (0-0.7); Eosinophils % (A) 1 %; HCT 27.7 % (34.0-46.0); HGB 9.3 gm/dL (11.4-16.0); Lymphocytes # (A) 0.5 k/uL (1.0-4.8); Lymphocytes % (A) 6 %; MCHC 33.4 g/dL (31.0-37.0); MCV 92.6 fL (80.0-100.0); Mean Platelet Volume 7.6; Monocytes # (A) 0.4 k/uL (0-1.0); Monocytes % (A) 4 %; Neutrophils # (A) 8.1 k/uL (1.3-7.7); Neutrophils % (A) 88 %; Platelet Count 287 k/uL (150-450); RDW 15.6 % (11.5-15.5); WBC 9.2 k/uL (3.8-10.6)
[2021-04-16 11:03] LABS: Albumin 2.5 g/dL (3.5-5.0); Calcium 8.3 mg/dL (8.4-10.2); Total Protein 5.2 g/dL (6.3-8.2)
[2021-04-16] MEDS ORDERED: ONDANSETRON 4 MG/2 ML VIAL IVP PRN (12:23)
--- NOTE | 2021-04-16 12:38 | CT ---
EXAMINATION TYPE: CT abdomen pelvis w con DATE OF EXAM: 04/16/2021 COMPARISON: 03/23/2021 HISTORY: 65-year-old female generalized abdominal pain, distention. Comparison report indicates a his tory of peritoneal and ovarian cancer. TECHNIQUE: Contiguous axial scanning of the abdomen and pelvis following administration of 80 ml Isov ue 300 IV contrast. Delayed images through the kidneys and coronal/sagittal reconstructions performe d. CT DLP: 2233.4 mGycm Automated exposure control for dose reduction was used. FINDINGS: Heart upper limits of normal in size. Trace 6 mm pericardial effusion is new. Continued small right a nd trace left effusions. Adjacent dependent right basilar atelectasis. Postsurgical change of sleeve gastrectomy. There is a small hiatal hernia. Some circumferential wall thickening visualized distal esophagus. 1.7 cm hypodensity posterior right hepatic dome is nonspecific but additional heterogeneously enhanci ng hypodense lesions elsewhere throughout the liver, for example, measuring up to 8.9 cm in the left liver lobe previously measured 8.3 cm. An midline omental lesion measures 3.7 cm versus 3.2 cm, previously. Stephon hepatic mass measures 3.6 cm versus 3.0 cm, previously. Portal venous system is patent. No bili ayleen ductal dilatation. Cholecystectomy clips. Adrenal glands, kidneys, spleen, and pancreas appear within normal limits. No excretion of contrast o n the delayed kidney images. No dilated small bowel or free air. Large peritoneal mass right paramedian mid abdomen measures 7.8 c m versus 6.3 cm, previously. Vague peritoneal mass in the superior midline pelvis posteriorly measures 5.1 cm versus 4.9 cm, previ ously. Couple serosal implants along the left side of the colon, axial image 55 at the proximal sigmoid and axial image 42 at the descending colon measuring 4.9 cm versus 4.4 cm, previously. There is a large 5.3 cm serosal implant at the hepatic flexure of the colon contiguous with the liver lesions. This is increased compared to 3.9 cm, previously. The lumen of the colon is completely obsc ured at this level and it could potentially develop into an obstruction in the future. Currently no a bnormal bowel dilatation. Additional scattered peritoneal deposits, for example, anterior pelvis axial image 75, posterior righ t lower quadrant, axial images 58, right flank, axial image 41. Cul-de-sac nodularity measuring up to 3.2 cm. Findings either stable or minimally larger. Increased now large abdominal pelvic ascites. Mild generalized smooth peritoneal thickening. Scattered left-sided colonic diverticulosis. Bladder urine distended. Uterus not clearly seen. Neither ovary clearly identified. No pelvic lymphad enopathy identified. Bones: Degenerative change at the hips. Sclerotic lesion medial right iliac bone is unchanged. IMPRESSION: 1. REDEMONSTRATED. PERITONEAL CARCINOMATOSIS AND PROBABLE MALIGNANT ASCITES, SLIGHTLY INCREASED IN TH E INTERVAL, NOW LARGE IN VOLUME. 2. A FEW SEROSAL IMPLANTS REDEMONSTRATED ALONG THE COLON. ONE AT THE HEPATIC FLEXURE MEASURES 5.3 CM VERSUS 3.9 CM, PREVIOUSLY AND OBSCURES THE BOWEL LUMEN. THIS MAY POTENTIALLY CONTRIBUTE TO A COLONIC OBSTRUCTION IN THE FUTURE. NO EVIDENCE FOR BOWEL OBSTRUCTION AT THIS TIME. 3. THIS HEPATIC FLEXURE IMPLANT IS CONTIGUOUS WITH A LARGER LEFT HEPATIC LOBE MASS CURRENTLY 8.9 CM V ERSUS 8.3 CM, PREVIOUSLY. 4. ADDITIONAL PERITONEAL DEPOSITS, OTHER LIVER MASSES, AND SOME UPPER ABDOMINAL NODES ALL SHOW SLIGHT INCREASE IN SIZE COMPARED TO 03/23/2021. 5. NO EXCRETION OF CONTRAST ON THE DELAYED KIDNEY IMAGES. CORRELATE WITH BUN/CREATININE TO EXCLUDE AC PAIMIUT KIDNEY INJURY. 6. CONTINUED SMALL RIGHT AND TRACE LEFT EFFUSIONS WITH ADJACENT ATELECTASIS. 7. STATUS POST SLEEVE GASTRECTOMY. THERE IS A SMALL HIATAL HERNIA. MILD CIRCUMFERENTIAL WALL THICKENI NG OF THE DISTAL ESOPHAGUS COULD REFLECT ESOPHAGITIS. 8. TRACE PERICARDIAL EFFUSION MEASURING 6 MM IS NEW.
[2021-04-16 12:53] LABS: Appearance,Urine Clear (Clear); Bacteria,Urine Occasional /hpf; Bilirubin,Urine Negative (Negative); Blood,Urine Negative (Negative); Color,Urine Yellow; Glucose,Urine (UA) Negative (Negative); Ketones,Urine Negative (Negative); Leukocyte Esterase,Urine Negative (Negative); Mucus,Urine Rare /hpf; Nitrite,Urine Negative (Negative); PH, Urine 5.5 (5.0-8.0); Protein,Urine 1+ (Negative); Specific Gravity,Urine 1.019 (1.001-1.035); Urobilinogen,Urine <2.0 mg/dL (<2.0); WBC,Urine 1 /hpf (0-5)
[2021-04-16] MEDS ORDERED: ACETAMINOPHEN TAB 500 MG TAB PO PRN (17:31)
[2021-04-16] MEDS: carvediloL 6.25 MG TAB PO SCH (18:40)
[2021-04-16] MEDS: HYDROmorphone 0.5 MG/0.5 ML SYRINGE IVP PRN (19:22)
[2021-04-16] MEDS: ESCITALOPRAM 20 MG TAB PO SCH (22:15)
[2021-04-16] MEDS: GABAPENTIN 300 MG CAP PO SCH (22:15)
[2021-04-16] MEDS: LURASIDONE 20 MG TAB PO SCH (22:15)
[2021-04-16] MEDS: LEVOTHYROXINE 112 MCG TAB PO SCH (22:16)
[2021-04-16] MEDS: QUEtiapine 50 MG TAB PO SCH (22:19)
[2021-04-17 07:10] LABS: Glucose,Whole Blood 186 mg/dL (75-99)
[2021-04-17] MEDS: PANTOPRAZOLE 40 MG TABLET PO SCH (08:51)
[2021-04-17] MEDS: carvediloL 6.25 MG TAB PO SCH ×2 (08:51→17:36)
[2021-04-17] MEDS: valACYclovir 500 MG TAB PO SCH (08:51)
--- NOTE | 2021-04-17 11:19 | P.HPIM ---
History of Present Illness H&P Date: 04/17/21 Chief Complaint: Abdominal distention, discomfort, history of ovarian cancer This is a 65-year-old female known to my office usually sees nurse practitioner Rand Gant [employer], presents the hospital with a known history of ovarian cancer metastatic disease throughout. Patient was diagnosed approximately 4 years ago. Has 2 days patient has been vomiting abdomen distended denies fever chills denies diarrhea but had some movements in his chest pain. Denies shortness of breath. Has significant ascites to the abdomen and has infected paracentesis in the past and it appears like that might be the case this time. Has no other complaints at this time no other symptoms denies headache denies numbness or weakness Review of Systems Constitutional: Reports malaise Ears, nose, mouth and throat: Reports as per HPI Cardiovascular: Reports as per HPI Respiratory: Reports as per HPI Gastrointestinal: Reports nausea, Reports vomiting (Significant gross ascites secondary to metastatic ovarian cancer) Genitourinary: Reports as per HPI Menstruation: Reports as per HPI Musculoskeletal: Reports as per HPI Integumentary: Reports as per HPI Neurological: Reports as per HPI Psychiatric: Reports as per HPI Past Medical History Past Medical History: Cancer, Heart Failure, Diabetes Mellitus, Eye Disorder, GERD/Reflux, Hyperlipidemia, Hypertension, Skin Disorder, Thyroid Disorder Additional Past Medical History / Comment(s): Recent UTI-pt has completed ABX.RECENTLY DX W/ ovarian cancer- . IDDM type II-has insulin PUMP, bilateral glaucoma, lower GI bleed, GASTRITIS, DIVERTICULAR DX, hypothyroid, ventral hernia, VAGINAL HERPES SIMPLEx, History of Any Multi-Drug Resistant Organisms: None Reported Past Surgical History: Appendectomy, Bariatric Surgery, Cholecystectomy Additional Past Surgical History / Comment(s): GASTRIC SLEEVE 09/2015, COLO NOSCOPIES/EGDS WITH LAST ONES DONE 05/21/17, BILATERAL CATARACT REMOVAL WITH LENS IMPLANTS.PARACENTESIS 04/05/21 first one since 2016, [id number]/13/2017 Past Anesthesia/Blood Transfusion Reactions: Postoperative Nausea & Vomiting (PONV) Additional Past Anesthesia/Blood Transfusion Reaction / Comment(s): has had blood transfusion and platelets without issue Past Psychological History: Bipolar Additional Psychological History / Comment(s): Pt lives alone in a condo that has 2 porch steps. has 1 pet cat. pt's mom lives in the same condo. Pt has been independent, but recently has been increasingly weak. She states her medications for her bipolar disorder work well for her. Smoking Status: Never smoker Past Alcohol Use History: None Reported Past Drug Use History: None Reported - Past Family History Mother Family Medical History: Diabetes Mellitus, Hypertension Father Family Medical History: Cancer, Prostate Disorder Additional Family Medical History / Comment(s): FATHER AT THE AGE OF 74YRS AND WAS HEALTHY UNTIL HIS . CAUSE OF UNKNOWN. Sister(s) Family Medical History: Cancer, Pulmonary Embolus Additional Family Medical History / Comment(s): 2 SISTERS - COLON CA AND ONE FEBRUARY 2017 FROM METS TO LIVER. ONE SISTER HAS HAD A PULMONARY EMBOLI. Medications and Allergies Home Medications Medication Instructions Recorded Confirmed Type RX: Escitalopram [Lexapro] 20 mg PO HS 08/25/15 04/16/21 History RX: Levothyroxine Sodium 112 mcg PO HS 08/25/15 04/16/21 History [Synthroid] RX: Lurasidone HCl [Latuda] 60 mg PO HS 06/08/17 04/16/21 History RX: carvediloL [Coreg] 6.25 mg PO BID 02/19/19 04/16/21 History RX: Gabapentin [Neurontin] 300 mg PO HS 05/14/19 04/16/21 History RX: Insulin Glargine,Hum.rec.anlog 18 units SQ DAILY 02/24/21 04/16/21 History [Toubessy Solostar] RX: QUEtiapine FUMARATE 50 mg PO HS 02/24/21 04/16/21 History Pantoprazole Sodium [Protonix] 40 mg PO DAILY #30 tablet. 04/06/21 04/16/21 Rx RX: Acetaminophen Tab [Tylenol] 1,000 mg PO Q8H PRN tab 04/06/21 04/16/21 Rx valACYclovir [Valtrex] 500 mg PO DAILY 04/11/21 04/16/21 History Allergies Allergy/AdvReac Type Severity Reaction Status Date / Time Influenza Virus Vaccines AdvReac MOUTH Verified 04/16/21 12:25 SORES,ITCHING prochlorperazine AdvReac Unknown Verified 04/16/21 12:25 [From Compazine] rosiglitazone [From Avandia] AdvReac MUSCLE PAIN Verified 04/16/21 12:25 Physical Exam Osteopathic Statement: *. No significant issues noted on an osteopathic struct ural exam other than those noted in the History and Physical/Consult. Vitals: Vital Signs Temp Pulse Pulse Resp BP BP Pulse Ox 04/17/21 08:40 81 18 04/17/21 05:26 100.7 F H 81 18 112/75 95 04/16/21 20:43 98.8 F 76 16 116/71 96 04/16/21 20:10 76 16 04/16/21 15:06 99.1 F 87 16 149/82 97 04/16/21 13:40 97.9 F 86 18 121/74 95 04/16/21 12:35 93 18 144/83 95 04/16/21 11:18 98.9 F 105 H 18 123/76 95 Intake and Output 04/16/21 04/17/21 04/17/21 22:59 06:59 14:59 Intake Total 500 Balance 500 Intake: Oral 500 Other: Voiding Method Bedpan Bedpan Diaper Diaper # Voids 1 2 Weight 110 kg General: [Patient awake, alert and oriented times 3. Patient in no acute distress.] HEENT: [PERRL. EOMI. No pharyngeal erythema or exudate.] Neck: [No adenopathy.] Cardiac: [Heart regular in rate and rhythm. No S3. No S4. No clicks, rubs. No murmur.] Lungs: [Clear to auscultation bilaterally.] Abdomen: [No mass. No organomegaly. Bowel sounds presnt and normoactive in all 4 quadrants. Significant gross ascites, excessive fluid wave Extremes: [No edema no cyanosis no claudication normal pulses] : Normal female genitalia Musculoskeletal: [No joint erythema, edema or tenderness.] Skin: [No rash.] Neurologic: [No lateralizing deficits. CN II - XII grossly intact.] Lymphatic: [No adenopathy.] Results CBC & Chem 7: 04/16/21 10:17 04/16/21 10:17 Labs: Abnormal Lab Results - Last 24 Hours (Table) 04/16/21 04/17/21 Range/Units 10:17 07:09 POC Glucose (mg/dL) 186 H (75-99) mg/dL Urine Protein 1+ H (Negative) Urine Bacteria Occasional H (None) /hpf Urine Mucus Rare H (None) /hpf Thrombosis Risk Factor Assmnt - DVT/VTE Prophylaxis DVT/VTE Prophylaxis: Mechanical Prophylaxis ordered (Suspect patient is going to need paracentesis, should continue subcu heparin until stopped by radiology) - Choose All That Apply Each Factor Represents 1 point: Obesity (BMI >25), Swollen legs (current) Each Risk Factor Represents 2 Points: Age 61-74 years, Malignancy Thrombosis Risk Factor Assessment Total Risk Factor Score: 6 Thrombosis Risk Factor Assessment Level: High Risk Assessment and Plan (1) Acute vomiting Current Visit: Yes Status: Acute Code(s): R11.10 - VOMITING, UNSPECIFIED SNOMED Code(s): 93960777 (2) Ascites Current Visit: Yes Status: Acute Code(s): R18.8 - OTHER ASCITES SNOMED Code(s): 417901523 (3) History of ovarian cancer Current Visit: Yes Status: Acute Code(s): Z85.43 - PERSONAL HISTORY OF MALIGNANT NEOPLASM OF OVARY SNOMED Code(s): 631094759 (4) Abdominal distension Current Visit: No Status: Acute Code(s): R14.0 - ABDOMINAL DISTENSION (GASEOUS) SNOMED Code(s): 57340257 (5) Ascites Current Visit: No Status: Acute Code(s): R18.8 - OTHER ASCITES SNOMED Code(s): 275540842 (6) At risk for readmission to hospital Current Visit: No Status: Acute Code(s): Z91.89 - OTH PERSONAL RISK FACTORS, NOT ELSEWHERE CLASSIFIED SNOMED Code(s): 1059844442487 (7) Chronic diastolic CHF (congestive heart failure) Current Visit: No Status: Acute Code(s): I50.32 - CHRONIC DIASTOLIC (CONGESTIVE) HEART FAILURE SNOMED Code(s): 881896899 (8) Diabetes mellitus type 2 in obese Current Visit: No Status: Acute Code(s): E11.69 - TYPE 2 DIABETES MELLITUS WITH OTHER SPECIFIED COMPLICATION; E66.9 - OBESITY, UNSPECIFIED SNOMED Code(s): 98428992 (9) Elevated d-dimer Current Visit: No Status: Acute Code(s): R79.89 - OTHER SPECIFIED ABNORMAL FINDINGS OF BLOOD CHEMISTRY SNOMED Code(s): 643207620 (10) Malignant ascites Current Visit: No Status: Acute Priority: High Code(s): R18.0 - MALIGNANT ASCITES SNOMED Code(s): 622124484 (11) Ovarian carcinoma Current Visit: No Status: Acute Priority: High Code(s): C56.9 - MALIGNANT NEOPLASM OF UNSPECIFIED OVARY SNOMED Code(s): 892570978 Plan: Admit for supportive care Including judicious fluid resuscitation Consult radiology for image guided paracentesis For palliation Start Lovenox to protect against DVT Consult oncology patient's current oncologist is not on staff at this hospital Other supportive clear including pain palliation Lovenox for nausea and vomiting Will watch closely Time with Patient: Greater than 30
[2021-04-17 11:36] LABS: Glucose,Whole Blood 176 mg/dL (75-99)
[2021-04-17] MEDS: ENOXAPARIN 30 MG/0.3 ML SYRINGE SQ SCH ×2 (13:00→20:57)
[2021-04-17] MEDS: INSULIN ASPART (NovoLOG) 100 UNIT/ML VIAL SQ SCH ×3 (13:00→21:01)
[2021-04-17 17:08] LABS: Glucose,Whole Blood 134 mg/dL (75-99)
--- NOTE | 2021-04-17 17:34 | P.CONS ---
History of Present Illness - Reason for Consult Consult date: 04/17/21 Ascites, Abdominal pain, ovarian cancer - History of Present Illness The patient is 65-year-old white Female, initially seen in consult in 06/30. Patient at that time had recent diagnosis of nonmucinous ovarian adenocarcinoma, presenting with malignant ascites. She had been diagnosed and was following at an outside facility. She was admitted for symptom management with paracentesis. The patient's oncology care so far has been at outside institution, specifically [place], [place]. She has been under the care of Dr. Childs. According to records available to us, she in itially had 3 cycles of neoadjuvant carboplatin and Taxol and then underwent radical surgery in 10/31. It appears that she then had additional chemotherapy receiving at least Taxol according to the patient. 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 Pelvic washings possible metastatic carcinoma. Anterior abdominal wall nodule, left anterior lesion, left pelvic sidewall nodule as well as omentum biopsies were all positive for metastatic carcinoma. She was staged as 3C. Scans in 06/01 had shown soft tissue posterior to the transverse colon in the 2 cm range which was biopsied and apparently negative. She continued on observation. It appears that in late 2019, CT scan started showing possibility of recurrence or development of ascites. According to the patient she had paracentesis which proved recurrence. She was not started on any active treatment as she states that "they wanted to put her on a pill" which was not covered fully by her insurance. She could not afford the same and apparently efforts for ongoing to try to obtain the medication for her. In the meantime the patient has had further progression, with diagnosis of a left humeral pathologic fracture in 03/03. Bone scan at that time showed other areas of bone metastasis. She was seen by orthopedic surgery and manage conservatively. CT scans in 04/03 showed further progression in the abdomen with ascites as well as development of omental deposits. Patient was seen in consult when admitted for therapeutic paracentesis last month. She stated that she wanted to change her care locally. She was discharged after treatment, and we were in the process of obtaining her records from her [facility] oncologist to set up follow-up here. These have been partially obtaine The patient in the meantime stated that she developed recurrent abdominal distention leading to increasing pain and difficulty breathing. She also developed nausea and vomiting. Last bowel movement was about 2 days ago. She has since passed gas. She came into the emergency room with CT scans showing recurrence of ascites as well as evidence of recurrent ovarian cancer as noted in her previous CT scan. She was admitted for further management. Her CA-125 is not helpful as it remains in the normal range despite radiologic disease progression Review of Systems Constitutional: Reports chronic pain, Reports fatigue, Reports poor appetite Eyes: denies blurred vision, denies pain Ears: deny: decreased hearing, ear discharge, earache, tinnitus Ears, nose, mouth and throat: Denies headache, Denies sore throat Cardiovascular: Reports decreased exercise tolerance Respiratory: Reports as per HPI Gastrointestinal: Reports as per HPI, Reports abdominal pain, Reports nausea, Reports vomiting Genitourinary: Denies dysuria, Denies hematuria Menstruation: Reports postmenopausal Musculoskeletal: Denies myalgias Musculoskeletal: left: as per HPI Integumentary: Denies pruritus, Denies rash Neurological: Reports weakness Psychiatric: Denies anxiety, Denies depression Endocrine: Reports fatigue, Reports weight change Hematologic/Lymphatic: Reports as per HPI Past Medical History Past Medical History: Cancer, Heart Failure, Diabetes Mellitus, Eye Disorder, GERD/Reflux, Hyperlipidemia, Hypertension, Skin Disorder, Thyroid Disorder Additional Past Medical History / Comment(s): Recent UTI-pt has completed ABX.RECENTLY DX W/ ovarian cancer- . IDDM type II-has insulin PUMP, bilateral glaucoma, lower GI bleed, GASTRITIS, DIVERTICULAR DX, hypothyroid, ventral hernia, VAGINAL HERPES SIMPLEx, History of Any Multi-Drug Resistant Organisms: None Reported Past Surgical History: Appendectomy, Bariatric Surgery, Cholecystectomy Additional Past Surgical History / Comment(s): GASTRIC SLEEVE 09/2015, COLONOSCOPIES/EGDS WITH LAST ONES DONE 05/21/17, BILATERAL CATARACT REMOVAL WITH LENS IMPLANTS.PARACENTESIS 04/05/21 first one since 2016, [id number]/13/2017 Past Anesthesia/Blood Transfusion Reactions: Postoperative Nausea & Vomiting (PONV) Additional Past Anesthesia/Blood Transfusion Reaction / Comm: has had blood transfusion and platelets without issue Past Psychological History: Bipolar Additional Psychological History / Comment(s): Pt lives alone in a condo that has 2 porch steps. has 1 pet cat. pt's mom lives in the same condo. Pt has been independent, but recently has been increasingly weak. She states her medications for her bipolar disorder work well for her. Smoking Status: Never smoker Past Alcohol Use History: None Reported Past Drug Use History: None Reported - Past Family History Mother Family Medical History: Diabetes Mellitus, Hypertension Father Family Medical History: Cancer, Prostate Disorder Additional Family Medical History / Comment(s): FATHER AT THE AGE OF 74YRS AND WAS HEALTHY UNTIL HIS . CAUSE OF UNKNOWN. Sister(s) Family Medical History: Cancer, Pulmonary Embolus Additional Family Medical History / Comment(s): 2 SISTERS - COLON CA AND ONE FEBRUARY 2017 FROM METS TO LIVER. ONE SISTER HAS HAD A PULMONARY EMBOLI. Medications and Allergies Home Medications Medication Instructions Recorded Confirmed Type Escitalopram [Lexapro] 20 mg PO HS 08/25/15 04/16/21 History Levothyroxine Sodium [Synthroid] 112 mcg PO HS 08/25/15 04/16/21 History Lurasidone HCl [Latuda] 60 mg PO HS 06/08/17 04/16/21 History carvediloL [Coreg] 6.25 mg PO BID 02/19/19 04/16/21 History Gabapentin [Neurontin] 300 mg PO HS 05/14/19 04/16/21 History Insulin Glargine,Hum.rec.anlog 18 units SQ DAILY 02/24/21 04/16/21 History [Totri Solostar] QUEtiapine FUMARATE 50 mg PO HS 02/24/21 04/16/21 History Acetaminophen Tab [Tylenol] 1,000 mg PO Q8H PRN tab 04/06/21 04/16/21 Rx Pantoprazole Sodium [Protonix] 40 mg PO DAILY #30 tablet. 04/06/21 04/16/21 Rx valACYclovir [Valtrex] 500 mg PO DAILY 04/11/21 04/16/21 History Allergies Allergy/AdvReac Type Severity Reaction Status Date / Time Influenza Virus Vaccines AdvReac MOUTH Verified 04/16/21 12:25 SORES,ITCHING prochlorperazine AdvReac Unknown Verified 04/16/21 12:25 [From Compazine] rosiglitazone [From Avandia] AdvReac MUSCLE PAIN Verified 04/16/21 12:25 Physical Exam Vitals: Vital Signs Temp Pulse Resp BP Pulse Ox 04/17/21 13:00 98 F 69 16 112/74 99 04/17/21 08:40 81 18 04/17/21 05:26 100.7 F H 81 18 112/75 95 04/16/21 20:43 98.8 F 76 16 116/71 96 04/16/21 20:10 76 16 04/16/21 15:06 99.1 F 87 16 149/82 97 Intake and Output 04/16/21 04/17/21 04/17/21 22:59 06:59 14:59 Intake Total 500 Balance 500 Intake: Oral 500 Other: Voiding Method Bedpan Bedpan Diaper Diaper # Voids 1 2 Weight 110 kg 111 kg - Constitutional General appearance: no acute distress - EENT Eyes: EOMI, PERRLA ENT: hearing grossly normal, normal oropharynx - Neck Neck: no lymphadenopathy Thyroid: bilateral: normal size - Respiratory Respiratory: bilateral: CTA - Cardiovascular Rhythm: regular Heart sounds: normal: S1, S2 - Gastrointestinal General gastrointestinal: decreased bowel sounds, distended - Integumentary Integumentary: normal - Neurologic Neurologic: CNII-XII intact - Musculoskeletal Musculoskeletal: generalized weakness, strength equal bilaterally - Psychiatric Psychiatric: A&O x's 3, appropriate affect Results CBC & Chem 7: 04/16/21 10:17 04/16/21 10:17 Labs: Abnormal Lab Results - Last 24 Hours (Table) 04/17/21 04/17/21 Range/Units 07:09 11:34 POC Glucose (mg/dL) 186 H 176 H (75-99) mg/dL Chest x-ray: report reviewed CT scan - abdomen: report reviewed CT scan - pelvis: report reviewed Assessment and Plan (1) Ascites Narrative/Plan: The patient has recurrence of malignant ascites due to progression of her known ovarian cancer. This has been intermittently occurring for several months. The patient actually had a standing order for outpatient paracentesis. She was admitted because of symptoms. Radiology has been consulted for repeat paracentesis. She does not have symptoms of overt obstruction. Therefore if symptoms improve after paracentesis she can likely be discharged. Current Visit: Yes Status: Acute Code(s): R18.8 - OTHER ASCITES SNOMED Code(s): 407828042 (2) Ovarian carcinoma Narrative/Plan: Diagnostic and therapeutic circumstances as described. The patient has had evidence of progression since late last year. Unfortunately she has not been able to start treatment because of insurance issues and subsequently, apparently difficulty in following up with her [facility] oncologist. She now wants to transfer her care locally. She was seen in consult during her last admission. He had been trying to obtain her records from her [facility] oncologist. Partial records including her initial op note, pathology, as well as imaging studies have been obtained. However we still do not have treatment records or office notes. The patient was advised that we would need the above information to make a treatment plan. Her [facility] oncologist office was contacted again today. If the patient is unable to have targeted therapy due to insurance issues, he can certainly be a candidate for conventional chemotherapy. If she is only had carboplatin and Taxol previously, then carboplatin and Doxil would be a good regimen with or without Avastin. This will be finalized as an outpatient once all her records are obtained. Current Visit: No Status: Acute Priority: High Code(s): C56.9 - MALIGNANT NEOPLASM OF UNSPECIFIED OVARY SNOMED Code(s): 197078742 (3) Bone metastases Narrative/Plan: The patient Has also developed progression with bone metastasis and was noted to have a pathologic fracture in the left humerus. She also has some pain in the left hip area because of metastasis in that region. She states that she is reasonably well compensated and is able to ambulate at home and perform most of her ADLs. Radiation oncology will be consulted to evaluate for palliative radiation to the most concerning areas. Case was discussed with them. Current Visit: Yes Status: Acute Code(s): C79.51 - SECONDARY MALIGNANT NEOPLASM OF BONE SNOMED Code(s): 38682905 Plan: Defer to the admitting service for management of her other medical problems
[2021-04-17] MEDS: HYDROmorphone 0.5 MG/0.5 ML SYRINGE IVP PRN (18:05)
[2021-04-17 20:56] LABS: Glucose,Whole Blood 169 mg/dL (75-99)
[2021-04-17] MEDS: LEVOTHYROXINE 112 MCG TAB PO SCH (20:56)
[2021-04-17] MEDS: ESCITALOPRAM 20 MG TAB PO SCH (20:56)
[2021-04-17] MEDS: QUEtiapine 50 MG TAB PO SCH (20:56)
[2021-04-17] MEDS: LURASIDONE 20 MG TAB PO SCH (20:57)
[2021-04-17] MEDS: GABAPENTIN 300 MG CAP PO SCH (20:57)
[2021-04-18 07:26] LABS: Glucose,Whole Blood 165 mg/dL (75-99)
[2021-04-18] MEDS: ENOXAPARIN 30 MG/0.3 ML SYRINGE SQ SCH ×3 (08:10→20:32)
[2021-04-18] MEDS: carvediloL 6.25 MG TAB PO SCH ×2 (08:10→15:52)
[2021-04-18] MEDS: valACYclovir 500 MG TAB PO SCH (08:10)
[2021-04-18] MEDS: PANTOPRAZOLE 40 MG TABLET PO SCH (08:10)
[2021-04-18] MEDS: INSULIN ASPART (NovoLOG) 100 UNIT/ML VIAL SQ SCH ×4 (08:10→20:33)
[2021-04-18 09:53] LABS: INR 1.1 (<1.2); Prothrombin Time 11.4 sec (9.0-12.0)
[2021-04-18 11:05] LABS: HGB 8.4 gm/dL (11.4-16.0); Hypochromasia Slight; MCH 30.4 pg (25.0-35.0); MCHC 32.4 g/dL (31.0-37.0); MCV 93.6 fL (80.0-100.0); Mean Platelet Volume 7.8; Platelet Count 286 k/uL (150-450); RBC 2.77 m/uL (3.80-5.40); RDW 15.6 % (11.5-15.5); WBC 4.9 k/uL (3.8-10.6)
[2021-04-18 11:23] LABS: African American GFR (CKD) 49 (>60 ml/min/1.73 sqM); Anion Gap 11 mmol/L; Blood Urea Nitrogen 37 mg/dL (7-17); Calcium 7.9 mg/dL (8.4-10.2); Carbon Dioxide 21 mmol/L (22-30); Chloride 97 mmol/L (98-107); Glucose 173 mg/dL (74-99); Non-African American GFR(CKD) 43 (>60 ml/min/1.73 sqM); Potassium 4.5 mmol/L (3.5-5.1); Sodium 129 mmol/L (137-145)
[2021-04-18 11:56] LABS: Glucose,Whole Blood 189 mg/dL (75-99)
[2021-04-18] MEDS ORDERED: FUROSEMIDE 10 MG/ML 4 ML VIAL IV STA (13:33)
--- NOTE | 2021-04-18 13:34 | P.PN ---
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 Patient was diagnosed approximately 4 years ago. Has 2 days patient has been vomiting abdomen distended denies fever chills denies diarrhea but had some movements in his chest pain. Denies shortness of breath. Has significant ascites to the abdomen and has infected paracentesis in the past and it appears like that might be the case this time. Has no other complaints at this time no other symptoms denies headache denies numbness or weakness 04/18/2021 positive abdominal pain .palliative paracentesis pending. INR 1.1, hemoglobin 8.4, platelets 286. Radiation oncology evaluation pending. Diet Intake poor. Renal function worsening, creatinine 1.3 to. Sodium 129. Extremely weak staff reports patient is a 4 person assist. PT evaluation pending. Objective - Vital Signs Vital signs: Vital Signs Temp 98.1 F 04/18/21 12:27 Pulse 76 04/18/21 12:27 Resp 18 04/18/21 12:27 BP 109/66 04/18/21 12:27 Pulse Ox 98 04/18/21 12:27 Intake & Output 04/17/21 04/18/21 04/18/21 18:59 06:59 18:59 Intake Total 240 500 Balance 240 500 Weight 111 kg Intake: Oral 240 500 Other: Voiding Method Bedpan Bedpan Bedpan Diaper Diaper Diaper # Voids 2 2 # Bowel Movements 1 - Exam General: [Patient awake, alert and oriented times 3. Patient in no acute distress.] HEENT: [PERRL. EOMI. No pharyngeal erythema or exudate.] Neck: Supple, short neck, unable to assess for JVD Cardiac: [Heart regular in rate and rhythm. No S3. No S4. No clicks, rubs. No murmur.] Lungs: [Clear to auscultation bilaterally.] Abdomen: [No mass. No organomegaly. Bowel sounds presnt and normoactive in all 4 quadrants. Significant gross ascites, excessive fluid wave Extremes: [No edema no cyanosis no claudication normal pulses] Skin: [Warm and dry, No rash.] Neurologic: [No lateralizing deficits. CN II - XII grossly intact.] - Labs CBC & Chem 7: 04/18/21 09:22 04/18/21 09:22 Labs: Abnormal Lab Results - Last 24 Hours (Table) 04/17/21 04/17/21 04/18/21 Range/Units 17:05 20:55 07:17 RBC (3.80-5.40) m/uL Hgb (11.4-16.0) gm/dL Hct (34.0-46.0) % RDW (11.5-15.5) % Sodium (137-145) mmol/L Chloride (98-107) mmol/L Carbon Dioxide (22-30) mmol/L BUN (7-17) mg/dL Creatinine (0.52-1.04) mg/dL Glucose (74-99) mg/dL POC Glucose (mg/dL) 134 H 169 H 165 H (75-99) mg/dL Calcium (8.4-10.2) mg/dL 04/18/21 04/18/21 04/18/21 Range/Units 09:22 09:22 11:46 RBC 2.77 L (3.80-5.40) m/uL Hgb 8.4 L (11.4-16.0) gm/dL Hct 26.0 L (34.0-46.0) % RDW 15.6 H (11.5-15.5) % Sodium 129 L (137-145) mmol/L Chloride 97 L (98-107) mmol/L Carbon Dioxide 21 L (22-30) mmol/L BUN 37 H (7-17) mg/dL Creatinine 1.32 H (0.52-1.04) mg/dL Glucose 173 H (74-99) mg/dL POC Glucose (mg/dL) 189 H (75-99) mg/dL Calcium 7.9 L (8.4-10.2) mg/dL Assessment and Plan Assessment: Malignant ascites Ovarian carcinoma Hyponatremia Acute renal failure Poor diet intake Moderate protein calorie malnutrition Anemia secondary to malignancy Diabetes mellitus type 2 Morbid obesity, BMI 43.3 Medically debilitated Plan: Continue on current medication regime ,monitoring and symptomatic treatment.Palliative paracentesis pending. One time dose of Lasix ordered .PT and radiation oncology evaluation pending. Ensure supplements between meals ordered. CODE STATUS to be discussed in a.m. close monitoring of renal function and electrolytes with repeat labs ordered for a.m. Prognosis guarded given multiple complex medical issues. The impression and plan of care has been dictated as directed. : I performed a history and examination of this patient, discussed the same with the dictator. I agree with the dictator's note ,documented as a scribe. Any additional findings or plans will be noted.
[2021-04-18] MEDS: SODIUM CHLORIDE 0.9% 1,000 ML IV SCH (13:52)
[2021-04-18] MEDS: HYDROmorphone 0.5 MG/0.5 ML SYRINGE IVP PRN (13:53)
[2021-04-18 17:39] LABS: Glucose,Whole Blood 233 mg/dL (75-99)
--- NOTE | 2021-04-18 18:35 | P.PN ---
Subjective Progress Note Date: 04/18/21 Principal diagnosis: Ovarian cancer, metastatic. Ascites In follow-up today patient is seen after having a 3.5 L paracentesis. She is in good spirits. She denies any fever, new or uncontrolled pain, nausea, she is very weak. Objective - Vital Signs Vital signs: Vital Signs Temp 98.3 F 04/18/21 18:03 Pulse 66 04/18/21 18:03 Resp 18 04/18/21 18:03 BP 100/67 04/18/21 18:03 Pulse Ox 96 04/18/21 18:03 Intake & Output 04/17/21 04/18/21 04/18/21 18:59 06:59 18:59 Intake Total 240 500 0 Output Total 200 Balance 240 500 -200 Weight 111 kg 111.5 kg Intake: Oral 240 500 0 Output: Urine 200 Other: Voiding Method Bedpan Bedpan Bedpan Diaper Diaper Diaper # Voids 2 2 # Bowel Movements 1 - Constitutional General appearance: Present: cooperative, morbidly obese, no acute distress - EENT Eyes: Present: anicteric sclerae, EOMI ENT: Present: hearing grossly normal - Respiratory Details: Respirations even and unlabored - Gastrointestinal General gastrointestinal: Present: soft - Musculoskeletal Musculoskeletal: Present: generalized weakness - Psychiatric Psychiatric: Present: A&O x's 3, appropriate affect, intact judgment & insight - Labs CBC & Chem 7: 04/18/21 09:22 04/18/21 09:22 Labs: Abnormal Lab Results - Last 24 Hours (Table) 04/17/21 04/18/21 04/18/21 Range/Units 20:55 07:17 09:22 RBC 2.77 L (3.80-5.40) m/uL Hgb 8.4 L (11.4-16.0) gm/dL Hct 26.0 L (34.0-46.0) % RDW 15.6 H (11.5-15.5) % Sodium (137-145) mmol/L Chloride (98-107) mmol/L Carbon Dioxide (22-30) mmol/L BUN (7-17) mg/dL Creatinine (0.52-1.04) mg/dL Glucose (74-99) mg/dL POC Glucose (mg/dL) 169 H 165 H (75-99) mg/dL Calcium (8.4-10.2) mg/dL 04/18/21 04/18/21 04/18/21 Range/Units 09:22 11:46 17:35 RBC (3.80-5.40) m/uL Hgb (11.4-16.0) gm/dL Hct (34.0-46.0) % RDW (11.5-15.5) % Sodium 129 L (137-145) mmol/L Chloride 97 L (98-107) mmol/L Carbon Dioxide 21 L (22-30) mmol/L BUN 37 H (7-17) mg/dL Creatinine 1.32 H (0.52-1.04) mg/dL Glucose 173 H (74-99) mg/dL POC Glucose (mg/dL) 189 H 233 H (75-99) mg/dL Calcium 7.9 L (8.4-10.2) mg/dL Assessment and Plan (1) Ascites Narrative/Plan: Status post 3.5 L paracentesis. Patient states improved abdominal symptoms, less distention, discomfort Current Visit: Yes Status: Acute Priority: High Code(s): R18.8 - OTHER ASCITES SNOMED Code(s): 140179007 (2) Bone metastases Narrative/Plan: Pending consultation and recommendations with Radiation Oncology Current Visit: Yes Status: Acute Priority: High Code(s): C79.51 - SECONDARY MALIGNANT NEOPLASM OF BONE SNOMED Code(s): 69775491 (3) History of ovarian cancer Narrative/Plan: We were able to obtain some of patient's records. There are some we are still pending. Patient would not start systemic therapy for ovarian cancer until after completing palliative radiation. We will continue to request records. We will discuss with patient when she is seen after radiation systemic therapy options, prognosis Current Visit: Yes Status: Acute Priority: High Code(s): Z85.43 - PERSONAL HISTORY OF MALIGNANT NEOPLASM OF OVARY SNOMED Code(s): 632116391
[2021-04-18 19:55] LABS: Glucose,Whole Blood 228 mg/dL (75-99)
[2021-04-18] MEDS: QUEtiapine 50 MG TAB PO SCH (20:32)
[2021-04-18] MEDS: GABAPENTIN 300 MG CAP PO SCH (20:32)
[2021-04-18] MEDS: ESCITALOPRAM 20 MG TAB PO SCH (20:33)
[2021-04-18] MEDS: LURASIDONE 20 MG TAB PO SCH (20:33)
[2021-04-18] MEDS: LEVOTHYROXINE 112 MCG TAB PO SCH (20:33)
[2021-04-19 05:42] LABS: HCT 25.5 % (34.0-46.0); HGB 8.3 gm/dL (11.4-16.0); MCH 30.1 pg (25.0-35.0); MCHC 32.5 g/dL (31.0-37.0); MCV 92.6 fL (80.0-100.0); Mean Platelet Volume 7.8; Platelet Count 276 k/uL (150-450); RBC 2.75 m/uL (3.80-5.40); RDW 15.5 % (11.5-15.5); WBC 5.6 k/uL (3.8-10.6)
[2021-04-19 05:55] LABS: African American GFR (CKD) 35 (>60 ml/min/1.73 sqM); Anion Gap 9 mmol/L; Blood Urea Nitrogen 48 mg/dL (7-17); Calcium 7.7 mg/dL (8.4-10.2); Carbon Dioxide 21 mmol/L (22-30); Chloride 98 mmol/L (98-107); Glucose 133 mg/dL (74-99); Non-African American GFR(CKD) 30 (>60 ml/min/1.73 sqM); Potassium 4.8 mmol/L (3.5-5.1); Sodium 128 mmol/L (137-145)
[2021-04-19 07:45] LABS: Glucose,Whole Blood 146 mg/dL (75-99)
--- NOTE | 2021-04-19 07:48 | US ---
EXAMINATION TYPE: US paracentesis abd w/image DATE OF EXAM: 04/18/2021 COMPARISON: NONE HISTORY: Ascites. PROCEDURE: Maximal barrier technique was utilized. The skin overlying a suitable pocket of fluid was localized with ultrasound and the overlying skin was prepped and draped. Ultrasound was utilized with sterile technique. Lidocaine was used for local anesthesia and a skin aysha made with a scalpel. Catheter was advanced under direct ultrasound guidance into a suitable pocket of fluid and approximately 3.5 liter s of serous fluid were removed. Of note, loculations are noted. Catheter was withdrawn and hemostasi s achieved. There is no immediate complication; the patient is discharged in stable condition. IMPRESSION: STATUS POST ULTRASOUND GUIDED PARACENTESIS FOR PALLIATION OF ASCITES. THIS PROCEDURE WA S PERFORMED BY THE UNDERSIGNED.
[2021-04-19] MEDS: INSULIN ASPART (NovoLOG) 100 UNIT/ML VIAL SQ SCH ×4 (09:34→21:51)
[2021-04-19] MEDS: ENOXAPARIN 30 MG/0.3 ML SYRINGE SQ SCH (09:34)
[2021-04-19] MEDS: carvediloL 6.25 MG TAB PO SCH ×2 (09:34→18:06)
[2021-04-19] MEDS: PANTOPRAZOLE 40 MG TABLET PO SCH (09:34)
[2021-04-19] MEDS: SODIUM CHLORIDE 0.9% 1,000 ML IV SCH (09:35)
[2021-04-19] MEDS: valACYclovir 500 MG TAB PO SCH (09:35)
[2021-04-19 12:37] LABS: Glucose,Whole Blood 292 mg/dL (75-99)
--- NOTE | 2021-04-19 16:21 | P.PN ---
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 Patient was diagnosed approximately 4 years ago. Has 2 days patient has been vomiting abdomen distended denies fever chills denies diarrhea but had some movements in his chest pain. Denies shortness of breath. Has significant ascites to the abdomen and has infected paracentesis in the past and it appears like that might be the case this time. Has no other complaints at this time no other symptoms denies headache denies numbness or weakness 04/18/2021 positive abdominal pain .palliative paracentesis pending. INR 1.1, hemoglobin 8.4, platelets 286. Radiation oncology evaluation pending. Diet Intake poor. Renal function worsening, creatinine 1.3 to. Sodium 129. Extremely weak staff reports patient is a 4 person assist. PT evaluation pending. 04/19/2021 yesterday underwent paracentesis with 3.5 L serous fluid drained. Staff reports patient stood at bedside for a brief moment, unable to sustain her own weight became extremely sweaty required assistance to sit down. Evaluated by PT with subacute rehab recommended. Diarrhea 2. Hemoglobin 8.3, platelets 276. Sodium 128, renal function worsening, creatinine up to 1.75. Evaluated by radiation oncology, recommendations pending regarding palliative radiation. Currently denies pain. CODE STATUS discussed with patient, CODE STATUS will be changed to no code, no CPR, no intubation as per patient's request. Objective - Vital Signs Vital signs: Vital Signs Temp 97.6 F 04/19/21 12:31 Pulse 78 04/19/21 12:31 Resp 17 04/19/21 12:31 BP 95/61 04/19/21 12:31 Pulse Ox 96 04/19/21 12:31 Intake & Output 04/18/21 04/19/21 04/19/21 18:59 06:59 18:59 Intake Total 0 600 Output Total 200 200 Balance -200 400 Weight 111.5 kg 111 kg Intake: Intake, IV Titration 600 Amount Sodium Chloride 0.9% 1, 600 000 ml @ 50 mls/hr IV . Q20H [facility] Rx#:[id number] Oral 0 Output: Urine 200 200 Other: Voiding Method Bedpan Diaper Diaper Diaper External Catheter Incontinent External Catheter # Voids 1 # Bowel Movements 1 - Exam General: [Patient awake, alert and oriented times 3. Patient in no acute distress.] HEENT: [PERRL. EOMI. No pharyngeal erythema or exudate.] Neck: Supple, short neck, unable to assess for JVD Cardiac: [Heart regular in rate and rhythm. No S3. No S4. No clicks, rubs. No murmur.] Lungs: [Clear to auscultation bilaterally.] Abdomen: [No mass. No organomegaly. Bowel sounds presnt and normoactive in all 4 quadrants. Extremes: [No edema no cyanosis no claudication normal pulses] Skin: [Warm and dry, No rash.] Neurologic: [No lateralizing deficits. CN II - XII grossly intact.] - Labs CBC & Chem 7: 04/19/21 05:03 04/19/21 05:03 Labs: Abnormal Lab Results - Last 24 Hours (Table) 04/18/21 04/18/21 04/19/21 Range/Units 17:35 19:54 05:03 RBC 2.75 L (3.80-5.40) m/uL Hgb 8.3 L (11.4-16.0) gm/dL Hct 25.5 L (34.0-46.0) % Sodium (137-145) mmol/L Carbon Dioxide (22-30) mmol/L BUN (7-17) mg/dL Creatinine (0.52-1.04) mg/dL Glucose (74-99) mg/dL POC Glucose (mg/dL) 233 H 228 H (75-99) mg/dL Calcium (8.4-10.2) mg/dL 04/19/21 04/19/21 04/19/21 Range/Units 05:03 07:44 12:35 RBC (3.80-5.40) m/uL Hgb (11.4-16.0) gm/dL Hct (34.0-46.0) % Sodium 128 L (137-145) mmol/L Carbon Dioxide 21 L (22-30) mmol/L BUN 48 H (7-17) mg/dL Creatinine 1.75 H (0.52-1.04) mg/dL Glucose 133 H (74-99) mg/dL POC Glucose (mg/dL) 146 H 292 H (75-99) mg/dL Calcium 7.7 L (8.4-10.2) mg/dL Assessment and Plan Assessment: Malignant ascites, status post palliative paracentesis. Ovarian carcinoma Hyponatremia Acute renal failure Poor diet intake Moderate protein calorie malnutrition Anemia secondary to malignancy Diabetes mellitus type 2 Morbid obesity, BMI 43.3 Medically debilitated No code, no CPR, no intubation Plan: Continue on current medication regime ,monitoring and symptomatic treatment. CODE STATUS changed as per discussion with patient.Close monitoring of renal function and electrolytes with repeat labs ordered for a.m. discharge planning in progress for tomorrow to [facility] subacute rehab pending radiation oncology and oncology recommendations. The impression and plan of care has been dictated as directed. : I performed a history and examination of this patient, discussed the same with the dictator. I agree with the dictator's note ,documented as a scribe. Any additional findings or plans will be noted.
[2021-04-19 17:46] LABS: Glucose,Whole Blood 242 mg/dL (75-99)
--- NOTE | 2021-04-19 19:14 | P.PN ---
Subjective Progress Note Date: 04/19/21 Principal diagnosis: Ovarian cancer, metastatic. recurrent, malignant ascites. Bone metastases In follow-up today patient remains positive, she is not currently in any pain, she is still experiencing some relief in the abdomen after the paracentesis. She did have a bowel movement. Her sister is at the bedside Objective - Vital Signs Vital signs: Vital Signs Temp 97.6 F 04/19/21 12:31 Pulse 78 04/19/21 12:31 Resp 17 04/19/21 12:31 BP 95/61 04/19/21 12:31 Pulse Ox 96 04/19/21 12:31 Intake & Output 04/19/21 04/19/21 04/20/21 06:59 18:59 06:59 Intake Total 600 600 Output Total 200 Balance 400 600 Weight 111 kg Intake: Intake, IV Titration 600 600 Amount Sodium Chloride 0.9% 1, 600 600 000 ml @ 50 mls/hr IV . Q20H [facility] Rx#:[id number] Output: Urine 200 Other: Voiding Method Diaper Diaper External Catheter Incontinent External Catheter # Voids 1 - Constitutional General appearance: Present: cooperative, morbidly obese, no acute distress - EENT Eyes: Present: anicteric sclerae, EOMI ENT: Present: hearing grossly normal - Respiratory Respiratory: bilateral: CTA - Cardiovascular Heart sounds: normal: S1, S2 Abnormal Heart Sounds: Absent: systolic murmur, diastolic murmur, rub, S3 Gallop, S4 Gallop, click, other - Gastrointestinal General gastrointestinal: Present: distended (mild but, ascites appreciated), normal bowel sounds, soft. Absent: absent bowel sounds, decreased bowel sounds, hepatomegaly, hyperactive bowel sounds, organomegaly, rigid, scaphoid, splenomegaly, tenderness, umbilical hernia, ventral hernia - Integumentary Integumentary: Present: pale - Neurologic Neurologic: Present: CNII-XII intact - Musculoskeletal Musculoskeletal: Present: generalized weakness - Psychiatric Psychiatric: Present: A&O x's 3, appropriate affect, intact judgment & insight - Labs CBC & Chem 7: 04/19/21 05:03 04/19/21 05:03 Labs: Abnormal Lab Results - Last 24 Hours (Table) 04/18/21 04/19/21 04/19/21 Range/Units 19:54 05:03 05:03 RBC 2.75 L (3.80-5.40) m/uL Hgb 8.3 L (11.4-16.0) gm/dL Hct 25.5 L (34.0-46.0) % Sodium 128 L (137-145) mmol/L Carbon Dioxide 21 L (22-30) mmol/L BUN 48 H (7-17) mg/dL Creatinine 1.75 H (0.52-1.04) mg/dL Glucose 133 H (74-99) mg/dL POC Glucose (mg/dL) 228 H (75-99) mg/dL Calcium 7.7 L (8.4-10.2) mg/dL 04/19/21 04/19/21 04/19/21 Range/Units 07:44 12:35 17:44 RBC (3.80-5.40) m/uL Hgb (11.4-16.0) gm/dL Hct (34.0-46.0) % Sodium (137-145) mmol/L Carbon Dioxide (22-30) mmol/L BUN (7-17) mg/dL Creatinine (0.52-1.04) mg/dL Glucose (74-99) mg/dL POC Glucose (mg/dL) 146 H 292 H 242 H (75-99) mg/dL Calcium (8.4-10.2) mg/dL Assessment and Plan (1) Ascites Narrative/Plan: Status post 3.5 L paracentesis. Patient states improved abdominal symptoms, less distention, discomfort, she has had a bowel movement. Patient does have a standing order for weekly paracentesis Current Visit: Yes Status: Acute Priority: High Code(s): R18.8 - OTHER ASCITES SNOMED Code(s): 277752102 (2) Bone metastases Narrative/Plan: Radiation Oncology to treat humerus and femur bone metastases to reduce the risk of fracture, hopefully prevent any possible future pain so that patient can rehabilitate Current Visit: Yes Status: Acute Priority: High Code(s): C79.51 - SECONDARY MALIGNANT NEOPLASM OF BONE SNOMED Code(s): 08401570 (3) History of ovarian cancer Narrative/Plan: We were able to obtain some of patient's records. There are some we are still pending-family has even tried and been unsuccessful. Patient would not start systemic therapy for ovarian cancer until after completing palliative radiation and some rehabilitation. Discussed with patient and her sister. They verbalized understanding the plan. Current Visit: Yes Status: Acute Priority: High Code(s): Z85.43 - PERSONAL HISTORY OF MALIGNANT NEOPLASM OF OVARY SNOMED Code(s): 419008947 Plan: attests: I preformed H&P and developed impression and plan of care for patient. Discussed with dictator. I agree with dictated note. Documented as a scribe.
[2021-04-19 20:18] LABS: Glucose,Whole Blood 151 mg/dL (75-99)
[2021-04-19] MEDS: GABAPENTIN 300 MG CAP PO SCH (21:49)
[2021-04-19] MEDS: LEVOTHYROXINE 112 MCG TAB PO SCH (21:50)
[2021-04-19] MEDS: LURASIDONE 20 MG TAB PO SCH (21:50)
[2021-04-19] MEDS: ESCITALOPRAM 20 MG TAB PO SCH (21:50)
[2021-04-19] MEDS: QUEtiapine 50 MG TAB PO SCH (21:53)
[2021-04-20 07:12] LABS: Glucose,Whole Blood 154 mg/dL (75-99)
[2021-04-20] MEDS: INSULIN ASPART (NovoLOG) 100 UNIT/ML VIAL SQ SCH ×4 (08:33→21:11)
[2021-04-20] MEDS: ENOXAPARIN 30 MG/0.3 ML SYRINGE SQ SCH (08:33)
[2021-04-20] MEDS: valACYclovir 500 MG TAB PO SCH (08:34)
[2021-04-20] MEDS: PANTOPRAZOLE 40 MG TABLET PO SCH (08:34)
[2021-04-20] MEDS: carvediloL 6.25 MG TAB PO SCH ×2 (08:34→17:31)
[2021-04-20] MEDS: SODIUM CHLORIDE 0.9% 1,000 ML IV SCH (08:35)
[2021-04-20 10:28] LABS: HCT 28.7 % (34.0-46.0); HGB 9.2 gm/dL (11.4-16.0); Hypochromasia Slight; MCH 29.9 pg (25.0-35.0); MCHC 32.1 g/dL (31.0-37.0); Mean Platelet Volume 7.9; Platelet Count 235 k/uL (150-450); RBC 3.09 m/uL (3.80-5.40); WBC 10.9 k/uL (3.8-10.6)
[2021-04-20 10:47] LABS: Band Neutrophils % 7 %; Eosinophils # (M) 0.11 k/uL (0-0.7); Lymphocytes # (M) 0.33 k/uL (1.0-4.8); Metamyelocytes # (M) 0.22 k/uL (0); Metamyelocytes % 2 %; Monocytes # (M) 0.55 k/uL (0-1.0); Myelocytes # (M) 0.11 k/uL (0); Myelocytes % 1 %; Neutrophils % (M) 83 %; Nucleated Red Blood Cells 0 /100 WBC (0-0); Total Cells Counted 200
--- NOTE | 2021-04-20 10:55 | XR ---
EXAMINATION TYPE: XR chest 1V portable DATE OF EXAM: 04/20/2021 COMPARISON: Chest x-ray 04/04/2021 HISTORY: Fever, weakness TECHNIQUE: Single frontal view of the chest is obtained. FINDINGS: Findings are similar to prior exam. There is blunting the right costophrenic angle, patchy basilar density. Port-A-Cath is stable. The previously identified sclerotic lesion involving the pro ximal right humerus is not seen due to patient positioning. Cardiac mediastinal silhouette is unchang ed. No evident pneumothorax. IMPRESSION: Right-sided pleural effusion and associated atelectasis versus pneumonia.
[2021-04-20 11:33] LABS: Glucose,Whole Blood 124 mg/dL (75-99)
--- NOTE | 2021-04-20 12:16 | P.PN ---
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 Patient was diagnosed approximately 4 years ago. Has 2 days patient has been vomiting abdomen distended denies fever chills denies diarrhea but had some movements in his chest pain. Denies shortness of breath. Has significant ascites to the abdomen and has infected paracentesis in the past and it appears like that might be the case this time. Has no other complaints at this time no other symptoms denies headache denies numbness or weakness 04/18/2021 positive abdominal pain .palliative paracentesis pending. INR 1.1, hemoglobin 8.4, platelets 286. Radiation oncology evaluation pending. Diet Intake poor. Renal function worsening, creatinine 1.3 to. Sodium 129. Extremely weak staff reports patient is a 4 person assist. PT evaluation pending. 04/19/2021 yesterday underwent paracentesis with 3.5 L serous fluid drained. Staff reports patient stood at bedside for a brief moment, unable to sustain her own weight became extremely sweaty required assistance to sit down. Evaluated by PT with subacute rehab recommended. Diarrhea 2. Hemoglobin 8.3, platelets 276. Sodium 128, renal function worsening, creatinine up to 1.75. Evaluated by radiation oncology, recommendations pending regarding palliative radiation. Currently denies pain. CODE STATUS discussed with patient, CODE STATUS will be changed to no code, no CPR, no intubation as per patient's request. 04/20/2021 Oncology in the process of obtaining treatment records and notes from prior oncology team at [facility]. Radiation oncology recommendations pending. T-max 100, WBC increased to 10.9. Hemoglobin 92, platelets 235. Maintaining O2 sats in the 90s on room air.Pain currently controlled. Reports poor appetite. BMP pending. Positive bowel movement this morning. Denies lightheadedness, dizziness or focal deficits. Denies chest pain, palpitations or shortness of breath. Objective - Vital Signs Vital signs: Vital Signs Temp 99.2 F 04/20/21 05:00 Pulse 60 04/20/21 05:00 Resp 16 04/20/21 05:00 BP 94/52 04/20/21 05:00 Pulse Ox 95 04/20/21 05:00 Intake & Output 04/19/21 04/20/21 04/20/21 18:59 06:59 18:59 Intake Total 600 Balance 600 Weight 111 kg Intake: Intake, IV Titration 600 Amount Sodium Chloride 0.9% 1, 600 000 ml @ 50 mls/hr IV . Q20H [facility] Rx#:[id number] Other: Voiding Method Diaper Diaper Incontinent Incontinent External Catheter External Catheter # Voids 3 # Bowel Movements 1 - Exam General: [Patient awake, alert and oriented times 3. Patient in no acute distress.] HEENT: [PERRL. EOMI. No pharyngeal erythema or exudate.] Neck: Supple, short neck, unable to assess for JVD Cardiac: [Heart regular in rate and rhythm. No S3. No S4. No clicks, rubs. No murmur.] Lungs: [Clear to auscultation bilaterally., Bilateral bases diminished. Abdomen: [Soft, nontender, No organomegaly. Positive bowel sounds Extremes: [No edema no cyanosis no claudication normal pulses] Skin: [Warm and dry, No rash.] Neurologic: [No lateralizing deficits. CN II - XII grossly intact.] - Labs CBC & Chem 7: 04/20/21 06:06 04/19/21 05:03 Labs: Abnormal Lab Results - Last 24 Hours (Table) 04/19/21 04/19/21 04/19/21 Range/Units 12:35 17:44 20:05 WBC (3.8-10.6) k/uL RBC (3.80-5.40) m/uL Hgb (11.4-16.0) gm/dL Hct (34.0-46.0) % RDW (11.5-15.5) % Neutrophils # (Manual) (1.3-7.7) k/uL Lymphocytes # (Manual) (1.0-4.8) k/uL Metamyelocytes # (Man) (0) k/uL Myelocytes # (Manual) (0) k/uL POC Glucose (mg/dL) 292 H 242 H 151 H (75-99) mg/dL 04/20/21 04/20/21 04/20/21 Range/Units 06:06 07:01 11:31 WBC 10.9 H (3.8-10.6) k/uL RBC 3.09 L (3.80-5.40) m/uL Hgb 9.2 L (11.4-16.0) gm/dL Hct 28.7 L (34.0-46.0) % RDW 16.0 H (11.5-15.5) % Neutrophils # (Manual) 9.80 H (1.3-7.7) k/uL Lymphocytes # (Manual) 0.33 L (1.0-4.8) k/uL Metamyelocytes # (Man) 0.22 H (0) k/uL Myelocytes # (Manual) 0.11 H (0) k/uL POC Glucose (mg/dL) 154 H 124 H (75-99) mg/dL Assessment and Plan Assessment: Malignant ascites, status post palliative paracentesis. Ovarian carcinoma Hyponatremia Acute renal failure Poor diet intake Moderate protein calorie malnutrition Anemia secondary to malignancy Diabetes mellitus type 2 Morbid obesity, BMI 43.3 Medically debilitated No code, no CPR, no intubation Plan: Continue on current medication regime ,monitoring and symptomatic treatment. BMP pending/close monitoring of renal function and electrolytes. Spiking fevers, chest x-ray ordered. Discharge planning in progress for to [facility] subacute rehab pending radiation recommendations. The impression and plan of care has been dictated as directed. : I performed a history and examination of this patient, discussed the same with the dictator. I agree with the dictator's note ,documented as a scribe. Any additional findings or plans will be noted.
--- NOTE | 2021-04-20 13:53 | P.CONS ---
History of Present Illness - Reason for Consult Consult date: 04/19/21 palliative RT to humerus Requesting physician: Harvinder Webber - Chief Complaint nausea, weakness - History of Present Illness The patient is a 65-year-old female originally diagnosed in June 2017 with a stage IIIc ovarian cancer. She underwent induction therapy followed by surgical debulking and further consolidative chemotherapy. She states that since this initial diagnosis, she has undergone additional chemotherapy for progression. She has been working to switch her cancer care closer to home, and has not initiated treatment despite evidence of disease progression this past February. The patient was hospitalized and found to have a pathologic fracture of the left humerus on February 24. She also underwent a bone scan at this time which redemonstrated the left humeral fracture, also showing abnormal uptake in the right humeral head and distal right femur. She subsequently on March [address] scan of the chest, abdomen and pelvis revealing increasing ascites, abdominal nodularity, peritoneal disease and metastasis to the liver. She states that for some time she was following with Dr. Childs, and they were unable to initiate her on PARP inhibitor treatment due to insurance coverage/cost issues. She has recently been attempting to transfer her care cl oser to home. The patient has had repeat paracentesis with 6.7 L drained on April 06. The patient was hospitalized again this past week. The patient reports she was becoming increasingly weak at home. She was unable to ambulate. She was having increased nausea, and felt that her abdomen was swollen again. She underwent a CT scan of the abdomen and pelvis on April 16 which revealed again multiple hypodense liver lesions, as well as slight growth of a 3.7 cm omental lesion and a 7.8 cm peritoneal mass. She had repeat paracentesis for recurrent ascites on April 18 revealing 3.5 L of fluid. At this time, the patient does report left-sided arm pain. She was evaluated by an orthopedic oncologist at the [facility], but has not had any actual treatment. The patient actually does not have significant right lower extremity pain. She feels she is becoming weaker, and her family is concerned they can no longer care for her as she is having difficulty ambulating. Review of Systems Constitutional: Denies chills, Denies fever Eyes: denies decreased vision Ears, nose, mouth and throat: Denies headache Cardiovascular: Denies chest pain Respiratory: Denies cough, Denies dyspnea Gastrointestinal: Reports abdominal pain, Reports nausea Genitourinary: Reports pelvic pain Musculoskeletal: Reports fractures Neurological: Denies change in mentation, Denies change in speech, Denies headaches Psychiatric: Denies confusion Past Medical History Past Medical History: Cancer, Heart Failure, Diabetes Mellitus, Eye Disorder, GERD/Reflux, Hyperlipidemia, Hypertension, Skin Disorder, Thyroid Disorder Additional Past Medical History / Comment(s): Recent UTI-pt has completed ABX.RECENTLY DX W/ ovarian cancer- . IDDM type II-has insulin PUMP, bilateral glaucoma, lower GI bleed, GASTRITIS, DIVERTICULAR DX, hypothyroid, ventral hernia, VAGINAL HERPES SIMPLEx, History of Any Multi-Drug Resistant Organisms: None Reported Past Surgical History: Appendectomy, Bariatric Surgery, Cholecystectomy Additional Past Surgical History / Comment(s): GASTRIC SLEEVE 09/2015, COLONOSCOPIES/EGDS WITH LAST ONES DONE 05/21/17, BILATERAL CATARACT REMOVAL WITH LENS IMPLANTS.PARACENTESIS 04/05/21 first one since 2016, [id number]/13/2017 Past Anesthesia/Blood Transfusion Reactions: Postoperative Nausea & Vomiting (PONV) Additional Past Anesthesia/Blood Transfusion Reaction / Comm: has had blood transfusion and platelets without issue Past Psychological History: Bipolar Additional Psychological History / Comment(s): Pt lives alone in a condo that has 2 porch steps. has 1 pet cat. pt's mom lives in the same condo. Pt has been independent, but recently has been increasingly weak. She states her medications for her bipolar disorder work well for her. Smoking Status: Never smoker Past Alcohol Use History: None Reported Past Drug Use History: None Reported - Past Family History Mother Family Medical History: Diabetes Mellitus, Hypertension Father Family Medical History: Cancer, Prostate Disorder Additional Family Medical History / Comment(s): FATHER AT THE AGE OF 74YRS AND WAS HEALTHY UNTIL HIS . CAUSE OF UNKNOWN. Sister(s) Family Medical History: Cancer, Pulmonary Embolus Additional Family Medical History / Comment(s): 2 SISTERS - COLON CA AND ONE FEBRUARY 2017 FROM METS TO LIVER. ONE SISTER HAS HAD A PULMONARY EMBOLI. Medications and Allergies Home Medications Medication Instructions Recorded Confirmed Type Escitalopram [Lexapro] 20 mg PO HS 08/25/15 04/16/21 History Levothyroxine Sodium [Synthroid] 112 mcg PO HS 08/25/15 04/16/21 History Lurasidone HCl [Latuda] 60 mg PO HS 06/08/17 04/16/21 History carvediloL [Coreg] 6.25 mg PO BID 02/19/19 04/16/21 History Gabapentin [Neurontin] 300 mg PO HS 05/14/19 04/16/21 History Insulin Glargine,Hum.rec.anlog 18 units SQ DAILY 02/24/21 04/16/21 History [Jess Louis] QUEtiapine FUMARATE 50 mg PO HS 02/24/21 04/16/21 History Acetaminophen Tab [Tylenol] 1,000 mg PO Q8H PRN tab 04/06/21 04/16/21 Rx Pantoprazole Sodium [Protonix] 40 mg PO DAILY #30 tablet. 04/06/21 04/16/21 Rx valACYclovir [Valtrex] 500 mg PO DAILY 04/11/21 04/16/21 History Allergies Allergy/AdvReac Type Severity Reaction Status Date / Time Influenza Virus Vaccines AdvReac MOUTH Verified 04/16/21 12:25 SORES,ITCHING prochlorperazine AdvReac Unknown Verified 04/16/21 12:25 [From Compazine] rosiglitazone [From Avandia] AdvReac MUSCLE PAIN Verified 04/16/21 12:25 Physical Exam Vitals: Vital Signs Temp Pulse Resp BP Pulse Ox 04/20/21 12:00 98.6 F 75 18 92/62 98 04/20/21 05:00 99.2 F 60 16 94/52 95 04/19/21 19:47 100.0 F H 75 16 93/58 93 L Intake and Output 04/19/21 04/20/21 04/20/21 22:59 06:59 14:59 Intake Total 600 Balance 600 Intake: Intake, IV Titration 600 Amount Sodium Chloride 0.9% 1, 600 000 ml @ 50 mls/hr IV . Q20H [facility] Rx#:[id number] Other: Voiding Method Diaper Diaper Incontinent Incontinent External Catheter External Catheter # Voids 3 # Bowel Movements 1 - Constitutional General appearance: obese - EENT Eyes: EOMI, PERRLA ENT: hearing grossly normal - Neck Neck: no lymphadenopathy - Respiratory Respiratory: bilateral: CTA - Cardiovascular Rhythm: regular - Gastrointestinal General gastrointestinal: distended, tenderness (mild TTP in left mid-abdomen) - Integumentary Integumentary: no rash, no ulcer - Neurologic Neurologic: CNII-XII intact - Musculoskeletal Musculoskeletal: generalized weakness - Psychiatric Psychiatric: A&O x's 3, appropriate affect Results CBC & Chem 7: 04/20/21 06:06 04/19/21 05:03 Labs: Abnormal Lab Results - Last 24 Hours (Table) 04/19/21 04/19/21 04/20/21 Range/Units 17:44 20:05 06:06 WBC 10.9 H (3.8-10.6) k/uL RBC 3.09 L (3.80-5.40) m/uL Hgb 9.2 L (11.4-16.0) gm/dL Hct 28.7 L (34.0-46.0) % RDW 16.0 H (11.5-15.5) % Neutrophils # (Manual) 9.80 H (1.3-7.7) k/uL Lymphocytes # (Manual) 0.33 L (1.0-4.8) k/uL Metamyelocytes # (Man) 0.22 H (0) k/uL Myelocytes # (Manual) 0.11 H (0) k/uL POC Glucose (mg/dL) 242 H 151 H (75-99) mg/dL 04/20/21 04/20/21 Range/Units 07:01 11:31 WBC (3.8-10.6) k/uL RBC (3.80-5.40) m/uL Hgb (11.4-16.0) gm/dL Hct (34.0-46.0) % RDW (11.5-15.5) % Neutrophils # (Manual) (1.3-7.7) k/uL Lymphocytes # (Manual) (1.0-4.8) k/uL Metamyelocytes # (Man) (0) k/uL Myelocytes # (Manual) (0) k/uL POC Glucose (mg/dL) 154 H 124 H (75-99) mg/dL CT scan - abdomen: report reviewed, image reviewed CT scan - pelvis: report reviewed, image reviewed Assessment and Plan Assessment: The patient is a 65-year-old female originally diagnosed in June 2017 with a stage IIIc ovarian cancer. She underwent induction therapy followed by surgical debulking and further consolidative chemotherapy. She states that since this initial diagnosis, she has undergone additional chemotherapy for progression. She has been working to switch her cancer care closer to home, and has not initiated treatment despite evidence of disease progression this past February. Plan: 1. Progression of ovarian cancer: As detailed in her medical oncology note, we have been waiting to obtain her outside records prior to initiation of a new line of systemic therapy. She very clearly has had progression of her disease, which continues to progress as she has not had treatment for several months. I am concerned that the patient may not perform well at rehabilitation if she continues to have a relatively poor KPS and recurrent ascites may limit her participation. 2. Bone metastatic disease: As noted above, the patient was found to have a pathologic fracture of the mid left humerus in February. Despite meeting with an orthopedic oncologist, she has had no surgical intervention. At this point, I feel is best to proceed with palliative radiation to attempt to provide the patient was some pain relief. In addition, I would plan to treat the right femoral lesion as this has a high risk of pathologic fracture which would further setback her progress. I discussed this with the patient and her sister/mother. I explained that the patient would undergo CT simulation for treatment planning. I discussed that radiotherapy would be delivered while the patient is in-house, and that if she transitions to outpatient it certainly could be completed at that point. I discussed that I did not anticipate significant toxicity from radiotherapy, but that she could expect some mild fatigue, skin irritation and unlikely risk of late toxicity considering palliative dosing. Time: I spent 40 minutes with this patient, of which greater than 50% of that time was spent counseling, coordinating care, and reviewing the risks, benefits, and all potential complications of radiation. Time with Patient: Greater than 30
[2021-04-20 15:50] LABS: African American GFR (CKD) 45.6 (60.0-200.0); Anion Gap 8.1 mmol/L (4.00-12.00); BUN/Creat Ratio 46.43 Ratio (12.00-20.00); Calcium 7.6 mg/dL (8.7-10.3); Carbon Dioxide 16.9 mmol/L (21.6-31.8); Non-African American GFR(CKD) 39.3 (60.0-200.0); Potassium 4.7 mmol/L (3.5-5.5)
[2021-04-20 17:12] LABS: Glucose,Whole Blood 162 mg/dL (75-99)
--- NOTE | 2021-04-20 19:44 | P.PN ---
Subjective Progress Note Date: 04/20/21 Principal diagnosis: Ovarian cancer, metastatic. recurrent, malignant ascites. Bone metastases In follow-up today patient doing ok, no acute c/o. Objective - Vital Signs Vital signs: Vital Signs Temp 98.6 F 04/20/21 12:00 Pulse 75 04/20/21 12:00 Resp 18 04/20/21 12:00 BP 92/62 04/20/21 12:00 Pulse Ox 98 04/20/21 12:00 Intake & Output 04/20/21 04/20/21 04/21/21 06:59 18:59 06:59 Intake Total 600 Balance 600 Intake: Intake, IV Titration 600 Amount Sodium Chloride 0.9% 1, 600 000 ml @ 50 mls/hr IV . Q20H [facility] Rx#:[id number] Other: Voiding Method Diaper Diaper Incontinent Incontinent External Catheter External Catheter # Voids 3 # Bowel Movements 1 - Constitutional General appearance: Present: cooperative, morbidly obese, no acute distress - EENT Eyes: Present: anicteric sclerae, EOMI ENT: Present: hearing grossly normal - Respiratory Details: respirations even and unlabored - Cardiovascular Heart sounds: normal: S1, S2 Abnormal Heart Sounds: Absent: systolic murmur, diastolic murmur, rub, S3 Gallop, S4 Gallop, click, other - Peripheral edema leg Peripheral Edema: bilateral: Trace - Gastrointestinal General gastrointestinal: Present: distended, soft - Neurologic Neurologic: Present: CNII-XII intact - Musculoskeletal Musculoskeletal: Present: generalized weakness - Psychiatric Psychiatric: Present: A&O x's 3, appropriate affect, intact judgment & insight - Labs CBC & Chem 7: 04/20/21 06:06 04/20/21 06:06 Labs: Abnormal Lab Results - Last 24 Hours (Table) 04/19/21 04/20/21 04/20/21 Range/Units 20:05 06:06 06:06 WBC 10.9 H (3.8-10.6) k/uL RBC 3.09 L (3.80-5.40) m/uL Hgb 9.2 L (11.4-16.0) gm/dL Hct 28.7 L (34.0-46.0) % RDW 16.0 H (11.5-15.5) % Neutrophils # (Manual) 9.80 H (1.3-7.7) k/uL Lymphocytes # (Manual) 0.33 L (1.0-4.8) k/uL Metamyelocytes # (Man) 0.22 H (0) k/uL Myelocytes # (Manual) 0.11 H (0) k/uL Sodium (135-145) mmol/L Carbon Dioxide (21.6-31.8) mmol/L BUN (9.0-27.0) mg/dL Est GFR (CKD-EPI)AfAm (60.0-200.0) Est GFR (CKD-EPI)NonAf (60.0-200.0) BUN/Creatinine Ratio (12.00-20.00) Ratio Glucose (70-110) mg/dL POC Glucose (mg/dL) 151 H (75-99) mg/dL Calcium (8.7-10.3) mg/dL Procalcitonin 9.97 H (0.02-0.09) ng/mL 04/20/21 04/20/21 04/20/21 Range/Units 06:06 07:01 11:31 WBC (3.8-10.6) k/uL RBC (3.80-5.40) m/uL Hgb (11.4-16.0) gm/dL Hct (34.0-46.0) % RDW (11.5-15.5) % Neutrophils # (Manual) (1.3-7.7) k/uL Lymphocytes # (Manual) (1.0-4.8) k/uL Metamyelocytes # (Man) (0) k/uL Myelocytes # (Manual) (0) k/uL Sodium 130 L (135-145) mmol/L Carbon Dioxide 16.9 L (21.6-31.8) mmol/L BUN 65.0 H (9.0-27.0) mg/dL Est GFR (CKD-EPI)AfAm 45.6 L (60.0-200.0) Est GFR (CKD-EPI)NonAf 39.3 L (60.0-200.0) BUN/Creatinine Ratio 46.43 H (12.00-20.00) Ratio Glucose 131 H (70-110) mg/dL POC Glucose (mg/dL) 154 H 124 H (75-99) mg/dL Calcium 7.6 L (8.7-10.3) mg/dL Procalcitonin (0.02-0.09) ng/mL 04/20/21 Range/Units 17:08 WBC (3.8-10.6) k/uL RBC (3.80-5.40) m/uL Hgb (11.4-16.0) gm/dL Hct (34.0-46.0) % RDW (11.5-15.5) % Neutrophils # (Manual) (1.3-7.7) k/uL Lymphocytes # (Manual) (1.0-4.8) k/uL Metamyelocytes # (Man) (0) k/uL Myelocytes # (Manual) (0) k/uL Sodium (135-145) mmol/L Carbon Dioxide (21.6-31.8) mmol/L BUN (9.0-27.0) mg/dL Est GFR (CKD-EPI)AfAm (60.0-200.0) Est GFR (CKD-EPI)NonAf (60.0-200.0) BUN/Creatinine Ratio (12.00-20.00) Ratio Glucose (70-110) mg/dL POC Glucose (mg/dL) 162 H (75-99) mg/dL Calcium (8.7-10.3) mg/dL Procalcitonin (0.02-0.09) ng/mL Assessment and Plan (1) Ascites Narrative/Plan: Status post 3.5 L paracentesis. When necessary paracentesis while inpatient. Patient does have a standing order for weekly paracentesis Current Visit: Yes Status: Acute Priority: High Code(s): R18.8 - OTHER ASCITES SNOMED Code(s): 710225544 (2) Bone metastases Narrative/Plan: Dr. Webber discussed the case with Radiation Oncology. Plan is to treat humerus and femur bone metastases to reduce the risk of fracture, hopefully prevent any possible future pain so that patient can rehabilitate Current Visit: Yes Status: Acute Priority: High Code(s): C79.51 - SECONDARY MALIGNANT NEOPLASM OF BONE SNOMED Code(s): 50208717 (3) History of ovarian cancer Narrative/Plan: Still pending treatment records. Patient will start systemic therapy for ovarian cancer after completing palliative radiation and rehabilitation. F/U appt for [address] Webber is in chart. Current Visit: Yes Status: Acute Priority: High Code(s): Z85.43 - PERSONAL HISTORY OF MALIGNANT NEOPLASM OF OVARY SNOMED Code(s): 411970461
[2021-04-20 19:59] LABS: Glucose,Whole Blood 120 mg/dL (75-99)
[2021-04-20] MEDS: LEVOTHYROXINE 112 MCG TAB PO SCH (21:10)
[2021-04-20] MEDS: GABAPENTIN 300 MG CAP PO SCH (21:10)
[2021-04-20] MEDS: ESCITALOPRAM 20 MG TAB PO SCH (21:10)
[2021-04-20] MEDS: LURASIDONE 20 MG TAB PO SCH (21:11)
[2021-04-20] MEDS: QUEtiapine 50 MG TAB PO SCH (21:19)
[2021-04-21 05:15] VITALS: TEMP 98.9
[2021-04-21] MEDS: SODIUM CHLORIDE 0.9% 1,000 ML IV SCH (05:37)
[2021-04-21 05:52] LABS: Anisocytosis Slight; HCT 26.8 % (34.0-46.0); HGB 8.2 gm/dL (11.4-16.0); Hypochromasia Slight; MCH 28.7 pg (25.0-35.0); MCHC 30.5 g/dL (31.0-37.0); Mean Platelet Volume 8.2; Platelet Count 221 k/uL (150-450); RBC 2.85 m/uL (3.80-5.40); RDW 16.2 % (11.5-15.5); WBC 9.6 k/uL (3.8-10.6)
[2021-04-21 07:11] LABS: Band Neutrophils % 32 %; Lymphocytes # (M) 0.77 k/uL (1.0-4.8); Metamyelocytes # (M) 0.19 k/uL (0); Metamyelocytes % 2 %; Monocytes # (M) 0.19 k/uL (0-1.0); Neutrophils % (M) 58 %; Nucleated Red Blood Cells 0 /100 WBC (0-0); Total Cells Counted 200
[2021-04-21 07:12] LABS: Toxic Granulation Present
[2021-04-21 07:13] LABS: Dohle Bodies Present; Polychromasia Present
[2021-04-21 07:14] LABS: Large Platelets Present
[2021-04-21 07:32] LABS: Glucose,Whole Blood 205 mg/dL (75-99)
[2021-04-21] MEDS: INSULIN ASPART (NovoLOG) 100 UNIT/ML VIAL SQ SCH ×4 (08:51→20:47)
[2021-04-21] MEDS: ENOXAPARIN 30 MG/0.3 ML SYRINGE SQ SCH (08:52)
[2021-04-21] MEDS: PANTOPRAZOLE 40 MG TABLET PO SCH (08:52)
[2021-04-21] MEDS: carvediloL 6.25 MG TAB PO SCH ×2 (08:52→17:35)
[2021-04-21] MEDS: valACYclovir 500 MG TAB PO SCH (08:52)
[2021-04-21 09:41] LABS: African American GFR (CKD) 49.9 (60.0-200.0); Anion Gap 14.9 mmol/L (4.00-12.00); BUN/Creat Ratio 55.38 Ratio (12.00-20.00); Calcium 7.3 mg/dL (8.7-10.3); Carbon Dioxide 13.1 mmol/L (21.6-31.8); Potassium 4.2 mmol/L (3.5-5.5)
[2021-04-21] MEDS: INSULIN DETEMIR (LEVEMIR) 100 UNIT/ML SYR SQ SCH (09:58)
[2021-04-21 12:10] LABS: Glucose,Whole Blood 163 mg/dL (75-99)
--- NOTE | 2021-04-21 14:16 | CT ---
EXAMINATION TYPE: CT brain wo con DATE OF EXAM: 04/21/2021 COMPARISON: none none none none HISTORY: Altered mental status, history of cancer CT DLP: [address] of the brain was performed. The ventricles, basal cisterns and sulci overlying the cerebral convexities demonstrate mild enlargem ent. There is no evidence for intracranial hemorrhage or sulcal effacement. There is decreased attenuation about the periventricular white matter and deep white matter of both c erebral hemispheres, compatible with chronic small vessel ischemia. Differential diagnosis does inclu de demyelination. No mass effects are seen.No midline shift. Osseous calvarium is intact. If symptoms persist consider MRI. IMPRESSION: 1. Age related atrophic and chronic small vessel ischemic change without acute intracranial process s een at this time.
--- NOTE | 2021-04-21 14:38 | P.PN ---
Subjective Progress Note Date: 04/21/21 This is a 65-year-old female known to my office usually sees nurse practitioner Rand Gant TECHNOLOGY AUDITOR, presents the hospital with a known history of ovarian cancer metastatic disease throughout. Patient was diagnosed approximately 4 years ago. Has 2 days patient has been vomiting abdomen distended denies fever chills denies diarrhea but had some movements in his chest pain. Denies shortness of breath. Has significant ascites to the abdomen and has infected paracentesis in the past and it appears like that might be the case this time. Has no other complaints at this time no other symptoms denies headache denies numbness or weakness 04/18/2021 positive abdominal pain .palliative paracentesis pending. INR 1.1, hemoglobin 8.4, platelets 286. Radiation oncology evaluation pending. Diet Intake poor. Renal function worsening, creatinine 1.3 to. Sodium 129. Extremely weak staff reports patient is a 4 person assist. PT evaluation pending. 04/19/2021 yesterday underwent paracentesis with 3.5 L serous fluid drained. Staff reports patient stood at bedside for a brief moment, unable to sustain her own weight became extremely sweaty required assistance to sit down. Evaluated by PT with subacute rehab recommended. Diarrhea 2. Hemoglobin 8.3, platelets 276. Sodium 128, renal function worsening, creatinine up to 1.75. Evaluated by radiation oncology, recommendations pending regarding palliative radiation. Currently denies pain. CODE STATUS discussed with patient, CODE STATUS will be changed to no code, no CPR, no intubation as per patient's request. 04/20/2021 Oncology in the process of obtaining treatment records and notes from prior oncology team at [facility]. Radiation oncology recommendations pending. T-max 100, WBC increased to 10.9. Hemoglobin 92, platelets 235. Maintaining O2 sats in the 90s on room air.Pain currently controlled. Reports poor appetite. BMP pending. Positive bowel movement this morning. Denies lightheadedness, dizziness or focal deficits. Denies chest pain, palpitations or shortness of breath. 05/01/2021 patient more lethargic this morning, opens eyes to name, answers couple questions with one or 2 word answers, 0 diet intake greater than 24 hours.Scheduled for palliative radiation later this afternoon. Afebrile, normal WBC. Maintained on IV fluid hydration,sodium up to 131, BUN worsening up to 72, creatinine 1.3. Chest x-ray reporting right-sided pleural effusion and associated atelectasis versus pneumonia. increased pro-calcitonin, 9.9. Oncology obtaining prior records, recommending rehabilitation with weekly palliative paracentesis at [facility] interventional radiology. Systolic blood pressure in the low 100s, maintaining O2 sats in the high 90s on room air. Objective - Vital Signs Vital signs: Vital Signs Temp 98.9 F 04/21/21 05:00 Pulse 75 04/21/21 05:00 Resp 16 04/21/21 05:00 BP 106/68 04/21/21 05:00 Pulse Ox 97 04/21/21 05:00 Intake & Output 04/20/21 04/21/21 04/21/21 18:59 06:59 18:59 Intake Total 600 Output Total 600 Balance 600 -600 Weight 108 kg Intake: Intake, IV Titration 600 Amount Sodium Chloride 0.9% 1, 600 000 ml @ 50 mls/hr IV . Q20H [facility] Rx#:[id number] Output: Urine 600 Other: Voiding Method Diaper Diaper Diaper Incontinent Incontinent Incontinent External Catheter External Catheter External Catheter # Bowel Movements 1 - Exam General: Lethargic, opens eyes to name, no moaning no restlessness, denies pain ,appears comfortable. HEENT: [PERRL. EOMI. No pharyngeal erythema or exudate. Oral mucosa dry.] Neck: Supple, short neck, unable to assess for JVD Cardiac: [Heart regular in rate and rhythm. No S3. No S4. No clicks, rubs. No murmur.] Lungs: [Clear to auscultation bilaterally. Bilateral bases diminished. Abdomen: [Soft, nontender, distended, positive ascites,Positive bowel sounds Extremes: [Trace edema no cyanosis no claudication normal pulses] Skin: [Warm and dry, No rash.] Neurologic: Limited evaluation, unable to fully evaluate r/t patient's current condition. - Labs CBC & Chem 7: 04/21/21 04:57 04/21/21 04:57 Labs: Abnormal Lab Results - Last 24 Hours (Table) 04/20/21 04/20/21 04/20/21 Range/Units 06:06 06:06 11:31 RBC (3.80-5.40) m/uL Hgb (11.4-16.0) gm/dL Hct (34.0-46.0) % MCHC (31.0-37.0) g/dL RDW (11.5-15.5) % Neutrophils # (Manual) (1.3-7.7) k/uL Lymphocytes # (Manual) (1.0-4.8) k/uL Metamyelocytes # (Man) (0) k/uL Sodium 130 L (135-145) mmol/L Carbon Dioxide 16.9 L (21.6-31.8) mmol/L Anion Gap (4.00-12.00) mmol/L BUN 65.0 H (9.0-27.0) mg/dL Est GFR (CKD-EPI)AfAm 45.6 L (60.0-200.0) Est GFR (CKD-EPI)NonAf 39.3 L (60.0-200.0) BUN/Creatinine Ratio 46.43 H (12.00-20.00) Ratio Glucose 131 H (70-110) mg/dL POC Glucose (mg/dL) 124 H (75-99) mg/dL Calcium 7.6 L (8.7-10.3) mg/dL Procalcitonin 9.97 H (0.02-0.09) ng/mL 04/20/21 04/20/21 04/21/21 Range/Units 17:08 19:58 04:57 RBC 2.85 L (3.80-5.40) m/uL Hgb 8.2 L (11.4-16.0) gm/dL Hct 26.8 L (34.0-46.0) % MCHC 30.5 L (31.0-37.0) g/dL RDW 16.2 H (11.5-15.5) % Neutrophils # (Manual) 8.60 H (1.3-7.7) k/uL Lymphocytes # (Manual) 0.77 L (1.0-4.8) k/uL Metamyelocytes # (Man) 0.19 H (0) k/uL Sodium (135-145) mmol/L Carbon Dioxide (21.6-31.8) mmol/L Anion Gap (4.00-12.00) mmol/L BUN (9.0-27.0) mg/dL Est GFR (CKD-EPI)AfAm (60.0-200.0) Est GFR (CKD-EPI)NonAf (60.0-200.0) BUN/Creatinine Ratio (12.00-20.00) Ratio Glucose (70-110) mg/dL POC Glucose (mg/dL) 162 H 120 H (75-99) mg/dL Calcium (8.7-10.3) mg/dL Procalcitonin (0.02-0.09) ng/mL 04/21/21 04/21/21 Range/Units 04:57 07:30 RBC (3.80-5.40) m/uL Hgb (11.4-16.0) gm/dL Hct (34.0-46.0) % MCHC (31.0-37.0) g/dL RDW (11.5-15.5) % Neutrophils # (Manual) (1.3-7.7) k/uL Lymphocytes # (Manual) (1.0-4.8) k/uL Metamyelocytes # (Man) (0) k/uL Sodium 131 L (135-145) mmol/L Carbon Dioxide 13.1 L (21.6-31.8) mmol/L Anion Gap 14.90 H (4.00-12.00) mmol/L BUN 72.0 H (9.0-27.0) mg/dL Est GFR (CKD-EPI)AfAm 49.9 L (60.0-200.0) Est GFR (CKD-EPI)NonAf 43.0 L (60.0-200.0) BUN/Creatinine Ratio 55.38 H (12.00-20.00) Ratio Glucose 172 H (70-110) mg/dL POC Glucose (mg/dL) 205 H (75-99) mg/dL Calcium 7.3 L (8.7-10.3) mg/dL Procalcitonin (0.02-0.09) ng/mL Assessment and Plan Assessment: Malignant ascites, status post palliative paracentesis. Acute metabolic encephalopathy, multifactorial, including related to the above. Ruling out brain metastasis. Right-sided pleural effusion, atelectasis, possible aspiration pneumonia. Pro- calcitonin 9.97. Ovarian carcinoma Hyponatremia Acute renal failure Poor diet intake Moderate protein calorie malnutrition Anemia secondary to malignancy Diabetes mellitus type 2 Morbid obesity, BMI 43.3 Medically debilitated No code, no CPR, no intubation Plan: Continue on current medication regime ,monitoring and symptomatic treatment. IV fluids increased to 75 MLS an hour.Lactic acid ordered. Empiric Zosyn initiated. Brain CT ordered, ruling out mets. Mother at bedside, Updated on declining condition, including possible change in plans from rehab to hospice pending results of prior testing ordered. Hospice consult initiated. Prognosis guarded given multiple complex medical issues. Further recommendations to follow. The impression and plan of care has been dictated as directed. : I performed a history and examination of this patient, discussed the same with the dictator. I agree with the dictator's note ,documented as a scribe. Any additional findings or plans will be noted.
[2021-04-21] MEDS: PIPERACILLIN-TAZOBACTAM 3.375 GM in SODIUM CHLORIDE 0.9% 100 ML IVPB SCH ×2 (14:42→20:48)
[2021-04-21 17:42] LABS: Glucose,Whole Blood 122 mg/dL (75-99)
[2021-04-21 19:44] VITALS: RESP 22
[2021-04-21] MEDS: ESCITALOPRAM 20 MG TAB PO SCH (20:00)
[2021-04-21] MEDS: GABAPENTIN 300 MG CAP PO SCH (20:01)
[2021-04-21] MEDS: LEVOTHYROXINE 112 MCG TAB PO SCH (20:01)
[2021-04-21] MEDS: LURASIDONE 20 MG TAB PO SCH (20:01)
[2021-04-21] MEDS: QUEtiapine 50 MG TAB PO SCH (20:01)
[2021-04-21 20:45] LABS: Glucose,Whole Blood 89 mg/dL (75-99)
--- NOTE | 2021-04-22 01:24 | P.PN ---
Subjective Progress Note Date: 04/21/21 there has been change in the patient's status today. She has been apparently quite lethargic since the a.m., and difficult to arouse. During my exam she will open her eyes to voice and sternal rub but did not verbalize. No fever or chills noted were nursing. No unusual bleeding or bruising. Abdominal distention appear stable compared to yesterday Objective - Vital Signs Vital signs: Vital Signs Temp 98.9 F 04/21/21 05:00 Pulse 76 04/21/21 20:00 Resp 22 04/21/21 20:00 BP 92/61 04/21/21 12:05 Pulse Ox 97 04/21/21 19:43 Intake & Output 04/21/21 04/21/21 04/22/21 06:59 18:59 06:59 Output Total 600 Balance -600 Weight 108 kg Output: Urine 600 Other: Voiding Method Diaper Diaper Diaper Incontinent Incontinent Incontinent External Catheter External Catheter External Catheter # Voids 2 # Bowel Movements 1 - Constitutional General appearance: Present: no acute distress - EENT Eyes: Present: EOMI ENT: Present: hearing grossly normal, normal oropharynx - Respiratory Respiratory: bilateral: diminished - Cardiovascular Rhythm: regular Heart sounds: normal: S1, S2 - Gastrointestinal Gastrointestinal Comment(s): free fluid positive on exam. Abdominal distention approximately stable compared to yesterday General gastrointestinal: Present: decreased bowel sounds, distended Localized gastrointestinal: tender: diffuse - Integumentary Integumentary: Present: normal - Neurologic Neurologic: Present: CNII-XII intact - Musculoskeletal Musculoskeletal: Present: generalized weakness - Psychiatric Psychiatric Comment(s): mental status as noted above - Labs CBC & Chem 7: 04/21/21 04:57 04/21/21 04:57 Labs: Abnormal Lab Results - Last 24 Hours (Table) 04/21/21 04/21/21 04/21/21 Range/Units 04:57 04:57 04:57 RBC 2.85 L (3.80-5.40) m/uL Hgb 8.2 L (11.4-16.0) gm/dL Hct 26.8 L (34.0-46.0) % MCHC 30.5 L (31.0-37.0) g/dL RDW 16.2 H (11.5-15.5) % Neutrophils # (Manual) 8.60 H (1.3-7.7) k/uL Lymphocytes # (Manual) 0.77 L (1.0-4.8) k/uL Metamyelocytes # (Man) 0.19 H (0) k/uL Sodium 131 L (135-145) mmol/L Carbon Dioxide 13.1 L (21.6-31.8) mmol/L Anion Gap 14.90 H (4.00-12.00) mmol/L BUN 72.0 H (9.0-27.0) mg/dL Est GFR (CKD-EPI)AfAm 49.9 L (60.0-200.0) Est GFR (CKD-EPI)NonAf 43.0 L (60.0-200.0) BUN/Creatinine Ratio 55.38 H (12.00-20.00) Ratio Glucose 172 H (70-110) mg/dL POC Glucose (mg/dL) (75-99) mg/dL Calcium 7.3 L (8.7-10.3) mg/dL Albumin 1.9 L (3.5-5.0) g/dL 04/21/21 04/21/21 04/21/21 Range/Units 07:30 12:08 17:24 RBC (3.80-5.40) m/uL Hgb (11.4-16.0) gm/dL Hct (34.0-46.0) % MCHC (31.0-37.0) g/dL RDW (11.5-15.5) % Neutrophils # (Manual) (1.3-7.7) k/uL Lymphocytes # (Manual) (1.0-4.8) k/uL Metamyelocytes # (Man) (0) k/uL Sodium (135-145) mmol/L Carbon Dioxide (21.6-31.8) mmol/L Anion Gap (4.00-12.00) mmol/L BUN (9.0-27.0) mg/dL Est GFR (CKD-EPI)AfAm (60.0-200.0) Est GFR (CKD-EPI)NonAf (60.0-200.0) BUN/Creatinine Ratio (12.00-20.00) Ratio Glucose (70-110) mg/dL POC Glucose (mg/dL) 205 H 163 H 122 H (75-99) mg/dL Calcium (8.7-10.3) mg/dL Albumin (3.5-5.0) g/dL Assessment and Plan (1) Ascites Narrative/Plan: the patient had a 3.5 L paracentesis yesterday. Abdomen remains distended with free fluid positive, but overall stable compared to yesterday. Plan is to continue paracentesis when necessary Current Visit: Yes Status: Acute Priority: High Code(s): R18.8 - OTHER ASCITES SNOMED Code(s): 307253263 (2) Ovarian carcinoma Narrative/Plan: additional records, including physician notes and treatment summary are still in the process of being obtained. However office informed me that the biomarker testing results have been faxed over what have not yet had time to review those. - Treatment regimen from my standpoint would depend on review of the above. If the patient is a candidate for a targeted agent, we'll try to obtain the same for her. If not, she has several chemotherapy options available to if she has not received this regimen before, carboplatin and Doxil would be a reasonable regimen. However additional systemic therapy can occur only if the patient's acute condition results sufficiently - It had been discussed with her family in detail and 04/20/21 that the patient is quite debilitated, and initiation of systemic therapy (even though many options available) may become quite difficult if her performance status does not improve or deteriorates further Current Visit: No Status: Acute Priority: High Code(s): C56.9 - MALIGNANT NEOPLASM OF UNSPECIFIED OVARY SNOMED Code(s): 668617130 (3) Bone metastases Narrative/Plan: case was again discussed today with radiation oncology unit we will plan on bringing the patient to the radiation department for simulation and provide a single treatment concentrated dose to the areas of concern in the left humerus and left upper femur. Patient will also require IV Denosumab or bisphosphonate as part of her regimen Current Visit: Yes Status: Acute Priority: High Code(s): C79.51 - SECONDARY MALIGNANT NEOPLASM OF BONE SNOMED Code(s): 52522656 Plan: altered mental statusat this time the etiology is not clear. There has been no major changes in her medications. Her labs do show significant increase in the urine and BUN/creatinine ratio. Bicarbonate is also significantly diminished, while pro calcitonin is elevated. Based on the above infection is a poss ibility. Patient has been started on Zosyn. Infection workup will be ordered
[2021-04-22] MEDS: SODIUM CHLORIDE 0.9% 1,000 ML IV SCH (01:37)
[2021-04-22 04:05] VITALS: BP 90/72; PULSE 71
[2021-04-22] MEDS: PIPERACILLIN-TAZOBACTAM 3.375 GM in SODIUM CHLORIDE 0.9% 100 ML IVPB SCH (04:54)
[2021-04-22 07:19] LABS: Glucose,Whole Blood 74 mg/dL (75-99)
[2021-04-22 07:42] LABS: ALT 15 U/L (4-34); AST 47 U/L (14-36); African American GFR (CKD) 55 (>60 ml/min/1.73 sqM); Albumin 2.2 g/dL (3.5-5.0); Albumin/Globulin Ratio 0.8; Alkaline Phosphatase 131 U/L (38-126); Anion Gap 13 mmol/L; Blood Urea Nitrogen 84 mg/dL (7-17); Calcium 8.4 mg/dL (8.4-10.2); Carbon Dioxide 14 mmol/L (22-30); Chloride 110 mmol/L (98-107); Globulin 2.7 g/dL; Glucose 67 mg/dL (74-99); Non-African American GFR(CKD) 47 (>60 ml/min/1.73 sqM); Potassium 4.3 mmol/L (3.5-5.1); Sodium 137 mmol/L (137-145); Total Bilirubin 1.4 mg/dL (0.2-1.3); Total Protein 4.9 g/dL (6.3-8.2)
[2021-04-22] MEDS: INSULIN ASPART (NovoLOG) 100 UNIT/ML VIAL SQ SCH (08:08)
[2021-04-22] MEDS: INSULIN DETEMIR (LEVEMIR) 100 UNIT/ML SYR SQ SCH (08:08)
[2021-04-22] MEDS: PANTOPRAZOLE 40 MG TABLET PO SCH (08:08)
[2021-04-22] MEDS: carvediloL 6.25 MG TAB PO SCH (08:08)
[2021-04-22] MEDS: valACYclovir 500 MG TAB PO SCH (08:09)
[2021-04-22 08:11] VITALS: BMI 42.1
[2021-04-22] MEDS: HYDROmorphone 0.5 MG/0.5 ML SYRINGE IVP PRN (08:22)
[2021-04-22] MEDS ORDERED: ENOXAPARIN 40 MG/0.4 ML SYRINGE SQ SCH (09:00)
[2021-04-22] MEDS: MORPHINE SULFATE 4 MG/ML SYRINGE IVP PRN ×2 (10:22→12:24)
--- NOTE | 2021-04-22 12:02 | P.PN ---
Subjective Progress Note Date: 04/22/21 Principal diagnosis: Abdominal distention, discomfort, history of ovarian cancer with metastasis This is a 65-year-old female known to my office usually sees nurse practitioner Rand Gant [employer], presents the hospital with a known history of ovarian cancer metastatic disease throughout. Patient was diagnosed approximately 4 years ago. Has 2 days patient has been vomiting abdomen distended denies fever chills denies diarrhea but had some movements in his chest pain. Denies shortness of breath. Has significant ascites to the abdomen and has infected paracentesis in the past and it appears like that might be the case this time. Has no other complaints at this time no other symptoms denies headache denies numbness or weakness 04/22/2021 patient laying in bed with brother at bedside. Patient is obtunded and unresponsive to verbal and painful stimuli at this time. Respirations appear labored and per nursing has progressively worsened through the day. She's had no dietary intake greater than 48 hours. Plans for hospice [facility], , but has not been evaluated by them at this time. Latest send us vitals blood pressure 90/72, maintaining oxygen saturations of 95% on room air, pulse rate is 71 and respiratory rate 24. Most recent set of labs potassium 4.3, chloride 110, creatinine 14, BUN rising to 84, creatinine 1.21, glucose of 74, AST of 47, ALT of 15. Discussing comfort care at this time with family. Objective - Vital Signs Vital signs: Vital Signs Temp 98.9 F 04/21/21 05:00 Pulse 71 04/22/21 04:04 Resp 22 04/22/21 04:04 BP 90/72 04/22/21 04:04 Pulse Ox 95 04/22/21 04:04 Intake & Output 04/21/21 04/22/21 04/22/21 18:59 06:59 18:59 Weight 108 kg Other: Voiding Method Diaper Diaper Diaper Incontinent Incontinent Incontinent External Catheter External Catheter # Voids 2 - Exam GENERAL: Obtunded, no response to physical or verbal stimuli. HEAD: Atraumatic, normocephalic. EYES: Pupils equal round and reactive to light, extraocular movements intact, sclera anicteric, conjunctiva are normal. ENT:nares patent, oropharynx clear without exudates. Mucous membranes dry. NECK: Supple without lymphadenopathy, no thyromegaly LUNGS: Breath sounds with scattered rhonchi, bases diminished. HEART: Regular rate and rhythm without murmurs, rubs or gallops.S1S2 Normal ABDOMEN: Soft, nontender, active bowel sounds. Distended abdomen. EXTREMITIES: Normal range of motion, no pitting or edema. No clubbing or cyanosis. NEUROLOGICAL: Obtunded, unable to assess. PSYCH: Unable to assess due to patient's current status. SKIN: Warm, Dry, normal turgor, no rashes or lesions noted. - Labs CBC & Chem 7: 04/21/21 04:57 04/22/21 06:41 Labs: Abnormal Lab Results - Last 24 Hours (Table) 04/21/21 04/21/21 04/21/21 Range/Units 04:57 12:08 17:24 Chloride (98-107) mmol/L Carbon Dioxide (22-30) mmol/L BUN (7-17) mg/dL Creatinine (0.52-1.04) mg/dL Glucose (74-99) mg/dL POC Glucose (mg/dL) 163 H 122 H (75-99) mg/dL Total Bilirubin (0.2-1.3) mg/dL AST (14-36) U/L Alkaline Phosphatase (38-126) U/L Total Protein (6.3-8.2) g/dL Albumin 1.9 L (3.5-5.0) g/dL 04/22/21 04/22/21 Range/Units 06:41 07:18 Chloride 110 H (98-107) mmol/L Carbon Dioxide 14 L (22-30) mmol/L BUN 84 H (7-17) mg/dL Creatinine 1.21 H (0.52-1.04) mg/dL Glucose 67 L (74-99) mg/dL POC Glucose (mg/dL) 74 L (75-99) mg/dL Total Bilirubin 1.4 H (0.2-1.3) mg/dL AST 47 H (14-36) U/L Alkaline Phosphatase 131 H (38-126) U/L Total Protein 4.9 L (6.3-8.2) g/dL Albumin 2.2 L (3.5-5.0) g/dL Assessment and Plan (1) Acute metabolic encephalopathy Current Visit: Yes Status: Acute Code(s): G93.41 - METABOLIC ENCEPHALOPATHY SNOMED Code(s): 05324609 (2) Pleural effusion Current Visit: Yes Status: Acute Code(s): J90 - PLEURAL EFFUSION, NOT ELSEWHERE CLASSIFIED SNOMED Code(s): 06064349 (3) Acute renal failure Current Visit: Yes Status: Acute Code(s): N17.9 - ACUTE KIDNEY FAILURE, UNSPECIFIED SNOMED Code(s): 17558261 (4) Poor fluid intake Current Visit: Yes Status: Acute Code(s): R63.8 - OTHER SYMPTOMS AND SIGNS CONCERNING FOOD AND FLUID INTAKE SNOMED Code(s): 932998175 (5) Anemia Current Visit: Yes Status: Acute Code(s): D64.9 - ANEMIA, UNSPECIFIED SNOMED Code(s): 525246011 (6) Ascites Current Visit: Yes Status: Acute Priority: High Code(s): R18.8 - OTHER ASCITES SNOMED Code(s): 470416676 (7) Bone metastases Current Visit: Yes Status: Acute Priority: High Code(s): C79.51 - SECONDARY MALIGNANT NEOPLASM OF BONE SNOMED Code(s): 49502716 (8) History of ovarian cancer Current Visit: Yes Status: Acute Priority: High Code(s): Z85.43 - PERSONAL HISTORY OF MALIGNANT NEOPLASM OF OVARY SNOMED Code(s): 752238422 (9) Abdominal distension Current Visit: No Status: Acute Code(s): R14.0 - ABDOMINAL DISTENSION (GASEOUS) SNOMED Code(s): 12257759 (10) Diabetes mellitus type 2 in obese Current Visit: No Status: Acute Code(s): E11.69 - TYPE 2 DIABETES MELLITUS WITH OTHER SPECIFIED COMPLICATION; E66.9 - OBESITY, UNSPECIFIED SNOMED Code(s): 85999898 (11) Malignant ascites Current Visit: No Status: Acute Priority: High Code(s): R18.0 - MALIGNANT ASCITES SNOMED Code(s): 527035273 (12) Ovarian carcinoma Current Visit: No Status: Acute Priority: High Code(s): C56.9 - MALIGNANT NEOPLASM OF UNSPECIFIED OVARY SNOMED Code(s): 085301783 (13) Primary cancer of ovary with widespread metastatic disease Current Visit: No Status: Acute Code(s): C56.9 - MALIGNANT NEOPLASM OF UNSPECIFIED OVARY; C80.0 - DISSEMINATED MALIGNANT NEOPLASM, UNSPECIFIED SNOMED Code(s): 231650791 Plan: Continue current medication regimen at this time Wait for evaluation for [facility] to be completed and will discharged at that time. Maintaining comfort the patient, morphine IV push 5 mg every hour as needed for pain We'll continue to follow closely and reevaluate Time with Patient: Greater than 30
== END 2021-04-22 13:40 | disposition hospice, inpatient (51) | DRG 754 ==
LOC: EC 10:08 → 5NMEDONC 12:19
PROVIDERS: ADMIT Family Medicine; ATTEND Family Medicine
PROC: 0W9G3ZZ Drainage of Peritoneal Cavity, Percutaneous Approach (ICD-10-PCS; principal; 2021-04-19)
DX: C56.9 Malignant neoplasm of unspecified ovary (principal); G93.41 Metabolic encephalopathy; R18.0 Malignant ascites; E44.0 Moderate protein-calorie malnutrition; N17.9 Acute kidney failure, unspecified; C79.51 Secondary malignant neoplasm of bone; C79.82 Secondary malignant neoplasm of genital organs; M84.522A Pathological fracture in neoplastic disease, left humerus, initial encounter for fracture; E87.1 Hypo-osmolality and hyponatremia; C78.6 Secondary malignant neoplasm of retroperitoneum and peritoneum; C78.7 Secondary malignant neoplasm of liver and intrahepatic bile duct; I50.32 Chronic diastolic (congestive) heart failure; Z68.41 Body mass index [BMI] 40.0-44.9, adult; J98.11 Atelectasis; I11.0 Hypertensive heart disease with heart failure; Z79.4 Long term (current) use of insulin; E11.39 Type 2 diabetes mellitus with other diabetic ophthalmic complication; E66.01 Morbid (severe) obesity due to excess calories; F31.9 Bipolar disorder, unspecified; Z51.5 Encounter for palliative care; Z66 Do not resuscitate; E03.9 Hypothyroidism, unspecified; D63.0 Anemia in neoplastic disease; E78.5 Hyperlipidemia, unspecified; K21.9 Gastro-esophageal reflux disease without esophagitis; R32 Unspecified urinary incontinence; H40.9 Unspecified glaucoma; H42 Glaucoma in diseases classified elsewhere; Z79.890 Hormone replacement therapy; Z79.899 Other long term (current) drug therapy; Z60.2 Problems related to living alone; Z86.19 Personal history of other infectious and parasitic diseases; Z96.41 Presence of insulin pump (external) (internal); Z87.440 Personal history of urinary (tract) infections; Z87.19 Personal history of other diseases of the digestive system; Z90.49 Acquired absence of other specified parts of digestive tract; Z98.84 Bariatric surgery status; Z98.41 Cataract extraction status, right eye; Z98.42 Cataract extraction status, left eye; Z96.1 Presence of intraocular lens; Z87.2 Personal history of diseases of the skin and subcutaneous tissue; Z98.890 Other specified postprocedural states; Z88.7 Allergy status to serum and vaccine; Z71.3 Dietary counseling and surveillance; Z88.8 Allergy status to other drugs, medicaments and biological substances; Z83.3 Family history of diabetes mellitus; Z80.42 Family history of malignant neoplasm of prostate; Z80.0 Family history of malignant neoplasm of digestive organs; Z83.2 Family history of diseases of the blood and blood-forming organs and certain disorders involving the immune mechanism; Z82.49 Family history of ischemic heart disease and other diseases of the circulatory system
CPT/HCPCS: 36415; 49083; 70450; 71045; 74177; 77290; 77295; 77300; 77334; 77412; 80048; 80053; 81001; 82040; 82150; 83605; 83690; 84145; 85025; 85027; 85610; 96361; 96374; 96375; 99285

== ENCOUNTER 2021-04-22 13:48 | Inpatient (IN) | payer MEDICAID ==
[2021-04-22] MEDS ORDERED: MORPHINE SULFATE 4 MG/ML SYRINGE IVP PRN (14:03)
[2021-04-22] MEDS ORDERED: LORazepam 2 MG/ML INJ IV PRN (14:04)
[2021-04-22] MEDS ORDERED: ACETAMINOPHEN SUPPOSITORY 650 MG SUPP RECTAL PRN (14:06)
[2021-04-22] MEDS ORDERED: bisacodyL 10 MG SUPP RECTAL PRN (14:06)
[2021-04-22] MEDS ORDERED: ONDANSETRON 4 MG/2 ML VIAL IVP PRN (14:07)
[2021-04-22] MEDS ORDERED: SCOPOLAMINE 1.5MG/72HR PATCH TRANSDERM SCH (14:30)
== END 2021-04-22 18:35 | disposition expired | DRG 951 ==
LOC: 5NMEDONC 13:52
PROVIDERS: ADMIT Family Medicine; ATTEND Family Medicine
DX: Z51.5 Encounter for palliative care (principal); R18.0 Malignant ascites; C79.9 Secondary malignant neoplasm of unspecified site; I50.32 Chronic diastolic (congestive) heart failure; I11.0 Hypertensive heart disease with heart failure; K29.70 Gastritis, unspecified, without bleeding; E11.9 Type 2 diabetes mellitus without complications; E78.5 Hyperlipidemia, unspecified; K57.90 Diverticulosis of intestine, part unspecified, without perforation or abscess without bleeding; K21.9 Gastro-esophageal reflux disease without esophagitis; Z85.43 Personal history of malignant neoplasm of ovary; Z88.7 Allergy status to serum and vaccine; Z87.440 Personal history of urinary (tract) infections; Z90.49 Acquired absence of other specified parts of digestive tract; Z79.899 Other long term (current) drug therapy; Z79.4 Long term (current) use of insulin; Z98.42 Cataract extraction status, left eye; Z98.41 Cataract extraction status, right eye; Z96.1 Presence of intraocular lens